=== PATIENT | female | born 1985 | race Caucasian/White ===

== ENCOUNTER 2017-01-03 23:28 | Emergency (ER) | payer SELFPAY ==
[~2017-01-03] VITALS: Ht 162.6 cm; Wt 85.3 kg
[2017-01-03] MEDS ORDERED: LEVOTHYROXINE0.1 MG PO (23:48)
[2017-01-04 00:18] LABS: URINE BILIRUBIN - DIPSTICK NEGATIVE (NEG); URINE BLOOD 2+ (NEG)
--- NOTE | 2017-01-04 00:22 | Emergency Room Report ---
History of Present Illness Time Seen by 232Ameena Presenting Problem in Triage Pt arrived:Walked Presenting Problem:PT STATES SHE STARTED A WEEK AGO HAVING A HARD TO VOIDING, DENIES ANY BURNING WITH URINATION, FEELS PRESSURE. STATES SHE HAS TROUBLE WITH LEFT KIDNEY. 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 N Clinical Suspician of Infection? N Mental Status: 1 - Regular (Normal Baseline) Sepsis Risk:Low Sepsis Risk Have you (or family members/close friends) recently traveled outside the [place]? N If Yes, where/when: Have you had exposure to infectious disease within the past month? N TB? Other? Specify: Source patient, RN notes reviewed, family, old records Exam Limitations no limitations Comment flank pain and pain with urination with no gross hematuria and no vag d/c - no trauma or fever and no rash Cardiac Chest Pain Chest pain indicative of cardiac No Timing/Duration this evening Severity moderate ALLERGIES Coded Allergies: codeine (01/03/17) metoclopramide (From REGLAN) (01/03/17) morphine (01/03/17) Home Medications Reported Medications LEVOTHYROXINE SOD (Synthroid) 0.1 MG PO DAILY History Medical History General CAD? No Angina: No [place]: No Hypertension? No Hyperlipidemia? No CHF? No DVT? No PE? No COPD? No Asthma? No Anemia? Yes GERD? No Gastric ulcers? No GI Bleed? No Hernia? No Thyroid Problems? Yes Hypothyroidism? Yes CVA? No Seizures? Yes Diabetes? No Renal Insuffiency? Yes End Stage Renal Disease? No UTI? No Stones? Yes BPH? No GB Disease: No Nephritic Syndrome? No Asplenia? No Hepatitis? No Sickle Cell Disease? No Arthritis? No Migraines? No Cataracts? No Glaucoma? No MRSA? No HIV? No TB? No Anxiety? Yes Depression? Yes Cancer? 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 Respiratory denies cough, denies shortness of breath, denies wheezing Cardiovascular denies chest pain, denies palpitations, denies syncope Gastrointestinal see HPI, abdominal pain, nausea, denies vomiting Genitourinary see HPI, dysuria. denies: discharge, abnormal vaginal bleeding, frequency, hesitancy, hematuria. Musculoskeletal denies back pain, denies joint pain, denies joint swelling, denies neck pain Skin denies rash Psychiatric/Neurological denies headache, denies seizure Physical Exam Vital Signs Vital Signs Date Time Temp Pulse Resp B/P Pulse O2 O2 Flow FiO2 Ox Delivery Rate 01/04 0102 71 20 115/73 98 01/03 2335 98.1 73 20 112/83 98 - WBC >12,000 or <4,000 or 10% bands? 2 or more SIRS Criteria Met? B/P:115/73 MAP:92 Creatinine >2.0? UA output<0.5ml/kg/hr for 2 hrs? Platelet count >100,000? Lactate >2.0mmol/1? INR >1.2 or PTT > than 60 sec? Evidence of Organ Dysfunction? Provider documented clinical suspician of infection? N Sepsis Criteria Count: 1 Sepsis Risk: Low Sepsis Risk General Appearance no apparent distress Eye Exam - bilateral eye PERRL, bilateral eye EOMI Ear, Nose, Throat normal ENT inspection Neck supple Respiratory Status No: respiratory distress. 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 No Results/Orders Laboratory Tests 01/04/17 0005: Sodium 138, Potassium 3.8, Chloride 104, Carbon Dioxide 28, BUN 11, Creatinine 0.6, Estimated Creat Clear 181, Estimated GFR (MDRD) 116, Glucose 127 H, Calcium 9.7, Total Bilirubin 0.3, AST 55 H, ALT 85 H, Alkaline Phosphatase 104 , Total Protein 7.6, Albumin 3.8, Globulin 3.8 H, Albumin/Globulin Ratio 1.0 L , Lipase 132, WBC 5.2, RBC 4.30, Hgb 12.8, Hct 38.5, MCV 89.6, RDW 12.8, Plt Count 193, MPV 7.1 L, Gran % 49.8, Gran # 2.6, Lymphocytes % 39.8, Monocytes % 5.2, Eosinophils % 4.9, Basophils % 0.3, Lymphocytes # 2.1, Monocytes # 0.3, Eosinophils # 0.3, Basophils # 0.0, PUBS MCHC 33.2, MCH 29.8 01/03/170: Urine Color YELLOW, Urine Appearance CLEAR, Urine pH 6.0, Ur Specific Catarina 1.025, Urine Protein NEGATIVE, Urine Ketones NEGATIVE, Urine Blood 2+ H, Urine Nitrate NEGATIVE, Urine Bilirubin NEGATIVE, Urine Urobilinogen 0.2, Ur Leukocyte Esterase NEGATIVE, Urine RBC 10-20, Urine WBC OCC, Ur Squamous Epith Cells 3-5, Urine Bacteria 1+, Urine Glucose NEGATIVE Current Medication Orders Sig/Alvino Start time Last Medication Dose Route Stop Time Status Admin Ketorolac 30 MG ONCE ONE 01/04 115 DC Tromethamine IV 01/05 116 Levofloxacin 500 MG ONCE ONE 01/04 115 DC PO 01/05 116 Ondansetron HCl 4 MG ONCE ONE 01/04 115 DC IV 01/05 116 Phenazopyridine HCl 200 MG ONCE ONE 01/04 115 DC PO 01/05 116 Sodium Chloride 10 ML PRN PRN 01/03 2345 AC IV 01/04 2345 Orders Procedure Date/time Status DIET-NOTHING BY MOUTH 01/04 B Active CULTURE, URINE 01/[address] ABD & PELVIS W/O CONTRAST 01/[address] SCAN REQ 01/03 2345 Complete IV SALINE LOCK 01/03 2345 Active URINALYSIS/COMPLETE 01/03 2345 Complete URINE 01/03 2345 Complete LIPASE 01/03 2345 Complete COMPLETE METABOLIC PANEL 01/03 2345 Complete CBC WITH AUTO DIFF 01/03 2345 Complete XRAY/CT/US XRAY/CT/US CT abdomen, pelvis CT interpretation by discussed w/radiologist Time results known: 0112 CT Results normal/NAD Departure Departure Time of Disposition 111 Disposition DC Home or Self Care(routine) Clinical Impression Primary Impression: Flank pain, acute Secondary Impressions: Urethritis Condition STABLE Patient Instructions DI for Flank Pain Additional Instructions use meds and see pcp for follow up Discharge Counseling Counseled pt/family regarding diagnosis, test results, medications/RX, follow up needs Prescriptions Current Visit Scripts Ciprofloxacin HCl (Cipro 500MG TAB) 500 MG PO BID #14 TAB Phenazopyridine HCl (Pyridium) 200 MG PO TID #10 TAB ED Critical Care Critical Care No at 0117
[2017-01-04 00:24] LABS: HEMOGLOBIN 12.8 g/dL (12.2-16.2); LYMPH # 2.1 K/mm3 (0.7-4.5); LYMPH % 39.8 % (10-50.0)
[2017-01-04] MEDS ORDERED: PYRIDIUM200 M2 PO (01:17)
[2017-01-04] MEDS ORDERED: CIPRO 500MG TA500 MG PO (01:17)
[2017-01-04 01:37] VITALS: BP 138/72
--- NOTE | 2017-01-04 09:57 | RADIOLOGY REPORT PS360 ---
CT ABD PELVIS W/O CONTRAST CLINICAL INDICATION: Left flank pain FLANK PAIN ORDERING PHYSICIAN: Laurita Arevalo MD PATIENT AGE: 31 years COMPARISON: None TECHNIQUE: Axial images obtained with sagittal and coronal reformats. PROCEDURE: Oral Contrast: None IV Contrast: None . FINDINGS: Lower chest has an unremarkable appearance. There is diffuse hepatic steatosis with some scattered hyperdensities around the gallbladder fossa region and may be related to ovarian of fatty liver. There is mild hepatomegaly. Splenomegaly at 15 cm. No radio opaque gallstones or biliary dilatation. The pancreas and adrenal glands are unremarkable. No renal calculi or hydronephrosis. No intestinal obstruction or free air. No evidence of diverticulitis or appendicitis. No pelvic mass or abnormal fluid collection There are postsurgical changes of the intra-abdominal wall with prior ventral abdominal hernia repair. No acute bony anomalies. IMPRESSION: 1. No acute intra-abdominal or pelvic pathology. 2. Mild hepatosplenomegaly with hepatic steatosis.
--- OUTSIDE RECORDS SUMMARY | 2017-01-08 04:01 | External Medical Summary Rpt | CCD ---
Author Author [employer] Organization [employer] Address Unknown Phone Unavailable Purpose Continuity of Care Document - through 2016
--- OUTSIDE RECORDS SUMMARY | 2017-01-08 04:01 | External Medical Summary Rpt | CCD ---
Demographics Preferred Language Slovenian Marital Status Unknown Quaker Affiliation Unknown Race Unknown Ethnic Group Unknown Author Author , JONATAN CHEUNG Address Unknown Phone Immunization No patient found.
--- OUTSIDE RECORDS SUMMARY | 2017-01-08 04:01 | External Medical Summary Rpt | CCD ---
Author Author JONATAN Address Unknown Phone [email or web address] Purpose Continuity of Care Document - 04-15-2013 through 2016
--- OUTSIDE RECORDS SUMMARY | 2017-01-08 04:01 | External Medical Summary Rpt | CCD ---
Demographics Preferred Language Upper Sorbian Marital Status Unknown Jewish Affiliation Unknown Race Unknown Ethnic Group Unknown Author Author , JONATAN CHEUNG Address Unknown Phone Immunization No patient found.
--- OUTSIDE RECORDS SUMMARY | 2017-01-08 04:01 | External Medical Summary Rpt | CCD ---
Author Author JONATAN Address Unknown Phone Purpose Continuity of Care Document - 04-15-2013 through 2016
--- OUTSIDE RECORDS SUMMARY | 2017-01-08 04:08 | External Medical Summary Rpt ---
Author Author JONATAN Wylie, [employer] Organization [employer] Address Unknown Phone Unavailable Results HGB\T\HCT Observa Value Referen Units Interpr Notes Date tion ce etation Range Hemoglo 9.6 10.0 - gm/dl Low No Jun 7 bin 16.0 informa 2017 [Mass/v tion in 3:45 AM olume] source in data Blood Hematoc 28.3 29.9 - % Low No Jul 02 rit 45.5 informa 2017 [Volume tion in 3:45 AM source Fractio data n] of Blood by Automat ed count GLUCOSE(REAGENT STRIP) Observa Value Referen Units Interpr Notes Date tion ce etation Range Glucose 90 70 - MG/DL No RN Jun 6 110 informa Notifie 2016 [Mass/v tion in d 1:51 AM olume] source in data Blood PH CORD BLOOD Observa Value Referen Units Interpr Notes Date tion ce etation Range pH of 7.247 7.170 - No No No Jul 01 Cord 7.410 informa informa informa 2017 blood tion in tion in tion in 12:56 source source source AM data data data URINALYSIS COMPLETE Observa Value Referen Units Interpr Notes Date tion ce etation Range Color YELLOW No No No No Jun 30 of informa informa informa informa 2017 Urine tion in tion in tion in tion in 7:20 PM source source source source data data data data Clarity CLOUDY No No No No Jun 30 of informa informa informa informa 2017 Urine tion in tion in tion in tion in 7:20 PM source source source source data data data data Glucose NEGATIV NEGATIV MG/DL No No Jun 30 E E informa informa 2017 [Presen tion in tion in 7:20 PM ce] in source source Urine data data by Automat ed test strip Bilirub NEGATIV NEGATIV No No No Jun 5 in E E informa informa informa 2017 [Presen tion in tion in tion in 7:20 PM ce] in source source source Urine data data data by Automat ed test strip Ketones NEGATIV NEGATIV MG/DL No No Apr 5 E E informa informa 2016 [Presen tion in tion in 7:20 PM ce] in source source Urine data data by Automat ed test strip Specifi 1.019 1.006 - No No No Apr 5 c 1.035 informa informa informa 2017 gravity tion in tion in tion in 7:20 PM of source source source Urine data data data by Automat ed test strip Erythro NEGATIV NEGATIV No No No Apr cytes E E informa informa informa 2016 [Presen tion in tion in tion in 7:20 PM ce] in source source source Urine data data data by Automat ed pH of 6.5 5.0 - No No No Apr 5 Urine 9.0 informa informa informa 2017 by tion in tion in tion in 7:20 PM Automat source source source ed test data data data strip Protein NEGATIV NEGATIV MG/DL No No Apr 5 E E informa informa 2016 [Presen tion in tion in 7:20 PM ce] in source source Urine data data by Automat ed test strip UROBILI 1.0 0.2 - E.U./DL No No Apr 5 NOGEN 1.0 informa informa 2016 tion in tion in 7:20 PM source source data data Nitrate NEGATIV NEGATIV No No No Apr 5 E E informa informa informa 2016 [Presen tion in tion in tion in 7:20 PM ce] in source source source Urine data data data Leukocy SMALL NEGATIV No Abnorma No Apr 5 benjamin E informa l informa 2016 [Presen tion in tion in 7:20 PM ce] in source source Urine data data by Automat ed Erythro 2 0 - 4 /HPF No No Apr 5 cytes informa informa 2016 [#/area tion in tion in 7:20 PM ] in source source Urine data data sedimen t by Microsc opy high power field WBC 4 0 - 5 /HPF No No Apr 5 COUNT informa informa 2016 tion in tion in 7:20 PM source source data data Epithel 4 0 - 6 /HPF No No Apr ial informa informa 2017 cells tion in tion in 7:20 PM [Presen source source ce] in data data Urine sedimen t by Light microsc opy Bacteri TRACE NEGATIV /HPF Abnorma BACTERI Jun 30 a E l A 2017 [#/area INTERPR 7:20 PM ] in ETATION Urine :NEGATI sedimen VE t by <=599/u Microsc lTRACE opy high >=600, power <=1199/ field ul1+ >=1200, <=2399/ ul2+ >=2400, <=3599/ ul3+ >=3600, <=4799/ ul4+ >=4800/ ul Hyaline 2 0 - 4 /LPF No No Jun 30 casts informa informa 2017 [#/area tion in tion in 7:20 PM ] in source source Urine data data sedimen t by Microsc opy high power field UR IN HOUSE DRUG SCREEN Observa Value Referen Units Interpr Notes Date tion ce etation Range N/A Ampheta NEG NEGATIV ug/ML No AMPHETA Apr mines E informa MINE 2016 [Presen tion in CUT OFF 7:20 PM ce] in source Urine data CONCENT by RATION Screen - 300 method >1000 ng/mL Barbitu NEG NEGATIV ug/ML No BARBITU Apr 5 rates E informa ATE CUT 2016 [Presen tion in OFF 7:20 PM ce] in source CONCENT Urine data RATION by - 200 Screen method Benzodi NEG NEGATIV ug/ML No BENZODI Apr 5 azepine E informa AZEPINE 2017 s tion in CUT 7:20 PM [Presen source OFF ce] in data CONCENT Urine RATION by - 200 Screen method Cocaine NEG NEGATIV ug/ML No COCAINE Jun 30 E informa CUT 2016 [Presen tion in OFF 7:20 PM ce] in source CONCENT Urine data RATION by - 300 Screen method Opiates NEG NEGATIV ug/ML No OPIATE Apr E informa CUT OFF 2016 [Presen tion in 7:20 PM ce] in source CONCENT Urine data RATION by - 300 Screen method Cannabi NEG NEGATIV NG/ML No THC CUT Apr 5 noids E informa OFF 2016 [Presen tion in CONCENT 7:20 PM ce] in source RATION Urine data - 50 by Screen method Methado NEG NEGATIV ug/ML No METHADO Jun 30 ne E informa NE CUT 2016 [Presen tion in OFF 7:20 PM ce] in source CONCENT Urine data RATION by - Screen 300THES method E RESULTS PROVIDE ONLY A PRELIMI NARY TEST RESULT. THEREIS A POSSIBI LITY THAT OVER THE COUNTER DRUGS MAY INTERFE REWITH THE TEST. CONFORM ITORY TEST CAN BE ORDERED [facility] CONSIDE RATION ANDPROF ESSIONA L JUDGEME NT SHOULD BE APPLIED TO ANY DRUG OF ABUSETE ST RESULT, PARTICU JEFF WHEN PRELIMI NARY POSITIV E RESULTS AREUSED . THESE DRUG SCREEN RESULTS ARE NOT FOR LEGAL APPLICA TIONS. OXYCODONE,UR.(QUAL) Observa Value Referen Units Interpr Notes Date tion ce etation Range N/A VERIFIED RESULTS FOR BUP/OXY REVIEWED BY: TECH = DORA Oxycodo NEGATIV No No No CONCENT Jun 30 ne E informa informa informa RATIONS 2016 [Presen tion in tion in tion in OF 7:20 PM ce] in source source source >625 Urine data data data NG/ML by OF Screen HYDROCO method DONE AND >100 NG/ML OF OXYCODO NECAUSE POSITIV E RESULTS BUPRENORPHINE,QUAL Observa Value Referen Units Interpr Notes Date tion ce etation Range N/A VERIFIED RESULTS FOR BUP/OXY REVIEWED BY: TECH = [facility] Bupreno NEGATIV No No No BUPRENO Jun 30 rphine E informa informa informa RPHRINE 2016 [Presen tion in tion in tion in CUT 7:20 PM ce] in source source source OFF Urine data data data CONCENT RATION - 12.5 NG/ML RPR Observa Value Referen Units Interpr Notes Date tion [place] [address] Reagin NONREAC NONREAC No No No Apr 5 Ab TIVE TIVE informa informa informa 2016 [Presen tion in tion in tion in 6:35 PM ce] in source source source Serum data data data by RPR TYPE AND SCREEN Observa Value Referen Units Interpr Notes Date tion ce etation Range TYPE TEXT~Na No No No No Jun 30 AND me: informa informa informa informa 2017 SCREEN JUAN, tion in tion in tion in tion in 6:35 PM SANA~Ac source source source source ct: data data data data [id number]~ABO O 7 20:16 lmf~RH( D) TYPING POS 7 20:16 lmf~ANT IBODY SCREEN NEG 7 20:11 lmf~AUT OCONTRO L 7 20:22 LMF CBC/NO DIFF+ PLATELET Observa Value Referen Units Interpr Notes Date tion [place] [address] Leukocy 9.3 3.0 - K/UL No No Jun 30 benjamin 11.3 informa informa 2016 [#/volu tion in tion in 6:35 PM me] in source source Blood data data by Automat ed count Erythro 4.130 3.450 - M/ul No No Jun 30 cytes 5.400 informa informa 2016 [#/volu tion in tion in 6:35 PM me] in source source Blood data data by Automat ed count Hemoglo 11.4 10.0 - gm/dl No No Jun 30 bin 16.0 informa informa 2016 [Mass/v tion in tion in 6:35 PM olume] source source in data data Blood Hematoc 34.3 29.9 - % No No Jun 30 rit 45.5 informa informa 2016 [Volume tion in tion in 6:35 PM source source Fractio data data n] of Blood by Automat ed count Erythro 83.3 78.2 - fl No No Jun 30 cyte 101.8 informa informa 2017 mean tion in tion in 6:35 PM corpusc source source ular data data volume [Entiti c volume] by Automat ed count Erythro 27.7 26.4 - pg No No Jun 30 cyte 33.3 informa informa 2017 mean tion in tion in 6:35 PM corpusc source source ular data data hemoglo bin [Entiti c mass] by Automat ed count Erythro 33.2 32.5 - g/dl No No Jun 30 cyte 35.3 informa informa 2017 mean tion in tion in 6:35 PM corpusc source source ular data data hemoglo bin concent ration [Mass/v olume] by Automat ed count Erythro 15.3 10.1 - % No No Jun 30 cyte 16.2 informa informa 2017 distrib tion in tion in 6:35 PM ution source source width data data [Ratio] by Automat ed count Platele 172 122 - K/UL No No Jun 30 ts 454 informa informa 2017 [#/volu tion in tion in 6:35 PM me] in source source Blood data data by Automat ed count Platele 8.6 6.4 - fl No No Jun 30 t mean 10.4 informa informa 2017 volume tion in tion in 6:35 PM [Entiti source source c data data volume] in Blood by Automat ed count UA, MICROSCOPIC REVIEW Observa Value Referen Units Interpr Notes Date tion ce etation Range WBC 0-5 0 - 5 HPF No No Jun 29 informa informa 2017 tion in tion in 1:00 PM source source data data Epithel 1-5 No HPF No No Jun 29 ial informa informa informa 2017 cells tion in tion in tion in 1:00 PM [Presen source source source ce] in data data data Urine sedimen t by Light microsc opy Mucus TRACE No No No No Jun 4 [#/area informa informa informa informa 2016 ] in tion in tion in tion in tion in 1:00 PM Urine source source source source sedimen data data data data t by Microsc opy high power field Bacteri TRACE Absent HPF Abnorma No Jun 4 a l informa 2017 [#/area tion in 1:00 PM ] in source Urine data sedimen t by Microsc opy high power field URINALYSIS COMPLETE Observa Value Referen Units Interpr Notes Date tion ce etation Range Color YELLOW No No No No Jun 4 of informa informa informa informa 2017 Urine tion in tion in tion in tion in 1:00 PM source source source source data data data data Clarity CLEAR No No No No Jun 29 of informa informa informa informa 2017 Urine tion in tion in tion in tion in 1:00 PM source source source source data data data data Glucose NEGATIV NEGATIV MG/DL No No Jun 4 E E informa informa 2017 [Presen tion in tion in 1:00 PM ce] in source source Urine data data by Automat ed test strip Bilirub NEGATIV NEGATIV No No No Jun 29 in E E informa informa informa 2016 [Presen tion in tion in tion in 1:00 PM ce] in source source source Urine data data data by Automat ed test strip Ketones TRACE NEGATIV MG/DL Abnorma No Jun 29 E l informa 2016 [Presen tion in 1:00 PM ce] in source Urine data by Automat ed test strip Specifi 1.020 1.006 - No No No Jun 29 c 1.035 informa informa informa 2017 gravity tion in tion in tion in 1:00 PM of source source source Urine data data data by Automat ed test strip Erythro NEGATIV NEGATIV No No No Jun 29 cytes E E informa informa informa 2016 [Presen tion in tion in tion in 1:00 PM ce] in source source source Urine data data data by Automat ed pH of 6.5 5.0 - No No No Jun 29 Urine 9.0 informa informa informa 2017 by tion in tion in tion in 1:00 PM Automat source source source ed test data data data strip Protein NEGATIV NEGATIV MG/DL No No Jun 29 E E informa informa 2016 [Presen tion in tion in 1:00 PM ce] in source source Urine data data by Automat ed test strip UROBILI 0.2 0.2 - E.U./DL No No Jun 29 NOGEN 1.0 informa informa 2017 tion in tion in 1:00 PM source source data data Nitrate NEGATIV NEGATIV No No No Jun 4 E E informa informa informa 2016 [Presen tion in tion in tion in 1:00 PM ce] in source source source Urine data data data Leukocy SMALL NEGATIV No Abnorma No Jun 4 benjamin E informa l informa 2016 [Presen tion in tion in 1:00 PM ce] in source source Urine data data by Automat ed BUPRENORPHINE,QUAL Observa Value Referen Units Interpr Notes Date tion ce etation Range n/a VERIFIED RESULTS FOR BUP/OXY REVIEWED BY: TECH = DORA Bupreno NEGATIV No No No BUPRENO Apr 4 rphine E informa informa informa RPHRINE 2017 [Presen tion in tion in tion in CUT 1:00 PM ce] in source source source OFF Urine data data data CONCENT RATION - 12.5 NG/ML OXYCODONE,UR.(QUAL) Observa Value Referen Units Interpr Notes Date tion ce etation Range n/a VERIFIED RESULTS FOR BUP/OXY REVIEWED BY: TECH = DORA Oxycodo NEGATIV No No No CONCENT Apr 4 ne E informa informa informa RATIONS 2016 [Presen tion in tion in tion in OF 1:00 PM ce] in source source source >625 Urine data data data NG/ML by OF Screen HYDROCO method DONE AND >100 NG/ML OF OXYCODO NECAUSE POSITIV E RESULTS UR IN HOUSE DRUG SCREEN Observa Value Referen Units Interpr Notes Date tion ce etation Range n/a Ampheta NEG NEGATIV ug/ML No AMPHETA Apr 4 mines E informa MINE 2016 [Presen tion in CUT OFF 1:00 PM ce] in source Urine data CONCENT by RATION Screen - 300 method >1000 ng/mL Barbitu NEG NEGATIV ug/ML No BARBITU Apr 4 rates E informa ATE CUT 2016 [Presen tion in OFF 1:00 PM ce] in source CONCENT Urine data RATION by - 200 Screen method Benzodi NEG NEGATIV ug/ML No BENZODI Apr 4 azepine E informa AZEPINE 2017 s tion in CUT 1:00 PM [Presen source OFF ce] in data CONCENT Urine RATION by - 200 Screen method Cocaine NEG NEGATIV ug/ML No COCAINE Apr 4 E informa CUT 2016 [Presen tion in OFF 1:00 PM ce] in source CONCENT Urine data RATION by - 300 Screen method Opiates NEG NEGATIV ug/ML No OPIATE Apr 4 E informa CUT OFF 2016 [Presen tion in 1:00 PM ce] in source CONCENT Urine data RATION by - 300 Screen method Cannabi NEG NEGATIV NG/ML No THC CUT Apr 4 noids E informa OFF 2016 [Presen tion in CONCENT 1:00 PM ce] in source RATION Urine data - 50 by Screen method Methado NEG NEGATIV ug/ML No METHADO Apr 4 ne E informa NE CUT 2016 [Presen tion in OFF 1:00 PM ce] in source CONCENT Urine data RATION by - Screen 300THES method E RESULTS PROVIDE ONLY A PRELIMI NARY TEST RESULT. THEREIS A POSSIBI LITY THAT OVER THE COUNTER DRUGS MAY INTERFE REWITH THE TEST. CONFORM ITORY TEST CAN BE ORDERED AT [facility] CONSIDE RATION ANDPROF ESSIONA L JUDGEME NT SHOULD BE APPLIED TO ANY DRUG OF ABUSETE ST RESULT, PARTICU JEFF WHEN PRELIMI NARY POSITIV E RESULTS AREUSED . THESE DRUG SCREEN RESULTS ARE NOT FOR LEGAL APPLICA TIONS. GROUP B STREP SCREEN Observa Value Referen Units Interpr Notes Date tion ce etation Range GROUP B NO No No No No Jun 08 STREP GROUP B informa informa informa informa 2016 SCREEN tion in tion in tion in tion in 5:35 PM STREPTO source source source source COCCUS data data data data ISOLATE D USING DIRECT GROUP B INOCULA No No No ORDER#: Jun 08 STREP TION informa informa informa 2017 SCREEN AND tion in tion in tion in [id number] 5:35 PM BROTH source source source 9 ENHANCE data data data MENT PROCEDU RES. ORDERED BY: MANINDER ETIENNE RSOURCE : VAGINAL /RECTAL COLLECT ED: 7 17:35AN TIBDAVI CS AT SINGH.: RECEIVE D : 7 17:56GR OUP B STREP SCREEN FINAL 7 08:1403 NO GROUP B STREPTO COCCUS ISOLATE D USING DIRECTI NOCULAT ION AND BROTH ENHANCE MENT PROCEDU RES. UA, MICROSCOPIC REVIEW Observa Value Referen Units Interpr Notes Date tion ce etation Range WBC 5-10 0 - 5 HPF Abnorma No Jun 06 l informa 2016 tion in 1:40 AM source data Epithel 10-15 No HPF No No Jun 06 ial informa informa informa 2017 cells tion in tion in tion in 1:40 AM [Presen source source source ce] in data data data Urine sedimen t by Light microsc opy CRYSTAL MOD CA No HPF No No Jun 06 S OX informa informa informa 2017 tion in tion in tion in 1:40 AM source source source data data data URINALYSIS COMPLETE Observa Value Referen Units Interpr Notes Date tion ce etation Range Color YELLOW No No No No Jun 06 of informa informa informa informa 2017 Urine tion in tion in tion in tion in 1:40 AM source source source source data data data data Clarity CLOUDY No No No No Jun 06 of informa informa informa informa 2017 Urine tion in tion in tion in tion in 1:40 AM source source source source data data data data Glucose NEGATIV NEGATIV MG/DL No No Jun 06 E E informa informa 2017 [Presen tion in tion in 1:40 AM ce] in source source Urine data data by Automat ed test strip Bilirub NEGATIV NEGATIV No No No Jun 06 in E E informa informa informa 2017 [Presen tion in tion in tion in 1:40 AM ce] in source source source Urine data data data by Automat ed test strip Ketones NEGATIV NEGATIV MG/DL No No Jun 06 E E informa informa 2016 [Presen tion in tion in 1:40 AM ce] in source source Urine data data by Automat ed test strip Specifi 1.023 1.006 - No No No Jun 06 c 1.035 informa informa informa 2017 gravity tion in tion in tion in 1:40 AM of source source source Urine data data data by Automat ed test strip Erythro NEGATIV NEGATIV No No No Jun 06 cytes E E informa informa informa 2017 [Presen tion in tion in tion in 1:40 AM ce] in source source source Urine data data data by Automat ed pH of 6.5 5.0 - No No No Jun 06 Urine 9.0 informa informa informa 2017 by tion in tion in tion in 1:40 AM Automat source source source ed test data data data strip Protein NEGATIV NEGATIV MG/DL No No Jun 06 E E informa informa 2016 [Presen tion in tion in 1:40 AM ce] in source source Urine data data by Automat ed test strip UROBILI 1.0 0.2 - E.U./DL No No Jun 06 NOGEN 1.0 informa informa 2017 tion in tion in 1:40 AM source source data data Nitrate NEGATIV NEGATIV No No No Jun 06 E E informa informa informa 2017 [Presen tion in tion in tion in 1:40 AM ce] in source source source Urine data data data Leukocy SMALL NEGATIV No Abnorma No Jun 06 benjamin E informa l informa 2017 [Presen tion in tion in 1:40 AM ce] in source source Urine data data by Automat ed GLOMELULAR ESTEFANI. RATE,CALC. Observa Value Referen Units Interpr Notes Date tion ce etation Range Glomeru 184.7 60.0 - ml/min No THE Jun 06 lar 200.0 informa eGFR IS 2017 filtrat tion in AN 1:25 AM ion source ESTIMAT rate/1. data ED 73 sq M GLOMELU LAR predict FILTRAT ed ION among RATEBAS non-karina ED ON cks by AN Creatin AVERAGE ine-bas BODY ed SURFACE formula AREA (MDRD) OF 1.73M2. THIS CALCULA TION IS NOT ACCURAT E FOR PEDIATR IC PATIENT S,PATIE NTS >70 YEARS OF AGE,OR PATIENT S WITH EXTREME BODY SIZE.>6 0 ML/MIN/ 1.73M2 = NORMAL< 60 ML/MIN/ 1.73M2 = CHRONIC KIDNEY DISEASE <15 ML/MIN/ 1.73M2 = KIDNEY FAILURE AVERAGE EGFR FOLLOWS :AGE(YE ARS) AVERAGE EGFR20- 39 116 ML/MIN3 0-39 107 ML/MIN4 0-49 99 ML/MIN5 0-59 93 ML/MIN6 0-69 85 ML/MIN COMP. METABOLIC PANEL (CHEM 12) Observa Value Referen Units Interpr Notes Date tion ce etation Range Glucose 91 70 - MG/DL No No Jun 06 110 informa informa 2016 [Mass/v tion in tion in 1:25 AM olume] source source in data data Serum or Plasma Urea 6 7 - 18 MG/DL Low No Jun 06 nitroge informa 2017 n tion in 1:25 AM [Mass/v source olume] data in Serum or Plasma Sodium 136 133 - mmol/L No No Jun 06 [Moles/ 144 informa informa 2017 volume] tion in tion in 1:25 AM in source source Serum data data or Plasma Potassi 4.0 3.6 - mmol/l No No Jun 06 um 5.2 informa informa 2017 [Moles/ tion in tion in 1:25 AM volume] source source in data data Serum or Plasma Chlorid 107 98 - mmol/l No No Jun 06 e 107 informa informa 2016 [Moles/ tion in tion in 1:25 AM volume] source source in data data Blood Carbon 20 21 - 32 mmol/L Low No Jun 06 dioxide informa 2017 , total tion in 1:25 AM source [Moles/ data volume] in Serum or Plasma Creatin 0.40 0.60 - MG/DL Low No Jun 06 ine 1.30 informa 2017 [Mass/v tion in 1:25 AM olume] source in data Serum or Plasma Protein 6.4 6.4 - G/DL No No Jun 06 8.4 informa informa 2017 [Mass/v tion in tion in 1:25 AM olume] source source in data data Serum or Plasma Albumin 2.5 3.4 - G/DL Low No Jun 06 5.0 informa 2016 [Mass/v tion in 1:25 AM olume] source in data Serum or Plasma Globuli 3.9 2.4 - G/DL No No Jun 06 n 4.8 informa informa 2016 [Mass/v tion in tion in 1:25 AM olume] source source in data data Plasma Albumin 0.6 0.6 - No No No Jun 06 /Globul 1.6 informa informa informa 2017 in tion in tion in tion in 1:25 AM [Mass source source source ratio] data data data in Serum or Plasma Calcium 8.6 8.5 - MG/DL No No Jun 06 10.1 informa informa 2017 [Mass/v tion in tion in 1:25 AM olume] source source in data data Serum or Plasma Alkalin 132 45 - U/L High No Jun 06 e 117 informa 2016 phospha tion in 1:25 AM tase source [Enzyma data tic activit y/volum e] in Serum or Plasma Asparta 26 15 - 37 U/L No No Jun 06 te informa informa 2017 aminotr tion in tion in 1:25 AM ansfera source source se data data [Enzyma tic activit y/volum e] in Serum or Plasma Alanine 20 12 - 78 U/L No No Jun 06 informa informa 2017 aminotr tion in tion in 1:25 AM ansfera source source se data data [Enzyma tic activit y/volum e] in Serum or Plasma Bilirub 0.30 0.00 - MG/DL No No Jun 06 in.tota 1.00 informa informa 2016 l tion in tion in 1:25 AM [Mass/v source source olume] data data in Serum or Plasma LIPASE Observa Value Referen Units Interpr Notes Date tion ce etation Range Lipase 113 73 - U/L No No Jun 06 [Enzyma 393 informa informa 2017 tic tion in tion in 1:25 AM activit source source y/volum data data e] in Serum or Plasma CBC\T\AUTO DIFF Observa Value Referen Units Interpr Notes Date tion ce etation Range Leukocy 11.9 3.0 - K/UL High No Jun 06 benjamin 11.3 informa 2016 [#/volu tion in 1:25 AM me] in source Blood data by Automat ed count Erythro 4.060 3.450 - M/ul No No Jun 06 cytes 5.400 informa informa 2016 [#/volu tion in tion in 1:25 AM me] in source source Blood data data by Automat ed count Hemoglo 11.5 10.0 - gm/dl No No Jun 06 bin 16.0 informa informa 2016 [Mass/v tion in tion in 1:25 AM olume] source source in data data Blood Hematoc 34.1 29.9 - % No No Jun 06 rit 45.5 informa informa 2016 [Volume tion in tion in 1:25 AM source source Fractio data data n] of Blood by Automat ed count Erythro 84.0 78.2 - fl No No Jun 06 cyte 101.8 informa informa 2017 mean tion in tion in 1:25 AM corpusc source source ular data data volume [Entiti c volume] by Automat ed count Erythro 28.4 26.4 - pg No No Jun 06 cyte 33.3 informa informa 2016 mean tion in tion in 1:25 AM corpusc source source ular data data hemoglo bin [Entiti c mass] by Automat ed count Erythro 33.8 32.5 - g/dl No No Jun 06 cyte 35.3 informa informa 2017 mean tion in tion in 1:25 AM corpusc source source ular data data hemoglo bin concent ration [Mass/v olume] by Automat ed count Erythro 14.8 10.1 - % No No Jun 06 cyte 16.2 informa informa 2017 distrib tion in tion in 1:25 AM ution source source width data data [Ratio] by Automat ed count Platele 204 122 - K/UL No No Jun 06 ts 454 informa informa 2017 [#/volu tion in tion in 1:25 AM me] in source source Blood data data by Automat ed count Platele 8.2 6.4 - fl No No Jun 06 t mean 10.4 informa informa 2017 volume tion in tion in 1:25 AM [Entiti source source c data data volume] in Blood by Automat ed count Neutrop 74.1 43.0 - % No No Jun 06 hils/10 83.0 informa informa 2017 0 tion in tion in 1:25 AM leukocy source source benjamin in data data Blood by Automat ed count Lymphoc 18.4 10.0 - % No No Jun 06 ytes/10 42.0 informa informa 2017 0 tion in tion in 1:25 AM leukocy source source benjamin in data data Blood by Automat ed count Monocyt 5.2 1.0 - % No No Jun 06 es/100 14.0 informa informa 2017 leukocy tion in tion in 1:25 AM benjamin in source source Blood data data by Automat ed count Eosinop 1.9 0.0 - % No No Jun 06 hils/10 9.0 informa informa 2017 0 tion in tion in 1:25 AM leukocy source source benjamin in data data Blood by Automat ed count Basophi 0.4 0.0 - % No No Jun 06 ls/100 2.0 informa informa 2017 leukocy tion in tion in 1:25 AM benjamin in source source Blood data data by Automat ed count Neutrop 8.8 2.7 - K/ul High No Jun 06 hils 6.9 informa 2017 [#/volu tion in 1:25 AM me] in source Blood data by Automat ed count Lymphoc 2.2 0.4 - K/ul No No Jun 06 ytes 3.9 informa informa 2016 [#/volu tion in tion in 1:25 AM me] in source source Blood data data by Automat ed count Monocyt 0.6 0.2 - K/ul No No Jun 06 es 0.6 informa informa 2016 [#/volu tion in tion in 1:25 AM me] in source source Blood data data by Automat ed count Eosinop 0.2 0.0 - K/ul No No Jun 06 hils 0.9 informa informa 2016 [#/volu tion in tion in 1:25 AM me] in source source Blood data data by Automat ed count Basophi 0.0 0.0 - K/ul No No Jun 06 ls 0.2 informa informa 2016 [#/volu tion in tion in 1:25 AM me] in source source Blood data data by Automat ed count TSH Observa Value Referen Units Interpr Notes Date tion ce etation Range Thyrotr 2.770 0.358 - uIU/ML No No May 24 opin 3.740 informa informa 2016 [Units/ tion in tion in 11:32 volume] source source AM in data data Serum or Plasma by Detecti on limit <= 0.005 mU/L RBC ANTIBODY SCREEN Observa Value Referen Units Interpr Notes Date tion ce etation Range Blood TEXT~Na No No No No Apr 15 group me: informa informa informa informa 2017 antibod SULLIVA tion in tion in tion in tion in 9:19 AM y N, source source source source screen SANA~Ac data data data data [Presen ct: ce] in [id number] Serum 533~ANT or IBODY Plasma SCREEN NEG 7 06:31 sdh TSH Observa Value Referen Units Interpr Notes Date tion ce etation Range Thyrotr 4.100 0.358 - uIU/ML High No Apr 15 opin 3.740 informa 2016 [Units/ tion in 9:19 AM volume] source in data Serum or Plasma by Detecti on limit <= 0.005 mU/L CBC\T\AUTO DIFF Observa Value Referen Units Interpr Notes Date tion ce etation Range Leukocy 8.9 3.0 - K/UL No No Apr 15 benjamin 11.3 informa informa 2016 [#/volu tion in tion in 9:19 AM me] in source source Blood data data by Automat ed count Erythro 4.030 3.450 - M/ul No No Apr 15 cytes 5.400 informa informa 2016 [#/volu tion in tion in 9:19 AM me] in source source Blood data data by Automat ed count Hemoglo 11.8 10.0 - gm/dl No No Apr 15 bin 16.0 informa informa 2016 [Mass/v tion in tion in 9:19 AM olume] source source in data data Blood Hematoc 35.0 29.9 - % No No Apr 15 rit 45.5 informa informa 2017 [Volume tion in tion in 9:19 AM source source Fractio data data n] of Blood by Automat ed count Erythro 86.6 78.2 - fl No No Apr 15 cyte 101.8 informa informa 2017 mean tion in tion in 9:19 AM corpusc source source ular data data volume [Entiti c volume] by Automat ed count Erythro 29.3 26.4 - pg No No Apr 15 cyte 33.3 informa informa 2017 mean tion in tion in 9:19 AM corpusc source source ular data data hemoglo bin [Entiti c mass] by Automat ed count Erythro 33.8 32.5 - g/dl No No Apr 15 cyte 35.3 informa informa 2017 mean tion in tion in 9:19 AM corpusc source source ular data data hemoglo bin concent ration [Mass/v olume] by Automat ed count Erythro 14.3 10.1 - % No No Apr 15 cyte 16.2 informa informa 2017 distrib tion in tion in 9:19 AM ution source source width data data [Ratio] by Automat ed count Platele 166 122 - K/UL No No Apr 15 ts 454 informa informa 2016 [#/volu tion in tion in 9:19 AM me] in source source Blood data data by Automat ed count Platele 8.8 6.4 - fl No No Apr 15 t mean 10.4 informa informa 2017 volume tion in tion in 9:19 AM [Entiti source source c data data volume] in Blood by Automat ed count Neutrop 73.7 43.0 - % No No Apr 15 hils/10 83.0 informa informa 2017 0 tion in tion in 9:19 AM leukocy source source benjamin in data data Blood by Automat ed count Lymphoc 18.6 10.0 - % No No Apr 15 ytes/10 42.0 informa informa 2017 0 tion in tion in 9:19 AM leukocy source source benjamin in data data Blood by Automat ed count Monocyt 4.7 1.0 - % No No Apr 15 es/100 14.0 informa informa 2016 leukocy tion in tion in 9:19 AM bnejamin in source source Blood data data by Automat ed count Eosinop 2.7 0.0 - % No No Apr 15 hils/10 9.0 informa informa 2016 0 tion in tion in 9:19 AM leukocy source source benjamin in data data Blood by Automat ed count Basophi 0.3 0.0 - % No No Apr 15 ls/100 2.0 informa informa 2016 leukocy tion in tion in 9:19 AM benjamin in source source Blood data data by Automat ed count Neutrop 6.6 2.7 - K/ul No No Apr 15 hils 6.9 informa informa 2016 [#/volu tion in tion in 9:19 AM me] in source source Blood data data by Automat ed count Lymphoc 1.7 0.4 - K/ul No No Apr 15 ytes 3.9 informa informa 2016 [#/volu tion in tion in 9:19 AM me] in source source Blood data data by Automat ed count Monocyt 0.4 0.2 - K/ul No No Apr 15 es 0.6 informa informa 2016 [#/volu tion in tion in 9:19 AM me] in source source Blood data data by Automat ed count Eosinop 0.2 0.0 - K/ul No No Apr 15 hils 0.9 informa informa 2016 [#/volu tion in tion in 9:19 AM me] in source source Blood data data by Automat ed count Basophi 0.0 0.0 - K/ul No No Apr 15 ls 0.2 informa informa 2016 [#/volu tion in tion in 9:19 AM me] in source source Blood data data by Automat ed count US Renal Elmer Observa Value Referen Units Interpr Notes Date tion ce etation Range TEXT [place] No No No No Apr 11 DIAGNOS t Order informa informa informa informa 2016 IS tion in tion in tion in tion in 11:28 BATTERY Descrip source source source source PM tion: data data data data US RENAL BILATER AL - ,\.br\\ .br\\.b r\BILAT ERAL RENAL ULTRASO UND\.br \\.br\C OMPARIS ON: 11/13/19 14.\.br \\.br\R ight kidney measure s 12 cm and the left kidney measure s 12.2 cm in pole to pole length. No hydrone phrosis or perinep hric fluid collect ion. Grossly normal renal cortica l thickne ss and echogen icity. The urinary bladder is poorly evaluat ed. Gravid uterus is noted.\ .br\\.b r\ IMPRESS ION: No hydrone phrosis . Otherwi se grossly unremar kable exam.\. br\\.br \ END OF REPORT* *\.br\\ .br\Bra christen Lai M.D.\.b r\\.br\ Dictate d: 04/12/19 17 6:39 AM\.br\ \.br\Tr anscrib ed: 04/12/19 17 6:52 AM\.br\ \.br\ * Final Report \.br \\.br\D ictated : Otto Lai 017 6:39 am\.br\ \.br\Tr anscrib ed by: MH 017 6:53 am\.br\ \.br\Au thentic ated by: Otto Lai 017 7:47 am\.br\ \.br\ URINALYSIS COMPLETE Observa Value Referen Units Interpr Notes Date ti ce etation Range Color YELLOW No No No No Apr 11 of informa informa informa informa 2017 Urine tion in tion in tion in tion in 11:18 source source source source PM data data data data Clarity CLEAR No No No No Apr 11 of informa informa informa informa 2017 Urine tion in tion in tion in tion in 11:18 source source source source PM data data data data Glucose NEGATIV NEGATIV MG/DL No No Apr 11 E E informa informa 2017 [Presen tion in tion in 11:18 ce] in source source PM Urine data data by Automat ed test strip Bilirub NEGATIV NEGATIV No No No Apr 11 in E E informa informa informa 2016 [Presen tion in tion in tion in 11:18 ce] in source source source PM Urine data data data by Automat ed test strip Ketones NEGATIV NEGATIV MG/DL No No Apr 11 E E informa informa 2016 [Presen tion in tion in 11:18 ce] in source source PM Urine data data by Automat ed test strip Specifi 1.017 1.006 - No No No Apr 11 c 1.035 informa informa informa 2017 gravity tion in tion in tion in 11:18 of source source source PM Urine data data data by Automat ed test strip Erythro NEGATIV NEGATIV No No No Apr 11 cytes E E informa informa informa 2016 [Presen tion in tion in tion in 11:18 ce] in source source source PM Urine data data data by Automat ed pH of 7.0 5.0 - No No No Apr 11 Urine 9.0 informa informa informa 2017 by tion in tion in tion in 11:18 Automat source source source PM ed test data data data strip Protein NEGATIV NEGATIV MG/DL No No Apr 11 E E informa informa 2016 [Presen tion in tion in 11:18 ce] in source source PM Urine data data by Automat ed test strip UROBILI 1.0 0.2 - E.U./DL No No Apr 11 NOGEN 1.0 informa informa 2017 tion in tion in 11:18 source source PM data data Nitrate NEGATIV NEGATIV No No No Apr 11 E E informa informa informa 2017 [Presen tion in tion in tion in 11:18 ce] in source source source PM Urine data data data Leukocy NEGATIV NEGATIV No No No Apr 11 benjamin E E informa informa informa 2016 [Presen tion in tion in tion in 11:18 ce] in source source source PM Urine data data data by Automat ed Erythro 0 0 - 4 /HPF No No Apr 11 cytes informa informa 2016 [#/area tion in tion in 11:18 ] in source source PM Urine data data sedimen t by Microsc opy high power field WBC 1 0 - 5 /HPF No No Apr 11 COUNT informa informa 2017 tion in tion in 11:18 source source PM data data Epithel 1 0 - 6 /HPF No No Apr 11 ial informa informa 2017 cells tion in tion in 11:18 [Presen source source PM ce] in data data Urine sedimen t by Light microsc opy Bacteri NEGATIV NEGATIV /HPF No BACTERI Apr 11 a E E informa A 2016 [#/area tion in INTERPR 11:18 ] in source ETATION PM Urine data :NEGATI sedimen VE t by <=599/u Microsc lTRACE opy high >=600, power <=1199/ field ul1+ >=1200, <=2399/ ul2+ >=2400, <=3599/ ul3+ >=3600, <=4799/ ul4+ >=4800/ ul Hyaline 0 0 - 4 /LPF No No Apr 11 casts informa informa 2016 [#/area tion in tion in 11:18 ] in source source PM Urine data data sedimen t by Microsc opy high power field CBC\T\AUTO DIFF Observa Value Referen Units Interpr Notes Date tion ce etation Range Leukocy 9.0 3.0 - K/UL No No Apr 11 benjamin 11.3 informa informa 2016 [#/volu tion in tion in 11:08 me] in source source PM Blood data data by Automat ed count Erythro 3.740 3.450 - M/ul No No Apr 11 cytes 5.400 informa informa 2016 [#/volu tion in tion in 11:08 me] in source source PM Blood data data by Automat ed count Hemoglo 11.0 10.0 - gm/dl No No Apr 11 bin 16.0 informa informa 2016 [Mass/v tion in tion in 11:08 olume] source source PM in data data Blood Hematoc 32.5 29.9 - % No No Apr 11 rit 45.5 informa informa 2016 [Volume tion in tion in 11:08 source source PM Fractio data data n] of Blood by Automat ed count Erythro 87.0 78.2 - fl No No Apr 11 cyte 101.8 informa informa 2017 mean tion in tion in 11:08 corpusc source source PM ular data data volume [Entiti c volume] by Automat ed count Erythro 29.4 26.4 - pg No No Apr 11 cyte 33.3 informa informa 2016 mean tion in tion in 11:08 corpusc source source PM ular data data hemoglo bin [Entiti c mass] by Automat ed count Erythro 33.8 32.5 - g/dl No No Apr 11 cyte 35.3 informa informa 2016 mean tion in tion in 11:08 corpusc source source PM ular data data hemoglo bin concent ration [Mass/v olume] by Automat ed count Erythro 14.3 10.1 - % No No Apr 11 cyte 16.2 informa informa 2016 distrib tion in tion in 11:08 ution source source PM width data data [Ratio] by Automat ed count Platele 182 122 - K/UL No No Apr 11 ts 454 informa informa 2016 [#/volu tion in tion in 11:08 me] in source source PM Blood data data by Automat ed count Platele 7.8 6.4 - fl No No Apr 11 t mean 10.4 informa informa 2017 volume tion in tion in 11:08 [Entiti source source PM c data data volume] in Blood by Automat ed count Neutrop 72.4 43.0 - % No No Apr 11 hils/10 83.0 informa informa 2017 0 tion in tion in 11:08 leukocy source source PM benjamin in data data Blood by Automat ed count Lymphoc 19.4 10.0 - % No No Apr 11 ytes/10 42.0 informa informa 2017 0 tion in tion in 11:08 leukocy source source PM benjamin in data data Blood by Automat ed count Monocyt 4.8 1.0 - % No No Apr 11 es/100 14.0 informa informa 2017 leukocy tion in tion in 11:08 benjamin in source source PM Blood data data by Automat ed count Eosinop 3.0 0.0 - % No No Apr 11 hils/10 9.0 informa informa 2017 0 tion in tion in 11:08 leukocy source source PM benjamin in data data Blood by Automat ed count Basophi 0.4 0.0 - % No No Apr 11 ls/100 2.0 informa informa 2017 leukocy tion in tion in 11:08 benjamin in source source PM Blood data data by Automat ed count Neutrop 6.5 2.7 - K/ul No No Apr 11 hils 6.9 informa informa 2016 [#/volu tion in tion in 11:08 me] in source source PM Blood data data by Automat ed count Lymphoc 1.7 0.4 - K/ul No No Apr 11 ytes 3.9 informa informa 2016 [#/volu tion in tion in 11:08 me] in source source PM Blood data data by Automat ed count Monocyt 0.4 0.2 - K/ul No No Apr 11 es 0.6 informa informa 2016 [#/volu tion in tion in 11:08 me] in source source PM Blood data data by Automat ed count Eosinop 0.3 0.0 - K/ul No No Apr 11 hils 0.9 informa informa 2016 [#/volu tion in tion in 11:08 me] in source source PM Blood data data by Automat ed count Basophi 0.0 0.0 - K/ul No No Apr 11 ls 0.2 informa informa 2016 [#/volu tion in tion in 11:08 me] in source source PM Blood data data by Automat ed count COMP. METABOLIC PANEL (CHEM 12) Observa Value Referen Units Interpr Notes Date tion ce etation Range Glucose 119 70 - MG/DL High No Apr 11 110 informa 2017 [Mass/v tion in 11:08 olume] source PM in data Serum or Plasma Urea 7 7 - 18 MG/DL No No Apr 11 nitroge informa informa 2016 n tion in tion in 11:08 [Mass/v source source PM olume] data data in Serum or Plasma Sodium 138 133 - mmol/L No No Apr 11 [Moles/ 144 informa informa 2017 volume] tion in tion in 11:08 in source source PM Serum data data or Plasma Potassi 3.9 3.6 - mmol/l No No Apr 11 um 5.2 informa informa 2016 [Moles/ tion in tion in 11:08 volume] source source PM in data data Serum or Plasma Chlorid 107 98 - mmol/l No No Apr 11 e 107 informa informa 2016 [Moles/ tion in tion in 11:08 volume] source source PM in data data Blood Carbon 24 21 - 32 mmol/L No No Apr 11 dioxide informa informa 2016 , total tion in tion in 11:08 source source PM [Moles/ data data volume] in Serum or Plasma Creatin 0.60 0.60 - MG/DL No No Apr 11 ine 1.30 informa informa 2016 [Mass/v tion in tion in 11:08 olume] source source PM in data data Serum or Plasma Protein 6.3 6.4 - G/DL Low No Apr 11 8.4 informa 2016 [Mass/v tion in 11:08 olume] source PM in data Serum or Plasma Albumin 2.4 3.4 - G/DL Low No Apr 11 5.0 informa 2016 [Mass/v tion in 11:08 olume] source PM in data Serum or Plasma Globuli 3.9 2.4 - G/DL No No Apr 11 n 4.8 informa informa 2016 [Mass/v tion in tion in 11:08 olume] source source PM in data data Plasma Albumin 0.6 0.6 - No No Apr 11 /Globul 1.6 informa informa informa 2016 in tion in tion in tion in 11:08 [Mass source source source PM ratio] data data data in Serum or Plasma Calcium 8.4 8.5 - MG/DL Low No Apr 11 10.1 informa 2016 [Mass/v tion in 11:08 olume] source PM in data Serum or Plasma Alkalin 82 45 - U/L No No Apr 11 e 117 informa informa 2017 phospha tion in tion in 11:08 tase source source PM [Enzyma data data tic activit y/volum e] in Serum or Plasma Asparta 19 15 - 37 U/L No No Apr 11 te informa informa 2017 aminotr tion in tion in 11:08 ansfera source source PM se data data [Enzyma tic activit y/volum e] in Serum or Plasma Alanine 20 12 - 78 U/L No No Apr 11 informa informa 2017 aminotr tion in tion in 11:08 ansfera source source PM se data data [Enzyma tic activit y/volum e] in Serum or Plasma Bilirub 0.20 0.00 - MG/DL No No Apr 11 in.tota 1.00 informa informa 2017 l tion in tion in 11:08 [Mass/v source source PM olume] data data in Serum or Plasma GLOMELULAR ESTEFANI. RATE,CALC. Observa Value Referen Units Interpr Notes Date tion ce etation Range Glomeru 115.8 60.0 - ml/min No THE Apr 11 lar 200.0 informa eGFR IS 2017 filtrat tion in AN 11:08 ion source ESTIMAT PM rate/1. data ED 73 sq M GLOMELU LAR predict FILTRAT ed ION among RATEBAS non-karina ED ON cks by AN Creatin AVERAGE ine-bas BODY ed SURFACE formula AREA (MDRD) OF 1.73M2. THIS CALCULA TION IS NOT ACCURAT E FOR PEDIATR IC PATIENT S,PATIE NTS >70 YEARS OF AGE,OR PATIENT S WITH EXTREME BODY SIZE.>6 0 ML/MIN/ 1.73M2 = NORMAL< 60 ML/MIN/ 1.73M2 = CHRONIC KIDNEY DISEASE <15 ML/MIN/ 1.73M2 = KIDNEY FAILURE AVERAGE EGFR FOLLOWS :AGE(YE ARS) AVERAGE EGFR20- 39 116 ML/MIN3 0-39 107 ML/MIN4 0-49 99 ML/MIN5 0-59 93 ML/MIN6 0-69 85 ML/MIN LIPASE Observa Value Referen Units Interpr Notes Date tion ce etation Range Lipase 106 73 - U/L No No Apr 11 [Enzyma 393 informa informa 2017 tic tion in tion in 11:08 activit source source PM y/volum data data e] in Serum or Plasma AMYLASE Observa Value Referen Units Interpr Notes Date tion ce etation Range Amylase 36 25 - U/L No No Apr 11 115 informa informa 2016 [Enzyma tion in tion in 11:08 tic source source PM activit data data y/volum e] in Serum or Plasma URINE CULTURE Observa Value Referen Units Interpr Notes Date tion ce etation Range Bacteri >100,00 No No No ORDER#: Mar 15 a 0 informa informa informa 2016 identif ORGS/ML tion in tion in tion in [id number] 9:49 AM ied in OF source source source 0 Urine MIXED data data data by SKIN Culture ERIS. ORDERED BY: ROWAN ALEXANDRA: CLEAN CATCH URINE COLLECT ED: 6 09:49AN DENZEL CS AT SINGH.: RECEIVE D : 6 11:55UR INE CULTURE FINAL 08:2612 >100,00 0 ORGS/ML OF MIXED SKIN ERIS. URINALYSIS COMPLETE Observa Value Referen Units Interpr Notes Date ti ce etation Range Color YELLOW No No No No Mar 15 of informa informa informa informa 2016 Urine tion in tion in tion in tion in 9:49 AM source source source source data data data data Clarity CLOUDY No No No No Mar 15 of informa informa informa informa 2016 Urine tion in tion in tion in tion in 9:49 AM source source source source data data data data Glucose NEGATIV NEGATIV MG/DL No No Mar 15 E E informa informa 2016 [Presen tion in tion in 9:49 AM ce] in source source Urine data data by Automat ed test strip Bilirub NEGATIV NEGATIV No No No Mar 15 in E E informa informa informa 2016 [Presen tion in tion in tion in 9:49 AM ce] in source source source Urine data data data by Automat ed test strip Ketones NEGATIV NEGATIV MG/DL No No Mar 15 E E informa informa 2016 [Presen tion in tion in 9:49 AM ce] in source source Urine data data by Automat ed test strip Specifi 1.022 1.006 - No No No Mar 15 c 1.035 informa informa informa 2016 gravity tion in tion in tion in 9:49 AM of source source source Urine data data data by Automat ed test strip Erythro NEGATIV NEGATIV No No No Mar 15 cytes E E informa informa informa 2015 [Presen tion in tion in tion in 9:49 AM ce] in source source source Urine data data data by Automat ed pH of 6.5 5.0 - No No No Mar 15 Urine 9.0 informa informa informa 2016 by tion in tion in tion in 9:49 AM Automat source source source ed test data data data strip Protein NEGATIV NEGATIV MG/DL No No Mar 15 E E informa informa 2015 [Presen tion in tion in 9:49 AM ce] in source source Urine data data by Automat ed test strip UROBILI 1.0 0.2 - E.U./DL No No Mar 15 NOGEN 1.0 informa informa 2016 tion in tion in 9:49 AM source source data data Nitrate NEGATIV NEGATIV No No No Mar 15 E E informa informa informa 2015 [Presen tion in tion in tion in 9:49 AM ce] in source source source Urine data data data Leukocy SMALL NEGATIV No Abnorma No Mar 15 benjamin E informa l informa 2015 [Presen tion in tion in 9:49 AM ce] in source source Urine data data by Automat ed Erythro 2 0 - 4 /HPF No No Mar 15 cytes informa informa 2016 [#/area tion in tion in 9:49 AM ] in source source Urine data data sedimen t by Microsc opy high power field WBC 20 0 - 5 /HPF High No Mar 15 COUNT informa 2016 tion in 9:49 AM source data Epithel TNTC 0 - 6 /HPF Abnorma No Mar 15 ial l informa 2016 cells tion in 9:49 AM [Presen source ce] in data Urine sedimen t by Light microsc opy Bacteri 2+ NEGATIV /HPF Abnorma BACTERI Mar 15 a E l A 2015 [#/area INTERPR 9:49 AM ] in ETATION Urine :NEGATI sedimen VE t by <=599/u Microsc lTRACE opy high >=600, power <=1199/ field ul1+ >=1200, <=2399/ ul2+ >=2400, <=3599/ ul3+ >=3600, <=4799/ ul4+ >=4800/ ul Hyaline 4 0 - 4 /LPF No No Mar 15 casts informa informa 2016 [#/area tion in tion in 9:49 AM ] in source source Urine data data sedimen t by Microsc opy high power field TSH Observa Value Referen Units Interpr Notes Date tion ce etation Range Thyrotr 6.620 0.358 - uIU/ML High No Mar 15 opin 3.740 informa 2015 [Units/ tion in 9:35 AM volume] source in data Serum or Plasma by Detecti on limit <= 0.005 mU/L GLOMELULAR ESTEFANI. RATE,CALC. Observa Value Referen Units Interpr Notes Date tion ce etation Range Glomeru 184.9 60.0 - ml/min No THE Mar 15 lar 200.0 informa eGFR IS 2016 filtrat tion in AN 9:35 AM ion source ESTIMAT rate/1. data ED 73 sq M GLOMELU LAR predict FILTRAT ed ION among RATEBAS non-karina ED ON cks by AN Creatin AVERAGE ine-bas BODY ed SURFACE formula AREA (MDRD) OF 1.73M2. THIS CALCULA TION IS NOT ACCURAT E FOR PEDIATR IC PATIENT S,PATIE NTS >70 YEARS OF AGE,OR PATIENT S WITH EXTREME BODY SIZE.>6 0 ML/MIN/ 1.73M2 = NORMAL< 60 ML/MIN/ 1.73M2 = CHRONIC KIDNEY DISEASE <15 ML/MIN/ 1.73M2 = KIDNEY FAILURE AVERAGE EGFR FOLLOWS :AGE(YE ARS) AVERAGE EGFR20- 39 116 ML/MIN3 0-39 107 ML/MIN4 0-49 99 ML/MIN5 0-59 93 ML/MIN6 0-69 85 ML/MIN COMP. METABOLIC PANEL (CHEM 12) Observa Value Referen Units Interpr Notes Date tion ce etation Range Glucose 102 70 - MG/DL No No Mar 15 110 informa informa 2016 [Mass/v tion in tion in 9:35 AM olume] source source in data data Serum or Plasma Urea 5 7 - 18 MG/DL Low No Mar 15 nitroge informa 2016 n tion in 9:35 AM [Mass/v source olume] data in Serum or Plasma Sodium 137 133 - mmol/L No Mar 15 [Moles/ 144 informa informa 2016 volume] tion in tion in 9:35 AM in source source Serum data data or Plasma Potassi 3.8 3.6 - mmol/l No Mar 15 um 5.2 informa informa 2015 [Moles/ tion in tion in 9:35 AM volume] source source in data data Serum or Plasma Chlorid 107 98 - mmol/l No Mar 15 e 107 informa informa 2015 [Moles/ tion in tion in 9:35 AM volume] source source in data data Blood Carbon 20 21 - 32 mmol/L Low Mar 15 dioxide informa 2016 , total tion in 9:35 AM source [Moles/ data volume] in Serum or Plasma Creatin 0.40 0.60 - MG/DL Low Mar 15 ine 1.30 informa 2015 [Mass/v tion in 9:35 AM olume] source in data Serum or Plasma Protein 6.2 6.4 - G/DL Low Mar 15 8.4 informa 2015 [Mass/v tion in 9:35 AM olume] source in data Serum or Plasma Albumin 2.5 3.4 - G/DL Low Mar 15 5.0 informa 2015 [Mass/v tion in 9:35 AM olume] source in data Serum or Plasma Globuli 3.7 2.4 - G/DL No Mar 15 n 4.8 informa informa 2015 [Mass/v tion in tion in 9:35 AM olume] source source in data data Plasma Albumin 0.7 0.6 - No No Mar 15 /Globul 1.6 informa informa informa 2016 in tion in tion in tion in 9:35 AM [Mass source source source ratio] data data data in Serum or Plasma Calcium 8.1 8.5 - MG/DL Low Mar 15 10.1 informa 2015 [Mass/v tion in 9:35 AM olume] source in data Serum or Plasma Alkalin 71 45 - U/L No Mar 15 e 117 informa informa 2016 phospha tion in tion in 9:35 AM tase source source [Enzyma data data tic activit y/volum e] in Serum or Plasma Asparta 19 15 - 37 U/L No Mar 15 te informa informa 2016 aminotr tion in tion in 9:35 AM ansfera source source se data data [Enzyma tic activit y/volum e] in Serum or Plasma Alanine 16 12 - 78 U/L No Mar 15 informa informa 2016 aminotr tion in tion in 9:35 AM ansfera source source se data data [Enzyma tic activit y/volum e] in Serum or Plasma Bilirub 0.20 0.00 - MG/DL No Mar 15 in.tota 1.00 informa informa 2016 l tion in tion in 9:35 AM [Mass/v source source olume] data data in Serum or Plasma CBC\T\AUTO DIFF Observa Value Referen Units Interpr Notes Date tion ce etation Range Leukocy 8.3 3.0 - K/UL No Mar 15 benjamin 11.3 informa informa 2015 [#/volu tion in tion in 9:35 AM me] in source source Blood data data by Automat ed count Erythro 3.760 3.450 - M/ul No Mar 15 cytes 5.400 informa informa 2015 [#/volu tion in tion in 9:35 AM me] in source source Blood data data by Automat ed count Hemoglo 11.2 10.0 - gm/dl No Mar 15 bin 16.0 informa informa 2016 [Mass/v tion in tion in 9:35 AM olume] source source in data data Blood Hematoc 32.9 29.9 - % No Mar 15 rit 45.5 informa informa 2016 [Volume tion in tion in 9:35 AM source source Fractio data data n] of Blood by Automat ed count Erythro 87.5 78.2 - fl No Mar 15 cyte 101.8 informa informa 2016 mean tion in tion in 9:35 AM corpusc source source ular data data volume [Entiti c volume] by Automat ed count Erythro 29.7 26.4 - pg No Mar 15 cyte 33.3 informa informa 2016 mean tion in tion in 9:35 AM corpusc source source ular data data hemoglo bin [Entiti c mass] by Automat ed count Erythro 33.9 32.5 - g/dl No Mar 15 cyte 35.3 informa informa 2016 mean tion in tion in 9:35 AM corpusc source source ular data data hemoglo bin concent ration [Mass/v olume] by Automat ed count Erythro 13.8 10.1 - % No Mar 15 cyte 16.2 informa informa 2016 distrib tion in tion in 9:35 AM ution source source width data data [Ratio] by Automat ed count Platele 163 122 - K/UL No Mar 15 ts 454 informa informa 2016 [#/volu tion in tion in 9:35 AM me] in source source Blood data data by Automat ed count Platele 7.8 6.4 - fl No Mar 15 t mean 10.4 informa informa 2016 volume tion in tion in 9:35 AM [Entiti source source c data data volume] in Blood by Automat ed count Neutrop 75.2 43.0 - % No No Mar 15 hils/10 83.0 informa informa 2016 0 tion in tion in 9:35 AM leukocy source source benjamin in data data Blood by Automat ed count Lymphoc 17.1 10.0 - % No Mar 15 ytes/10 42.0 informa informa 2016 0 tion in tion in 9:35 AM leukocy source source benjamin in data data Blood by Automat ed count Monocyt 4.9 1.0 - % No Mar 15 es/100 14.0 informa informa 2016 leukocy tion in tion in 9:35 AM benjamin in source source Blood data data by Automat ed count Eosinop 2.3 0.0 - % No Mar 15 hils/10 9.0 informa informa 2016 0 tion in tion in 9:35 AM leukocy source source benjamin in data data Blood by Automat ed count Basophi 0.5 0.0 - % No Mar 15 ls/100 2.0 informa informa 2016 leukocy tion in tion in 9:35 AM benjamin in source source Blood data data by Automat ed count Neutrop 6.2 2.7 - K/ul No Mar 15 hils 6.9 informa informa 2015 [#/volu tion in tion in 9:35 AM me] in source source Blood data data by Automat ed count Lymphoc 1.4 0.4 - K/ul No Mar 15 ytes 3.9 informa informa 2015 [#/volu tion in tion in 9:35 AM me] in source source Blood data data by Automat ed count Monocyt 0.4 0.2 - K/ul No Mar 15 es 0.6 informa informa 2015 [#/volu tion in tion in 9:35 AM me] in source source Blood data data by Automat ed count Eosinop 0.2 0.0 - K/ul No Mar 15 hils 0.9 informa informa 2015 [#/volu tion in tion in 9:35 AM me] in source source Blood data data by Automat ed count Basophi 0.0 0.0 - K/ul No Mar 15 ls 0.2 informa informa 2015 [#/volu tion in tion in 9:35 AM me] in source source Blood data data by Automat ed count TSH Observa Value Referen Units Interpr Notes Date tion ce etation Range do in 6 weeks\.br\do in 6 weeks Thyrotr 3.840 0.358 - uIU/ML High No Mar 02 opin 3.740 informa 2015 [Units/ tion in 1:00 PM volume] source in data Serum or Plasma by Detecti on limit <= 0.005 mU/L THYROXINE Observa Value Referen Units Interpr Notes Date tion ce etation Range do in 6 weeks\.br\do in 6 weeks Thyroxi 9.5 4.5 - uG/DL No No Mar 02 ne (T4) 12.1 informa informa 2015 tion in tion in 1:00 PM [Mass/v source source olume] data data in Serum or Plasma TSH Observa Value Referen Units Interpr Notes Date tion ce etation Range Thyrotr 6.640 0.358 - uIU/ML High No Mar 01 opin 3.740 informa 2015 [Units/ tion in 9:09 AM volume] source in data Serum or Plasma by Detecti on limit <= 0.005 mU/L XR Foot Complete Right Observa Value Referen Units Interpr Notes Date tion ce etation Range TEXT Wellsof No No No No Feb 15 DIAGNOS t Order informa informa informa informa 2015 IS tion in tion in tion in tion in 7:35 PM BATTERY Descrip source source source source tion: data data data data FOOT COMP MIN 3 VIEWS RT - ,\.br\\ .br\\.b r\RIGHT FOOT\.b r\\.br\ Examina tion of the foot shows no evidenc e of fractur es, disloca tions or other patholo gical bone or joint changes .\.br\\ .br\ IMPRESS ION: Negativ e foot.\. br\\.br \ END OF REPORT* *\.br\\ .br\Jordon valencia Nino M.D.\.b r\\.br\ Dictate d: 7:49 PM\.br\ \.br\Tr anscrib ed: 8:01 PM\.br\ \.br\ * Final Report \.br \\.br\D ictated : ISSAC NINO M.D. 7:49 pm\.br\ \.br\Tr anscrib ed by: KERON 8:01 pm\.br\ \.br\Au thentic ated by: ISSAC NINO M.D. 8:39 pm\.br\ \.br\ XR Ankle Complete Right Observa Value Referen Units Interpr Notes Date tion ce etation Range TEXT Wellsof No No No No Feb 15 DIAGNOS t Order informa informa informa informa 2016 IS tion in tion in tion in tion in 7:35 PM BATTERY Descrip source source source source tion: data data data data ANKLE COMPLET E 3 VIEWS RIGHT - ,\.br\\ .br\\.b r\RIGHT ANKLE\. br\\.br \Examin ation of the ankle shows no evidenc e of fractur es, disloca tions or other patholo gical bone or joint changes .\.br\\ .br\ IMPRESS ION: Negativ e ankle.\ .br\\.b r\ END OF REPORT* *\.br\\ .br\Jordon valencia Nino M.D.\.b r\\.br\ Dictate d: 7:48 PM\.br\ \.br\Tr anscrib ed: 8:00 PM\.br\ \.br\ * Final Report \.br \\.br\D ictated : ISSAC NINO M.D. 7:48 pm\.br\ \.br\Tr anscrib ed by: CS 8:01 pm\.br\ \.br\Au thentic ated by: ISSAC NINO M.D. 8:39 pm\.br\ \.br\ GLOMELULAR ESTEFANI. RATE,CALC. Observa Value Referen Units Interpr Notes Date tion ce etation Range Glomeru 185.0 60.0 - ml/min No THE Feb 05 lar 200.0 informa eGFR IS 2016 filtrat tion in AN 11:15 ion source ESTIMAT AM rate/1. data ED 73 sq M GLOMELU LAR predict FILTRAT ed ION among RATEBAS non-karina ED ON cks by AN Creatin AVERAGE ine-bas BODY ed SURFACE formula AREA (MDRD) OF 1.73M2. THIS CALCULA TION IS NOT ACCURAT E FOR PEDIATR IC PATIENT S,PATIE NTS >70 YEARS OF AGE,OR PATIENT S WITH EXTREME BODY SIZE.>6 0 ML/MIN/ 1.73M2 = NORMAL< 60 ML/MIN/ 1.73M2 = CHRONIC KIDNEY DISEASE <15 ML/MIN/ 1.73M2 = KIDNEY FAILURE AVERAGE EGFR FOLLOWS :AGE(YE ARS) AVERAGE EGFR20- 39 116 ML/MIN3 0-39 107 ML/MIN4 0-49 99 ML/MIN5 0-59 93 ML/MIN6 0-69 85 ML/MIN COMP. METABOLIC PANEL (CHEM 12) Observa Value Referen Units Interpr Notes Date tion ce etation Range Glucose 137 70 - MG/DL High No Feb 05 110 informa 2016 [Mass/v tion in 11:15 olume] source AM in data Serum or Plasma Urea 4 7 - 18 MG/DL Low No Feb 05 nitroge informa 2016 n tion in 11:15 [Mass/v source AM olume] data in Serum or Plasma Sodium 140 133 - mmol/L No Feb 05 [Moles/ 144 informa informa 2016 volume] tion in tion in 11:15 in source source AM Serum data data or Plasma Potassi 3.6 3.6 - mmol/l No Feb 05 um 5.2 informa informa 2016 [Moles/ tion in tion in 11:15 volume] source source AM in data data Serum or Plasma Chlorid 109 98 - mmol/l High No Feb 05 e 107 informa 2016 [Moles/ tion in 11:15 volume] source AM in data Blood Carbon 19 21 - 32 mmol/L Low Feb 05 dioxide informa 2016 , total tion in 11:15 source AM [Moles/ data volume] in Serum or Plasma Creatin 0.40 0.60 - MG/DL Low Feb 05 ine 1.30 informa 2015 [Mass/v tion in 11:15 olume] source AM in data Serum or Plasma Protein 6.1 6.4 - G/DL Low Feb 05 8.4 informa 2016 [Mass/v tion in 11:15 olume] source AM in data Serum or Plasma Albumin 2.5 3.4 - G/DL Low Feb 05 5.0 informa 2015 [Mass/v tion in 11:15 olume] source AM in data Serum or Plasma Globuli 3.6 2.4 - G/DL No Feb 05 n 4.8 informa informa 2016 [Mass/v tion in tion in 11:15 olume] source source AM in data data Plasma Albumin 0.7 0.6 - No No Feb 05 /Globul 1.6 informa informa informa 2016 in tion in tion in tion in 11:15 [Mass source source source AM ratio] data data data in Serum or Plasma Calcium 8.0 8.5 - MG/DL Low Feb 05 10.1 informa 2016 [Mass/v tion in 11:15 olume] source AM in data Serum or Plasma Alkalin 60 45 - U/L No Feb 05 e 117 informa informa 2016 phospha tion in tion in 11:15 tase source source AM [Enzyma data data tic activit y/volum e] in Serum or Plasma Asparta 16 15 - 37 U/L No No Feb 05 te informa informa 2015 aminotr tion in tion in 11:15 ansfera source source AM se data data [Enzyma tic activit y/volum e] in Serum or Plasma Alanine 20 12 - 78 U/L No No Feb 05 informa informa 2016 aminotr tion in tion in 11:15 ansfera source source AM se data data [Enzyma tic activit y/volum e] in Serum or Plasma Bilirub 0.30 0.00 - MG/DL No No Feb 05 in.tota 1.00 informa informa 2015 l tion in tion in 11:15 [Mass/v source source AM olume] data data in Serum or Plasma TROPONIN I, ULTRA Observa Value Referen Units Interpr Notes Date tion ce etation Range Troponi <0.015 0.000 - ng/mL No * Feb 05 n 0.045 informa Elevati 2015 I.cardi tion in on of :15 ac source Troponi AM [Mass/v data n I can olume] be in caused Serum by a or multitu Plasma de by ofserio Detecti us on illness limit = es. 0.01 Myocard ng/mL ial Infarct ion is a diagnos is that require s meeting two out of three criteri a as defined by the World HealthO rganiza tion. XR Chest 1 View Observa Value Referen Units Interpr Notes Date tion ce etation Range TEXT Wellsof No No No No Feb 05 DIAGNOS t Order informa informa informa inform2015 IS tion in tion in tion in tion in 11:15 BATTERY Descrip source source source source AM tion: data data data data CHEST SINGLE VIEW (USUALL Y PORTAB -\.br\\ .br\\.b r\CHEST AP UPRIGHT PORTABL E FILM, 016, 11:21 A.M.\.b r\\.br\ The lung volumes are adequat e. There is no evidenc e of pleural effusio n, pneumot horax or consoli dative air space disease . The cardiom ediasti nal silhoue tte is unremar kable.\ .br\\.b r\The bony thorax is intact. Soft tissues are unremar kable.\ .br\\.b r\ IMPRESS ION: No acute cardiop ulmonar y process .\.br\\ .br\ END OF REPORT* *\.br\\ .br\Den laura Hayes M.D.\.b r\\.br\ Dictate d: 11:25 AM\.br\ \.br\Tr anscrib ed: 11:26 AM\.br\ \.br\ * Final Report \.br \\.br\D ictated : JACQUELYN HAYES M.D. 11:25 am\.br\ \.br\Tr anscrib ed by: AH 11:26 am\.br\ \.br\Au thentic ated by: JACQUELYN HAYES M.D. 12:02 pm\.br\ \.br\ CBC\T\AUTO DIFF Observa Value Referen Units Interpr Notes Date tion ce etation Range Leukocy 8.6 3.0 - K/UL No Feb 05 benjamin 11.3 informa informa 2015 [#/volu tion in tion in 11:15 me] in source source AM Blood data data by Automat ed count Erythro 3.720 3.450 - M/ul No Feb 05 cytes 5.400 informa informa 2016 [#/volu tion in tion in 11:15 me] in source source AM Blood data data by Automat ed count Hemoglo 11.2 10.0 - gm/dl No Feb 05 bin 16.0 informa informa 2016 [Mass/v tion in tion in 11:15 olume] source source AM in data data Blood Hematoc 33.9 29.9 - % No Feb 05 rit 45.5 informa informa 2016 [Volume tion in tion in 11:15 source source AM Fractio data data n] of Blood by Automat ed count Erythro 91.1 78.2 - fl No Feb 05 cyte 101.8 informa informa 2016 mean tion in tion in :15 corpusc source source AM ular data data volume [Entiti c volume] by Automat ed count Erythro 30.2 26.4 - pg No Feb 05 cyte 33.3 informa informa 2016 mean tion in tion in 11:15 corpusc source source AM ular data data hemoglo bin [Entiti c mass] by Automat ed count Erythro 33.1 32.5 - g/dl No Feb 05 cyte 35.3 informa informa 2016 mean tion in tion in 11:15 corpusc source source AM ular data data hemoglo bin concent ration [Mass/v olume] by Automat ed count Erythro 13.5 10.1 - % No Feb 05 cyte 16.2 informa informa 2016 distrib tion in tion in 11:15 ution source source AM width data data [Ratio] by Automat ed count Platele 149 122 - K/UL No Feb 05 ts 454 informa informa 2016 [#/volu tion in tion in 11:15 me] in source source AM Blood data data by Automat ed count Platele 7.9 6.4 - fl No Feb 05 t mean 10.4 informa informa 2016 volume tion in tion in 11:15 [Entiti source source AM c data data volume] in Blood by Automat ed count Neutrop 75.8 43.0 - % No Feb 05 hils/10 83.0 informa informa 2016 0 tion in tion in 11:15 leukocy source source AM benjamin in data data Blood by Automat ed count Lymphoc 16.7 10.0 - % No Feb 05 ytes/10 42.0 informa informa 2016 0 tion in tion in 11:15 leukocy source source AM benjamin in data data Blood by Automat ed count Monocyt 3.9 1.0 - % No Feb 05 es/100 14.0 informa informa 2016 leukocy tion in tion in 11:15 benjamin in source source AM Blood data data by Automat ed count Eosinop 3.2 0.0 - % No Feb 05 hils/10 9.0 informa informa 2016 0 tion in tion in 11:15 leukocy source source AM benjamin in data data Blood by Automat ed count Basophi 0.4 0.0 - % No Feb 05 ls/100 2.0 informa informa 2016 leukocy tion in tion in 11:15 benjamin in source source AM Blood data data by Automat ed count Neutrop 6.5 2.7 - K/ul No No Feb 05 hils 6.9 informa informa 2016 [#/volu tion in tion in 11:15 me] in source source AM Blood data data by Automat ed count Lymphoc 1.4 0.4 - K/ul No No Feb 05 ytes 3.9 informa informa 2016 [#/volu tion in tion in 11:15 me] in source source AM Blood data data by Automat ed count Monocyt 0.3 0.2 - K/ul No No Feb 05 es 0.6 informa informa 2016 [#/volu tion in tion in 11:15 me] in source source AM Blood data data by Automat ed count Eosinop 0.3 0.0 - K/ul No No Feb 05 hils 0.9 informa informa 2016 [#/volu tion in tion in 11:15 me] in source source AM Blood data data by Automat ed count Basophi 0.0 0.0 - K/ul No No Feb 05 ls 0.2 informa informa 2016 [#/volu tion in tion in 11:15 me] in source source AM Blood data data by Automat ed count ALPHA FETO PROTEIN TETRA Observa Value Referen Units Interpr Notes Date tion ce etation Range Alpha-1 REFEREN No No No No Jan 25 -Fetopr CE LAB informa informa informa informa 2016 otein tion in tion in tion in tion in 4:38 PM [Mass/v source source source source olume] data data data data in Serum or Plasma URINALYSIS COMPLETE Observa Value Referen Units Interpr Notes Date tion ce etation Range Color YELLOW No No No No Jan 14 of informa informa informa informa 2016 Urine tion in tion in tion in tion in 3:11 PM source source source source data data data data Clarity CLEAR No No No No Jan 14 of informa informa informa informa 2016 Urine tion in tion in tion in tion in 3:11 PM source source source source data data data data Glucose NEGATIV NEGATIV MG/DL No No Jan 14 E E informa informa 2016 [Presen tion in tion in 3:11 PM ce] in source source Urine data data by Automat ed test strip Bilirub NEGATIV NEGATIV No No No Jan 14 in E E informa informa informa 2016 [Presen tion in tion in tion in 3:11 PM ce] in source source source Urine data data data by Automat ed test strip Ketones 15 NEGATIV MG/DL No No Jan 14 E informa informa 2015 [Presen tion in tion in 3:11 PM ce] in source source Urine data data by Automat ed test strip Specifi 1.005 1.006 - No Low No Jan 14 c 1.035 informa informa 2016 gravity tion in tion in 3:11 PM of source source Urine data data by Automat ed test strip Erythro NEGATIV NEGATIV No No No Jan 14 cytes E E informa informa informa 2015 [Presen tion in tion in tion in 3:11 PM ce] in source source source Urine data data data by Automat ed pH of 6.0 5.0 - No No No Jan 14 Urine 9.0 informa informa informa 2016 by tion in tion in tion in 3:11 PM Automat source source source ed test data data data strip Protein NEGATIV NEGATIV MG/DL No No Jan 14 E E informa informa 2015 [Presen tion in tion in 3:11 PM ce] in source source Urine data data by Automat ed test strip UROBILI 0.2 0.2 - E.U./DL No No Jan 14 NOGEN 1.0 informa informa 2016 tion in tion in 3:11 PM source source data data Nitrate NEGATIV NEGATIV No No No Jan 14 E E informa informa informa 2015 [Presen tion in tion in tion in 3:11 PM ce] in source source source Urine data data data Leukocy NEGATIV NEGATIV No No No Jan 14 benjamin E E informa informa informa 2016 [Presen tion in tion in tion in 3:11 PM ce] in source source source Urine data data data by Automat ed Erythro 0 0 - 4 /HPF No No Jan 14 cytes informa informa 2016 [#/area tion in tion in 3:11 PM ] in source source Urine data data sedimen t by Microsc opy high power field WBC 0 0 - 5 /HPF No No Jan 14 COUNT informa informa 2016 tion in tion in 3:11 PM source source data data Epithel 0 0 - 6 /HPF No No Jan 14 ial informa informa 2016 cells tion in tion in 3:11 PM [Presen source source ce] in data data Urine sedimen t by Light microsc opy Bacteri NEGATIV NEGATIV /HPF No BACTERI Jan 14 a E E informa A 2016 [#/area tion in INTERPR 3:11 PM ] in source ETATION Urine data :NEGATI sedimen VE t by <=599/u Microsc lTRACE opy high >=600, power <=1199/ field ul1+ >=1200, <=2399/ ul2+ >=2400, <=3599/ ul3+ >=3600, <=4799/ ul4+ >=4800/ ul Hyaline 0 0 - 4 /LPF No No Jan 14 casts informa informa 2016 [#/area tion in tion in 3:11 PM ] in source source Urine data data sedimen t by Microsc opy high power field ISOLATION WARNING Observa Value Referen Units Interpr Notes Date tion ce etation Range ISOLATI SEE No No No DUE Jan 14 ON BELOW informa informa informa TO 2016 WARNING tion in tion in tion in SPECIFI 1:37 PM source source source C data data data POSITIV E RESULTS OBTAINE D FROM THEUPPE R RESPIRA TORY PANEL PLACE THIS PATIENT IN ISOLATI ONFOR DROPLET PRECAUT IONS UPPER RESPIRATORY PROFILE (PCR) Observa Value Referen Units Interpr Notes Date tion ce etation Range Adenovi NEGATIV NEGATIV No No No Jan 14 lorelei E E informa informa informa 2016 3+4+7+2 tion in tion in tion in 1:37 PM 1 DNA source source source [Presen data data data ce] in Unspeci fied specime n by Probe & target amplifi cation method CORONAV NEGATIV NEGATIV No No No Jan 14 IRUS E E informa informa informa 2016 HKU1 tion in tion in tion in 1:37 PM source source source data data data Human NEGATIV NEGATIV No No No Jan 14 coronav E E informa informa informa 2016 irus tion in tion in tion in 1:37 PM NL63 source source source RNA data data data [Presen ce] in Unspeci fied specime n by Probe & target amplifi cation method Human NEGATIV NEGATIV No No No Jan 14 coronav E E informa informa informa 2016 irus tion in tion in tion in 1:37 PM 229E source source source RNA data data data [Presen ce] in Unspeci fied specime n by Probe & target amplifi cation method Human NEGATIV NEGATIV No No No Jan 14 coronav E E informa informa informa 2016 irus tion in tion in tion in 1:37 PM OC43 source source source RNA data data data [Presen ce] in Unspeci fied specime n by Probe & target amplifi cation method METAPNE NEGATIV NEGATIV No No No Jan 14 UMOVIRU E E informa informa informa 2016 S tion in tion in tion in 1:37 PM source source source data data data Rhinovi POSITIV NEGATIV No Abnorma No Jan 14 lorelei+Ent E E informa l informa 2016 eroviru tion in tion in 1:37 PM s RNA source source [Presen data data ce] in Unspeci fied specime n by Probe & target amplifi cation method INFLUEN NEGATIV NEGATIV No No No Jan 14 ZA A/H1 E E informa informa informa 2016 tion in tion in tion in 1:37 PM source source source data data data Influen NEGATIV NEGATIV No No No Jan 14 za E E informa informa informa 2016 virus B tion in tion in tion in 1:37 PM RNA source source source [Presen data data data ce] in Isolate by Probe & target amplifi cation method Influen NEGATIV NEGATIV No No No Jan 14 za E E informa informa informa 2016 virus A tion in tion in tion in 1:37 PM H2 RNA source source source data data data [Presen ce] in Unspeci fied specime n by Probe & target amplifi cation method Influen NEGATIV NEGATIV No No No Jan 14 za E E informa informa informa 2016 virus A tion in tion in tion in 1:37 PM H1 source source source 2009 data data data pandemi c & Influen za virus A swine origin RNA [interp retatio n] in Unspeci fied specime n Qualita tive by Probe & target amplifi cation method Parainf NEGATIV NEGATIV No No No Jan 14 luenza E E informa informa informa 2016 virus 1 tion in tion in tion in 1:37 PM RNA source source source [Presen data data data ce] in Unspeci fied specime n by Probe & target amplifi cation method Parainf NEGATIV NEGATIV No No No Jan 14 luenza E E informa informa informa 2016 virus 2 tion in tion in tion in 1:37 PM RNA source source source [Presen data data data ce] in Unspeci fied specime n by Probe & target amplifi cation method Parainf NEGATIV NEGATIV No No No Jan 14 luenza E E informa informa informa 2016 virus 3 tion in tion in tion in 1:37 PM RNA source source source [Presen data data data ce] in Unspeci fied specime n by Probe & target amplifi cation method Parainf NEGATIV NEGATIV No No No Jan 14 luenza E E informa informa informa 2016 virus 4 tion in tion in tion in 1:37 PM RNA source source source [Presen data data data ce] in Unspeci fied specime n by Probe & target amplifi cation method Respira NEGATIV NEGATIV No No No Jan 14 tory E E informa informa informa 2016 syncyti tion in tion in tion in 1:37 PM al source source source virus A data data data RNA [Presen ce] in Unspeci fied specime n by Probe & target amplifi cation method BORDETE NEGATIV NEGATIV No No No Jan 14 LLA E E informa informa informa 2016 PERTUSS tion in tion in tion in 1:37 PM IS source source source data data data Chlamyd NEGATIV NEGATIV No No No Oct 20 ophila E E informa informa informa 2016 pneumon tion in tion in tion in 1:37 PM iae DNA source source source data data data [Presen ce] in Unspeci fied specime n by Probe & target amplifi cation method Mycopla NEGATIV NEGATIV No No No Jan 14 sma E E informa informa informa 2016 pneumon tion in tion in tion in 1:37 PM iae DNA source source source data data data [Presen ce] in Unspeci fied specime n by Probe & target amplifi cation method GLOMELULAR ESTEFANI. RATE,CALC. Observa Value Referen Units Interpr Notes Date tion ce etation Range Glomeru 258.0 60.0 - ml/min High THE Jan 14 lar 200.0 eGFR IS 2016 filtrat AN 1:37 PM ion ESTIMAT rate/1. ED 73 sq M GLOMELU LAR predict FILTRAT ed ION among RATEBAS non-karina ED ON cks by AN Creatin AVERAGE ine-bas BODY ed SURFACE formula AREA (MDRD) OF 1.73M2. THIS CALCULA TION IS NOT ACCURAT E FOR PEDIATR IC PATIENT S,PATIE NTS >70 YEARS OF AGE,OR PATIENT S WITH EXTREME BODY SIZE.>6 0 ML/MIN/ 1.73M2 = NORMAL< 60 ML/MIN/ 1.73M2 = CHRONIC KIDNEY DISEASE <15 ML/MIN/ 1.73M2 = KIDNEY FAILURE AVERAGE EGFR FOLLOWS :AGE(YE ARS) AVERAGE EGFR20- 39 116 ML/MIN3 0-39 107 ML/MIN4 0-49 99 ML/MIN5 0-59 93 ML/MIN6 0-69 85 ML/MIN COMP. METABOLIC PANEL (CHEM 12) Observa Value Referen Units Interpr Notes Date tion ce etation Range Glucose 74 70 - MG/DL No No Jan 14 110 informa informa 2016 [Mass/v tion in tion in 1:37 PM olume] source source in data data Serum or Plasma Urea 4 7 - 18 MG/DL Low No Dec 20 nitroge informa 2016 n tion in 1:37 PM [Mass/v source olume] data in Serum or Plasma Sodium 137 133 - mmol/L No No Dec 20 [Moles/ 144 informa informa 2016 volume] tion in tion in 1:37 PM in source source Serum data data or Plasma Potassi 3.7 3.6 - mmol/l No No Jan 14 um 5.2 informa informa 2015 [Moles/ tion in tion in 1:37 PM volume] source source in data data Serum or Plasma Chlorid 105 98 - mmol/l No No Jan 14 e 107 informa informa 2016 [Moles/ tion in tion in 1:37 PM volume] source source in data data Blood Carbon 23 21 - 32 mmol/L No No Jan 14 dioxide informa informa 2016 , total tion in tion in 1:37 PM source source [Moles/ data data volume] in Serum or Plasma Creatin 0.30 0.60 - MG/DL Low No Jan 14 ine 1.30 informa 2015 [Mass/v tion in 1:37 PM olume] source in data Serum or Plasma Protein 6.8 6.4 - G/DL No No Jan 14 8.4 informa informa 2016 [Mass/v tion in tion in 1:37 PM olume] source source in data data Serum or Plasma Albumin 2.9 3.4 - G/DL Low No Jan 14 5.0 informa 2015 [Mass/v tion in 1:37 PM olume] source in data Serum or Plasma Globuli 3.9 2.4 - G/DL No No Jan 14 n 4.8 informa informa 2015 [Mass/v tion in tion in 1:37 PM olume] source source in data data Plasma Albumin 0.7 0.6 - No No No Jan 14 /Globul 1.6 informa informa informa 2016 in tion in tion in tion in 1:37 PM [Mass source source source ratio] data data data in Serum or Plasma Calcium 8.5 8.5 - MG/DL No No Jan 14 10.1 informa informa 2016 [Mass/v tion in tion in 1:37 PM olume] source source in data data Serum or Plasma Alkalin 55 45 - U/L No No Jan 14 e 117 informa informa 2016 phospha tion in tion in 1:37 PM tase source source [Enzyma data data tic activit y/volum e] in Serum or Plasma Asparta 24 15 - 37 U/L No No Jan 14 te informa informa 2016 aminotr tion in tion in 1:37 PM ansfera source source se data data [Enzyma tic activit y/volum e] in Serum or Plasma Alanine 25 12 - 78 U/L No No Jan 14 informa informa 2016 aminotr tion in tion in 1:37 PM ansfera source source se data data [Enzyma tic activit y/volum e] in Serum or Plasma Bilirub 0.30 0.00 - MG/DL No No Jan 14 in.tota 1.00 informa informa 2016 l tion in tion in 1:37 PM [Mass/v source source olume] data data in Serum or Plasma RAPID GP A STREP BY EIA Observa Value Referen Units Interpr Notes Date tion ce etation Range Strepto NEGATIV No No No ORDER#: Jan 14 coccus E informa informa informa 2016 pyogene tion in tion in tion in [id number] 1:37 PM s Ag REFEREN source source source 4 [Presen CE data data data ce] in RANGE = Throat by NEGATIV ORDERED Immunoa E BY: ANUJA Brown URCE: THROAT COLLECT ED: 6 13:37AN TIBIOTI CS AT SINGH.: RECEIVE D : 6 13:55RA PID GP A STREP BY EIA FINAL 6 14:1310 NEGATIV E REFEREN CE RANGE = NEGATIV E MONO-TEST Observa Value Referen Units Interpr Notes Date tion ce etation Range Heterop NEGATIV NEGATIV No No No Jan 14 hile Ab E E informa informa informa 2015 tion in tion in tion in 1:37 PM [Presen source source source ce] in data data data Serum by Latex aggluti nation CBC\T\AUTO DIFF Observa Value Referen Units Interpr Notes Date tion ce etation Range Leukocy 8.9 3.0 - K/UL No No Jan 14 benjamin 11.3 informa informa 2015 [#/volu tion in tion in 1:37 PM me] in source source Blood data data by Automat ed count Erythro 3.910 3.450 - M/ul No No Jan 14 cytes 5.400 informa informa 2015 [#/volu tion in tion in 1:37 PM me] in source source Blood data data by Automat ed count Hemoglo 11.8 10.0 - gm/dl No No Jan 14 bin 16.0 informa informa 2016 [Mass/v tion in tion in 1:37 PM olume] source source in data data Blood Hematoc 35.4 29.9 - % No No Jan 14 rit 45.5 informa informa 2016 [Volume tion in tion in 1:37 PM source source Fractio data data n] of Blood by Automat ed count Erythro 90.5 78.2 - fl No No Jan 14 cyte 101.8 informa informa 2016 mean tion in tion in 1:37 PM corpusc source source ular data data volume [Entiti c volume] by Automat ed count Erythro 30.2 26.4 - pg No No Jan 14 cyte 33.3 informa informa 2016 mean tion in tion in 1:37 PM corpusc source source ular data data hemoglo bin [Entiti c mass] by Automat ed count Erythro 33.4 32.5 - g/dl No No Jan 14 cyte 35.3 informa informa 2016 mean tion in tion in 1:37 PM corpusc source source ular data data hemoglo bin concent ration [Mass/v olume] by Automat ed count Erythro 13.1 10.1 - % No No Jan 14 cyte 16.2 informa informa 2016 distrib tion in tion in 1:37 PM ution source source width data data [Ratio] by Automat ed count Platele 163 122 - K/UL No No Jan 14 ts 454 informa informa 2016 [#/volu tion in tion in 1:37 PM me] in source source Blood data data by Automat ed count Platele 7.8 6.4 - fl No No Jan 14 t mean 10.4 informa informa 2016 volume tion in tion in 1:37 PM [Entiti source source c data data volume] in Blood by Automat ed count Neutrop 75.8 43.0 - % No No Jan 14 hils/10 83.0 informa informa 2016 0 tion in tion in 1:37 PM leukocy source source benjamin in data data Blood by Automat ed count Lymphoc 17.8 10.0 - % No No Jan 14 ytes/10 42.0 informa informa 2016 0 tion in tion in 1:37 PM leukocy source source benjamin in data data Blood by Automat ed count Monocyt 4.7 1.0 - % No No Dec 20 es/100 14.0 informa informa 2016 leukocy tion in tion in 1:37 PM benjamin in source source Blood data data by Automat ed count Eosinop 1.5 0.0 - % No No Dec 20 hils/10 9.0 informa informa 2016 0 tion in tion in 1:37 PM leukocy source source benjamin in data data Blood by Automat ed count Basophi 0.2 0.0 - % No No Dec 20 ls/100 2.0 informa informa 2016 leukocy tion in tion in 1:37 PM benjamin in source source Blood data data by Automat ed count Neutrop 6.7 2.7 - K/ul No No Jan 14 hils 6.9 informa informa 2015 [#/volu tion in tion in 1:37 PM me] in source source Blood data data by Automat ed count Lymphoc 1.6 0.4 - K/ul No No Dec 20 ytes 3.9 informa informa 2016 [#/volu tion in tion in 1:37 PM me] in source source Blood data data by Automat ed count Monocyt 0.4 0.2 - K/ul No No Jan 14 es 0.6 informa informa 2016 [#/volu tion in tion in 1:37 PM me] in source source Blood data data by Automat ed count Eosinop 0.1 0.0 - K/ul No No Dec 20 hils 0.9 informa informa 2016 [#/volu tion in tion in 1:37 PM me] in source source Blood data data by Automat ed count Basophi 0.0 0.0 - K/ul No No Dec 20 ls 0.2 informa informa 2015 [#/volu tion in tion in 1:37 PM me] in source source Blood data data by Automat ed count XR Chest 1 View Observa Value Referen Units Interpr Notes Date tion ce etation Range TEXT [employer] No No No No Jan 14 DIAGNOS t Order informa informa informa informa 2016 IS tion in tion in tion in tion in 1:10 PM BATTERY Descrip source source source source tion: data data data data CHEST SINGLE VIEW (USUALL Y PORTAB -\.br\\ .br\\.b r\AP PORTABL E CHEST\. br\\.br \COMPAR OLGA: 015 and 008.\.b r\\.br\ No pneumot horax or pleural effusio n. No air space consoli dation. Minimal scatter ed areas of atelect asis noted. No acute bone abnorma lity. Cardiom ediasti nal contour s are normal. \.br\\. br\ IMPRESS ION: Low lung volumes and atelect asis. No air space consoli dation. \.br\\. br\ END OF REPORT* *\.br\\ .br\Bra christen Lai M.D.\.b r\\.br\ Dictate d: 1:18 PM\.br\ \.br\Tr anscrib ed: 1:20 PM\.br\ \.br\ * Final Report \.br \\.br\D ictated : Otto Lai 1:18 pm\.br\ \.br\Tr anscrib ed by: AH 1:22 pm\.br\ \.br\Au thentic ated by: Otto Lai 2:39 pm\.br\ \.br\ INFLUENZA A/B, AMPLIFIED PROBE Observa Value Referen Units Interpr Notes Date tion ce etation Range FLU A, NEGATIV NEGATIV No No No Jan 14 AMP. E E informa informa informa 2016 PROBE tion in tion in tion in 1:02 PM source source source data data data FLU B, NEGATIV NEGATIV No No No Jan 14 AMP. E E informa informa informa 2016 PROBE tion in tion in tion in 1:02 PM source source source data data data NOTE: Observa Value Referen Units Interpr Notes Date tion ce etation Range NOTE: SEE No No No NEGATIV Jan 14 BELOW informa informa informa E 2016 tion in tion in tion in RESULTS 1:02 PM source source source DO NOT data data data PRECLUD E INFECTI ON WITH INFLUEN ZAVIRUS AND SHOULD NOT BE THE SOLE BASIS OF A PATIENT TREATME NT DECISIO N. URINALYSIS COMPLETE Observa Value Referen Units Interpr Notes Date tion ce etation Range Color YELLOW No No No No Jan 04 of informa informa informa informa 2016 Urine tion in tion in tion in tion in 6:50 PM source source source source data data data data Clarity CLEAR No No No No Jan 04 of informa informa informa informa 2016 Urine tion in tion in tion in tion in 6:50 PM source source source source data data data data Glucose NEGATIV NEGATIV MG/DL No No Jan 04 E E informa informa 2015 [Presen tion in tion in 6:50 PM ce] in source source Urine data data by Automat ed test strip Bilirub NEGATIV NEGATIV No No No Jan 04 in E E informa informa informa 2015 [Presen tion in tion in tion in 6:50 PM ce] in source source source Urine data data data by Automat ed test strip Ketones NEGATIV NEGATIV MG/DL No No Jan 04 E E informa informa 2015 [Presen tion in tion in 6:50 PM ce] in source source Urine data data by Automat ed test strip Specifi 1.016 1.006 - No No No Jan 04 c 1.035 informa informa informa 2016 gravity tion in tion in tion in 6:50 PM of source source source Urine data data data by Automat ed test strip Erythro NEGATIV NEGATIV No No No Jan 04 cytes E E informa informa informa 2015 [Presen tion in tion in tion in 6:50 PM ce] in source source source Urine data data data by Automat ed pH of 5.0 5.0 - No No No Jan 04 Urine 9.0 informa informa informa 2016 by tion in tion in tion in 6:50 PM Automat source source source ed test data data data strip Protein NEGATIV NEGATIV MG/DL No No Jan 04 E E informa informa 2015 [Presen tion in tion in 6:50 PM ce] in source source Urine data data by Automat ed test strip UROBILI 0.2 0.2 - E.U./DL No No Jan 04 NOGEN 1.0 informa informa 2016 tion in tion in 6:50 PM source source data data Nitrate NEGATIV NEGATIV No No No Jan 04 E E informa informa informa 2016 [Presen tion in tion in tion in 6:50 PM ce] in source source source Urine data data data Leukocy SMALL NEGATIV No Abnorma No Jan 04 benjamin E informa l informa 2016 [Presen tion in tion in 6:50 PM ce] in source source Urine data data by Automat ed Erythro 1 0 - 4 /HPF No No Jan 04 cytes informa informa 2016 [#/area tion in tion in 6:50 PM ] in source source Urine data data sedimen t by Microsc opy high power field WBC 4 0 - 5 /HPF No No Jan 04 COUNT informa informa 2016 tion in tion in 6:50 PM source source data data Epithel 2 0 - 6 /HPF No No Jan 04 ial informa informa 2016 cells tion in tion in 6:50 PM [Presen source source ce] in data data Urine sedimen t by Light microsc opy Bacteri NEGATIV NEGATIV /HPF No BACTERI Jan 04 a E E informa A 2015 [#/area tion in INTERPR 6:50 PM ] in source ETATION Urine data :NEGATI sedimen VE t by <=599/u Microsc lTRACE opy high >=600, power <=1199/ field ul1+ >=1200, <=2399/ ul2+ >=2400, <=3599/ ul3+ >=3600, <=4799/ ul4+ >=4800/ ul Hyaline 0 0 - 4 /LPF No No Jan 04 casts informa informa 2016 [#/area tion in tion in 6:50 PM ] in source source Urine data data sedimen t by Microsc opy high power field GLOMELULAR ESTEFANI. RATE,CALC. Observa Value Referen Units Interpr Notes Date tion ce etation Range Glomeru 143.1 60.0 - ml/min No THE Jan 04 lar 200.0 informa eGFR IS 2016 filtrat tion in AN 6:44 PM ion source ESTIMAT rate/1. data ED 73 sq M GLOMELU LAR predict FILTRAT ed ION among RATEBAS non-karina ED ON cks by AN Creatin AVERAGE ine-bas BODY ed SURFACE formula AREA (MDRD) OF 1.73M2. THIS CALCULA TION IS NOT ACCURAT E FOR PEDIATR IC PATIENT S,PATIE NTS >70 YEARS OF AGE,OR PATIENT S WITH EXTREME BODY SIZE.>6 0 ML/MIN/ 1.73M2 = NORMAL< 60 ML/MIN/ 1.73M2 = CHRONIC KIDNEY DISEASE <15 ML/MIN/ 1.73M2 = KIDNEY FAILURE AVERAGE EGFR FOLLOWS :AGE(YE ARS) AVERAGE EGFR20- 39 116 ML/MIN3 0-39 107 ML/MIN4 0-49 99 ML/MIN5 0-59 93 ML/MIN6 0-69 85 ML/MIN TSH Observa Value Referen Units Interpr Notes Date tion ce etation Range Thyrotr 6.870 0.358 - uIU/ML High No Dec 10 opin 3.740 informa 2015 [Units/ tion in 6:44 PM volume] source in data Serum or Plasma by Detecti on limit <= 0.005 mU/L COMP. METABOLIC PANEL (CHEM 12) Observa Value Referen Units Interpr Notes Date tion ce etation Range Glucose 100 70 - MG/DL No No Jan 04 110 informa informa 2016 [Mass/v tion in tion in 6:44 PM olume] source source in data data Serum or Plasma Urea 6 7 - 18 MG/DL Low No Dec 10 nitroge informa 2016 n tion in 6:44 PM [Mass/v source olume] data in Serum or Plasma Sodium 136 133 - mmol/L No No Dec 10 [Moles/ 144 informa informa 2016 volume] tion in tion in 6:44 PM in source source Serum data data or Plasma Potassi 3.6 3.6 - mmol/l No No Dec 10 um 5.2 informa informa 2015 [Moles/ tion in tion in 6:44 PM volume] source source in data data Serum or Plasma Chlorid 106 98 - mmol/l No No Dec 10 e 107 informa informa 2016 [Moles/ tion in tion in 6:44 PM volume] source source in data data Blood Carbon 20 21 - 32 mmol/L Low No Jan 04 dioxide informa 2016 , total tion in 6:44 PM source [Moles/ data volume] in Serum or Plasma Creatin 0.50 0.60 - MG/DL Low No Jan 04 ine 1.30 informa 2015 [Mass/v tion in 6:44 PM olume] source in data Serum or Plasma Protein 6.5 6.4 - G/DL No No Jan 04 8.4 informa informa 2015 [Mass/v tion in tion in 6:44 PM olume] source source in data data Serum or Plasma Albumin 3.0 3.4 - G/DL Low No Jan 04 5.0 informa 2015 [Mass/v tion in 6:44 PM olume] source in data Serum or Plasma Globuli 3.5 2.4 - G/DL No No Jan 04 n 4.8 informa informa 2015 [Mass/v tion in tion in 6:44 PM olume] source source in data data Plasma Albumin 0.9 0.6 - No No No Jan 04 /Globul 1.6 informa informa informa 2016 in tion in tion in tion in 6:44 PM [Mass source source source ratio] data data data in Serum or Plasma Calcium 8.5 8.5 - MG/DL No No Jan 04 10.1 informa informa 2015 [Mass/v tion in tion in 6:44 PM olume] source source in data data Serum or Plasma Alkalin 58 45 - U/L No No Jan 04 e 117 informa informa 2016 phospha tion in tion in 6:44 PM tase source source [Enzyma data data tic activit y/volum e] in Serum or Plasma Asparta 19 15 - 37 U/L No No Jan 04 te informa informa 2016 aminotr tion in tion in 6:44 PM ansfera source source se data data [Enzyma tic activit y/volum e] in Serum or Plasma Alanine 32 12 - 78 U/L No No Jan 04 informa informa 2016 aminotr tion in tion in 6:44 PM ansfera source source se data data [Enzyma tic activit y/volum e] in Serum or Plasma Bilirub 0.30 0.00 - MG/DL No No Jan 04 in.tota 1.00 informa informa 2016 l tion in tion in 6:44 PM [Mass/v source source olume] data data in Serum or Plasma CBC\T\AUTO DIFF Observa Value Referen Units Interpr Notes Date tion ce etation Range Leukocy 10.3 3.0 - K/UL No No Jan 04 benjamin 11.3 informa informa 2016 [#/volu tion in tion in 6:44 PM me] in source source Blood data data by Automat ed count Erythro 3.870 3.450 - M/ul No No Jan 04 cytes 5.400 informa informa 2016 [#/volu tion in tion in 6:44 PM me] in source source Blood data data by Automat ed count Hemoglo 11.8 10.0 - gm/dl No No Jan 04 bin 16.0 informa informa 2016 [Mass/v tion in tion in 6:44 PM olume] source source in data data Blood Hematoc 34.9 29.9 - % No No Jan 04 rit 45.5 informa informa 2016 [Volume tion in tion in 6:44 PM source source Fractio data data n] of Blood by Automat ed count Erythro 90.1 78.2 - fl No No Jan 04 cyte 101.8 informa informa 2016 mean tion in tion in 6:44 PM corpusc source source ular data data volume [Entiti c volume] by Automat ed count Erythro 30.4 26.4 - pg No No Jan 04 cyte 33.3 informa informa 2016 mean tion in tion in 6:44 PM corpusc source source ular data data hemoglo bin [Entiti c mass] by Automat ed count Erythro 33.8 32.5 - g/dl No No Jan 04 cyte 35.3 informa informa 2016 mean tion in tion in 6:44 PM corpusc source source ular data data hemoglo bin concent ration [Mass/v olume] by Automat ed count Erythro 13.1 10.1 - % No No Jan 04 cyte 16.2 informa informa 2016 distrib tion in tion in 6:44 PM ution source source width data data [Ratio] by Automat ed count Platele 176 122 - K/UL No No Jan 04 ts 454 informa informa 2016 [#/volu tion in tion in 6:44 PM me] in source source Blood data data by Automat ed count Platele 7.5 6.4 - fl No No Dec 10 t mean 10.4 informa informa 2016 volume tion in tion in 6:44 PM [Entiti source source c data data volume] in Blood by Automat ed count Neutrop 75.3 43.0 - % No No Dec 10 hils/10 83.0 informa informa 2016 0 tion in tion in 6:44 PM leukocy source source benjamin in data data Blood by Automat ed count Lymphoc 17.8 10.0 - % No No Dec 10 ytes/10 42.0 informa informa 2016 0 tion in tion in 6:44 PM leukocy source source benjamin in data data Blood by Automat ed count Monocyt 4.2 1.0 - % No No Dec 10 es/100 14.0 informa informa 2016 leukocy tion in tion in 6:44 PM benjamin in source source Blood data data by Automat ed count Eosinop 2.5 0.0 - % No No Dec 10 hils/10 9.0 informa informa 2016 0 tion in tion in 6:44 PM leukocy source source benjamin in data data Blood by Automat ed count Basophi 0.2 0.0 - % No No Dec 10 ls/100 2.0 informa informa 2016 leukocy tion in tion in 6:44 PM benjamin in source source Blood data data by Automat ed count Neutrop 7.8 2.7 - K/ul High No Dec 10 hils 6.9 informa 2016 [#/volu tion in 6:44 PM me] in source Blood data by Automat ed count Lymphoc 1.8 0.4 - K/ul No No Dec 10 ytes 3.9 informa informa 2016 [#/volu tion in tion in 6:44 PM me] in source source Blood data data by Automat ed count Monocyt 0.4 0.2 - K/ul No No Dec 10 es 0.6 informa informa 2016 [#/volu tion in tion in 6:44 PM me] in source source Blood data data by Automat ed count Eosinop 0.3 0.0 - K/ul No No Oct 10 hils 0.9 informa informa 2015 [#/volu tion in tion in 6:44 PM me] in source source Blood data data by Automat ed count Basophi 0.0 0.0 - K/ul No No Jan 04 ls 0.2 informa informa 2015 [#/volu tion in tion in 6:44 PM me] in source source Blood data data by Automat ed count US Head-Neck Soft Tissue Observa Value Referen Units Interpr Notes Date ti ce etation Range \.br\UL No No No No Dec 23 TRASOUN informa informa informa informa 2015 D OF tion in tion in tion in tion in 2:30 PM THE source source source source THYROID data data data data \.br\\. br\COMP ARISON: None.\. br\\.br \Right lobe measure s 5.1 x 1.4 cm. Left lobe measure s 4.7 x 1.6 cm. No nodular ity. There is some heterog eneous thyroid parench yma with increas ed vascula rity.\. 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 Correla te clinica lly.\.b r\\.br\ END OF REPORT* *\.br\\ .br\Marleny l Eric nichole M.D.\.b r\\.br\ Dictate d: 12/24/19 16 3:30 PM\.br\ \.br\Tr anscrib ed: 12/24/19 16 4:06 PM\.br\ \.br\ * Final Report \.br \\.br\D ictated : BENJIE VASQUEZ M.D. 016 3:03 pm\.br\ \.br\Tr anscrib ed by: MH 016 4:07 pm\.br\ \.br\Au thentic ated by: BENJIE VASQUEZ M.D. 016 1:17 pm\.br\ \.br\ THYROGLOBULIN Observa Value Referen Units Interpr Notes Date tion ce etation Range Thyrogl SEE No No No Thyrogl Dec 21 obulin BELOW informa informa informa obulin 2016 Ab tion in tion in tion in Antibod 2:37 PM [Units/ source source source y volume] data data data in 4.3 H Serum or 0.0-0.9 Plasma IU/mL CBThyro globuli n Antibod y measure d by Johanna Sola Methodo logy THYROGLOBULIN, KAVYA Observa Value Referen Units Interpr Notes Date tion ce etation Range THYROGL 31 No ng/mL No Referen Dec 21 OBULIN, informa informa ce 2015 KAVYA tion in tion in Range:P 2:37 PM source source ubertal data data Childre nand Adults: <40Acco rding to the [facility] [employer] l Biochem istry,t he referen ce interva l for Thyrogl obulin (TG) should berelat ed to euthyro id patient s and not for patient s whounde rwent thyroid ectomy. TG referen ce interva ls for thesepa tients depend on the residua l mass of the thyroid tissuel eft after surgery . Establi shing a post-op erative baselin eis recomme nded. The assay quantit ation limit is 2.0 ng/mL.P erformamilcar d at: CB, [facility] [place] [address] [address] [facility], [place], [place], [id number] [facility] kenny teresa, PhD, Phone: [phone] ormed at: ES, [facility] n[facility] [place] [address], [id number] 58Samue l Daniel jones MD, Phone: [phone] ANTIMICROSOMAL AB Observa Value Referen Units Interpr Notes Date tion ce etation Range Rheumat 5395.50 0.00 - No High No Dec 21 oid 34.00 informa informa 2016 factor tion in tion in 2:37 PM [Units/ source source volume] data data in Serum TSH Observa Value Referen Units Interpr Notes Date tion ce etation Range Thyrotr 5.720 0.358 - uIU/ML High No Dec 21 opin 3.740 informa 2015 [Units/ tion in 2:37 PM volume] source in data Serum or Plasma by Detecti on limit <= 0.005 mU/L URINE CULTURE Observa Value Referen Units Interpr Notes Date tion ce etation Range Bacteri >100,00 No No No ORDER#: Nov 24 a 0 informa informa informa 2016 identif ORGS/ML tion in tion in tion in [id number] 4:57 PM ied in OF source source source 2 Urine MIXED data data data by SKIN Culture ERIS ORDERED BY: MANINDER ETIENNE RSOURCE : URINE COLLECT ED: 6 16:57AN DENZEL CS AT SINGH.: RECEIVE D : 6 17:36UR INE CULTURE FINAL 6 07:580 >100,00 0 ORGS/ML OF MIXED SKIN ERIS RUBELLA Observa Value Referen Units Interpr Notes Date tion ce etation Range Rubella POSITIV No No No No Nov 24 virus E informa informa informa informa 2016 Ab tion in tion in tion in tion in 1:15 PM [Presen source source source source ce] in data data data data Serum RPR Observa Value Referen Units Interpr Notes Date tion ce etation Range Reagin NONREAC NONREAC No No No Nov 24 Ab TIVE TIVE informa informa informa 2016 [Presen tion in tion in tion in 1:15 PM ce] in source source source Serum data data data by RPR RBC ANTIBODY SCREEN Observa Value Referen Units Interpr Notes Date tion ce etation Range Blood TEXT~Na No No No No Nov 24 group me: informa informa informa informa 2016 antibod FERNANDEZ tion in tion in tion in tion in 1:15 PM y , source source source source screen Jose A data data data data [Presen ct: ce] in [id number] Serum 277~ANT or IBODY Plasma SCREEN NEG 6 07:19 mct ABO GROUP AND RH Observa Value Referen Units Interpr Notes Date tion ce etation Range ABO & TEXT~Na No No No No Nov 24 Rh me: informa informa informa informa 2016 group FERNANDEZ tion in tion in tion in tion in 1:15 PM panel , source source source source in Jose A data data data data Blood ct: [id number] 277~ABO O 6 07:20 mct~RH( D) TYPING POS 6 07:20 mct HEPATITIS PANEL-ACUTE Observa Value Referen Units Interpr Notes Date tion ce etation Range Hepatit NONREAC NONREAC No No No Nov 24 is A TIVE TIVE informa informa informa 2016 virus tion in tion in tion in 1:15 PM IgM Ab source source source [Presen data data data ce] in Serum by Immunoa ssay HCG QUANTITATIVE Observa Value Referen Units Interpr Notes Date tion ce etation Range Choriog 52658 No mIU/ML No FEMALE Nov 24 onadotr informa informa (NON 2016 opin tion in tion in PREGNAN 1:15 PM [Moles/ source source T) volume] data data in <31 Urine DAY - 1 WEEK 5 - 501 - 2 WEEK 50 - 5002 - 3 WEEK 100 - 84607 - 4 WEEK 500 - 155006 - 5 WEEK 1000 - 116266 - 6 WEEK 27641 - 4765928 - 8 WEEK 48097 - 1516479 - 3 MTHS 98494 - 833679 TSH Observa Value Referen Units Interpr Notes Date tion ce etation Range Thyrotr 30.400 0.358 - uIU/ML High No Nov 24 opin 3.740 informa 2016 [Units/ tion in 1:15 PM volume] source in data Serum or Plasma by Detecti on limit <= 0.005 mU/L PROGESTERONE Observa Value Referen Units Interpr Notes Date tion ce etation Range PROGEST 22.8 No ng/ml No MALE: Nov 24 ERONE informa informa 2016 tion in tion in 1:15 PM source source 0.2-1.4 data data FEMALE: FOLLICU LAR PHASE 0.2-1.5 LUTEAL PHASE 1.7-27. 0OVULAT ION PHASE 0.8-3.0 PREGNAN TFIRST TRIMEST ER: 8.8-48. 6SECOND TRIMEST ER: 12.4-75 .8THIRD TRIMEST ER: 58.5-22 2.3POST [place] JOSE: 0.1-0.8 CBC\T\AUTO DIFF Observa Value Referen Units Interpr Notes Date tion ce etation Range Leukocy 8.0 3.0 - K/UL No No Nov 24 benjamin 11.3 informa informa 2016 [#/volu tion in tion in 1:15 PM me] in source source Blood data data by Automat ed count Erythro 4.340 3.450 - M/ul No No Nov 24 cytes 5.400 informa informa 2016 [#/volu tion in tion in 1:15 PM me] in source source Blood data data by Automat ed count Hemoglo 13.1 10.0 - gm/dl No Nov 24 bin 16.0 informa informa 2016 [Mass/v tion in tion in 1:15 PM olume] source source in data data Blood Hematoc 39.2 29.9 - % No No Nov 24 rit 45.5 informa informa 2016 [Volume tion in tion in 1:15 PM source source Fractio data data n] of Blood by Automat ed count Erythro 90.2 78.2 - fl No No Nov 24 cyte 101.8 informa informa 2016 mean tion in tion in 1:15 PM corpusc source source ular data data volume [Entiti c volume] by Automat ed count Erythro 30.2 26.4 - pg No No Nov 24 cyte 33.3 informa informa 2016 mean tion in tion in 1:15 PM corpusc source source ular data data hemoglo bin [Entiti c mass] by Automat ed count Erythro 33.5 32.5 - g/dl No No Nov 24 cyte 35.3 informa informa 2016 mean tion in tion in 1:15 PM corpusc source source ular data data hemoglo bin concent ration [Mass/v olume] by Automat ed count Erythro 13.6 10.1 - % No No Nov 24 cyte 16.2 informa informa 2016 distrib tion in tion in 1:15 PM ution source source width data data [Ratio] by Automat ed count Platele 220 122 - K/UL No No Nov 24 ts 454 informa informa 2016 [#/volu tion in tion in 1:15 PM me] in source source Blood data data by Automat ed count Platele 8.3 6.4 - fl No No Nov 24 t mean 10.4 informa informa 2016 volume tion in tion in 1:15 PM [Entiti source source c data data volume] in Blood by Automat ed count Neutrop 67.8 43.0 - % No No Nov 24 hils/10 83.0 informa informa 2016 0 tion in tion in 1:15 PM leukocy source source benjamin in data data Blood by Automat ed count Lymphoc 24.0 10.0 - % No No Nov 24 ytes/10 42.0 informa informa 2016 0 tion in tion in 1:15 PM leukocy source source benjamin in data data Blood by Automat ed count Monocyt 5.0 1.0 - % No No Nov 24 es/100 14.0 informa informa 2016 leukocy tion in tion in 1:15 PM benjamin in source source Blood data data by Automat ed count Eosinop 2.8 0.0 - % No No Nov 24 hils/10 9.0 informa informa 2016 0 tion in tion in 1:15 PM leukocy source source benjamin in data data Blood by Automat ed count Basophi 0.4 0.0 - % No No Nov 24 ls/100 2.0 informa informa 2016 leukocy tion in tion in 1:15 PM benjamin in source source Blood data data by Automat ed count Neutrop 5.4 2.7 - K/ul No No Nov 24 hils 6.9 informa informa 2016 [#/volu tion in tion in 1:15 PM me] in source source Blood data data by Automat ed count Lymphoc 1.9 0.4 - K/ul No No Nov 24 ytes 3.9 informa informa 2016 [#/volu tion in tion in 1:15 PM me] in source source Blood data data by Automat ed count Monocyt 0.4 0.2 - K/ul No No Nov 24 es 0.6 informa informa 2016 [#/volu tion in tion in 1:15 PM me] in source source Blood data data by Automat ed count Eosinop 0.2 0.0 - K/ul No No Nov 24 hils 0.9 informa informa 2016 [#/volu tion in tion in 1:15 PM me] in source source Blood data data by Automat ed count Basophi 0.0 0.0 - K/ul No No Nov 24 ls 0.2 informa informa 2016 [#/volu tion in tion in 1:15 PM me] in source source Blood data data by Automat ed count URINALYSIS COMPLETE Observa Value Referen Units Interpr Notes Date tion ce etation Range Color YELLOW No No No No Nov 09 of informa informa informa informa 2016 Urine tion in tion in tion in tion in 7:50 PM source source source source data data data data Clarity CLEAR No No No No Nov 09 of informa informa informa informa 2016 Urine tion in tion in tion in tion in 7:50 PM source source source source data data data data Glucose NEGATIV NEGATIV MG/DL No No Nov 09 E E informa informa 2016 [Presen tion in tion in 7:50 PM ce] in source source Urine data data by Automat ed test strip Bilirub NEGATIV NEGATIV No No No Nov 09 in E E informa informa informa 2016 [Presen tion in tion in tion in 7:50 PM ce] in source source source Urine data data data by Automat ed test strip Ketones 15 NEGATIV MG/DL No No Nov 09 E informa informa 2016 [Presen tion in tion in 7:50 PM ce] in source source Urine data data by Automat ed test strip Specifi 1.015 1.006 - No No No Nov 09 c 1.035 informa informa informa 2016 gravity tion in tion in tion in 7:50 PM of source source source Urine data data data by Automat ed test strip Erythro NEGATIV NEGATIV No No No Nov 09 cytes E E informa informa informa 2016 [Presen tion in tion in tion in 7:50 PM ce] in source source source Urine data data data by Automat ed pH of 5.5 5.0 - No No No Nov 09 Urine 9.0 informa informa informa 2016 by tion in tion in tion in 7:50 PM Automat source source source ed test data data data strip Protein NEGATIV NEGATIV MG/DL No No Nov 09 E E informa informa 2016 [Presen tion in tion in 7:50 PM ce] in source source Urine data data by Automat ed test strip UROBILI 0.2 0.2 - E.U./DL No No Nov 09 NOGEN 1.0 informa informa 2016 tion in tion in 7:50 PM source source data data Nitrate NEGATIV NEGATIV No No No Nov 09 E E informa informa informa 2016 [Presen tion in tion in tion in 7:50 PM ce] in source source source Urine data data data Leukocy NEGATIV NEGATIV No No No Oct 15 benjamin E E informa informa informa 2016 [Presen tion in tion in tion in 7:50 PM ce] in source source source Urine data data data by Automat ed Erythro 1 0 - 4 /HPF No No Nov 09 cytes informa informa 2016 [#/area tion in tion in 7:50 PM ] in source source Urine data data sedimen t by Microsc opy high power field WBC 1 0 - 5 /HPF No No Nov 09 COUNT informa informa 2016 tion in tion in 7:50 PM source source data data Epithel 1 0 - 6 /HPF No No Nov 09 ial informa informa 2016 cells tion in tion in 7:50 PM [Presen source source ce] in data data Urine sedimen t by Light microsc opy Bacteri NEGATIV NEGATIV /HPF No BACTERI Oct 15 a E E informa A 2016 [#/area tion in INTERPR 7:50 PM ] in source ETATION Urine data :NEGATI sedimen VE t by <=599/u Microsc lTRACE opy high >=600, power <=1199/ field ul1+ >=1200, <=2399/ ul2+ >=2400, <=3599/ ul3+ >=3600, <=4799/ ul4+ >=4800/ ul Hyaline 0 0 - 4 /LPF No No Nov 09 casts informa informa 2016 [#/area tion in tion in 7:50 PM ] in source source Urine data data sedimen t by Microsc opy high power field GLOMELULAR ESTEFANI. RATE,CALC. Observa Value Referen Units Interpr Notes Date tion ce etation Range Glomeru 116.0 60.0 - ml/min No Previou Oct 15 lar 200.0 informa s value 2016 filtrat tion in was 7:37 PM ion source 116.1, rate/1. data verifie 73 sq M d by AUTO at predict 20:26 ed on among non-karina 6.THE cks by eGFR IS Creatin AN ine-bas ESTIMAT ed ED formula GLOMELU (MDRD) LAR FILTRAT ION RATEBAS ED ON AN AVERAGE BODY SURFACE AREA OF 1.73M2. THIS CALCULA TION IS NOT ACCURAT E FOR PEDIATR IC PATIENT S,PATIE NTS >70 YEARS OF AGE,OR PATIENT S WITH EXTREME BODY SIZE.>6 0 ML/MIN/ 1.73M2 = NORMAL< 60 ML/MIN/ 1.73M2 = CHRONIC KIDNEY DISEASE <15 ML/MIN/ 1.73M2 = KIDNEY FAILURE AVERAGE EGFR FOLLOWS :AGE(YE ARS) AVERAGE EGFR20- 39 116 ML/MIN3 0-39 107 ML/MIN4 0-49 99 ML/MIN5 0-59 93 ML/MIN6 0-69 85 ML/MIN COMP. METABOLIC PANEL (CHEM 12) Observa Value Referen Units Interpr Notes Date tion ce etation Range Glucose 79 70 - MG/DL No No Nov 09 110 informa informa 2015 [Mass/v tion in tion in 7:37 PM olume] source source in data data Serum or Plasma Urea 5 7 - 18 MG/DL Low No Nov 09 nitroge informa 2015 n tion in 7:37 PM [Mass/v source olume] data in Serum or Plasma Sodium 138 133 - mmol/L No No Nov 09 [Moles/ 144 informa informa 2016 volume] tion in tion in 7:37 PM in source source Serum data data or Plasma Potassi 3.8 3.6 - mmol/l No Nov 09 um 5.2 informa informa 2015 [Moles/ tion in tion in 7:37 PM volume] source source in data data Serum or Plasma Chlorid 108 98 - mmol/l High No Nov 09 e 107 informa 2015 [Moles/ tion in 7:37 PM volume] source in data Blood Carbon 23 21 - 32 mmol/L No Nov 09 dioxide informa informa 2016 , total tion in tion in 7:37 PM source source [Moles/ data data volume] in Serum or Plasma Creatin 0.60 0.60 - MG/DL No Nov 09 ine 1.30 informa informa 2016 [Mass/v tion in tion in 7:37 PM olume] source source in data data Serum or Plasma Protein 7.7 6.4 - G/DL No No Nov 09 8.4 informa informa 2015 [Mass/v tion in tion in 7:37 PM olume] source source in data data Serum or Plasma Albumin 4.0 3.4 - G/DL No No Nov 09 5.0 informa informa 2015 [Mass/v tion in tion in 7:37 PM olume] source source in data data Serum or Plasma Globuli 3.7 2.4 - G/DL No No Nov 09 n 4.8 informa informa 2016 [Mass/v tion in tion in 7:37 PM olume] source source in data data Plasma Albumin 1.1 0.6 - No No Nov 09 /Globul 1.6 informa informa informa 2016 in tion in tion in tion in 7:37 PM [Mass source source source ratio] data data data in Serum or Plasma Calcium 8.3 8.5 - MG/DL Low No Nov 09 10.1 informa 2015 [Mass/v tion in 7:37 PM olume] source in data Serum or Plasma Alkalin 64 45 - U/L No No Nov 09 e 117 informa informa 2016 phospha tion in tion in 7:37 PM tase source source [Enzyma data data tic activit y/volum e] in Serum or Plasma Asparta 44 15 - 37 U/L High No Nov 09 te informa 2016 aminotr tion in 7:37 PM ansfera source se data [Enzyma tic activit y/volum e] in Serum or Plasma Alanine 66 12 - 78 U/L No No Nov 09 informa informa 2016 aminotr tion in tion in 7:37 PM ansfera source source se data data [Enzyma tic activit y/volum e] in Serum or Plasma Bilirub 0.50 0.00 - MG/DL No No Nov 09 in.tota 1.00 informa informa 2016 l tion in tion in 7:37 PM [Mass/v source source olume] data data in Serum or Plasma HCG QUANTITATIVE Observa Value Referen Units Interpr Notes Date tion ce etation Range Choriog 4798 No mIU/ML No FEMALE Nov 09 onadotr informa informa (NON 2016 opin tion in tion in PREGNAN 7:37 PM [Moles/ source source T) volume] data data in <31 Urine DAY - 1 WEEK 5 - 501 - 2 WEEK 50 - 5002 - 3 WEEK 100 - 73768 - 4 WEEK 500 - 619511 - 5 WEEK 1000 - 955140 - 6 WEEK 30849 - 7912765 - 8 WEEK 92441 - 6133169 - 3 MTHS 16294 - 290763 CBC\T\AUTO DIFF Observa Value Referen Units Interpr Notes Date tion ce etation Range Leukocy 8.6 3.0 - K/UL No No Nov 09 benjamin 11.3 informa informa 2016 [#/volu tion in tion in 7:37 PM me] in source source Blood data data by Automat ed count Erythro 4.530 3.450 - M/ul No No Nov 09 cytes 5.400 informa informa 2016 [#/volu tion in tion in 7:37 PM me] in source source Blood data data by Automat ed count Hemoglo 13.6 10.0 - gm/dl No No Nov 09 bin 16.0 informa informa 2016 [Mass/v tion in tion in 7:37 PM olume] source source in data data Blood Hematoc 41.0 29.9 - % No No Nov 09 rit 45.5 informa informa 2016 [Volume tion in tion in 7:37 PM source source Fractio data data n] of Blood by Automat ed count Erythro 90.5 78.2 - fl No No Nov 09 cyte 101.8 informa informa 2016 mean tion in tion in 7:37 PM corpusc source source ular data data volume [Entiti c volume] by Automat ed count Erythro 30.0 26.4 - pg No No Nov 09 cyte 33.3 informa informa 2016 mean tion in tion in 7:37 PM corpusc source source ular data data hemoglo bin [Entiti c mass] by Automat ed count Erythro 33.2 32.5 - g/dl No No Nov 09 cyte 35.3 informa informa 2016 mean tion in tion in 7:37 PM corpusc source source ular data data hemoglo bin concent ration [Mass/v olume] by Automat ed count Erythro 13.9 10.1 - % No No Nov 09 cyte 16.2 informa informa 2016 distrib tion in tion in 7:37 PM ution source source width data data [Ratio] by Automat ed count Platele 224 122 - K/UL No No Nov 09 ts 454 informa informa 2016 [#/volu tion in tion in 7:37 PM me] in source source Blood data data by Automat ed count Platele 7.2 6.4 - fl No No Nov 09 t mean 10.4 informa informa 2016 volume tion in tion in 7:37 PM [Entiti source source c data data volume] in Blood by Automat ed count Neutrop 69.6 43.0 - % No No Nov 09 hils/10 83.0 informa informa 2016 0 tion in tion in 7:37 PM leukocy source source benjamin in data data Blood by Automat ed count Lymphoc 22.7 10.0 - % No No Nov 09 ytes/10 42.0 informa informa 2016 0 tion in tion in 7:37 PM leukocy source source benjamin in data data Blood by Automat ed count Monocyt 5.4 1.0 - % No No Nov 09 es/100 14.0 informa informa 2016 leukocy tion in tion in 7:37 PM benjamin in source source Blood data data by Automat ed count Eosinop 1.8 0.0 - % No No Nov 09 hils/10 9.0 informa informa 2016 0 tion in tion in 7:37 PM leukocy source source benjamin in data data Blood by Automat ed count Basophi 0.5 0.0 - % No No Nov 09 ls/100 2.0 informa informa 2016 leukocy tion in tion in 7:37 PM benjamin in source source Blood data data by Automat ed count Neutrop 6.0 2.7 - K/ul No No Nov 09 hils 6.9 informa informa 2016 [#/volu tion in tion in 7:37 PM me] in source source Blood data data by Automat ed count Lymphoc 2.0 0.4 - K/ul No No Nov 09 ytes 3.9 informa informa 2016 [#/volu tion in tion in 7:37 PM me] in source source Blood data data by Automat ed count Monocyt 0.5 0.2 - K/ul No No Nov 09 es 0.6 informa informa 2016 [#/volu tion in tion in 7:37 PM me] in source source Blood data data by Automat ed count Eosinop 0.2 0.0 - K/ul No No Nov 09 hils 0.9 informa informa 2016 [#/volu tion in tion in 7:37 PM me] in source source Blood data data by Automat ed count Basophi 0.0 0.0 - K/ul No No Nov 09 ls 0.2 informa informa 2015 [#/volu tion in tion in 7:37 PM me] in source source Blood data data by Automat ed count ABO GROUP AND RH Observa Value Referen Units Interpr Notes Date tion ce etation Range ABO & TEXT~Na No No No No Nov 09 Rh me: informa informa informa informa 2016 group REBECCA tion in tion in tion in tion in 7:02 PM panel , source source source source in SANA~Ac data data data data Blood ct: [id number] 627~ABO O 6 20:03 JPB~RH( D) TYPING POS 6 20:04 JPB URINALYSIS COMPLETE Observa Value Referen Units Interpr Notes Date ti ce etation Range Color YELLOW No No No No Nov 05 of informa informa informa informa 2016 Urine tion in tion in tion in tion in 2:40 PM source source source source data data data data Clarity CLOUDY No No No No Nov 05 of informa informa informa informa 2016 Urine tion in tion in tion in tion in 2:40 PM source source source source data data data data Glucose NEGATIV NEGATIV MG/DL No No Nov 05 E E informa informa 2016 [Presen tion in tion in 2:40 PM ce] in source source Urine data data by Automat ed test strip Bilirub NEGATIV NEGATIV No No No Nov 05 in E E informa informa informa 2016 [Presen tion in tion in tion in 2:40 PM ce] in source source source Urine data data data by Automat ed test strip Ketones 40 NEGATIV MG/DL No No Nov 05 E informa informa 2016 [Presen tion in tion in 2:40 PM ce] in source source Urine data data by Automat ed test strip Specifi 1.020 1.006 - No No No Nov 05 c 1.035 informa informa informa 2016 gravity tion in tion in tion in 2:40 PM of source source source Urine data data data by Automat ed test strip Erythro NEGATIV NEGATIV No No No Nov 05 cytes E E informa informa informa 2016 [Presen tion in tion in tion in 2:40 PM ce] in source source source Urine data data data by Automat ed pH of 5.5 5.0 - No No No Nov 05 Urine 9.0 informa informa informa 2016 by tion in tion in tion in 2:40 PM Automat source source source ed test data data data strip Protein NEGATIV NEGATIV MG/DL No No Nov 05 E E informa informa 2016 [Presen tion in tion in 2:40 PM ce] in source source Urine data data by Automat ed test strip UROBILI 1.0 0.2 - E.U./DL No No Nov 05 NOGEN 1.0 informa informa 2016 tion in tion in 2:40 PM source source data data Nitrate NEGATIV NEGATIV No No No Nov 05 E E informa informa informa 2015 [Presen tion in tion in tion in 2:40 PM ce] in source source source Urine data data data Leukocy MODERAT NEGATIV No Abnorma No Nov 05 benjamin E E informa l informa 2015 [Presen tion in tion in 2:40 PM ce] in source source Urine data data by Automat ed Erythro 3 0 - 4 /HPF No No Nov 05 cytes informa informa 2016 [#/area tion in tion in 2:40 PM ] in source source Urine data data sedimen t by Microsc opy high power field WBC 6 0 - 5 /HPF High No Nov 05 COUNT informa 2016 tion in 2:40 PM source data Epithel 13 0 - 6 /HPF High No Oct 11 ial informa 2016 cells tion in 2:40 PM [Presen source ce] in data Urine sedimen t by Light microsc opy Bacteri 1+ NEGATIV /HPF Abnorma BACTERI Nov 05 a E l A 2015 [#/area INTERPR 2:40 PM ] in ETATION Urine :NEGATI sedimen VE t by <=599/u Microsc lTRACE opy high >=600, power <=1199/ field ul1+ >=1200, <=2399/ ul2+ >=2400, <=3599/ ul3+ >=3600, <=4799/ ul4+ >=4800/ ul Hyaline 3 0 - 4 /LPF No No Nov 05 casts informa informa 2016 [#/area tion in tion in 2:40 PM ] in source source Urine data data sedimen t by Microsc opy high power field UR IN HOUSE DRUG SCREEN Observa Value Referen Units Interpr Notes Date tion ce etation Range Ampheta NEG NEGATIV ug/ML No AMPHETA Nov 05 mines E informa MINE 2015 [Presen tion in CUT OFF 2:40 PM ce] in source Urine data CONCENT by RATION Screen - 300 method >1000 ng/mL Barbitu NEG NEGATIV ug/ML No BARBITU Nov 05 rates E informa ATE CUT 2015 [Presen tion in OFF 2:40 PM ce] in source CONCENT Urine data RATION by - 200 Screen method Benzodi NEG NEGATIV ug/ML No BENZODI Nov 05 azepine E informa AZEPINE 2016 s tion in CUT 2:40 PM [Presen source OFF ce] in data CONCENT Urine RATION by - 200 Screen method Cocaine NEG NEGATIV ug/ML No COCAINE Nov 05 E informa CUT 2015 [Presen tion in OFF 2:40 PM ce] in source CONCENT Urine data RATION by - 300 Screen method Opiates NEG NEGATIV ug/ML No OPIATE Nov 05 E informa CUT OFF 2015 [Presen tion in 2:40 PM ce] in source CONCENT Urine data RATION by - 300 Screen method Cannabi NEG NEGATIV NG/ML No THC CUT Nov 05 noids E informa OFF 2015 [Presen tion in CONCENT 2:40 PM ce] in source RATION Urine data - 50 by Screen method Methado NEG NEGATIV ug/ML No METHADO Nov 05 ne E informa NE CUT 2015 [Presen tion in OFF 2:40 PM ce] in source CONCENT Urine data RATION by - Screen 300THES method E RESULTS PROVIDE ONLY A PRELIMI NARY TEST RESULT. THEREIS A POSSIBI LITY THAT OVER THE COUNTER DRUGS MAY INTERFE REWITH THE TEST. CONFORM ITORY TEST CAN BE ORDERED AT [facility] RET[facility] OF THE [facility] CONSIDE RATION ANDPROF ESSIONA L JUDGEME NT SHOULD BE APPLIED TO ANY DRUG OF ABUSETE ST RESULT, PARTICU JEFF WHEN PRELIMI NARY POSITIV E RESULTS AREUSED . THESE DRUG SCREEN RESULTS ARE NOT FOR LEGAL APPLICA TIONS. BUPRENORPHINE,QUAL Observa Value Referen Units Interpr Notes Date tion ce etation Range Bupreno NEGATIV No No No BUPRENO Nov 05 rphine E informa informa informa RPHRINE 2015 [Presen tion in tion in tion in CUT 2:40 PM ce] in source source source OFF Urine data data data CONCENT RATION - 12.5 NG/ML GLOMELULAR ESTEFANI. RATE,CALC. Observa Value Referen Units Interpr Notes Date tion ce etation Range Glomeru 97.1 60.0 - ml/min No Previou Nov 05 lar 200.0 informa s value 2015 filtrat tion in was 2:15 PM ion source 97.2, rate/1. data verifie 73 sq M d by AUTO at predict 15:08 ed on among non-karina 6.THE cks by eGFR IS Creatin AN ine-bas ESTIMAT ed ED formula GLOMELU (MDRD) LAR FILTRAT ION RATEBAS ED ON AN AVERAGE BODY SURFACE AREA OF 1.73M2. THIS CALCULA TION IS NOT ACCURAT E FOR PEDIATR IC PATIENT S,PATIE NTS >70 YEARS OF AGE,OR PATIENT S WITH EXTREME BODY SIZE.>6 0 ML/MIN/ 1.73M2 = NORMAL< 60 ML/MIN/ 1.73M2 = CHRONIC KIDNEY DISEASE <15 ML/MIN/ 1.73M2 = KIDNEY FAILURE AVERAGE EGFR FOLLOWS :AGE(YE ARS) AVERAGE EGFR20- 39 116 ML/MIN3 0-39 107 ML/MIN4 0-49 99 ML/MIN5 0-59 93 ML/MIN6 0-69 85 ML/MIN HCG QUANTITATIVE Observa Value Referen Units Interpr Notes Date tion ce etation Range Choriog 1393 No mIU/ML No FEMALE Nov 05 onadotr informa informa (NON 2016 opin tion in tion in PREGNAN 2:15 PM [Moles/ source source T) volume] data data in <31 Urine DAY - 1 WEEK 5 - 501 - 2 WEEK 50 - 5002 - 3 WEEK 100 - 13527 - 4 WEEK 500 - 509072 - 5 WEEK 1000 - 475969 - 6 WEEK 55045 - 2564347 - 8 WEEK 71858 - 3429917 - 3 MTHS 97616 - 556269 COMP. METABOLIC PANEL (CHEM 12) Observa Value Referen Units Interpr Notes Date tion ce etation Range Glucose 91 70 - MG/DL No No Nov 05 110 informa informa 2016 [Mass/v tion in tion in 2:15 PM olume] source source in data data Serum or Plasma Urea 4 7 - 18 MG/DL Low No Nov 05 nitroge informa 2016 n tion in 2:15 PM [Mass/v source olume] data in Serum or Plasma Sodium 141 133 - mmol/L No No Nov 05 [Moles/ 144 informa informa 2016 volume] tion in tion in 2:15 PM in source source Serum data data or Plasma Potassi 3.6 3.6 - mmol/l No No Nov 05 um 5.2 informa informa 2016 [Moles/ tion in tion in 2:15 PM volume] source source in data data Serum or Plasma Chlorid 109 98 - mmol/l High No Nov 05 e 107 informa 2015 [Moles/ tion in 2:15 PM volume] source in data Blood Carbon 22 21 - 32 mmol/L No No Nov 05 dioxide informa informa 2016 , total tion in tion in 2:15 PM source source [Moles/ data data volume] in Serum or Plasma Creatin 0.70 0.60 - MG/DL No No Nov 05 ine 1.30 informa informa 2016 [Mass/v tion in tion in 2:15 PM olume] source source in data data Serum or Plasma Protein 7.2 6.4 - G/DL No No Nov 05 8.4 informa informa 2016 [Mass/v tion in tion in 2:15 PM olume] source source in data data Serum or Plasma Albumin 3.6 3.4 - G/DL No No Nov 05 5.0 informa informa 2016 [Mass/v tion in tion in 2:15 PM olume] source source in data data Serum or Plasma Globuli 3.6 2.4 - G/DL No No Nov 05 n 4.8 informa informa 2015 [Mass/v tion in tion in 2:15 PM olume] source source in data data Plasma Albumin 1.0 0.6 - No No Nov 05 /Globul 1.6 informa informa informa 2016 in tion in tion in tion in 2:15 PM [Mass source source source ratio] data data data in Serum or Plasma Calcium 8.6 8.5 - MG/DL No No Nov 05 10.1 informa informa 2016 [Mass/v tion in tion in 2:15 PM olume] source source in data data Serum or Plasma Alkalin 61 45 - U/L No No Nov 05 e 117 informa informa 2016 phospha tion in tion in 2:15 PM tase source source [Enzyma data data tic activit y/volum e] in Serum or Plasma Asparta 42 15 - 37 U/L High No Nov 05 te informa 2016 aminotr tion in 2:15 PM ansfera source se data [Enzyma tic activit y/volum e] in Serum or Plasma Alanine 50 12 - 78 U/L No No Nov 05 informa informa 2016 aminotr tion in tion in 2:15 PM ansfera source source se data data [Enzyma tic activit y/volum e] in Serum or Plasma Bilirub 0.50 0.00 - MG/DL No No Nov 05 in.tota 1.00 informa informa 2016 l tion in tion in 2:15 PM [Mass/v source source olume] data data in Serum or Plasma CBC\T\AUTO DIFF Observa Value Referen Units Interpr Notes Date tion ce etation Range Leukocy 7.4 3.0 - K/UL No No Nov 05 benjamin 11.3 informa informa 2015 [#/volu tion in tion in 2:15 PM me] in source source Blood data data by Automat ed count Erythro 4.190 3.450 - M/ul No No Nov 05 cytes 5.400 informa informa 2015 [#/volu tion in tion in 2:15 PM me] in source source Blood data data by Automat ed count Hemoglo 12.5 10.0 - gm/dl No Nov 05 bin 16.0 informa informa 2016 [Mass/v tion in tion in 2:15 PM olume] source source in data data Blood Hematoc 37.6 29.9 - % No Nov 05 rit 45.5 informa informa 2016 [Volume tion in tion in 2:15 PM source source Fractio data data n] of Blood by Automat ed count Erythro 89.8 78.2 - fl No Nov 05 cyte 101.8 informa informa 2016 mean tion in tion in 2:15 PM corpusc source source ular data data volume [Entiti c volume] by Automat ed count Erythro 29.9 26.4 - pg No Nov 05 cyte 33.3 informa informa 2016 mean tion in tion in 2:15 PM corpusc source source ular data data hemoglo bin [Entiti c mass] by Automat ed count Erythro 33.3 32.5 - g/dl No Nov 05 cyte 35.3 informa informa 2016 mean tion in tion in 2:15 PM corpusc source source ular data data hemoglo bin concent ration [Mass/v olume] by Automat ed count Erythro 13.5 10.1 - % No Nov 05 cyte 16.2 informa informa 2016 distrib tion in tion in 2:15 PM ution source source width data data [Ratio] by Automat ed count Platele 239 122 - K/UL No Nov 05 ts 454 informa informa 2016 [#/volu tion in tion in 2:15 PM me] in source source Blood data data by Automat ed count Platele 7.4 6.4 - fl No Nov 05 t mean 10.4 informa informa 2016 volume tion in tion in 2:15 PM [Entiti source source c data data volume] in Blood by Automat ed count Neutrop 70.0 43.0 - % No Nov 05 hils/10 83.0 informa informa 2016 0 tion in tion in 2:15 PM leukocy source source benjamin in data data Blood by Automat ed count Lymphoc 22.4 10.0 - % No Nov 05 ytes/10 42.0 informa informa 2016 0 tion in tion in 2:15 PM leukocy source source benjamin in data data Blood by Automat ed count Monocyt 4.9 1.0 - % No No Nov 05 es/100 14.0 informa informa 2016 leukocy tion in tion in 2:15 PM benjamin in source source Blood data data by Automat ed count Eosinop 2.3 0.0 - % No Nov 05 hils/10 9.0 informa informa 2016 0 tion in tion in 2:15 PM leukocy source source benjamin in data data Blood by Automat ed count Basophi 0.4 0.0 - % No No Nov 05 ls/100 2.0 informa informa 2016 leukocy tion in tion in 2:15 PM benjamin in source source Blood data data by Automat ed count Neutrop 5.2 2.7 - K/ul No No Nov 05 hils 6.9 informa informa 2016 [#/volu tion in tion in 2:15 PM me] in source source Blood data data by Automat ed count Lymphoc 1.7 0.4 - K/ul No Nov 05 ytes 3.9 informa informa 2016 [#/volu tion in tion in 2:15 PM me] in source source Blood data data by Automat ed count Monocyt 0.4 0.2 - K/ul No Nov 05 es 0.6 informa informa 2016 [#/volu tion in tion in 2:15 PM me] in source source Blood data data by Automat ed count Eosinop 0.2 0.0 - K/ul No Nov 05 hils 0.9 informa informa 2016 [#/volu tion in tion in 2:15 PM me] in source source Blood data data by Automat ed count Basophi 0.0 0.0 - K/ul No Nov 05 ls 0.2 informa informa 2016 [#/volu tion in tion in 2:15 PM me] in source source Blood data data by Automat ed count XR Abdomen Series w/ Chest 1 View Observa Value Referen Units Interpr Notes Date tion ce etation Range TEXT [employer] No No No No Sep 14 DIAGNOS t Order informa informa informa informa 2016 IS tion in tion in tion in tion in 9:26 PM BATTERY Descrip source source source source tion: data data data data ACUTE ABDOMIN AL SERIES - ,\.br\\ .br\\.b r\ACUTE ABDOMIN AL SERIES\ .br\\.b r\The heart and great vessels appear within normal limits. The lung sigala are clear. Bony thorax and diaphra gm shadows appear within normal limits. \.br\\. br\ IMPRESS ION: Normal chest.\ .br\\.b r\The exam reveals a nonspec ific bowel gas pattern without evidenc e of an ileus. There are no signs of organom egaly or masses. No abnorma l intra-a bdomina l or pelvic calcifi cations are identif ied.\.b r\\.br\ IMPRESS ION: Nonspec ific abdomen .\.br\\ .br\ END OF REPORT* *\.br\\ .br\Jordon valencia Nino M.D.\.b r\\.br\ Dictate d: 09/15/19 16 9:40 PM\.br\ \.br\Tr anscrib ed: 09/15/19 16 9:47 PM\.br\ \.br\ * Final Report \.br \\.br\D ictated : ISSAC NINO M.D. 016 9:40 pm\.br\ \.br\Tr anscrib ed by: CS 016 9:47 pm\.br\ \.br\Au thentic ated by: ISSAC NINO M.D. 016 3:57 pm\.br\ \.br\ URINE HCG Observa Value Referen Units Interpr Notes Date tion ce etation Range Choriog NEGATIV No No No No Sep 14 onadotr E informa informa informa informa 2016 opin tion in tion in tion in tion in 8:48 PM (pregna source source source source ncy data data data data test) [Presen ce] in Urine URINALYSIS COMPLETE Observa Value Referen Units Interpr Notes Date tion ce etation Range Color YELLOW No No No No Sep 14 of informa informa informa informa 2016 Urine tion in tion in tion in tion in 8:14 PM source source source source data data data data Clarity CLEAR No No No No Sep 14 of informa informa informa informa 2016 Urine tion in tion in tion in tion in 8:14 PM source source source source data data data data Glucose NEGATIV NEGATIV MG/DL No No Sep 14 E E informa informa 2016 [Presen tion in tion in 8:14 PM ce] in source source Urine data data by Automat ed test strip Bilirub NEGATIV NEGATIV No No No Sep 14 in E E informa informa informa 2016 [Presen tion in tion in tion in 8:14 PM ce] in source source source Urine data data data by Automat ed test strip Ketones NEGATIV NEGATIV MG/DL No No Sep 14 E E informa informa 2016 [Presen tion in tion in 8:14 PM ce] in source source Urine data data by Automat ed test strip Specifi 1.024 1.006 - No No No Sep 14 c 1.035 informa informa informa 2016 gravity tion in tion in tion in 8:14 PM of source source source Urine data data data by Automat ed test strip Erythro NEGATIV NEGATIV No No No Sep 14 cytes E E informa informa informa 2016 [Presen tion in tion in tion in 8:14 PM ce] in source source source Urine data data data by Automat ed pH of 5.5 5.0 - No No No Sep 14 Urine 9.0 informa informa informa 2016 by tion in tion in tion in 8:14 PM Automat source source source ed test data data data strip Protein NEGATIV NEGATIV MG/DL No No Sep 14 E E informa informa 2016 [Presen tion in tion in 8:14 PM ce] in source source Urine data data by Automat ed test strip UROBILI 0.2 0.2 - E.U./DL No No Sep 14 NOGEN 1.0 informa informa 2016 tion in tion in 8:14 PM source source data data Nitrate NEGATIV NEGATIV No No No Sep 14 E E informa informa informa 2016 [Presen tion in tion in tion in 8:14 PM ce] in source source source Urine data data data Leukocy NEGATIV NEGATIV No No No Sep 14 benjamin E E informa informa informa 2016 [Presen tion in tion in tion in 8:14 PM ce] in source source source Urine data data data by Automat ed Erythro 1 0 - 4 /HPF No No Sep 14 cytes informa informa 2016 [#/area tion in tion in 8:14 PM ] in source source Urine data data sedimen t by Microsc opy high power field WBC 0 0 - 5 /HPF No No Sep 14 COUNT informa informa 2016 tion in tion in 8:14 PM source source data data Epithel 1 0 - 6 /HPF No No Sep 14 ial informa informa 2016 cells tion in tion in 8:14 PM [Presen source source ce] in data data Urine sedimen t by Light microsc opy Bacteri NEGATIV NEGATIV /HPF No BACTERI Sep 14 a E E informa A 2016 [#/area tion in INTERPR 8:14 PM ] in source ETATION Urine data :NEGATI sedimen VE t by <=599/u Microsc lTRACE opy high >=600, power <=1199/ field ul1+ >=1200, <=2399/ ul2+ >=2400, <=3599/ ul3+ >=3600, <=4799/ ul4+ >=4800/ ul Hyaline 1 0 - 4 /LPF No No Sep 14 casts informa informa 2016 [#/area tion in tion in 8:14 PM ] in source source Urine data data sedimen t by Microsc opy high power field GLOMELULAR ESTEFANI. RATE,CALC. Observa Value Referen Units Interpr Notes Date tion ce etation Range Glomeru 83.4 60.0 - ml/min No THE Sep 14 lar 200.0 informa eGFR IS 2016 filtrat tion in AN 6:48 PM ion source ESTIMAT rate/1. data ED 73 sq M GLOMELU LAR predict FILTRAT ed ION among RATEBAS non-karina ED ON cks by AN Creatin AVERAGE ine-bas BODY ed SURFACE formula AREA (MDRD) OF 1.73M2. THIS CALCULA TION IS NOT ACCURAT E FOR PEDIATR IC PATIENT S,PATIE NTS >70 YEARS OF AGE,OR PATIENT S WITH EXTREME BODY SIZE.>6 0 ML/MIN/ 1.73M2 = NORMAL< 60 ML/MIN/ 1.73M2 = CHRONIC KIDNEY DISEASE <15 ML/MIN/ 1.73M2 = KIDNEY FAILURE AVERAGE EGFR FOLLOWS :AGE(YE ARS) AVERAGE EGFR20- 39 116 ML/MIN3 0-39 107 ML/MIN4 0-49 99 ML/MIN5 0-59 93 ML/MIN6 0-69 85 ML/MIN LIPASE Observa Value Referen Units Interpr Notes Date tion ce etation Range Lipase 119 73 - U/L No No Sep 14 [Enzyma 393 informa informa 2016 tic tion in tion in 6:48 PM activit source source y/volum data data e] in Serum or Plasma COMP. METABOLIC PANEL (CHEM 12) Observa Value Referen Units Interpr Notes Date tion ce etation Range Glucose 93 70 - MG/DL No No Sep 14 110 informa informa 2015 [Mass/v tion in tion in 6:48 PM olume] source source in data data Serum or Plasma Urea 14 7 - 18 MG/DL No No Sep 14 nitroge informa informa 2016 n tion in tion in 6:48 PM [Mass/v source source olume] data data in Serum or Plasma Sodium 139 133 - mmol/L No No Sep 14 [Moles/ 144 informa informa 2016 volume] tion in tion in 6:48 PM in source source Serum data data or Plasma Potassi 4.0 3.6 - mmol/l No No Sep 14 um 5.2 informa informa 2015 [Moles/ tion in tion in 6:48 PM volume] source source in data data Serum or Plasma Chlorid 108 98 - mmol/l High No Sep 14 e 107 informa 2015 [Moles/ tion in 6:48 PM volume] source in data Blood Carbon 23 21 - 32 mmol/L No No Sep 14 dioxide informa informa 2016 , total tion in tion in 6:48 PM source source [Moles/ data data volume] in Serum or Plasma Creatin 0.80 0.60 - MG/DL No No Sep 14 ine 1.30 informa informa 2016 [Mass/v tion in tion in 6:48 PM olume] source source in data data Serum or Plasma Protein 7.8 6.4 - G/DL No No Sep 14 8.4 informa informa 2016 [Mass/v tion in tion in 6:48 PM olume] source source in data data Serum or Plasma Albumin 3.9 3.4 - G/DL No No Sep 14 5.0 informa informa 2016 [Mass/v tion in tion in 6:48 PM olume] source source in data data Serum or Plasma Globuli 3.9 2.4 - G/DL No No Sep 14 n 4.8 informa informa 2016 [Mass/v tion in tion in 6:48 PM olume] source source in data data Plasma Albumin 1.0 0.6 - No No No Sep 14 /Globul 1.6 informa informa informa 2016 in tion in tion in tion in 6:48 PM [Mass source source source ratio] data data data in Serum or Plasma Calcium 8.7 8.5 - MG/DL No No Sep 14 10.1 informa informa 2016 [Mass/v tion in tion in 6:48 PM olume] source source in data data Serum or Plasma Alkalin 95 45 - U/L No No Sep 14 e 117 informa informa 2016 phospha tion in tion in 6:48 PM tase source source [Enzyma data data tic activit y/volum e] in Serum or Plasma Asparta 33 15 - 37 U/L No No Sep 14 te informa informa 2016 aminotr tion in tion in 6:48 PM ansfera source source se data data [Enzyma tic activit y/volum e] in Serum or Plasma Alanine 55 12 - 78 U/L No No Sep 14 informa informa 2016 aminotr tion in tion in 6:48 PM ansfera source source se data data [Enzyma tic activit y/volum e] in Serum or Plasma Bilirub 0.30 0.00 - MG/DL No No Sep 14 in.tota 1.00 informa informa 2016 l tion in tion in 6:48 PM [Mass/v source source olume] data data in Serum or Plasma AMYLASE Observa Value Referen Units Interpr Notes Date tion ce etation Range Amylase 42 25 - U/L No No Sep 14 115 informa informa 2016 [Enzyma tion in tion in 6:48 PM tic source source activit data data y/volum e] in Serum or Plasma CBC\T\AUTO DIFF Observa Value Referen Units Interpr Notes Date tion ce etation Range Leukocy 7.9 3.0 - K/UL No No Sep 14 benjamin 11.3 informa informa 2016 [#/volu tion in tion in 6:48 PM me] in source source Blood data data by Automat ed count Erythro 4.590 3.450 - M/ul No No Sep 14 cytes 5.400 informa informa 2016 [#/volu tion in tion in 6:48 PM me] in source source Blood data data by Automat ed count Hemoglo 13.3 10.0 - gm/dl No No Sep 14 bin 16.0 informa informa 2016 [Mass/v tion in tion in 6:48 PM olume] source source in data data Blood Hematoc 40.6 29.9 - % No No Sep 14 rit 45.5 informa informa 2016 [Volume tion in tion in 6:48 PM source source Fractio data data n] of Blood by Automat ed count Erythro 88.5 78.2 - fl No No Sep 14 cyte 101.8 informa informa 2016 mean tion in tion in 6:48 PM corpusc source source ular data data volume [Entiti c volume] by Automat ed count Erythro 28.9 26.4 - pg No No Sep 14 cyte 33.3 informa informa 2016 mean tion in tion in 6:48 PM corpusc source source ular data data hemoglo bin [Entiti c mass] by Automat ed count Erythro 32.6 32.5 - g/dl No No Sep 14 cyte 35.3 informa informa 2016 mean tion in tion in 6:48 PM corpusc source source ular data data hemoglo bin concent ration [Mass/v olume] by Automat ed count Erythro 15.0 10.1 - % No No Sep 14 cyte 16.2 informa informa 2016 distrib tion in tion in 6:48 PM ution source source width data data [Ratio] by Automat ed count Platele 239 122 - K/UL No No Sep 14 ts 454 informa informa 2016 [#/volu tion in tion in 6:48 PM me] in source source Blood data data by Automat ed count Platele 7.5 6.4 - fl No No Aug 20 t mean 10.4 informa informa 2016 volume tion in tion in 6:48 PM [Entiti source source c data data volume] in Blood by Automat ed count Neutrop 62.5 43.0 - % No No Sep 14 hils/10 83.0 informa informa 2016 0 tion in tion in 6:48 PM leukocy source source benjamin in data data Blood by Automat ed count Lymphoc 29.6 10.0 - % No No Sep 14 ytes/10 42.0 informa informa 2016 0 tion in tion in 6:48 PM leukocy source source benjamin in data data Blood by Automat ed count Monocyt 5.5 1.0 - % No No Sep 14 es/100 14.0 informa informa 2016 leukocy tion in tion in 6:48 PM benjamin in source source Blood data data by Automat ed count Eosinop 2.0 0.0 - % No No Sep 14 hils/10 9.0 informa informa 2016 0 tion in tion in 6:48 PM leukocy source source benjamin in data data Blood by Automat ed count Basophi 0.4 0.0 - % No No Sep 14 ls/100 2.0 informa informa 2016 leukocy tion in tion in 6:48 PM benjamin in source source Blood data data by Automat ed count Neutrop 4.9 2.7 - K/ul No No Sep 14 hils 6.9 informa informa 2016 [#/volu tion in tion in 6:48 PM me] in source source Blood data data by Automat ed count Lymphoc 2.3 0.4 - K/ul No No Sep 14 ytes 3.9 informa informa 2016 [#/volu tion in tion in 6:48 PM me] in source source Blood data data by Automat ed count Monocyt 0.4 0.2 - K/ul No No Sep 14 es 0.6 informa informa 2016 [#/volu tion in tion in 6:48 PM me] in source source Blood data data by Automat ed count Eosinop 0.2 0.0 - K/ul No No Sep 14 hils 0.9 informa informa 2016 [#/volu tion in tion in 6:48 PM me] in source source Blood data data by Automat ed count Basophi 0.0 0.0 - K/ul No No Sep 14 ls 0.2 informa informa 2015 [#/volu tion in tion in 6:48 PM me] in source source Blood data data by Automat ed count CT Abd\T\Pelvis w/o Contrast Observa Value Referen Units Interpr Notes Date tion ce etation Range TEXT [employer] No No No No Sep 01 DIAGNOS t Order informa informa informa informa 2016 IS tion in tion in tion in tion in 3:10 AM BATTERY Descrip source source source source tion: data data data data CT ABDOMEN & PELVIS WITHOUT CONTRAS T (NO ORAL OR IV)\.br \\.br\\ .br\CT SCAN ABDOMEN AND PELVIS WITHOUT IV CONTRAS T - 6\.br\\ .br\COM PARISON : 3.\.br\ \.br\Th e lower lung zones are clear.\ .br\\.b r\There is mild diffuse fatty infiltr ation of the liver.\ .br\\.b r\The spleen, gallbla dder, pancrea s, adrenal glands, abdomin al aorta and kidneys are stable and unremar kable. There are no renal calculi or hydrone phrosis of either renal collect ing system. \.br\\. br\A supraum bilical midline ventral hernia is again noted contain ing mesente johnnie fat with a maximum diamete r of 7.5 cm.\.br \\.br\T he bowel pattern is nonspec ific. No obstruc tive or inflamm atory bowel feature s are noted.\ .br\\.b r\The urinary bladder appeare d to be normal. \.br\\. br\Ther e is a 3 cm left adnexal cyst. Uterus and right adnexa are unremar kable.\ .br\\.b r\There is no evidenc e of ascites or free air.\.b r\\.br\ IMPRESS ION:\.b r\\.br\ 1. There is mild fatty infiltr ation of the liver.\ .br\\.b r\2. Supraum bilical ventral hernia is again noted contain ing mesente johnnie fat and has a maximum diamete r of 7.5 cm.\.br \\.br\3 . There is a 3 cm left adnexal cyst.\. br\\.br \ END OF REPORT* *\.br\\ .br\Susie dm Gallegos M.D.\.b r\\.br\ Dictate d: 6 5:08 AM\.br\ \.br\Tr anscrib ed: 6 5:14 AM\.br\ \.br\ * Final Report \.br \\.br\D ictated : AKI GALLEGOS M.D. 5:08 am\.br\ \.br\Tr anscrib ed by: 5:17 am\.br\ \.br\Au thentic ated by: AKI GALLEGOS M.D. 7:14 am\.br\ \.br\ URINE HCG Observa Value Referen Units Interpr Notes Date tion ce etation Range Choriog NEGATIV No No No No Sep 01 onadotr E informa informa informa informa 2016 opin tion in tion in tion in tion in 2:52 AM (pregna source source source source ncy data data data data test) [Presen ce] in Urine GLOMELULAR ESTEFANI. RATE,CALC. Observa Value Referen Units Interpr Notes Date tion ce etation Range Glomeru 116.2 60.0 - ml/min No THE Sep 01 lar 200.0 informa eGFR IS 2016 filtrat tion in AN 2:45 AM ion source ESTIMAT rate/1. data ED 73 sq M GLOMELU LAR predict FILTRAT ed ION among RATEBAS non-karina ED ON cks by AN Creatin AVERAGE ine-bas BODY ed SURFACE formula AREA (MDRD) OF 1.73M2. THIS CALCULA TION IS NOT ACCURAT E FOR PEDIATR IC PATIENT S,PATIE NTS >70 YEARS OF AGE,OR PATIENT S WITH EXTREME BODY SIZE.>6 0 ML/MIN/ 1.73M2 = NORMAL< 60 ML/MIN/ 1.73M2 = CHRONIC KIDNEY DISEASE <15 ML/MIN/ 1.73M2 = KIDNEY FAILURE AVERAGE EGFR FOLLOWS :AGE(YE ARS) AVERAGE EGFR20- 39 116 ML/MIN3 0-39 107 ML/MIN4 0-49 99 ML/MIN5 0-59 93 ML/MIN6 0-69 85 ML/MIN COMP. METABOLIC PANEL (CHEM 12) Observa Value Referen Units Interpr Notes Date tion ce etation Range Glucose 96 70 - MG/DL No No Sep 01 110 informa informa 2015 [Mass/v tion in tion in 2:45 AM olume] source source in data data Serum or Plasma Urea 14 7 - 18 MG/DL No No Sep 01 nitroge informa informa 2016 n tion in tion in 2:45 AM [Mass/v source source olume] data data in Serum or Plasma Sodium 137 133 - mmol/L No No Sep 01 [Moles/ 144 informa informa 2016 volume] tion in tion in 2:45 AM in source source Serum data data or Plasma Potassi 3.7 3.6 - mmol/l No No Sep 01 um 5.2 informa informa 2015 [Moles/ tion in tion in 2:45 AM volume] source source in data data Serum or Plasma Chlorid 103 98 - mmol/l No No Sep 01 e 107 informa informa 2015 [Moles/ tion in tion in 2:45 AM volume] source source in data data Blood Carbon 24 21 - 32 mmol/L No No Sep 01 dioxide informa informa 2016 , total tion in tion in 2:45 AM source source [Moles/ data data volume] in Serum or Plasma Creatin 0.60 0.60 - MG/DL No No Sep 01 ine 1.30 informa informa 2015 [Mass/v tion in tion in 2:45 AM olume] source source in data data Serum or Plasma Protein 7.4 6.4 - G/DL No No Sep 01 8.4 informa informa 2015 [Mass/v tion in tion in 2:45 AM olume] source source in data data Serum or Plasma Albumin 3.6 3.4 - G/DL No No Sep 01 5.0 informa informa 2016 [Mass/v tion in tion in 2:45 AM olume] source source in data data Serum or Plasma Globuli 3.8 2.4 - G/DL No No Sep 01 n 4.8 informa informa 2016 [Mass/v tion in tion in 2:45 AM olume] source source in data data Plasma Albumin 0.9 0.6 - No No Sep 01 /Globul 1.6 informa informa informa 2016 in tion in tion in tion in 2:45 AM [Mass source source source ratio] data data data in Serum or Plasma Calcium 8.6 8.5 - MG/DL No No Sep 01 10.1 informa informa 2016 [Mass/v tion in tion in 2:45 AM olume] source source in data data Serum or Plasma Alkalin 84 45 - U/L No No Sep 01 e 117 informa informa 2016 phospha tion in tion in 2:45 AM tase source source [Enzyma data data tic activit y/volum e] in Serum or Plasma Asparta 31 15 - 37 U/L No No Sep 01 te informa informa 2016 aminotr tion in tion in 2:45 AM ansfera source source se data data [Enzyma tic activit y/volum e] in Serum or Plasma Alanine 45 12 - 78 U/L No No Sep 01 informa informa 2016 aminotr tion in tion in 2:45 AM ansfera source source se data data [Enzyma tic activit y/volum e] in Serum or Plasma Bilirub 0.50 0.00 - MG/DL No No Sep 01 in.tota 1.00 informa informa 2016 l tion in tion in 2:45 AM [Mass/v source source olume] data data in Serum or Plasma LIPASE Observa Value Referen Units Interpr Notes Date tion ce etation Range Lipase 114 73 - U/L No No Sep 01 [Enzyma 393 informa informa 2016 tic tion in tion in 2:45 AM activit source source y/volum data data e] in Serum or Plasma AMYLASE Observa Value Referen Units Interpr Notes Date tion ce etation Range Amylase 35 25 - U/L No No Sep 01 115 informa informa 2016 [Enzyma tion in tion in 2:45 AM tic source source activit data data y/volum e] in Serum or Plasma CBC\T\AUTO DIFF Observa Value Referen Units Interpr Notes Date tion ce etation Range Leukocy 7.8 3.0 - K/UL No No Sep 01 benjamin 11.3 informa informa 2016 [#/volu tion in tion in 2:45 AM me] in source source Blood data data by Automat ed count Erythro 4.500 3.450 - M/ul No No Sep 01 cytes 5.400 informa informa 2016 [#/volu tion in tion in 2:45 AM me] in source source Blood data data by Automat ed count Hemoglo 13.1 10.0 - gm/dl No No Sep 01 bin 16.0 informa informa 2016 [Mass/v tion in tion in 2:45 AM olume] source source in data data Blood Hematoc 39.8 29.9 - % No No Sep 01 rit 45.5 informa informa 2016 [Volume tion in tion in 2:45 AM source source Fractio data data n] of Blood by Automat ed count Erythro 88.3 78.2 - fl No No Sep 01 cyte 101.8 informa informa 2016 mean tion in tion in 2:45 AM corpusc source source ular data data volume [Entiti c volume] by Automat ed count Erythro 29.0 26.4 - pg No No Sep 01 cyte 33.3 informa informa 2016 mean tion in tion in 2:45 AM corpusc source source ular data data hemoglo bin [Entiti c mass] by Automat ed count Erythro 32.9 32.5 - g/dl No No Sep 01 cyte 35.3 informa informa 2016 mean tion in tion in 2:45 AM corpusc source source ular data data hemoglo bin concent ration [Mass/v olume] by Automat ed count Erythro 15.3 10.1 - % No No Sep 01 cyte 16.2 informa informa 2016 distrib tion in tion in 2:45 AM ution source source width data data [Ratio] by Automat ed count Platele 231 122 - K/UL No No Sep 01 ts 454 informa informa 2016 [#/volu tion in tion in 2:45 AM me] in source source Blood data data by Automat ed count Platele 7.6 6.4 - fl No No Sep 01 t mean 10.4 informa informa 2016 volume tion in tion in 2:45 AM [Entiti source source c data data volume] in Blood by Automat ed count Neutrop 49.0 43.0 - % No No Sep 01 hils/10 83.0 informa informa 2016 0 tion in tion in 2:45 AM leukocy source source benjamin in data data Blood by Automat ed count Lymphoc 39.3 10.0 - % No No Sep 01 ytes/10 42.0 informa informa 2016 0 tion in tion in 2:45 AM leukocy source source benjamin in data data Blood by Automat ed count Monocyt 6.6 1.0 - % No No Sep 01 es/100 14.0 informa informa 2016 leukocy tion in tion in 2:45 AM benjamin in source source Blood data data by Automat ed count Eosinop 4.8 0.0 - % No No Sep 01 hils/10 9.0 informa informa 2016 0 tion in tion in 2:45 AM leukocy source source benjamin in data data Blood by Automat ed count Basophi 0.3 0.0 - % No No Sep 01 ls/100 2.0 informa informa 2016 leukocy tion in tion in 2:45 AM benjamin in source source Blood data data by Automat ed count Neutrop 3.8 2.7 - K/ul No No Sep 01 hils 6.9 informa informa 2016 [#/volu tion in tion in 2:45 AM me] in source source Blood data data by Automat ed count Lymphoc 3.1 0.4 - K/ul No Sep 01 ytes 3.9 informa informa 2016 [#/volu tion in tion in 2:45 AM me] in source source Blood data data by Automat ed count Monocyt 0.5 0.2 - K/ul No No Sep 01 es 0.6 informa informa 2016 [#/volu tion in tion in 2:45 AM me] in source source Blood data data by Automat ed count Eosinop 0.4 0.0 - K/ul No No Sep 01 hils 0.9 informa informa 2016 [#/volu tion in tion in 2:45 AM me] in source source Blood data data by Automat ed count Basophi 0.0 0.0 - K/ul No No Sep 01 ls 0.2 informa informa 2016 [#/volu tion in tion in 2:45 AM me] in source source Blood data data by Automat ed count UA, MICROSCOPIC REVIEW Observa Value Referen Units Interpr Notes Date tion ce etation Range Erythro 10-20 0 - 5 HPF Abnorma No Sep 01 cytes l informa 2015 [#/area tion in 1:18 AM ] in source Urine data sedimen t by Microsc opy high power field WBC 10-20 0 - 5 HPF Abnorma No Aug 7 l informa 2016 tion in 1:18 AM source data Epithel 5-10 No HPF No No Sep 01 ial informa informa informa 2016 cells tion in tion in tion in 1:18 AM [Presen source source source ce] in data data data Urine sedimen t by Light microsc opy Bacteri 3+ Absent HPF Abnorma No Sep 01 a l informa 2016 [#/area tion in 1:18 AM ] in source Urine data sedimen t by Microsc opy high power field URINALYSIS COMPLETE Observa Value Referen Units Interpr Notes Date tion ce etation Range Color DK No No No No Sep 01 of YELLOW informa informa informa informa 2016 Urine tion in tion in tion in tion in 1:18 AM source source source source data data data data Clarity TURBID No No No No Sep 01 of informa informa informa informa 2016 Urine tion in tion in tion in tion in 1:18 AM source source source source data data data data Glucose NEGATIV NEGATIV MG/DL No No Sep 01 E E informa informa 2016 [Presen tion in tion in 1:18 AM ce] in source source Urine data data by Automat ed test strip Bilirub NEGATIV NEGATIV No No No Sep 01 in E E informa informa informa 2016 [Presen tion in tion in tion in 1:18 AM ce] in source source source Urine data data data by Automat ed test strip Ketones NEGATIV NEGATIV MG/DL No No Sep 01 E E informa informa 2016 [Presen tion in tion in 1:18 AM ce] in source source Urine data data by Automat ed test strip Specifi 1.027 1.006 - No No No Sep 01 c 1.035 informa informa informa 2016 gravity tion in tion in tion in 1:18 AM of source source source Urine data data data by Automat ed test strip Erythro LARGE NEGATIV No Abnorma No Sep 01 cytes E informa l informa 2015 [Presen tion in tion in 1:18 AM ce] in source source Urine data data by Automat ed pH of 5.5 5.0 - No No No Sep 01 Urine 9.0 informa informa informa 2016 by tion in tion in tion in 1:18 AM Automat source source source ed test data data data strip Protein 30 NEGATIV MG/DL No No Sep 01 E informa informa 2015 [Presen tion in tion in 1:18 AM ce] in source source Urine data data by Automat ed test strip UROBILI 1.0 0.2 - E.U./DL No No Sep 01 NOGEN 1.0 informa informa 2016 tion in tion in 1:18 AM source source data data Nitrate POSITIV NEGATIV No Abnorma No Sep 01 E E informa l informa 2015 [Presen tion in tion in 1:18 AM ce] in source source Urine data data Leukocy MODERAT NEGATIV No Abnorma No Sep 01 benjamin E E informa l informa 2015 [Presen tion in tion in 1:18 AM ce] in source source Urine data data by Automat ed HGB\T\HCT Observa Value Referen Units Interpr Notes Date tion ce etation Range Hemoglo 10.8 10.0 - gm/dl No No Jul 16 bin 16.0 informa informa 2016 [Mass/v tion in tion in 6:22 AM olume] source source in data data Blood Hematoc 32.9 29.9 - % No No Jul 16 rit 45.5 informa informa 2016 [Volume tion in tion in 6:22 AM source source Fractio data data n] of Blood by Automat ed count PH CORD BLOOD Observa Value Referen Units Interpr Notes Date tion ce etation Range pH of 7.293 N/A No No No Jul 15 Cord informa informa informa 2016 blood tion in tion in tion in 3:27 PM source source source data data data RUBELLA Observa Value Referen Units Interpr Notes Date tion ce etation Range na Rubella POSITIV No No No No Jul 15 virus E informa informa informa informa 2016 Ab tion in tion in tion in tion in 7:05 AM [Presen source source source source ce] in data data data data Serum RPR Observa Value Referen Units Interpr Notes Date tion ce etation Range na Reagin NONREAC NONREAC No No No Jul 15 Ab TIVE TIVE informa informa informa 2016 [Presen tion in tion in tion in 7:05 AM ce] in source source source Serum data data data by RPR HEPATITIS PANEL-ACUTE Observa Value Referen Units Interpr Notes Date tion ce etation Range na Hepatit NONREAC NONREAC No No No Jul 15 is A TIVE TIVE informa informa informa 2016 virus tion in tion in tion in 7:05 AM IgM Ab source source source [Presen data data data ce] in Serum by Immunoa ssay TYPE AND SCREEN Observa Value Referen Units Interpr Notes Date tion ce etation Range TYPE TEXT~Na No No No No Jul 15 AND me: informa informa informa informa 2016 SCREEN FERNANDEZ tion in tion in tion in tion in 7:05 AM , source source source source Jose A data data data data ct: [id number]~ABO O 6 08:35 sdh~RH( D) TYPING POS 6 08:35 sdh~ANT IBODY SCREEN NEG 6 08:29 sdh~AUT OCONTRO L 6 08:13 SDH~. CBC/NO DIFF+ PLATELET Observa Value Referen Units Interpr Notes Date tion ce etation Range na Leukocy 8.7 3.0 - K/UL No No Jul 15 benjamin 11.3 informa informa 2016 [#/volu tion in tion in 7:05 AM me] in source source Blood data data by Automat ed count Erythro 3.830 3.450 - M/ul No No Jul 15 cytes 5.400 informa informa 2016 [#/volu tion in tion in 7:05 AM me] in source source Blood data data by Automat ed count Hemoglo 11.0 10.0 - gm/dl No No Jul 15 bin 16.0 informa informa 2016 [Mass/v tion in tion in 7:05 AM olume] source source in data data Blood Hematoc 33.0 29.9 - % No No Jul 15 rit 45.5 informa informa 2016 [Volume tion in tion in 7:05 AM source source Fractio data data n] of Blood by Automat ed count Erythro 86.2 78.2 - fl No No Jul 15 cyte 101.8 informa informa 2016 mean tion in tion in 7:05 AM corpusc source source ular data data volume [Entiti c volume] by Automat ed count Erythro 28.8 26.4 - pg No No Jul 15 cyte 33.3 informa informa 2016 mean tion in tion in 7:05 AM corpusc source source ular data data hemoglo bin [Entiti c mass] by Automat ed count Erythro 33.4 32.5 - g/dl No No Jul 15 cyte 35.3 informa informa 2016 mean tion in tion in 7:05 AM corpusc source source ular data data hemoglo bin concent ration [Mass/v olume] by Automat ed count Erythro 15.4 10.1 - % No No Jul 15 cyte 16.2 informa informa 2016 distrib tion in tion in 7:05 AM ution source source width data data [Ratio] by Automat ed count Platele 143 122 - K/UL No No Jul 15 ts 454 informa informa 2016 [#/volu tion in tion in 7:05 AM me] in source source Blood data data by Automat ed count Platele 9.1 6.4 - fl No No Jul 15 t mean 10.4 informa informa 2016 volume tion in tion in 7:05 AM [Entiti source source c data data volume] in Blood by Automat ed count BUPRENORPHINE,QUAL Observa Value Referen Units Interpr Notes Date tion ce etation Range na Bupreno NEGATIV No No No BUPRENO Jul 15 rphine E informa informa informa RPHRINE 2016 [Presen tion in tion in tion in CUT 7:00 AM ce] in source source source OFF Urine data data data CONCENT RATION - 12.5 NG/ML OXYCODONE,UR.(QUAL) Observa Value Referen Units Interpr Notes Date tion ce etation Range na Oxycodo NEGATIV No No No CONCENT Jul 15 ne E informa informa informa RATIONS 2015 [Presen tion in tion in tion in OF 7:00 AM ce] in source source source >625 Urine data data data NG/ML by OF Screen HYDROCO method DONE AND >100 NG/ML OF OXYCODO NECAUSE POSITIV E RESULTS URINALYSIS COMPLETE Observa Value Referen Units Interpr Notes Date tion ce etation Range Color DK No No No No Jul 15 of YELLOW informa informa informa informa 2016 Urine tion in tion in tion in tion in 7:00 AM source source source source data data data data Clarity TURBID No No No No Jul 15 of informa informa informa informa 2016 Urine tion in tion in tion in tion in 7:00 AM source source source source data data data data Glucose NEGATIV NEGATIV MG/DL No No Jul 15 E E informa informa 2016 [Presen tion in tion in 7:00 AM ce] in source source Urine data data by Automat ed test strip Bilirub NEGATIV NEGATIV No No No Jul 15 in E E informa informa informa 2016 [Presen tion in tion in tion in 7:00 AM ce] in source source source Urine data data data by Automat ed test strip Ketones NEGATIV NEGATIV MG/DL No No Jul 15 E E informa informa 2016 [Presen tion in tion in 7:00 AM ce] in source source Urine data data by Automat ed test strip Specifi 1.018 1.006 - No No No Jul 15 c 1.035 informa informa informa 2016 gravity tion in tion in tion in 7:00 AM of source source source Urine data data data by Automat ed test strip Erythro NEGATIV NEGATIV No No No Jul 15 cytes E E informa informa informa 2016 [Presen tion in tion in tion in 7:00 AM ce] in source source source Urine data data data by Automat ed pH of 6.0 5.0 - No No No Jul 15 Urine 9.0 informa informa informa 2016 by tion in tion in tion in 7:00 AM Automat source source source ed test data data data strip Protein NEGATIV NEGATIV MG/DL No No Jul 15 E E informa informa 2015 [Presen tion in tion in 7:00 AM ce] in source source Urine data data by Automat ed test strip UROBILI 1.0 0.2 - E.U./DL No No Jun 20 NOGEN 1.0 informa informa 2016 tion in tion in 7:00 AM source source data data Nitrate NEGATIV NEGATIV No No No Jul 15 E E informa informa informa 2015 [Presen tion in tion in tion in 7:00 AM ce] in source source source Urine data data data Leukocy LARGE NEGATIV No Abnorma No Jun 20 benjamin E informa l informa 2015 [Presen tion in tion in 7:00 AM ce] in source source Urine data data by Automat ed UA, MICROSCOPIC REVIEW Observa Value Referen Units Interpr Notes Date tion ce etation Range WBC 10-20 0 - 5 HPF Abnorma No Apr 20 l informa 2016 tion in 7:00 AM source data Epithel TNTC No HPF No No Jun 20 ial informa informa informa 2016 cells tion in tion in tion in 7:00 AM [Presen source source source ce] in data data data Urine sedimen t by Light microsc opy Mucus 1+ No No No No Jun 20 [#/area informa informa informa informa 2015 ] in tion in tion in tion in tion in 7:00 AM Urine source source source source sedimen data data data data t by Microsc opy high power field CRYSTAL MANY CA No HPF No No Jun 20 S OX informa informa informa 2016 tion in tion in tion in 7:00 AM source source source data data data Bacteri 1+ Absent HPF Abnorma No Jun 20 a l informa 2015 [#/area tion in 7:00 AM ] in source Urine data sedimen t by Microsc opy high power field UR IN HOUSE DRUG SCREEN Observa Value Referen Units Interpr Notes Date tion ce etation Range na Ampheta NEG NEGATIV ug/ML No AMPHETA Apr 20 mines E informa MINE 2016 [Presen tion in CUT OFF 7:00 AM ce] in source Urine data CONCENT by RATION Screen - 300 method >1000 ng/mL Barbitu NEG NEGATIV ug/ML No BARBITU Apr 20 rates E informa ATE CUT 2015 [Presen tion in OFF 7:00 AM ce] in source CONCENT Urine data RATION by - 200 Screen method Benzodi NEG NEGATIV ug/ML No BENZODI Jun 20 azepine E informa AZEPINE 2016 s tion in CUT 7:00 AM [Presen source OFF ce] in data CONCENT Urine RATION by - 200 Screen method Cocaine NEG NEGATIV ug/ML No COCAINE Jul 15 E informa CUT 2015 [Presen tion in OFF 7:00 AM ce] in source CONCENT Urine data RATION by - 300 Screen method Opiates NEG NEGATIV ug/ML No OPIATE Jul 15 E informa CUT OFF 2015 [Presen tion in 7:00 AM ce] in source CONCENT Urine data RATION by - 300 Screen method Cannabi NEG NEGATIV NG/ML No THC CUT Jul 15 noids E informa OFF 2015 [Presen tion in CONCENT 7:00 AM ce] in source RATION Urine data - 50 by Screen method Methado NEG NEGATIV ug/ML No METHADO Jul 15 ne E informa NE CUT 2015 [Presen tion in OFF 7:00 AM ce] in source CONCENT Urine data RATION by - Screen 300THES method E RESULTS PROVIDE ONLY A PRELIMI NARY TEST RESULT. THEREIS A POSSIBI LITY THAT OVER THE COUNTER DRUGS MAY INTERFE REWITH THE TEST. CONFORM ITORY TEST CAN BE ORDERED AT [facility] CONSIDE RATION ANDPROF ESSIONA L JUDGEME NT SHOULD BE APPLIED TO ANY DRUG OF ABUSETE ST RESULT, PARTICU JEFF WHEN PRELIMI NARY POSITIV E RESULTS AREUSED . THESE DRUG SCREEN RESULTS ARE NOT FOR LEGAL APPLICA TIONS. UA, MICROSCOPIC REVIEW Observa Value Referen Units Interpr Notes Date tion ce etation Range Erythro OCC 0 - 5 HPF No No Apr 4 cytes informa informa 2015 [#/area tion in tion in 5:50 PM ] in source source Urine data data sedimen t by Microsc opy high power field WBC OCC 0 - 5 HPF No No Apr 4 informa informa 2016 tion in tion in 5:50 PM source source data data Epithel 1-5 No HPF No No Apr 4 ial informa informa informa 2016 cells tion in tion in tion in 5:50 PM [Presen source source source ce] in data data data Urine sedimen t by Light microsc opy Mucus 3+ No No No No Apr 4 [#/area informa informa informa informa 2016 ] in tion in tion in tion in tion in 5:50 PM Urine source source source source sedimen data data data data t by Microsc opy high power field CRYSTAL MANY [place] No HPF No No Apr 4 S OX informa informa informa 2016 tion in tion in tion in 5:50 PM source source source data data data Bacteri 1+ Absent HPF Abnorma No Apr 4 a l informa 2016 [#/area tion in 5:50 PM ] in source Urine data sedimen t by Microsc opy high power field URINALYSIS COMPLETE Observa Value Referen Units Interpr Notes Date tion ce etation Range Color DK No No No No Apr 4 of YELLOW informa informa informa informa 2016 Urine tion in tion in tion in tion in 5:50 PM source source source source data data data data Clarity CLOUDY No No No No Apr 4 of informa informa informa informa 2016 Urine tion in tion in tion in tion in 5:50 PM source source source source data data data data Glucose NEGATIV NEGATIV MG/DL No No Apr 4 E E informa informa 2016 [Presen tion in tion in 5:50 PM ce] in source source Urine data data by Automat ed test strip Bilirub NEGATIV NEGATIV No No No Apr 4 in E E informa informa informa 2016 [Presen tion in tion in tion in 5:50 PM ce] in source source source Urine data data data by Automat ed test strip Ketones NEGATIV NEGATIV MG/DL No No Apr 4 E E informa informa 2016 [Presen tion in tion in 5:50 PM ce] in source source Urine data data by Automat ed test strip Specifi 1.030 1.006 - No No No Apr 4 c 1.035 informa informa informa 2016 gravity tion in tion in tion in 5:50 PM of source source source Urine data data data by Automat ed test strip Erythro NEGATIV NEGATIV No No No Jun 4 cytes E E informa informa informa 2016 [Presen tion in tion in tion in 5:50 PM ce] in source source source Urine data data data by Automat ed pH of 5.5 5.0 - No No No Jun 29 Urine 9.0 informa informa informa 2016 by tion in tion in tion in 5:50 PM Automat source source source ed test data data data strip Protein NEGATIV NEGATIV MG/DL No No Jun 4 E E informa informa 2015 [Presen tion in tion in 5:50 PM ce] in source source Urine data data by Automat ed test strip UROBILI 1.0 0.2 - E.U./DL No No Jun 4 NOGEN 1.0 informa informa 2016 tion in tion in 5:50 PM source source data data Nitrate NEGATIV NEGATIV No No No Jun 4 E E informa informa informa 2015 [Presen tion in tion in tion in 5:50 PM ce] in source source source Urine data data data Leukocy NEGATIV NEGATIV No No No Jun 4 benjamin E E informa informa informa 2015 [Presen tion in tion in tion in 5:50 PM ce] in source source source Urine data data data by Automat ed UR IN HOUSE DRUG SCREEN Observa Value Referen Units Interpr Notes Date tion ce etation Range na Ampheta NEG NEGATIV ug/ML No AMPHETA Apr 4 mines E informa MINE 2015 [Presen tion in CUT OFF 5:50 PM ce] in source Urine data CONCENT by RATION Screen - 300 method >1000 ng/mL Barbitu NEG NEGATIV ug/ML No BARBITU Apr 4 rates E informa ATE CUT 2015 [Presen tion in OFF 5:50 PM ce] in source CONCENT Urine data RATION by - 200 Screen method Benzodi NEG NEGATIV ug/ML No BENZODI Apr 4 azepine E informa AZEPINE 2015 s tion in CUT 5:50 PM [Presen source OFF ce] in data CONCENT Urine RATION by - 200 Screen method Cocaine NEG NEGATIV ug/ML No COCAINE Apr 4 E informa CUT 2015 [Presen tion in OFF 5:50 PM ce] in source CONCENT Urine data RATION by - 300 Screen method Opiates NEG NEGATIV ug/ML No OPIATE Jun 29 E informa CUT OFF 2015 [Presen tion in 5:50 PM ce] in source CONCENT Urine data RATION by - 300 Screen method Cannabi NEG NEGATIV NG/ML No THC CUT Jun 29 noids E informa OFF 2015 [Presen tion in CONCENT 5:50 PM ce] in source RATION Urine data - 50 by Screen method Methado NEG NEGATIV ug/ML No METHADO Jun 29 ne E informa NE CUT 2015 [Presen tion in OFF 5:50 PM ce] in source CONCENT Urine data RATION by - Screen 300THES method E RESULTS PROVIDE ONLY A PRELIMI NARY TEST RESULT. THEREIS A POSSIBI LITY THAT OVER THE COUNTER DRUGS MAY INTERFE REWITH THE TEST. CONFORM ITORY TEST CAN BE ORDERED AT [facility] CONSIDE RATION ANDPROF ESSIONA L JUDGEME NT SHOULD BE APPLIED TO ANY DRUG OF ABUSETE ST RESULT, PARTICU JEFF WHEN PRELIMI NARY POSITIV E RESULTS AREUSED . THESE DRUG SCREEN RESULTS ARE NOT FOR LEGAL APPLICA TIONS. BUPRENORPHINE,QUAL Observa Value Referen Units Interpr Notes Date tion ce etation Range na Bupreno NEGATIV No No No BUPRENO Jun 29 rphine E informa informa informa RPHRINE 2015 [Presen tion in tion in tion in CUT 5:50 PM ce] in source source source OFF Urine data data data CONCENT RATION - 12.5 NG/ML OXYCODONE,UR.(QUAL) Observa Value Referen Units Interpr Notes Date tion ce etation Range na Oxycodo NEGATIV No No No CONCENT Jun 29 ne E informa informa informa RATIONS 2015 [Presen tion in tion in tion in OF 5:50 PM ce] in source source source >625 Urine data data data NG/ML by OF Screen HYDROCO method DONE AND >100 NG/ML OF OXYCODO NECAUSE POSITIV E RESULTS FIBRONECTIN Observa Value Referen Units Interpr Notes Date tion ce etation Range NA Fibrone NEGATIV No ML No The May 29 ctin.fe E informa informa rapid 2016 isaac tion in tion in fFN 3:49 PM [Presen source source result ce] in data data should Vaginal not be fluid interpr eted as absolut eeviden ce for the presenc e or absence of a process that willres ult in deliver y in less than or equal to 7 to 14 daysfro m specime n collect ion in symptom atic women or deliver yin less than or equal to 34 weeks, 6 days in asympto maticwo men evaluat ed between 22 weeks, 0 days and 30 weeks,6 days of gestati on. A positiv e fFN result may be observe dfor patient s who have experie nced cervica l disrupt ion causedb y, but not limited to, events such as sexual interco urse,di gital cervica L examina tion, or vaginal probe ultraso und.The rapid fFN result should always be used in conjunc tionwit h informa tion availab le from the clinica l evaluat ion ofthe patient and other diagnos tic procedu res. BUPRENORPHINE,QUAL Observa Value Referen Units Interpr Notes Date tion ce etation Range NA Bupreno NEGATIV No No No BUPRENO May 29 rphine E informa informa informa RPHRINE 2015 [Presen tion in tion in tion in CUT 3:30 PM ce] in source source source OFF Urine data data data CONCENT RATION - 12.5 NG/ML OXYCODONE,UR.(QUAL) Observa Value Referen Units Interpr Notes Date tion ce etation Range NA Oxycodo NEGATIV No No No CONCENT May 29 ne E informa informa informa RATIONS 2015 [Presen tion in tion in tion in OF 3:30 PM ce] in source source source >625 Urine data data data NG/ML by OF Screen HYDROCO method DONE AND >100 NG/ML OF OXYCODO NECAUSE POSITIV E RESULTS UR IN HOUSE DRUG SCREEN Observa Value Referen Units Interpr Notes Date tion ce etation Range NA Ampheta NEG NEGATIV ug/ML No AMPHETA May 29 mines E informa MINE 2015 [Presen tion in CUT OFF 3:30 PM ce] in source Urine data CONCENT by RATION Screen - 300 method >1000 ng/mL Barbitu NEG NEGATIV ug/ML No BARBITU May 29 rates E informa ATE CUT 2015 [Presen tion in OFF 3:30 PM ce] in source CONCENT Urine data RATION by - 200 Screen method Benzodi NEG NEGATIV ug/ML No BENZODI May 29 azepine E informa AZEPINE 2015 s tion in CUT 3:30 PM [Presen source OFF ce] in data CONCENT Urine RATION by - 200 Screen method Cocaine NEG NEGATIV ug/ML No COCAINE May 29 E informa CUT 2015 [Presen tion in OFF 3:30 PM ce] in source CONCENT Urine data RATION by - 300 Screen method Opiates NEG NEGATIV ug/ML No OPIATE May 29 E informa CUT OFF 2015 [Presen tion in 3:30 PM ce] in source CONCENT Urine data RATION by - 300 Screen method Cannabi NEG NEGATIV NG/ML No THC CUT May 29 noids E informa OFF 2015 [Presen tion in CONCENT 3:30 PM ce] in source RATION Urine data - 50 by Screen method Methado NEG NEGATIV ug/ML No METHADO May 29 ne E informa NE CUT 2015 [Presen tion in OFF 3:30 PM ce] in source CONCENT Urine data RATION by - Screen 300THES method E RESULTS PROVIDE ONLY A PRELIMI NARY TEST RESULT. THEREIS A POSSIBI LITY THAT OVER THE COUNTER DRUGS MAY INTERFE REWITH THE TEST. CONFORM ITORY TEST CAN BE ORDERED AT [facility] CONSIDE RATION ANDPROF ESSIONA L JUDGEME NT SHOULD BE APPLIED TO ANY DRUG OF ABUSETE ST RESULT, PARTICU JEFF WHEN PRELIMI NARY POSITIV E RESULTS AREUSED . THESE DRUG SCREEN RESULTS ARE NOT FOR LEGAL APPLICA TIONS. 3 HR GLU TOLERANCE Observa Value Referen Units Interpr Notes Date tion ce etation Range Physician is not a Physician's Portal User Fasting NEGATIV No No No No May 21 E informa informa informa informa 2015 glucose tion in tion in tion in tion in 8:30 AM source source source source [Presen data data data data ce] in Urine by Test strip Ketones NEGATIV No No No No May 21 E informa informa informa informa 2015 [Mass/v tion in tion in tion in tion in 8:30 AM olume] source source source source in data data data data Urine by Test strip --fasti ng GLUCOSE,1HR. PP Observa Value Referen Units Interpr Notes Date ti ce etation Range Physician is not a Physician's Portal User Glucose 192 No MG/DL No NORMAL May 17 informa informa RANGES 2015 [Mass/v tion in tion in HAVE 5:16 PM olume] source source NOT in data data BEEN Serum ESTABLI or SHED Plasma FOR --1 GLUCOSE hour ONE post 50 HOUR g AFTERIN glucose GESTION PO OF 50 GRAMS OF GLUCOLA . HGB Observa Value Referen Units Interpr Notes Date ti ce etation Range Physician is not a Physician's Portal User Hemoglo 11.7 10.0 - gm/dl No No May 17 bin 16.0 informa informa 2015 [Mass/v tion in tion in 5:16 PM olume] source source in data data Blood UA, MICROSCOPIC REVIEW Observa Value Referen Units Interpr Notes Date ce etation Range Physician is not a Physician's Portal User WBC 0-5 0 - 5 HPF No No b 3 informa informa 2016 tion in tion in 8:27 PM source source data data Epithel 1-5 No HPF No No Apr 3 ial informa informa informa 2016 cells tion in tion in tion in 8:27 PM [Presen source source source ce] in data data data Urine sedimen t by Light microsc opy Mucus 1+ No No No No Apr 3 [#/area informa informa informa informa 2015 ] in tion in tion in tion in tion in 8:27 PM Urine source source source source sedimen data data data data t by Microsc opy high power field CRYSTAL FEW No HPF No No b 3 S URIC informa informa informa 2016 ACID tion in tion in tion in 8:27 PM source source source data data data Casts OCC NONE LPF No No b 3 [Presen HYALINE informa informa 2016 ce] in tion in tion in 8:27 PM Urine source source sedimen data data t by Light microsc opy Bacteri 3+ Absent HPF Abnorma No b 3 a l informa 2016 [#/area tion in 8:27 PM ] in source Urine data alysha villareal by Microsc opy high power field URINALYSIS COMPLETE Observa Value Referen Units Interpr Notes Date tion ce etation Range Physician is not a Physician's Portal User Color YELLOW No No No No Apr 30 of informa informa informa informa 2016 Urine tion in tion in tion in tion in 8:27 PM source source source source data data data data Clarity CLEAR No No No No Apr 30 of informa informa informa informa 2016 Urine tion in tion in tion in tion in 8:27 PM source source source source data data data data Glucose NEGATIV NEGATIV MG/DL No No Apr 30 E E informa informa 2015 [Presen tion in tion in 8:27 PM ce] in source source Urine data data by Automat ed test strip Bilirub NEGATIV NEGATIV No No No Apr 30 in E E informa informa informa 2016 [Presen tion in tion in ti in 8:27 PM ce] in source source source Urine data data data by Automat ed test strip Ketones TRACE NEGATIV MG/DL Abnorma No Apr 30 E l informa 2015 [Presen tion in 8:27 PM ce] in source Urine data by Automat ed test strip Specifi >=1.030 1.006 - No No No Apr 30 c 1.035 informa informa informa 2016 gravity tion in tion in tion in 8:27 PM of source source source Urine data data data by Automat ed test strip Erythro NEGATIV NEGATIV No No No Apr 30 cytes E E informa informa informa 2015 [Presen tion in tion in tion in 8:27 PM ce] in source source source Urine data data data by Automat ed pH of 6.0 5.0 - No No No Apr 30 Urine 9.0 informa informa informa 2016 by tion in tion in tion in 8:27 PM Automat source source source ed test data data data strip Protein TRACE NEGATIV MG/DL Abnorma No Apr 30 E l informa 2015 [Presen tion in 8:27 PM ce] in source Urine data by Automat ed test strip UROBILI 0.2 0.2 - E.U./DL No No Apr 3 NOGEN 1.0 informa informa 2016 tion in tion in 8:27 PM source source data data Nitrate NEGATIV NEGATIV No No No Apr 3 E E informa informa informa 2015 [Presen tion in tion in tion in 8:27 PM ce] in source source source Urine data data data Leukocy NEGATIV NEGATIV No No No Apr 3 benjamin E E informa informa informa 2015 [Presen tion in tion in tion in 8:27 PM ce] in source source source Urine data data data by Automat ed UR IN HOUSE DRUG SCREEN Observa Value Referen Units Interpr Notes Date tion ce etation Range none; Physician is not a Physician's Portal User Ampheta NEG NEGATIV ug/ML No AMPHETA Apr 3 mines E informa MINE 2015 [Presen tion in CUT OFF 8:27 PM ce] in source Urine data CONCENT by RATION Screen - 300 method >1000 ng/mL Barbitu NEG NEGATIV ug/ML No BARBITU Apr 3 rates E informa ATE CUT 2015 [Presen tion in OFF 8:27 PM ce] in source CONCENT Urine data RATION by - 200 Screen method Benzodi NEG NEGATIV ug/ML No BENZODI Apr 30 azepine E informa AZEPINE 2016 s tion in CUT 8:27 PM [Presen source OFF ce] in data CONCENT Urine RATION by - 200 Screen method Cocaine NEG NEGATIV ug/ML No COCAINE Apr 30 E informa CUT 2015 [Presen tion in OFF 8:27 PM ce] in source CONCENT Urine data RATION by - 300 Screen method Opiates NEG NEGATIV ug/ML No OPIATE Apr 30 E informa CUT OFF 2015 [Presen tion in 8:27 PM ce] in source CONCENT Urine data RATION by - 300 Screen method Cannabi NEG NEGATIV NG/ML No THC CUT Apr 3 noids E informa OFF 2015 [Presen tion in CONCENT 8:27 PM ce] in source RATION Urine data - 50 by Screen method Methado NEG NEGATIV ug/ML No METHADO b ne E informa NE CUT 2015 [Presen tion in OFF 8:27 PM ce] in source CONCENT Urine data RATION by - Screen 300THES method E RESULTS PROVIDE ONLY A PRELIMI NARY TEST RESULT. THEREIS A POSSIBI LITY THAT OVER THE COUNTER DRUGS MAY INTERFE REWITH THE TEST. CONFORM ITORY TEST CAN BE ORDERED AT [facility] CONSIDE RATION ANDPROF ESSIONA L JUDGEME NT SHOULD BE APPLIED TO ANY DRUG OF ABUSETE ST RESULT, PARTICU JEFF WHEN PRELIMI NARY POSITIV E RESULTS AREUSED . THESE DRUG SCREEN RESULTS ARE NOT FOR LEGAL APPLICA TIONS. BUPRENORPHINE,QUAL Observa Value Referen Units Interpr Notes Date tion ce etation Range none; Physician is not a Physician's Portal User Bupreno NEGATIV No No No BUPRENO Apr 30 rphine E informa informa informa RPHRINE 2015 [Presen tion in tion in tion in CUT 8:27 PM ce] in source source source OFF Urine data data data CONCENT RATION - 12.5 NG/ML OXYCODONE,UR.(QUAL) Observa Value Referen Units Interpr Notes Date tion ce etation Range none; Physician is not a Physician's Portal User Oxycodo NEGATIV No No No CONCENT Apr 30 ne E informa informa informa RATIONS 2015 [Presen tion in tion in tion in OF 8:27 PM ce] in source source source >625 Urine data data data NG/ML by OF Screen HYDROCO method DONE AND >100 NG/ML OF OXYCODO NECAUSE POSITIV E RESULTS AMYLASE Observa Value Referen Units Interpr Notes Date tion ce etation Range Amylase 35 25 - U/L No No Apr 30 115 informa informa 2016 [Enzyma tion in tion in 6:20 PM tic source source activit data data y/volum e] in Serum or Plasma GLOMELULAR ESTEFANI. RATE,CALC. Observa Value Referen Units Interpr Notes Date tion ce etation Range Glomeru 186.0 60.0 - ml/min No THE Apr 30 lar 200.0 informa eGFR IS 2016 filtrat tion in AN 6:20 PM ion source ESTIMAT rate/1. data ED 73 sq M GLOMELU LAR predict FILTRAT ed ION among RATEBAS non-karina ED ON cks by AN Creatin AVERAGE ine-bas BODY ed SURFACE formula AREA (MDRD) OF 1.73M2. THIS CALCULA TION IS NOT ACCURAT E FOR PEDIATR IC PATIENT S,PATIE NTS >70 YEARS OF AGE,OR PATIENT S WITH EXTREME BODY SIZE.>6 0 ML/MIN/ 1.73M2 = NORMAL< 60 ML/MIN/ 1.73M2 = CHRONIC KIDNEY DISEASE <15 ML/MIN/ 1.73M2 = KIDNEY FAILURE AVERAGE EGFR FOLLOWS :AGE(YE ARS) AVERAGE EGFR20- 39 116 ML/MIN3 0-39 107 ML/MIN4 0-49 99 ML/MIN5 0-59 93 ML/MIN6 0-69 85 ML/MIN LIPASE Observa Value Referen Units Interpr Notes Date tion ce etation Range Lipase 75 73 - U/L No No Feb 3 [Enzyma 393 informa informa 2016 tic tion in tion in 6:20 PM activit source source y/volum data data e] in Serum or Plasma COMP. METABOLIC PANEL (CHEM 12) Observa Value Referen Units Interpr Notes Date tion ce etation Range Glucose 81 70 - MG/DL No No Feb 3 110 informa informa 2016 [Mass/v tion in tion in 6:20 PM olume] source source in data data Serum or Plasma Urea 4 7 - 18 MG/DL Low No Feb 3 nitroge informa 2016 n tion in 6:20 PM [Mass/v source olume] data in Serum or Plasma Sodium 138 133 - mmol/L No No Feb 3 [Moles/ 144 informa informa 2016 volume] tion in tion in 6:20 PM in source source Serum data data or Plasma Potassi 3.8 3.6 - mmol/l No No Feb 3 um 5.2 informa informa 2016 [Moles/ tion in tion in 6:20 PM volume] source source in data data Serum or Plasma Chlorid 107 98 - mmol/l No No Feb 3 e 107 informa informa 2016 [Moles/ tion in tion in 6:20 PM volume] source source in data data Blood Carbon 23 21 - 32 mmol/L No No Feb 3 dioxide informa informa 2016 , total tion in tion in 6:20 PM source source [Moles/ data data volume] in Serum or Plasma Creatin 0.40 0.60 - MG/DL Low No Feb 3 ine 1.30 informa 2016 [Mass/v tion in 6:20 PM olume] source in data Serum or Plasma Protein 6.7 6.4 - G/DL No No Feb 3 8.4 informa informa 2015 [Mass/v tion in tion in 6:20 PM olume] source source in data data Serum or Plasma Albumin 2.7 3.4 - G/DL Low No Feb 3 5.0 informa 2015 [Mass/v tion in 6:20 PM olume] source in data Serum or Plasma Globuli 4.0 2.4 - G/DL No No b 3 n 4.8 informa informa 2015 [Mass/v tion in tion in 6:20 PM olume] source source in data data Plasma Albumin 0.7 0.6 - No No No Apr 3 /Globul 1.6 informa informa informa 2016 in tion in tion in tion in 6:20 PM [Mass source source source ratio] data data data in Serum or Plasma Calcium 8.5 8.5 - MG/DL No No b 3 10.1 informa informa 2015 [Mass/v tion in tion in 6:20 PM olume] source source in data data Serum or Plasma Alkalin 85 45 - U/L No No Feb 3 e 117 informa informa 2016 phospha tion in tion in 6:20 PM tase source source [Enzyma data data tic activit y/volum e] in Serum or Plasma Asparta 17 15 - 37 U/L No No Feb 3 te informa informa 2016 aminotr tion in tion in 6:20 PM ansfera source source se data data [Enzyma tic activit y/volum e] in Serum or Plasma Alanine 20 12 - 78 U/L No No Feb 3 informa informa 2016 aminotr tion in tion in 6:20 PM ansfera source source se data data [Enzyma tic activit y/volum e] in Serum or Plasma Bilirub 0.40 0.00 - MG/DL No No Feb 3 in.tota 1.00 informa informa 2016 l tion in tion in 6:20 PM [Mass/v source source olume] data data in Serum or Plasma CBC/NO DIFF+ PLATELET Observa Value Referen Units Interpr Notes Date tion ce etation Range Leukocy 13.4 3.0 - K/UL High No Feb 3 benjamin 11.3 informa 2016 [#/volu tion in 6:20 PM me] in source Blood data by Automat ed count Erythro 4.040 3.450 - M/ul No No Apr 3 cytes 5.400 informa informa 2016 [#/volu tion in tion in 6:20 PM me] in source source Blood data data by Automat ed count Hemoglo 12.0 10.0 - gm/dl No No Apr 3 bin 16.0 informa informa 2016 [Mass/v tion in tion in 6:20 PM olume] source source in data data Blood Hematoc 36.1 29.9 - % No No Apr 30 rit 45.5 informa informa 2016 [Volume tion in tion in 6:20 PM source source Fractio data data n] of Blood by Automat ed count Erythro 89.3 78.2 - fl No No Apr 30 cyte 101.8 informa informa 2016 mean tion in tion in 6:20 PM corpusc source source ular data data volume [Entiti c volume] by Automat ed count Erythro 29.6 26.4 - pg No No Apr 30 cyte 33.3 informa informa 2016 mean tion in tion in 6:20 PM corpusc source source ular data data hemoglo bin [Entiti c mass] by Automat ed count Erythro 33.2 32.5 - g/dl No No Apr 30 cyte 35.3 informa informa 2016 mean tion in tion in 6:20 PM corpusc source source ular data data hemoglo bin concent ration [Mass/v olume] by Automat ed count Erythro 13.6 10.1 - % No No b 3 cyte 16.2 informa informa 2016 distrib tion in tion in 6:20 PM ution source source width data data [Ratio] by Automat ed count Platele 179 122 - K/UL No No b 3 ts 454 informa informa 2016 [#/volu tion in tion in 6:20 PM me] in source source Blood data data by Automat ed count Platele 8.1 6.4 - fl No No Feb 3 t mean 10.4 informa informa 2016 volume tion in tion in 6:20 PM [Entiti source source c data data volume] in Blood by Automat ed count URINALYSIS COMPLETE Observa Value Referen Units Interpr Notes Date tion ce etation Range Color YELLOW No No No No Feb 20 of informa informa informa informa 2014 Urine tion in tion in tion in tion in 10:00 source source source source PM data data data data Clarity CLOUDY No No No No Feb 20 of informa informa informa informa 2015 Urine tion in tion in tion in tion in 10:00 source source source source PM data data data data Glucose NEGATIV NEGATIV MG/DL No No Feb 20 E E informa informa 2014 [Presen tion in tion in 10:00 ce] in source source PM Urine data data by Automat ed test strip Bilirub NEGATIV NEGATIV No No No Feb 20 in E E informa informa informa 2014 [Presen tion in tion in tion in 10:00 ce] in source source source PM Urine data data data by Automat ed test strip Ketones NEGATIV NEGATIV MG/DL No No Feb 20 E E informa informa 2014 [Presen tion in tion in 10:00 ce] in source source PM Urine data data by Automat ed test strip Specifi 1.020 1.006 - No No No Feb 20 c 1.035 informa informa informa 2014 gravity tion in tion in tion in 10:00 of source source source PM Urine data data data by Automat ed test strip Erythro NEGATIV NEGATIV No No No Feb 20 cytes E E informa informa informa 2014 [Presen tion in tion in tion in 10:00 ce] in source source source PM Urine data data data by Automat ed pH of 7.0 5.0 - No No No Feb 20 Urine 9.0 informa informa informa 2014 by tion in tion in tion in 10:00 Automat source source source PM ed test data data data strip Protein NEGATIV NEGATIV MG/DL No No Feb 20 E E informa informa 2014 [Presen tion in tion in 10:00 ce] in source source PM Urine data data by Automat ed test strip UROBILI 1.0 0.2 - E.U./DL No No Feb 20 NOGEN 1.0 informa informa 2014 tion in tion in 10:00 source source PM data data Nitrate NEGATIV NEGATIV No No Feb 20 E E informa informa informa 2014 [Presen tion in tion in tion in 10:00 ce] in source source source PM Urine data data data Leukocy TRACE NEGATIV No Abnorma No Feb 20 benjamin E informa l informa 2014 [Presen tion in tion in 10:00 ce] in source source PM Urine data data by Automat ed Erythro 1 0 - 4 /HPF No Feb 20 cytes informa informa 2014 [#/area tion in tion in 10:00 ] in source source PM Urine data data sedimen t by Microsc opy high power field WBC 1 0 - 5 /HPF No Feb 20 COUNT informa informa 2014 tion in tion in 10:00 source source PM data data Epithel 2 0 - 6 /HPF No Feb 20 ial informa informa 2014 cells tion in tion in 10:00 [Presen source source PM ce] in data data Urine sedimen t by Light microsc opy Bacteri NEGATIV NEGATIV /HPF No BACTERI Feb 20 a E E informa A 2014 [#/area tion in INTERPR 10:00 ] in source ETATION PM Urine data :NEGATI sedimen VE t by <=599/u Microsc lTRACE opy high >=600, power <=1199/ field ul1+ >=1200, <=2399/ ul2+ >=2400, <=3599/ ul3+ >=3600, <=4799/ ul4+ >=4800/ ul Hyaline 0 0 - 4 /LPF No No Feb 20 casts informa informa 2014 [#/area tion in tion in 10:00 ] in source source PM Urine data data sedimen t by Microsc opy high power field US Abdomen Complete Observa Value Referen Units Interpr Notes Date tion ce etation Range TEXT [employer] No No No Feb 20 DIAGNOS t Order informa informa informa informa 2014 IS tion in tion in tion in tion in 9:57 PM BATTERY Descrip source source source source tion: data data data data US ABDOMEN COMPLET E - ,\.br\\ .br\\.b r\ULTRA SOUND ABDOMEN COMPLET E\.br\\ .br\Son ographi c evaluat ion of the abdomen reveals no patholo gy of the biliary tree, gallbla dder, spleen, kidneys , or those portion s of the pancrea s and abdomin al aorta visible through overlyi ng bowel gas. There is diffuse fatty infiltr ation of the liver.\ .br\\.b r\ IMPRESS ION: Diffuse fatty infiltr ation of the liver. No patholo gic finding s.\.br\ \.br\ END OF REPORT* *\.br\\ .br\Jordon valencia Nino M.D.\.b r\\.br\ Dictate d: 6:58 AM\.br\ \.br\Tr anscrib ed: 6:59 AM\.br\ \.br\ * Final Report \.br \\.br\D ictated : ISSAC NINO M.D. 6:58 am\.br\ \.br\Tr anscrib ed by: YASSINE 6:59 am\.br\ \.br\Au thentic ated by: ISSAC NINO M.D. 8:34 am\.br\ \.br\ GLOMELULAR ESTEFANI. RATE,CALC. Observa Value Referen Units Interpr Notes Date tion ce etation Range Glomeru 143.9 60.0 - ml/min No THE Feb 20 lar 200.0 informa eGFR IS 2015 filtrat tion in AN 9:25 PM ion source ESTIMAT rate/1. data ED 73 sq M GLOMELU LAR predict FILTRAT ed ION among RATEBAS non-karina ED ON cks by AN Creatin AVERAGE ine-bas BODY ed SURFACE formula AREA (MDRD) OF 1.73M2. THIS CALCULA TION IS NOT ACCURAT E FOR PEDIATR IC PATIENT S,PATIE NTS >70 YEARS OF AGE,OR PATIENT S WITH EXTREME BODY SIZE.>6 0 ML/MIN/ 1.73M2 = NORMAL< 60 ML/MIN/ 1.73M2 = CHRONIC KIDNEY DISEASE <15 ML/MIN/ 1.73M2 = KIDNEY FAILURE AVERAGE EGFR FOLLOWS :AGE(YE ARS) AVERAGE EGFR20- 39 116 ML/MIN3 0-39 107 ML/MIN4 0-49 99 ML/MIN5 0-59 93 ML/MIN6 0-69 85 ML/MIN COMP. METABOLIC PANEL (CHEM 12) Observa Value Referen Units Interpr Notes Date tion ce etation Range Glucose 113 70 - MG/DL High Feb 20 110 informa 2014 [Mass/v tion in 9:25 PM olume] source in data Serum or Plasma Urea 6 7 - 18 MG/DL Low Feb 20 nitroge a 2014 n tion in 9:25 PM [Mass/v source olume] data in Serum or Plasma Sodium 138 133 - mmol/L No Feb 20 [Moles/ 144 informa informa 2014 volume] tion in tion in 9:25 PM in source source Serum data data or Plasma Potassi 3.8 3.6 - mmol/l No Feb 20 um 5.2 informa informa 2014 [Moles/ tion in tion in 9:25 PM volume] source source in data data Serum or Plasma Chlorid 110 98 - mmol/l High Feb 20 e 107 inform2014 [Moles/ tion in 9:25 PM volume] source in data Blood Carbon 24 21 - 32 mmol/L No Feb 20 dioxide informa informa 2014 , total tion in tion in 9:25 PM source source [Moles/ data data volume] in Serum or Plasma Creatin 0.50 0.60 - MG/DL Low Feb 20 ine 1.30 informa 2014 [Mass/v tion in 9:25 PM olume] source in data Serum or Plasma Protein 6.2 6.4 - G/DL Low Feb 20 8.4 informa 2014 [Mass/v tion in 9:25 PM olume] source in data Serum or Plasma Albumin 2.5 3.4 - G/DL Low Feb 20 5.0 informa 2014 [Mass/v tion in 9:25 PM olume] source in data Serum or Plasma Globuli 3.7 2.4 - G/DL No Feb 20 n 4.8 informa informa 2014 [Mass/v tion in tion in 9:25 PM olume] source source in data data Plasma Albumin 0.7 0.6 - No No Feb 20 /Globul 1.6 informa informa informa 2014 in tion in tion in tion in 9:25 PM [Mass source source source ratio] data data data in Serum or Plasma Calcium 8.3 8.5 - MG/DL Low No Feb 20 10.1 informa 2014 [Mass/v tion in 9:25 PM olume] source in data Serum or Plasma Alkalin 72 45 - U/L No No Feb 20 e 117 informa informa 2014 phospha tion in tion in 9:25 PM tase source source [Enzyma data data tic activit y/volum e] in Serum or Plasma Asparta 23 15 - 37 U/L No No Feb 20 te informa informa 2014 aminotr tion in tion in 9:25 PM ansfera source source se data data [Enzyma tic activit y/volum e] in Serum or Plasma Alanine 25 12 - 78 U/L No No Feb 20 informa informa 2014 aminotr tion in tion in 9:25 PM ansfera source source se data data [Enzyma tic activit y/volum e] in Serum or Plasma Bilirub 0.20 0.00 - MG/DL No No Feb 20 in.tota 1.00 informa informa 2014 l tion in tion in 9:25 PM [Mass/v source source olume] data data in Serum or Plasma CBC\T\AUTO DIFF Observa Value Referen Units Interpr Notes Date tion ce etation Range Leukocy 8.1 3.0 - K/UL No No Feb 20 benjamin 11.3 informa informa 2014 [#/volu tion in tion in 9:25 PM me] in source source Blood data data by Automat ed count Erythro 3.570 3.450 - M/ul No No Feb 20 cytes 5.400 informa informa 2014 [#/volu tion in tion in 9:25 PM me] in source source Blood data data by Automat ed count Hemoglo 10.8 10.0 - gm/dl No Feb 20 bin 16.0 informa informa 2014 [Mass/v tion in tion in 9:25 PM olume] source source in data data Blood Hematoc 32.6 29.9 - % No Feb 20 rit 45.5 informa informa 2014 [Volume tion in tion in 9:25 PM source source Fractio data data n] of Blood by Automat ed count Erythro 91.4 78.2 - fl No Feb 20 cyte 101.8 informa informa 2014 mean tion in tion in 9:25 PM corpusc source source ular data data volume [Entiti c volume] by Automat ed count Erythro 30.1 26.4 - pg No Feb 20 cyte 33.3 informa informa 2014 mean tion in tion in 9:25 PM corpusc source source ular data data hemoglo bin [Entiti c mass] by Automat ed count Erythro 32.9 32.5 - g/dl No Feb 20 cyte 35.3 informa informa 2014 mean tion in tion in 9:25 PM corpusc source source ular data data hemoglo bin concent ration [Mass/v olume] by Automat ed count Erythro 13.8 10.1 - % No Feb 20 cyte 16.2 informa informa 2014 distrib tion in tion in 9:25 PM ution source source width data data [Ratio] by Automat ed count Platele 175 122 - K/UL No Feb 20 ts 454 informa informa 2014 [#/volu tion in tion in 9:25 PM me] in source source Blood data data by Automat ed count Platele 7.7 6.4 - fl No Feb 20 t mean 10.4 informa informa 2014 volume tion in tion in 9:25 PM [Entiti source source c data data volume] in Blood by Automat ed count Neutrop 66.3 43.0 - % No Feb 20 hils/10 83.0 informa informa 2015 0 tion in tion in 9:25 PM leukocy source source benjamin in data data Blood by Automat ed count Lymphoc 23.7 10.0 - % No Feb 20 ytes/10 42.0 informa informa 2015 0 tion in tion in 9:25 PM leukocy source source benjamin in data data Blood by Automat ed count Monocyt 6.1 1.0 - % No Feb 20 es/100 14.0 informa informa 2015 leukocy tion in tion in 9:25 PM benjamin in source source Blood data data by Automat ed count Eosinop 3.5 0.0 - % No Feb 20 hils/10 11.0 informa informa 2014 0 tion in tion in 9:25 PM leukocy source source benjamin in data data Blood by Automat ed count Basophi 0.4 0.0 - % No Feb 20 ls/100 2.0 informa informa 2014 leukocy tion in tion in 9:25 PM benjamin in source source Blood data data by Automat ed count Neutrop 5.4 2.7 - K/ul No Feb 20 hils 6.9 informa informa 2014 [#/volu tion in tion in 9:25 PM me] in source source Blood data data by Automat ed count Lymphoc 1.9 0.4 - K/ul No Feb 20 ytes 3.9 informa informa 2014 [#/volu tion in tion in 9:25 PM me] in source source Blood data data by Automat ed count Monocyt 0.5 0.2 - K/ul No Feb 20 es 0.6 informa informa 2014 [#/volu tion in tion in 9:25 PM me] in source source Blood data data by Automat ed count Eosinop 0.3 0.0 - K/ul No Feb 20 hils 0.9 informa informa 2014 [#/volu tion in tion in 9:25 PM me] in source source Blood data data by Automat ed count Basophi 0.0 0.0 - K/ul No Feb 20 ls 0.2 informa informa 2014 [#/volu tion in tion in 9:25 PM me] in source source Blood data data by Automat ed count CHLAMYDIA/GONOCOCCUS, AMP Observa Value Referen Units Interpr Notes Date tion ce etation Range NOT No No No No Jan 23 DETECTE informa informa informa informa 2014 D tion in tion in tion in tion in 3:53 PM source source source source REFEREN data data data data CE RANGE = NOT DETECTE D NOT No No No No Jan 23 DETECTE informa informa informa informa 2014 D tion in tion in tion in tion in 3:53 PM source source source source REFEREN data data data data CE RANGE = NOT DETECTE D No No No No Jan 23 informa informa informa informa 2014 tion in tion in tion in tion in 3:53 PM source source source source data data data data A No No No No Jan 23 negativ informa informa informa informa 2014 e test tion in tion in tion in tion in 3:53 PM result source source source source does data data data data not exclude the possibi lity of No No No No Jan 23 infecti informa informa informa informa 2014 on tion in tion in tion in tion in 3:53 PM because source source source source test data data data data results may be affecte d by imprope No No No No Jan 23 r informa informa informa informa 2015 specime tion in tion in tion in tion in 3:53 PM n source source source source collect data data data data ion, technic al error, specime n mixup, No No No No Jan 23 concurr informa informa informa informa 2014 ent tion in tion in tion in tion in 3:53 PM antibio source source source source tic data data data data therapy , or number of organis No No No No Jan 23 ms in informa informa informa informa 2015 the tion in tion in tion in tion in 3:53 PM specime source source source source n which data data data data may be below the sensiti No No No No Jan 23 vity of informa informa informa informa 2015 the tion in tion in tion in tion in 3:53 PM test. source source source source data data data data The No No No No Jan 23 Xpert informa informa informa informa 2015 CT/NG tion in tion in tion in tion in 3:53 PM Assay source source source source should data data data data not be used for the evaluat No No No No Jan 23 ion of informa informa informa informa 2015 suspect tion in tion in tion in tion in 3:53 PM ed source source source source sexual data data data data abuse or for other medico- No No No No Jan 23 legal informa informa informa informa 2014 indicat tion in tion in tion in tion in 3:53 PM ions. source source source source Additio data data data data nal testing is recomme No No No No Jan 23 nded in informa informa informa informa 2014 any tion in tion in tion in tion in 3:53 PM circums source source source source tance data data data data when false positiv e or false No No No No Jan 23 negativ informa informa informa informa 2015 e tion in tion in tion in tion in 3:53 PM results source source source source could data data data data entry assistant to adverse medical , social, No No No No Jan 23 or informa informa informa informa 2014 psychol tion in tion in tion in tion in 3:53 PM ogical source source source source consequ data data data data ences. Xpert No No No No Jan 23 CT/NG informa informa informa informa 2015 Assay tion in tion in tion in tion in 3:53 PM perform source source source source ance data data data data has not been evaluat ed in patient No No No ORDER#: Jan 23 s less informa informa informa 2015 than 14 tion in tion in tion in [id number] 3:53 PM years source source source 4 of age. data data data ORDERED BY: YOVANNY WOLFE URCE: VAGINAL /ENDOCE RVICAL COLLECT ED: 15:53AN DENZEL CS AT [facility].: RECEIVE D : 17:35CH LAMYDIA , AMP. PROBE FINAL 21:1109 NOT DETECTE D REFEREN CE RANGE = NOT DETECTE DGONOCO CCUS, AMP. PROBE FINAL 21:1109 NOT DETECTE D REFEREN CE RANGE = NOT DETECTE D *A negativ e test result does not exclude the possibi lityof infecti on because test results may be affecte d byimpro per specime n collect ion, technic al error, specime nmixup, concurr ent antibio tic therapy , or number oforgan isms in the specime n which may be below thesens itivity of the test.Th e Xpert CT/NG Assay should not be used for theeval uation of suspect ed sexual abuse or for otherme dico-le gal indicat ions. Additio nal testing isrecom mended in any circums tance when false positiv e orfalse negativ e results could lead to adverse medical ,social , or psychol ogical consequ ences.X pert CT/NG Assay perform ance has not been evaluat ed inpatie nts less than 14 years of age. URINE CULTURE Observa Value Referen Units Interpr Notes Date tion ce etation Range Bacteri >100,00 No No No ORDER#: Jan 23 a 0 informa informa informa 2014 identif ORGS/ML tion in tion in tion in [id number] 11:00 ied in OF source source source 2 AM Urine MIXED data data data by SKIN Culture ERIS. ORDERED BY: TAMARA GOLDBERG CE: URINE COLLECT ED: 5 11:00AN DENZEL CS AT [facility].: RECEIVE D : 5 11:42UR INE CULTURE FINAL 5 07:191 >100,00 0 ORGS/ML OF MIXED SKIN ERIS. PANEL Observa Value Referen Units Interpr Notes Date tion ce etation Range Reagin NONREAC NONREAC No No No Jan 23 Ab TIVE TIVE informa informa informa 2014 [Presen tion in tion in tion in 11:00 ce] in source source source AM Serum data data data by RPR RBC ANTIBODY SCREEN Observa Value Referen Units Interpr Notes Date tion ce etation Range Blood TEXT~Na No No No No Jan 23 group me: informa informa informa informa 2015 antibod FERNANDEZ tion in tion in tion in tion in 10:50 y , source source source source AM screen SANA~Ac data data data data [Presen ct: ce] in [id number] Serum 588~ANT or IBODY Plasma SCREEN NEG 5 06:50 mct ABO GROUP AND RH Observa Value Referen Units Interpr Notes Date tion ce etation Range ABO & TEXT~Na No No No No Jan 23 Rh me: informa informa informa informa 2015 group REBECCA tion in tion in tion in tion in 10:50 panel , source source source source AM in SANA~Ac data data data data Blood ct: [id number] 588~ABO O 5 06:46 mct~RH( D) TYPING POS 5 06:46 mct UR IN HOUSE DRUG SCREEN Observa Value Referen Units Interpr Notes Date tion ce etation Range Ampheta NEG NEGATIV ug/ML No AMPHETA Jan 23 mines E informa MINE 2014 [Presen tion in CUT OFF ce] in source Urine data CONCENT by RATION Screen - 300 method >1000 ng/mL Barbitu NEG NEGATIV ug/ML No BARBITU Jan 23 rates E informa ATE CUT 2014 [Presen tion in OFF ce] in source CONCENT Urine data RATION by - 200 Screen method Benzodi NEG NEGATIV ug/ML No BENZODI Jan 23 azepine E informa AZEPINE 2014 s tion in CUT [Presen source OFF ce] in data CONCENT Urine RATION by - 200 Screen method Cocaine NEG NEGATIV ug/ML No COCAINE Jan 23 E informa CUT 2014 [Presen tion in OFF ce] in source CONCENT Urine data RATION by - 300 Screen method Opiates NEG NEGATIV ug/ML No OPIATE Jan 23 E informa CUT OFF 2014 [Presen tion in ce] in source CONCENT Urine data RATION by - 300 Screen method Cannabi NEG NEGATIV NG/ML No THC CUT Jan 23 noids E informa OFF 2014 [Presen tion in CONCENT ce] in source RATION Urine data - 50 by Screen method Methado NEG NEGATIV ug/ML No METHADO Jan 23 ne E informa NE CUT 2014 [Presen tion in OFF ce] in source CONCENT Urine data RATION by - Screen 300THES method E RESULTS PROVIDE ONLY A PRELIMI NARY TEST RESULT. THEREIS A POSSIBI LITY THAT OVER THE COUNTER DRUGS MAY INTERFE REWITH THE TEST. CONFORM ITORY TEST CAN BE ORDERED AT [facility] CONSIDE RATION ANDPROF ESSIONA L JUDGEME NT SHOULD BE APPLIED TO ANY DRUG OF ABUSETE ST RESULT, PARTICU JEFF WHEN PRELIMI NARY POSITIV E RESULTS AREUSED . THESE DRUG SCREEN RESULTS ARE NOT FOR LEGAL APPLICA TIONS. URINALYSIS COMPLETE Observa Value Referen Units Interpr Notes Date tion ce etation Range Color YELLOW No No No No Jan 23 of informa informa informa informa 2014 Urine tion in tion in tion in tion in source source source source data data data data Clarity CLEAR No No No No Jan 23 of informa informa informa informa 2014 Urine tion in tion in tion in tion in source source source source data data data data Glucose NEGATIV NEGATIV MG/DL No No Jan 23 E E informa informa 2014 [Presen tion in tion in ce] in source source Urine data data by Automat ed test strip Bilirub NEGATIV NEGATIV No No No Jan 23 in E E informa informa informa 2014 [Presen tion in tion in tion in ce] in source source source Urine data data data by Automat ed test strip Ketones NEGATIV NEGATIV MG/DL No No Jan 23 E E informa informa 2014 [Presen tion in tion in ce] in source source Urine data data by Automat ed test strip Specifi 1.015 1.006 - No No No Jan 23 c 1.035 informa informa informa 2014 gravity tion in tion in ti in of source source source Urine data data data by Automat ed test strip Erythro TRACE NEGATIV No Abnorma No Jan 23 cytes E informa l informa 2014 [Presen tion in tion in ce] in source source Urine data data by Automat ed pH of 7.5 5.0 - No No No Jan 23 Urine 9.0 informa informa informa 2014 by tion in tion in tion in Automat source source source ed test data data data strip Protein NEGATIV NEGATIV MG/DL No No Jan 23 E E informa informa 2014 [Presen tion in tion in ce] in source source Urine data data by Automat ed test strip UROBILI 1.0 0.2 - E.U./DL No No Jan 23 NOGEN 1.0 informa informa 2015 tion in tion in source source data data Nitrate NEGATIV NEGATIV No No No Jan 23 E E informa informa informa 2014 [Presen tion in tion in tion in ce] in source source source Urine data data data Leukocy MODERAT NEGATIV No Abnorma No Jan 23 benjamin E E informa l informa 2014 [Presen tion in tion in ce] in source source Urine data data by Automat ed UA, MICROSCOPIC REVIEW Observa Value Referen Units Interpr Notes Date tion ce etation Range WBC 5-10 0 - 5 HPF Abnorma No Jan 23 l informa 2014 tion in source data Epithel 1-5 No HPF No No Jan 23 ial informa informa informa 2015 cells tion in tion in tion in [Presen source source source ce] in data data data Urine sedimen t by Light microsc opy Bacteri 1+ Absent HPF Abnorma No Jan 23 a l informa 2014 [#/area tion in ] in source Urine data sedimen t by Microsc opy high power field URINALYSIS COMPLETE Observa Value Referen Units Interpr Notes Date tion ce etation Range Color YELLOW No No No No Jan 08 of informa informa informa informa 2015 Urine tion in tion in tion in tion in 6:58 PM source source source source data data data data Clarity CLEAR No No No No Jan 08 of informa informa informa informa 2015 Urine tion in tion in tion in tion in 6:58 PM source source source source data data data data Glucose NEGATIV NEGATIV MG/DL No No Jan 08 E E informa informa 2014 [Presen tion in tion in 6:58 PM ce] in source source Urine data data by Automat ed test strip Bilirub NEGATIV NEGATIV No No No Jan 08 in E E informa informa informa 2014 [Presen tion in tion in tion in 6:58 PM ce] in source source source Urine data data data by Automat ed test strip Ketones NEGATIV NEGATIV MG/DL No No Jan 08 E E informa informa 2014 [Presen tion in tion in 6:58 PM ce] in source source Urine data data by Automat ed test strip Specifi 1.009 1.006 - No No No Jan 08 c 1.035 informa informa informa 2014 gravity tion in tion in tion in 6:58 PM of source source source Urine data data data by Automat ed test strip Erythro NEGATIV NEGATIV No No No Jan 08 cytes E E informa informa informa 2014 [Presen tion in tion in tion in 6:58 PM ce] in source source source Urine data data data by Automat ed pH of 6.0 5.0 - No No No Jan 08 Urine 9.0 informa informa informa 2015 by tion in tion in tion in 6:58 PM Automat source source source ed test data data data strip Protein NEGATIV NEGATIV MG/DL No No Jan 08 E E informa informa 2014 [Presen tion in tion in 6:58 PM ce] in source source Urine data data by Automat ed test strip UROBILI 1.0 0.2 - E.U./DL No No Jan 08 NOGEN 1.0 informa informa 2014 tion in tion in 6:58 PM source source data data Nitrate NEGATIV NEGATIV No No No Jan 08 E E informa informa informa 2014 [Presen tion in tion in tion in 6:58 PM ce] in source source source Urine data data data Leukocy NEGATIV NEGATIV No No No Jan 08 benjamin E E informa informa informa 2014 [Presen tion in tion in tion in 6:58 PM ce] in source source source Urine data data data by Automat ed Erythro 0 0 - 4 /HPF No No Jan 08 cytes informa informa 2014 [#/area tion in tion in 6:58 PM ] in source source Urine data data sedimen t by Microsc opy high power field WBC 0 0 - 5 /HPF No No Jan 08 COUNT informa informa 2014 tion in tion in 6:58 PM source source data data Epithel 2 0 - 6 /HPF No No Jan 08 ial informa informa 2015 cells tion in tion in 6:58 PM [Presen source source ce] in data data Urine sedimen t by Light microsc opy Bacteri NEGATIV NEGATIV /HPF No BACTERI Jan 08 a E E informa A 2014 [#/area tion in INTERPR 6:58 PM ] in source ETATION Urine data :NEGATI sedimen VE t by <=599/u Microsc lTRACE opy high >=600, power <=1199/ field ul1+ >=1200, <=2399/ ul2+ >=2400, <=3599/ ul3+ >=3600, <=4799/ ul4+ >=4800/ ul Hyaline 2 0 - 4 /LPF No No Jan 08 casts informa informa 2014 [#/area tion in tion in 6:58 PM ] in source source Urine data data sedimen t by Microsc opy high power field ABO GROUP AND RH Observa Value Referen Units Interpr Notes Date tion ce etation Range ABO & TEXT~Na No No No No Jan 08 Rh me: informa informa informa informa 2014 group REBECCA tion in tion in tion in tion in 6:48 PM panel , source source source source in SANA~Ac data data data data Blood ct: [id number] 143~ABO O 5 19:10 MJR~RH( D) TYPING POS 5 19:10 MJR CBC\T\AUTO DIFF Observa Value Referen Units Interpr Notes Date tion ce etation Range Leukocy 8.7 3.0 - K/UL No No Jan 08 benjamin 11.3 informa informa 2014 [#/volu tion in tion in 6:48 PM me] in source source Blood data data by Automat ed count Erythro 4.010 3.450 - M/ul No No Jan 08 cytes 5.400 informa informa 2014 [#/volu tion in tion in 6:48 PM me] in source source Blood data data by Automat ed count Hemoglo 12.1 10.0 - gm/dl No No Jan 08 bin 16.0 informa informa 2014 [Mass/v tion in tion in 6:48 PM olume] source source in data data Blood Hematoc 37.0 29.9 - % No No Jan 08 rit 45.5 informa informa 2014 [Volume tion in tion in 6:48 PM source source Fractio data data n] of Blood by Automat ed count Erythro 92.4 78.2 - fl No No Jan 08 cyte 101.8 informa informa 2015 mean tion in tion in 6:48 PM corpusc source source ular data data volume [Entiti c volume] by Automat ed count Erythro 30.0 26.4 - pg No No Jan 08 cyte 33.3 informa informa 2015 mean tion in tion in 6:48 PM corpusc source source ular data data hemoglo bin [Entiti c mass] by Automat ed count Erythro 32.5 32.5 - g/dl No No Jan 08 cyte 35.3 informa informa 2015 mean tion in tion in 6:48 PM corpusc source source ular data data hemoglo bin concent ration [Mass/v olume] by Automat ed count Erythro 13.2 10.1 - % No No Jan 08 cyte 16.2 informa informa 2015 distrib tion in tion in 6:48 PM ution source source width data data [Ratio] by Automat ed count Platele 190 122 - K/UL No No Jan 08 ts 454 informa informa 2015 [#/volu tion in tion in 6:48 PM me] in source source Blood data data by Automat ed count Platele 7.4 6.4 - fl No No Jan 08 t mean 10.4 informa informa 2015 volume tion in tion in 6:48 PM [Entiti source source c data data volume] in Blood by Automat ed count Neutrop 67.8 43.0 - % No No Jan 08 hils/10 83.0 informa informa 2015 0 tion in tion in 6:48 PM leukocy source source benjamin in data data Blood by Automat ed count Lymphoc 24.8 10.0 - % No No Jan 08 ytes/10 42.0 informa informa 2015 0 tion in tion in 6:48 PM leukocy source source benjamin in data data Blood by Automat ed count Monocyt 5.5 1.0 - % No No Jan 08 es/100 14.0 informa informa 2015 leukocy tion in tion in 6:48 PM benjamin in source source Blood data data by Automat ed count Eosinop 1.6 0.0 - % No No Jan 08 hils/10 11.0 informa informa 2015 0 tion in tion in 6:48 PM leukocy source source benjamin in data data Blood by Automat ed count Basophi 0.3 0.0 - % No No Jan 08 ls/100 2.0 informa informa 2014 leukocy tion in tion in 6:48 PM benjamin in source source Blood data data by Automat ed count Neutrop 5.9 2.7 - K/ul No No Jan 08 hils 6.9 informa informa 2014 [#/volu tion in tion in 6:48 PM me] in source source Blood data data by Automat ed count Lymphoc 2.2 0.4 - K/ul No No Jan 08 ytes 3.9 informa informa 2014 [#/volu tion in tion in 6:48 PM me] in source source Blood data data by Automat ed count Monocyt 0.5 0.2 - K/ul No No Jan 08 es 0.6 informa informa 2014 [#/volu tion in tion in 6:48 PM me] in source source Blood data data by Automat ed count Eosinop 0.1 0.0 - K/ul No No Jan 08 hils 0.9 informa informa 2014 [#/volu tion in tion in 6:48 PM me] in source source Blood data data by Automat ed count Basophi 0.0 0.0 - K/ul No No Jan 08 ls 0.2 informa informa 2014 [#/volu tion in tion in 6:48 PM me] in source source Blood data data by Automat ed count CHLAMYDIA/GONOCOCCUS, AMP Observa Value Referen Units Interpr Notes Date tion ce etation Range NOT No No No No Jan 08 DETECTE informa informa informa informa 2014 D tion in tion in tion in tion in 6:33 PM source source source source REFEREN data data data data CE RANGE = NOT DETECTE D NOT No No No No Jan 08 DETECTE informa informa informa informa 2014 D tion in tion in tion in tion in 6:33 PM source source source source REFEREN data data data data CE RANGE = NOT DETECTE D No No No No Jan 08 informa informa informa informa 2014 tion in tion in tion in tion in 6:33 PM source source source source data data data data A No No No No Jan 08 negativ informa informa informa informa 2014 e test tion in tion in tion in tion in 6:33 PM result source source source source does data data data data not exclude the possibi lity of No No No No Jan 08 infecti informa informa informa informa 2015 on tion in tion in tion in tion in 6:33 PM because source source source source test data data data data results may be affecte d by imprope No No No No Jan 08 r informa informa informa informa 2015 specime tion in tion in tion in tion in 6:33 PM n source source source source collect data data data data ion, technic al error, specime n mixup, No No No No Jan 08 concurr informa informa informa informa 2015 ent tion in tion in tion in tion in 6:33 PM antibio source source source source tic data data data data therapy , or number of organis No No No No Jan 08 ms in informa informa informa informa 2015 the tion in tion in tion in tion in 6:33 PM specime source source source source n which data data data data may be below the sensiti No No No No Jan 08 vity of informa informa informa informa 2015 the tion in tion in tion in tion in 6:33 PM test. source source source source data data data data The No No No No Jan 08 Xpert informa informa informa informa 2015 CT/NG tion in tion in tion in tion in 6:33 PM Assay source source source source should data data data data not be used for the evaluat No No No No Jan 08 ion of informa informa informa informa 2015 suspect tion in tion in tion in tion in 6:33 PM ed source source source source sexual data data data data abuse or for other medico- No No No No Jan 08 legal informa informa informa informa 2015 indicat tion in tion in tion in tion in 6:33 PM ions. source source source source Additio data data data data nal testing is recomme No No No No Jan 08 nded in informa informa informa informa 2015 any tion in tion in tion in tion in 6:33 PM circums source source source source tance data data data data when false positiv e or false No No No No Jan 08 negativ informa informa informa informa 2015 e tion in tion in tion in tion in 6:33 PM results source source source source could data data data data entry assistant to adverse medical , social, No No No No Jan 08 or informa informa informa informa 2015 psychol tion in tion in tion in tion in 6:33 PM ogical source source source source consequ data data data data ences. Xpert No No No No Jan 08 CT/NG informa informa informa informa 2015 Assay tion in tion in tion in tion in 6:33 PM perform source source source source ance data data data data has not been evaluat ed in patient No No No ORDER#: Jan 08 s less informa informa informa 2015 than 14 tion in tion in tion in [id number] 6:33 PM years source source source 1 of age. data data data ORDERED BY: ANUJA MCMANUS URCE: VAGINAL COLLECT ED: 5 18:33AN [facility] CS AT [facility] RECEIVE D : 5 19:01CH LAMYDIA , AMP. PROBE FINAL 5 20:4109 NOT DETECTE D REFEREN CE RANGE = NOT DETECTE DGONOCO CCUS, AMP. PROBE FINAL 5 20:4109 NOT DETECTE D REFEREN CE RANGE = NOT DETECTE D *A negativ e test result does not exclude the possibi lityof infecti on because test results may be affecte d byimpro per specime n collect ion, technic al error, specime nmixup, concurr ent antibio tic therapy , or number oforgan isms in the specime n which may be below thesens itivity of the test.Th e Xpert CT/NG Assay should not be used for theeval uation of suspect ed sexual abuse or for otherme dico-le gal indicat ions. Additio nal testing isrecom mended in any circums tance when false positiv e orfalse negativ e results could lead to adverse medical ,social , or psychol ogical consequ ences.X pert CT/NG Assay perform ance has not been evaluat ed inpatie nts less than 14 years of age. WET PREP (MICRO) Observa Value Referen Units Interpr Notes Date tion ce etation Range Microsc FEW No No No No Jan 08 opic CLUE informa informa informa informa 2014 observa CELLS, tion in tion in tion in tion in 6:33 PM tion MANY source source source source [Identi WBC'S, data data data data fier] NO in MOTILE Unspeci TRICH fied OR specime SPERM n by NOTED Wet ON prepara tion Microsc WET No No No ORDER#: Jan 08 opic PREP. informa informa informa 2014 observa tion in tion in tion in [id number] 6:33 PM tion source source source 9 [Identi data data data fier] in Unspeci ORDERED fied BY: raisa carpenter by OlindaSO prepara URCE: tion VAGINAL COLLECT ED: 5 18:33AN [facility] CS AT [facility] RECEIVE D : 5 19:01WE T PREP (MICRO) FINAL 5 19:2410 / FEW CLUE CELLS, MANY WBC'S, NO MOTILE TRICH OR SPERM NOTED ONWET PREP. JOHN PREP Observa Value Referen Units Interpr Notes Date tion ce etation Range Microsc NO No No No ORDER#: Jan 08 opic YEAST informa informa informa 2014 observa NOTED. tion in tion in tion in [id number] 6:33 PM tion source source source 9 [Identi data data data fier] in Unspeci ORDERED fied BY: raisa carpenter by JOHN prepara URCE: tion VAGINAL COLLECT ED: 5 18:33AN [facility] CS AT [facility] RECEIVE D : 5 19:01KO H PREP FINAL 5 19:241 NO YEAST NOTED. URINE CULTURE Observa Value Referen Units Interpr Notes Date tion ce etation Range Bacteri >100,00 No No No ORDER#: Sep 4 a 0 informa informa informa 2015 identif ORGS/ML tion in tion in tion in [id number] 4:08 PM ied in OF source source source 7 Urine MIXED data data data by SKIN Culture ERIS ORDERED BY: LIDIA NUNEZ OURCE: CLEAN CATCH URINE COLLECT ED: 5 16:08AN [facility] CS AT [facility] RECEIVE D : 5 01:32UR INE CULTURE FINAL 5 07:560 >100,00 0 ORGS/ML OF MIXED SKIN ERIS URINALYSIS COMPLETE Observa Value Referen Units Interpr Notes Date tion ce etation Range Color DK No No No No Sep 4 of YELLOW informa informa informa informa 2015 Urine tion in tion in tion in tion in 3:47 PM source source source source data data data data Clarity CLOUDY No No No No Sep 4 of informa informa informa informa 2015 Urine tion in tion in tion in tion in 3:47 PM source source source source data data data data Glucose NEGATIV NEGATIV MG/DL No No Sep 4 E E informa informa 2014 [Presen tion in tion in 3:47 PM ce] in source source Urine data data by Automat ed test strip Bilirub NEGATIV NEGATIV No No No Sep 4 in E E informa informa informa 2014 [Presen tion in tion in tion in 3:47 PM ce] in source source source Urine data data data by Automat ed test strip Ketones NEGATIV NEGATIV MG/DL No No Sep 4 E E informa informa 2014 [Presen tion in tion in 3:47 PM ce] in source source Urine data data by Automat ed test strip Specifi 1.028 1.006 - No No No Sep 4 c 1.035 informa informa informa 2015 gravity tion in tion in tion in 3:47 PM of source source source Urine data data data by Automat ed test strip Erythro NEGATIV NEGATIV No No No Sep 4 cytes E E informa informa informa 2014 [Presen tion in tion in tion in 3:47 PM ce] in source source source Urine data data data by Automat ed pH of 5.0 5.0 - No No No Sep 4 Urine 9.0 informa informa informa 2015 by tion in tion in tion in 3:47 PM Automat source source source ed test data data data strip Protein NEGATIV NEGATIV MG/DL No No Sep 4 E E informa informa 2014 [Presen tion in tion in 3:47 PM ce] in source source Urine data data by Automat ed test strip UROBILI 1.0 0.2 - E.U./DL No No Sep 4 NOGEN 1.0 informa informa 2014 tion in tion in 3:47 PM source source data data Nitrate NEGATIV NEGATIV No No No Sep 4 E E informa informa informa 2014 [Presen tion in tion in tion in 3:47 PM ce] in source source source Urine data data data Leukocy MODERAT NEGATIV No Abnorma No Sep 4 benjamin E E informa l informa 2014 [Presen tion in tion in 3:47 PM ce] in source source Urine data data by Automat ed Erythro 2 0 - 4 /HPF No No Sep 4 cytes informa informa 2014 [#/area tion in tion in 3:47 PM ] in source source Urine data data sedimen t by Microsc opy high power field WBC 11 0 - 5 /HPF High No Sep 4 COUNT informa 2015 tion in 3:47 PM source data Epithel 10 0 - 6 /HPF High No Sep 4 ial informa 2015 cells tion in 3:47 PM [Presen source ce] in data Urine sedimen t by Light microsc opy Bacteri 1+ NEGATIV /HPF Abnorma BACTERI Sep 4 a E l A 2014 [#/area INTERPR 3:47 PM ] in ETATION Urine :NEGATI sedimen VE t by <=599/u Microsc lTRACE opy high >=600, power <=1199/ field ul1+ >=1200, <=2399/ ul2+ >=2400, <=3599/ ul3+ >=3600, <=4799/ ul4+ >=4800/ ul Hyaline 2 0 - 4 /LPF No No Sep 4 casts informa informa 2015 [#/area tion in tion in 3:47 PM ] in source source Urine data data sedimen t by Microsc opy high power field GLOMELULAR ESETFANI. RATE,CALC. Observa Value Referen Units Interpr Notes Date tion ce etation Range Glomeru 83.8 60.0 - ml/min No THE Sep 4 lar 200.0 informa eGFR IS 2014 filtrat tion in AN 3:30 PM ion source ESTIMAT rate/1. data ED 73 sq M GLOMELU LAR predict FILTRAT ed ION among RATEBAS non-karina ED ON cks by AN Creatin AVERAGE ine-bas BODY ed SURFACE formula AREA (MDRD) OF 1.73M2. THIS CALCULA TION IS NOT ACCURAT E FOR PEDIATR IC PATIENT S,PATIE NTS >70 YEARS OF AGE,OR PATIENT S WITH EXTREME BODY SIZE.>6 0 ML/MIN/ 1.73M2 = NORMAL< 60 ML/MIN/ 1.73M2 = CHRONIC KIDNEY DISEASE <15 ML/MIN/ 1.73M2 = KIDNEY FAILURE AVERAGE EGFR FOLLOWS :AGE(YE ARS) AVERAGE EGFR20- 39 116 ML/MIN3 0-39 107 ML/MIN4 0-49 99 ML/MIN5 0-59 93 ML/MIN6 0-69 85 ML/MIN HCG QUANTITATIVE Observa Value Referen Units Interpr Notes Date tion ce etation Range Choriog 6258 No mIU/ML No FEMALE Sep 4 onadotr informa informa (NON 2015 opin tion in tion in PREGNAN 3:30 PM [Moles/ source source T) volume] data data in <31 Urine DAY - 1 WEEK 5 - 501 - 2 WEEK 50 - 5002 - 3 WEEK 100 - 52282 - 4 WEEK 500 - 903391 - 5 WEEK 1000 - 660459 - 6 WEEK 64482 - 7424615 - 8 WEEK 95040 - 3010253 - 3 MTHS 61595 - 079942 BASIC METABOLIC PANEL (CHEM 7) Observa Value Referen Units Interpr Notes Date tion ce etation Range Glucose 94 70 - MG/DL No No Sep 4 110 informa informa 2014 [Mass/v tion in tion in 3:30 PM olume] source source in data data Serum or Plasma Urea 8 7 - 18 MG/DL No No Sep 4 nitroge informa informa 2014 n tion in tion in 3:30 PM [Mass/v source source olume] data data in Serum or Plasma Sodium 138 133 - mmol/L No No Sep 4 [Moles/ 144 informa informa 2014 volume] tion in tion in 3:30 PM in source source Serum data data or Plasma Potassi 3.6 3.6 - mmol/l No No Sep 4 um 5.2 informa informa 2014 [Moles/ tion in tion in 3:30 PM volume] source source in data data Serum or Plasma Chlorid 108 98 - mmol/l High No Sep 4 e 107 informa 2014 [Moles/ tion in 3:30 PM volume] source in data Blood Carbon 24 21 - 32 mmol/L No No Sep 4 dioxide informa informa 2014 , total tion in tion in 3:30 PM source source [Moles/ data data volume] in Serum or Plasma Creatin 0.8 0.6 - MG/DL No No Sep 4 ine 1.3 informa informa 2014 [Mass/v tion in tion in 3:30 PM olume] source source in data data Serum or Plasma Calcium 8.5 8.5 - MG/DL No No Sep 4 10.1 informa informa 2014 [Mass/v tion in tion in 3:30 PM olume] source source in data data Serum or Plasma ABO GROUP AND RH Observa Value Referen Units Interpr Notes Date tion ce etation Range ABO & TEXT~Na No No No No Sep 4 Rh me: informa informa informa informa 2015 group REBECCA tion in tion in tion in tion in 3:30 PM panel , source source source source in SANA~Ac data data data data Blood ct: [id number] 546~ABO O 5 16:06 SAH~RH( D) TYPING POS 5 16:06 SAH CBC\T\AUTO DIFF Observa Value Referen Units Interpr Notes Date tion ce etation Range Leukocy 8.9 3.0 - K/UL No No Sep 4 benjamin 11.3 informa informa 2015 [#/volu tion in tion in 3:30 PM me] in source source Blood data data by Automat ed count Erythro 4.350 3.450 - M/ul No No Sep 4 cytes 5.400 informa informa 2015 [#/volu tion in tion in 3:30 PM me] in source source Blood data data by Automat ed count Hemoglo 13.1 10.0 - gm/dl No No Sep 4 bin 16.0 informa informa 2015 [Mass/v tion in tion in 3:30 PM olume] source source in data data Blood Hematoc 40.0 29.9 - % No No Sep 4 rit 45.5 informa informa 2015 [Volume tion in tion in 3:30 PM source source Fractio data data n] of Blood by Automat ed count Erythro 91.9 78.2 - fl No No Sep 4 cyte 101.8 informa informa 2015 mean tion in tion in 3:30 PM corpusc source source ular data data volume [Entiti c volume] by Automat ed count Erythro 30.1 26.4 - pg No No Sep 4 cyte 33.3 informa informa 2015 mean tion in tion in 3:30 PM corpusc source source ular data data hemoglo bin [Entiti c mass] by Automat ed count Erythro 32.8 32.5 - g/dl No No Sep 4 cyte 35.3 informa informa 2015 mean tion in tion in 3:30 PM corpusc source source ular data data hemoglo bin concent ration [Mass/v olume] by Automat ed count Erythro 13.3 10.1 - % No No Sep 4 cyte 16.2 informa informa 2015 distrib tion in tion in 3:30 PM ution source source width data data [Ratio] by Automat ed count Platele 219 122 - K/UL No No Sep 4 ts 454 informa informa 2015 [#/volu tion in tion in 3:30 PM me] in source source Blood data data by Automat ed count Platele 7.8 6.4 - fl No No Sep 4 t mean 10.4 informa informa 2015 volume tion in tion in 3:30 PM [Entiti source source c data data volume] in Blood by Automat ed count Neutrop 67.1 43.0 - % No No Sep 4 hils/10 83.0 informa informa 2015 0 tion in tion in 3:30 PM leukocy source source benjamin in data data Blood by Automat ed count Lymphoc 25.0 10.0 - % No No Sep 4 ytes/10 42.0 informa informa 2015 0 tion in tion in 3:30 PM leukocy source source benjamin in data data Blood by Automat ed count Monocyt 5.7 1.0 - % No No Sep 4 es/100 14.0 informa informa 2015 leukocy tion in tion in 3:30 PM benjamin in source source Blood data data by Automat ed count Eosinop 1.9 0.0 - % No No Sep 4 hils/10 11.0 informa informa 2015 0 tion in tion in 3:30 PM leukocy source source benjamin in data data Blood by Automat ed count Basophi 0.3 0.0 - % No No Sep 4 ls/100 2.0 informa informa 2015 leukocy tion in tion in 3:30 PM benjamin in source source Blood data data by Automat ed count Neutrop 6.0 2.7 - K/ul No No Sep 4 hils 6.9 informa informa 2015 [#/volu tion in tion in 3:30 PM me] in source source Blood data data by Automat ed count Lymphoc 2.2 0.4 - K/ul No No Sep 4 ytes 3.9 informa informa 2015 [#/volu tion in tion in 3:30 PM me] in source source Blood data data by Automat ed count Monocyt 0.5 0.2 - K/ul No No Sep 4 es 0.6 informa informa 2015 [#/volu tion in tion in 3:30 PM me] in source source Blood data data by Automat ed count Eosinop 0.2 0.0 - K/ul No No Sep 4 hils 0.9 informa informa 2015 [#/volu tion in tion in 3:30 PM me] in source source Blood data data by Automat ed count Basophi 0.0 0.0 - K/ul No No Sep 4 ls 0.2 informa informa 2015 [#/volu tion in tion in 3:30 PM me] in source source Blood data data by Automat ed count URINE HCG Observa Value Referen Units Interpr Notes Date tion ce etation Range CRITICAL VALUE RESULT CALLED TO AND READBACK BY : TEST CALLED:[facility] 11/16/2014 14:18 MFM Choriog POSITIV No No Abnorma No Nov 16 onadotr E informa informa l alert informa 2014 opin tion in tion in tion in 2:03 PM (pregna source source source ncy data data data test) [Presen ce] in Urine XR Hip Complete Left Observa Value Referen Units Interpr Notes Date tion ce etation Range TEXT [employer]f No No No No Oct 07 DIAGNOS t Order informa informa informa informa 2014 IS tion in tion in tion in tion in 10:22 BATTERY Descrip source source source source PM tion: data data data data HIP MIN 2/VIEWS LEFT - ,\.br\\ .br\\.b r\TWO VIEWS OF THE LEFT HIP, 10-08-19\.br\ \.br\Mi neraliz ation and alignme nt are anatomi c. There is no displac ed fractur e or disloca tion.\. br\\.br \ IMPRESS ION: Negativ e.\.br\ \.br\ END OF REPORT* *\.br\\ .br\Ant jacques Mcclain M.D.\.b r\\.br\ Dictate d: 10/09/19 15 12:24 AM\.br\ \.br\Tr anscrib ed: 10/09/19 15 6:00 AM\.br\ \.br\ * Final Report \.br \\.br\D ictated : Adolfo Mcclain M.D. 015 0:24 am\.br\ \.br\Tr anscrib ed by: RN 015 6:01 am\.br\ \.br\Au thentic ated by: Adolfo Mcclain M.D. 015 1:17 pm\.br\ \.br\ XR Chest 2 Views Observa Value Referen Units Interpr Notes Date tion ce etation Range TEXT Wellsof No No No No Oct 07 DIAGNOS t Order informa informa informa informa 2014 IS tion in tion in tion in tion in 10:22 BATTERY Descrip source source source source PM tion: data data data data CHEST 2 VIEWS\. br\\.br \hcg pending @ 9:28pm. .....AM \.br\\. br\stil l waiting on HCG results @ 9:55pm CPB\.br \\.br\\ .br\TWO VIEWS CHEST, 10-08-19 15\.br\ \.br\CO MPARISO N: AP chest, 04-11-19 08.\.br \\.br\L antwan volumes are low. The lungs are clear. There is no pleural effusio n or pneumot horax. The cardiac silhoue tte is exagger ated by the degree of hypoven tilator y change noted. There is no specifi c cardiom ediasti nal silhoue tte abnorma lity. The mediast inum is normal in width. The descend ing thoraci c aorta is well defined . There is no apical cap trachea l deviati on or depress ion of the left main stem bronchu s. The regiona l osseous structu res appear intact. \.br\\. br\ IMPRESS ION: No acute cardiop ulmonar y process .\.br\\ .br\ END OF REPORT* *\.br\\ .br\Ant jacques Mcclain M.D.\.b r\\.br\ Dictate d: 10/09/19 15 12:23 AM\.br\ \.br\Tr anscrib ed: 10/09/19 15 5:58 AM\.br\ \.br\ * Final Report \.br \\.br\D ictated : Adolfo Mcclain M.D. 015 0:23 am\.br\ \.br\Tr anscrib ed by: RN 015 6:00 am\.br\ \.br\Au thentic ated by: Adolfo Mcclain M.D. 015 1:17 pm\.br\ \.br\ XR Humerus Left Observa Value Referen Units Interpr Notes Date ti ce etation Range TEXT [employer]f No No No No Oct 07 DIAGNOS t Order informa informa informa informa 2014 IS tion in tion in tion in tion in 10:22 BATTERY Descrip source source source source PM tion: data data data data HUMEROU S 2 VIEWS LEFT - ,\.br\\ .br\\.b r\FRONT AL AND LATERAL LEFT HUMERUS , 10-08-19 15\.br\ \.br\No fractur e or disloca tion. No specifi c soft tissue abnorma lity.\. br\\.br \ END OF REPORT* *\.br\\ .br\Ant jacques Mcclain M.D.\.b r\\.br\ Dictate d: 10/09/19 15 12:21 AM\.br\ \.br\Tr anscrib ed: 10/09/19 5:57 AM\.br\ \.br\ * Final Report \.br \\.br\D ictated : Adolfo Mcclain M.D. 015 0:21 am\.br\ \.br\Tr anscrib ed by: RN 015 5:58 am\.br\ \.br\Au thentic ated by: Adolfo Mcclain M.D. 015 1:17 pm\.br\ \.br\ XR Spine Cervical Comp w/ Obliques Observa Value Referen Units Interpr Notes Date ti ce etation Range TEXT Wellsof No No No No Oct 07 DIAGNOS t Order informa informa informa informa 2014 IS tion in tion in tion in tion in 10:22 BATTERY Descrip source source source source PM tion: data data data data C-SPINE - ,\.br\\ .br\\.b r\CERVI ERWIN SPINE, SIX VIEWS, 10-08-19 15\.br\ \.br\Ce rvical spine vertebr al body heights and alignme nt are anatomi c. Disk spaces are preserv ed. No periver tebral soft tissue abnorma lity.\. br\\.br \ IMPRESS ION: No fractur e or listhes is.\.br \\.br\ END OF REPORT* *\.br\\ .br\Ant jacques Mcclain M.D.\.b r\\.br\ Dictate d: 10/09/19 15 12:20 AM\.br\ \.br\Tr anscrib ed: 10/09/19 15 5:56 AM\.br\ \.br\ * Final Report \.br \\.br\D ictated : Adolfo Mcclain M.D. 0:20 am\.br\ \.br\Tr anscrib ed by: RN 5:56 am\.br\ \.br\Au thentic ated by: Adolfo Mcclain M.D. 1:17 pm\.br\ \.br\ XR Shoulder Complete Left Observa Value Referen Units Interpr Notes Date tion ce etation Range TEXT Wellsof No No No No Oct 07 DIAGNOS t Order informa informa informa informa 2014 IS tion in tion in tion in tion in 10:22 BATTERY Descrip source source source source PM tion: data data data data SHOULDE R COMPLET E LT - ,\.br\\ .br\\.b r\LEFT SHOULDE R, FOUR VIEWS, 10-08-19\.br\ \.br\Mi neraliz ation and alignme nt are anatomi c. There is no fractur e or disloca tion. The acromio clavicu lar and coracoc lavicul ar distanc es are preserv ed. The visuali zed left lung is clear.\ .br\\.b r\ IMPRESS ION: No fractur e or disloca tion.\. br\\.br \ END OF REPORT* *\.br\\ .br\Ant jacques Mcclain M.D.\.b r\\.br\ Dictate d: 10/09/19 15 12:21 AM\.br\ \.br\Tr anscrib ed: 10/09/19 5:56 AM\.br\ \.br\ * Final Report \.br \\.br\D ictated : Adolfo Mcclain M.D. 07/14/2 015 0:21 am\.br\ \.br\Tr anscrib ed by: YASSINE 015 5:57 am\.br\ \.br\Au thentic ated by: Adolfo Mcclain M.D. 015 1:17 pm\.br\ \.br\ URINE HCG Observa Value Referen Units Interpr Notes Date tion ce etation Range Choriog NEGATIV No No No No Oct 07 onadotr E informa informa informa informa 2014 opin tion in tion in tion in tion in 9:30 PM (pregna source source source source ncy data data data data test) [Presen ce] in Urine HGB\T\HCT Observa Value Referen Units Interpr Notes Date tion ce etation Range Hemoglo 10.0 10.0 - gm/dl No No Sep 30 bin 16.0 informa informa 2014 [Mass/v tion in tion in 5:48 AM olume] source source in data data Blood Hematoc 29.9 29.9 - % No No Nov 30 rit 45.5 informa informa 2013 [Volume tion in tion in 5:48 AM source source Fractio data data n] of Blood by Automat ed count PH CORD BLOOD Observa Value Referen Units Interpr Notes Date tion ce etation Range pH of 7.383 N/A No No No Sep 29 Cord informa informa informa 2013 blood tion in tion in tion in 11:20 source source source AM data data data RPR Observa Value Referen Units Interpr Notes Date tion ce etation Range n/a Reagin NONREAC NONREAC No No No Sep 29 Ab TIVE TIVE informa informa informa 2013 [Presen tion in tion in tion in 6:15 AM ce] in source source source Serum data data data by RPR TYPE AND SCREEN Observa Value Referen Units Interpr Notes Date tion ce etation Range TYPE TEXT~Na No No No No Sep 29 AND me: informa informa informa informa 2013 SCREEN FERNANDEZ tion in tion in tion in tion in 6:15 AM , source source source source SANA~Ac data data data data ct: [id number]~ABO O 4 07:06 sdh~RH( D) TYPING POS 4 07:06 sdh~ANT IBODY SCREEN NEG 4 07:11 sdh~AUT OCONTRO L 4 06:34 CMC~.y CBC/NO DIFF+ PLATELET Observa Value Referen Units Interpr Notes Date tion ce etation Range n/a Leukocy 10.7 3.0 - K/UL No Dec 24 benjamin 11.3 informa informa 2013 [#/volu tion in tion in 6:15 AM me] in source source Blood data data by Automat ed count Erythro 3.770 3.450 - M/ul No No Dec 24 cytes 5.400 informa informa 2013 [#/volu tion in tion in 6:15 AM me] in source source Blood data data by Automat ed count Hemoglo 10.9 10.0 - gm/dl No Dec 24 bin 16.0 informa informa 2014 [Mass/v tion in tion in 6:15 AM olume] source source in data data Blood Hematoc 32.3 29.9 - % No Dec 24 rit 45.5 informa informa 2014 [Volume tion in tion in 6:15 AM source source Fractio data data n] of Blood by Automat ed count Erythro 85.7 78.2 - fl No No Dec 24 cyte 101.8 informa informa 2014 mean tion in tion in 6:15 AM corpusc source source ular data data volume [Entiti c volume] by Automat ed count Erythro 28.8 26.4 - pg No No Dec 24 cyte 33.3 informa informa 2014 mean tion in tion in 6:15 AM corpusc source source ular data data hemoglo bin [Entiti c mass] by Automat ed count Erythro 33.6 32.5 - g/dl No No Dec 24 cyte 35.3 informa informa 2014 mean tion in tion in 6:15 AM corpusc source source ular data data hemoglo bin concent ration [Mass/v olume] by Automat ed count Erythro 15.2 10.1 - % No No Dec 24 cyte 16.2 informa informa 2014 distrib tion in tion in 6:15 AM ution source source width data data [Ratio] by Automat ed count Platele 150 122 - K/UL No No Sep ts 454 informa informa 2013 [#/volu tion in tion in 6:15 AM me] in source source Blood data data by Automat ed count Platele 8.3 6.4 - fl No No Sep 29 t mean 10.4 informa informa 2014 volume tion in tion in 6:15 AM [Entiti source source c data data volume] in Blood by Automat ed count OXYCODONE,UR.(QUAL) Observa Value Referen Units Interpr Notes Date tion ce etation Range n/a Oxycodo NEGATIV No No No CONCENT Sep ne E informa informa informa RATIONS 2013 [Presen tion in tion in tion in OF 5:55 AM ce] in source source source >625 Urine data data data NG/ML by OF Screen HYDROCO method DONE AND >100 NG/ML OF OXYCODO NECAUSE POSITIV E RESULTS UR IN HOUSE DRUG SCREEN Observa Value Referen Units Interpr Notes Date tion ce etation Range n/a Ampheta NEG NEGATIV ug/ML No AMPHETA Sep mines E informa MINE 2013 [Presen tion in CUT OFF 5:55 AM ce] in source Urine data CONCENT by RATION Screen - 300 method >1000 ng/mL Barbitu NEG NEGATIV ug/ML No BARBITU Sep 29 rates E informa ATE CUT 2013 [Presen tion in OFF 5:55 AM ce] in source CONCENT Urine data RATION by - 200 Screen method Benzodi NEG NEGATIV ug/ML No BENZODI Sep azepine E informa AZEPINE 2013 s tion in CUT 5:55 AM [Presen source OFF ce] in data CONCENT Urine RATION by - 200 Screen method Cocaine NEG NEGATIV ug/ML No COCAINE Sep E informa CUT 2013 [Presen tion in OFF 5:55 AM ce] in source CONCENT Urine data RATION by - 300 Screen method Opiates NEG NEGATIV ug/ML No OPIATE Sep E informa CUT OFF 2013 [Presen tion in 5:55 AM ce] in source CONCENT Urine data RATION by - 300 Screen method Cannabi NEG NEGATIV NG/ML No THC CUT Sep 29 noids E informa OFF 2013 [Presen tion in CONCENT 5:55 AM ce] in source RATION Urine data - 50 by Screen method Methado NEG NEGATIV ug/ML No METHADO Dec 24 ne E informa NE CUT 2013 [Presen tion in OFF 5:55 AM ce] in source CONCENT Urine data RATION by - Screen 300THES method E RESULTS PROVIDE ONLY A PRELIMI NARY TEST RESULT. THEREIS A POSSIBI LITY THAT OVER THE COUNTER DRUGS MAY INTERFE REWITH THE TEST. CONFORM ITORY TEST CAN BE ORDERED AT [facility] CONSIDE RATION ANDPROF ESSIONA L JUDGEME NT SHOULD BE APPLIED TO ANY DRUG OF ABUSETE ST RESULT, PARTICU JEFF WHEN PRELIMI NARY POSITIV E RESULTS AREUSED . THESE DRUG SCREEN RESULTS ARE NOT FOR LEGAL APPLICA TIONS. BUPRENORPHINE,QUAL Observa Value Referen Units Interpr Notes Date tion ce etation Range n/a Bupreno NEGATIV No No No BUPRENO Dec 24 rphine E informa informa informa RPHRINE 2013 [Presen tion in tion in tion in CUT 5:55 AM ce] in source source source OFF Urine data data data CONCENT RATION - 12.5 NG/ML UA, MICROSCOPIC REVIEW Observa Value Referen Units Interpr Notes Date tion ce etation Range n/a Erythro OCC 0 - 5 HPF No No Dec 24 cytes informa informa 2013 [#/area tion in tion in 5:55 AM ] in source source Urine data data sedimen t by Microsc opy high power field WBC 5-10 0 - 5 HPF Abnorma No Dec 24 l informa 2013 tion in 5:55 AM source data Epithel 5-10 No HPF No No Dec 24 ial informa informa informa 2014 cells tion in tion in tion in 5:55 AM [Presen source source source ce] in data data data Urine sedimen t by Light microsc opy Mucus TRACE No No No No Dec 24 [#/area informa informa informa informa 2013 ] in tion in tion in tion in tion in 5:55 AM Urine source source source source sedimen data data data data t by Microsc opy high power field CRYSTAL FEW CA No HPF No No Dec 24 S OX informa informa informa 2013 tion in tion in tion in 5:55 AM source source source data data data Bacteri TRACE Absent HPF Abnorma No Dec 24 a l informa 2013 [#/area tion in 5:55 AM ] in source Urine data sedimen t by Microsc opy high power field Amorpho TRACE No No No No Dec 24 us informa informa informa informa 2014 sedimen tion in tion in tion in tion in 5:55 AM t source source source source [Presen data data data data ce] in Urine sedimen t by Light microsc opy OTHER * No No No MICROSC Sep informa informa informa OPIC 2014 tion in tion in tion in PERFORM 5:55 AM source source source ED ON data data data UNSPUN URINE SPECIME N; LESS THAN 1mLOF SPECIME N SENT TO LAB FOR TESTING . URINALYSIS COMPLETE Observa Value Referen Units Interpr Notes Date tion ce etation Range n/a Color YELLOW No No No No Dec 24 of informa informa informa informa 2014 Urine tion in tion in tion in tion in 5:55 AM source source source source data data data data Clarity SL No No No No Dec 24 of CLOUDY informa informa informa informa 2014 Urine tion in tion in tion in tion in 5:55 AM source source source source data data data data Glucose NEGATIV NEGATIV MG/DL No No Dec 24 E E informa informa 2013 [Presen tion in tion in 5:55 AM ce] in source source Urine data data by Automat ed test strip Bilirub NEGATIV NEGATIV No No No Dec 24 in E E informa informa informa 2013 [Presen tion in tion in tion in 5:55 AM ce] in source source source Urine data data data by Automat ed test strip Ketones >=80 NEGATIV MG/DL No No Dec 24 E informa informa 2013 [Presen tion in tion in 5:55 AM ce] in source source Urine data data by Automat ed test strip Specifi >=1.030 1.006 - No No No Dec 24 c 1.035 informa informa informa 2014 gravity tion in tion in tion in 5:55 AM of source source source Urine data data data by Automat ed test strip Erythro NEGATIV NEGATIV No No No Dec 24 cytes E E informa informa informa 2013 [Presen tion in tion in tion in 5:55 AM ce] in source source source Urine data data data by Automat ed pH of 6.0 5.0 - No No No Dec 24 Urine 9.0 informa informa informa 2014 by tion in tion in tion in 5:55 AM Automat source source source ed test data data data strip Protein 30 NEGATIV MG/DL No No Dec 24 E informa informa 2013 [Presen tion in tion in 5:55 AM ce] in source source Urine data data by Automat ed test strip UROBILI 2.0 0.2 - E.U./DL No No Dec 24 NOGEN 1.0 informa informa 2013 tion in tion in 5:55 AM source source data data Nitrate NEGATIV NEGATIV No No No Dec 24 E E informa informa informa 2013 [Presen tion in tion in tion in 5:55 AM ce] in source source source Urine data data data Leukocy TRACE NEGATIV No Abnorma No Dec 24 benjamin E informa l informa 2013 [Presen tion in tion in 5:55 AM ce] in source source Urine data data by Automat ed UR IN HOUSE DRUG SCREEN Observa Value Referen Units Interpr Notes Date tion ce etation Range denies Ampheta NEG NEGATIV ug/ML No AMPHETA Sep mines E informa MINE 2013 [Presen tion in CUT OFF 2:12 PM ce] in source Urine data CONCENT by RATION Screen - 300 method >1000 ng/mL Barbitu NEG NEGATIV ug/ML No BARBITU Sep 26 rates E informa ATE CUT 2013 [Presen tion in OFF 2:12 PM ce] in source CONCENT Urine data RATION by - 200 Screen method Benzodi NEG NEGATIV ug/ML No BENZODI Sep azepine E informa AZEPINE 2013 s tion in CUT 2:12 PM [Presen source OFF ce] in data CONCENT Urine RATION by - 200 Screen method Cocaine NEG NEGATIV ug/ML No COCAINE Sep E informa CUT 2013 [Presen tion in OFF 2:12 PM ce] in source CONCENT Urine data RATION by - 300 Screen method Opiates NEG NEGATIV ug/ML No OPIATE Dec 21 E informa CUT OFF 2013 [Presen tion in 2:12 PM ce] in source CONCENT Urine data RATION by - 300 Screen method Cannabi NEG NEGATIV NG/ML No THC CUT Sep noids E informa OFF 2013 [Presen tion in CONCENT 2:12 PM ce] in source RATION Urine data - 50 by Screen method Methado NEG NEGATIV ug/ML No METHADO Dec 21 ne E informa NE CUT 2013 [Presen tion in OFF 2:12 PM ce] in source CONCENT Urine data RATION by - Screen 300THES method E RESULTS PROVIDE ONLY A PRELIMI NARY TEST RESULT. THEREIS A POSSIBI LITY THAT OVER THE COUNTER DRUGS MAY INTERFE REWITH THE TEST. CONFORM ITORY TEST CAN BE ORDERED AT [facility] CONSIDE RATION ANDPROF ESSIONA L JUDGEME NT SHOULD BE APPLIED TO ANY DRUG OF ABUSETE ST RESULT, PARTICU JEFF WHEN PRELIMI NARY POSITIV E RESULTS AREUSED . THESE DRUG SCREEN RESULTS ARE NOT FOR LEGAL APPLICA TIONS. BUPRENORPHINE,QUAL Observa Value Referen Units Interpr Notes Date tion ce etation Range denies Bupreno NEGATIV No No No BUPRENO Dec 21 rphine E informa informa informa RPHRINE 2013 [Presen tion in tion in tion in CUT 2:12 PM ce] in source source source OFF Urine data data data CONCENT RATION - 12.5 NG/ML OXYCODONE,UR.(QUAL) Observa Value Referen Units Interpr Notes Date tion ce etation Range denies Oxycodo NEGATIV No No No CONCENT Dec 21 ne E informa informa informa RATIONS 2013 [Presen tion in tion in tion in OF 2:12 PM ce] in source source source >625 Urine data data data NG/ML by OF Screen HYDROCO method DONE AND >100 NG/ML OF OXYCODO NECAUSE POSITIV E RESULTS UR IN HOUSE DRUG SCREEN Observa Value Referen Units Interpr Notes Date tion ce etation Range na Ampheta NEG NEGATIV ug/ML No AMPHETA Sep 13 mines E informa MINE 2013 [Presen tion in CUT OFF 11:00 ce] in source PM Urine data CONCENT by RATION Screen - 300 method >1000 ng/mL Barbitu NEG NEGATIV ug/ML No BARBITU Sep 13 rates E informa ATE CUT 2013 [Presen tion in OFF 11:00 ce] in source CONCENT PM Urine data RATION by - 200 Screen method Benzodi NEG NEGATIV ug/ML No BENZODI Sep 13 azepine E informa AZEPINE 2013 s tion in CUT 11:00 [Presen source OFF PM ce] in data CONCENT Urine RATION by - 200 Screen method Cocaine NEG NEGATIV ug/ML No COCAINE Sep E informa CUT 2013 [Presen tion in OFF 11:00 ce] in source CONCENT PM Urine data RATION by - 300 Screen method Opiates NEG NEGATIV ug/ML No OPIATE Sep E informa CUT OFF 2013 [Presen tion in 11:00 ce] in source CONCENT PM Urine data RATION by - 300 Screen method Cannabi NEG NEGATIV NG/ML No THC CUT Sep noids E informa OFF 2013 [Presen tion in CONCENT 11:00 ce] in source RATION PM Urine data - 50 by Screen method Methado NEG NEGATIV ug/ML No METHADO Sep ne E informa NE CUT 2013 [Presen tion in OFF 11:00 ce] in source CONCENT PM Urine data RATION by - Screen 300THES method E RESULTS PROVIDE ONLY A PRELIMI NARY TEST RESULT. THEREIS A POSSIBI LITY THAT OVER THE COUNTER DRUGS MAY INTERFE REWITH THE TEST. CONFORM ITORY TEST CAN BE ORDERED AT [facility]I [facility] CONSIDE RATION ANDPROF ESSIONA L JUDGEME NT SHOULD BE APPLIED TO ANY DRUG OF ABUSETE ST RESULT, PARTICU JEFF WHEN PRELIMI NARY POSITIV E RESULTS AREUSED . THESE DRUG SCREEN RESULTS ARE NOT FOR LEGAL APPLICA TIONS. OXYCODONE,UR.(QUAL) Observa Value Referen Units Interpr Notes Date tion ce etation Range na Oxycodo NEGATIV No No No CONCENT Sep 13 ne E informa informa informa RATIONS 2013 [Presen tion in tion in tion in OF 10:00 ce] in source source source >625 PM Urine data data data NG/ML by OF Screen HYDROCO method DONE AND >100 NG/ML OF OXYCODO NECAUSE POSITIV E RESULTS BUPRENORPHINE,QUAL Observa Value Referen Units Interpr Notes Date tion ce etation Range na Bupreno NEGATIV No No No BUPRENO Sep 13 rphine E informa informa informa RPHRINE 2013 [Presen tion in tion in tion in CUT 10:00 ce] in source source source OFF PM Urine data data data CONCENT RATION - 12.5 NG/ML UR IN HOUSE DRUG SCREEN Observa Value Referen Units Interpr Notes Date tion ce etation Range none Ampheta NEG NEGATIV ug/ML No AMPHETA Sep 1 mines E informa MINE 2013 [Presen tion in CUT OFF 9:56 PM ce] in source Urine data CONCENT by RATION Screen - 300 method >1000 ng/mL Barbitu NEG NEGATIV ug/ML No BARBITU Sep 1 rates E informa ATE CUT 2013 [Presen tion in OFF 9:56 PM ce] in source CONCENT Urine data RATION by - 200 Screen method Benzodi NEG NEGATIV ug/ML No BENZODI Sep 1 azepine E informa AZEPINE 2013 s tion in CUT 9:56 PM [Presen source OFF ce] in data CONCENT Urine RATION by - 200 Screen method Cocaine NEG NEGATIV ug/ML No COCAINE Sep 1 E informa CUT 2013 [Presen tion in OFF 9:56 PM ce] in source CONCENT Urine data RATION by - 300 Screen method Opiates NEG NEGATIV ug/ML No OPIATE Sep 1 E informa CUT OFF 2013 [Presen tion in 9:56 PM ce] in source CONCENT Urine data RATION by - 300 Screen method Cannabi NEG NEGATIV NG/ML No THC CUT Sep 1 noids E informa OFF 2013 [Presen tion in CONCENT 9:56 PM ce] in source RATION Urine data - 50 by Screen method Methado NEG NEGATIV ug/ML No METHADO Sep 1 ne E informa NE CUT 2013 [Presen tion in OFF 9:56 PM ce] in source CONCENT Urine data RATION by - Screen 300THES method E RESULTS PROVIDE ONLY A PRELIMI NARY TEST RESULT. THEREIS A POSSIBI LITY THAT OVER THE COUNTER DRUGS MAY INTERFE REWITH THE TEST. CONFORM ITORY TEST CAN BE ORDERED AT [facility] CONSIDE RATION ANDPROF ESSIONA L JUDGEME NT SHOULD BE APPLIED TO ANY DRUG OF ABUSETE ST RESULT, PARTICU JEFF WHEN PRELIMI NARY POSITIV E RESULTS AREUSED . THESE DRUG SCREEN RESULTS ARE NOT FOR LEGAL APPLICA TIONS. BUPRENORPHINE,QUAL Observa Value Referen Units Interpr Notes Date tion ce etation Range none Bupreno NEGATIV No No No BUPRENO Sep 1 rphine E informa informa informa RPHRINE 2013 [Presen tion in tion in tion in CUT 9:56 PM ce] in source source source OFF Urine data data data CONCENT RATION - 12.5 NG/ML OXYCODONE,UR.(QUAL) Observa Value Referen Units Interpr Notes Date tion ce etation Range none Oxycodo NEGATIV No No No CONCENT Sep 1 ne E informa informa informa RATIONS 2013 [Presen tion in tion in tion in OF 9:56 PM ce] in source source source >625 Urine data data data NG/ML by OF Screen HYDROCO method DONE AND >100 NG/ML OF OXYCODO NECAUSE POSITIV E RESULTS UA, MICROSCOPIC REVIEW Observa Value Referen Units Interpr Notes Date tion ce etation Range NA Erythro OCC 0 - 5 HPF No No Nov 21 cytes informa informa 2013 [#/area tion in tion in 12:06 ] in source source AM Urine data data sedimen t by Microsc opy high power field WBC 0-5 0 - 5 HPF No No Nov 21 informa informa 2013 tion in tion in 12:06 source source AM data data Epithel 1-5 No HPF No No Nov 21 ial informa informa informa 2013 cells tion in tion in tion in 12:06 [Presen source source source AM ce] in data data data Urine sedimen t by Light microsc opy CRYSTAL MOD CA No HPF No No Nov 21 S OX informa informa informa 2013 tion in tion in tion in 12:06 source source source AM data data data Bacteri 1+ Absent HPF Abnorma No Nov 21 a l informa 2013 [#/area tion in 12:06 ] in source AM Urine data sedimen t by Microsc opy high power field URINALYSIS COMPLETE Observa Value Referen Units Interpr Notes Date tion ce etation Range NA Color YELLOW No No No No Nov 21 of informa informa informa informa 2014 Urine tion in tion in tion in tion in 12:06 source source source source AM data data data data Clarity CLEAR No No No No Nov 21 of informa informa informa informa 2014 Urine tion in tion in tion in tion in 12:06 source source source source AM data data data data Glucose NEGATIV NEGATIV MG/DL No No Nov 21 E E informa informa 2013 [Presen tion in tion in 12:06 ce] in source source AM Urine data data by Automat ed test strip Bilirub NEGATIV NEGATIV No No No Nov 21 in E E informa informa informa 2013 [Presen tion in tion in tion in 12:06 ce] in source source source AM Urine data data data by Automat ed test strip Ketones TRACE NEGATIV MG/DL Abnorma No Nov 21 E l informa 2013 [Presen tion in 12:06 ce] in source AM Urine data by Automat ed test strip Specifi 1.025 1.006 - No No No Nov 21 c 1.035 informa informa informa 2013 gravity tion in tion in tion in 12:06 of source source source AM Urine data data data by Automat ed test strip Erythro NEGATIV NEGATIV No No No Nov 21 cytes E E informa informa informa 2013 [Presen tion in tion in tion in 12:06 ce] in source source source AM Urine data data data by Automat ed pH of 6.0 5.0 - No No No Nov 21 Urine 9.0 informa informa informa 2013 by tion in tion in tion in 12:06 Automat source source source AM ed test data data data strip Protein NEGATIV NEGATIV MG/DL No No Nov 21 E E informa informa 2013 [Presen tion in tion in 12:06 ce] in source source AM Urine data data by Automat ed test strip UROBILI 2.0 0.2 - E.U./DL No No Nov 21 NOGEN 1.0 informa informa 2014 tion in tion in 12:06 source source AM data data Nitrate NEGATIV NEGATIV No No No Nov 21 E E informa informa informa 2013 [Presen tion in tion in tion in 12:06 ce] in source source source AM Urine data data data Leukocy NEGATIV NEGATIV No No No Nov 21 benjamin E E informa informa informa 2013 [Presen tion in tion in tion in 12:06 ce] in source source source AM Urine data data data by Automat ed OXYCODONE,UR.(QUAL) Observa Value Referen Units Interpr Notes Date tion ce etation Range NA Oxycodo NEGATIV No No No CONCENT Nov 21 ne E informa informa informa RATIONS 2013 [Presen tion in tion in tion in OF 12:06 ce] in source source source >625 AM Urine data data data NG/ML by OF Screen HYDROCO method DONE AND >100 NG/ML OF OXYCODO NECAUSE POSITIV E RESULTS BUPRENORPHINE,QUAL Observa Value Referen Units Interpr Notes Date tion ce etation Range NA Bupreno NEGATIV No No No BUPRENO Nov 21 rphine E informa informa informa RPHRINE 2013 [Presen tion in tion in tion in CUT 12:06 ce] in source source source OFF AM Urine data data data CONCENT RATION - 12.5 NG/ML UR IN HOUSE DRUG SCREEN Observa Value Referen Units Interpr Notes Date tion ce etation Range NA Ampheta NEG NEGATIV ug/ML No AMPHETA Nov 21 mines E informa MINE 2013 [Presen tion in CUT OFF 12:05 ce] in source AM Urine data CONCENT by RATION Screen - 300 method >1000 ng/mL Barbitu NEG NEGATIV ug/ML No BARBITU Nov 21 rates E informa ATE CUT 2013 [Presen tion in OFF 12:05 ce] in source CONCENT AM Urine data RATION by - 200 Screen method Benzodi NEG NEGATIV ug/ML No BENZODI Nov 21 azepine E informa AZEPINE 2013 s tion in CUT 12:05 [Presen source OFF AM ce] in data CONCENT Urine RATION by - 200 Screen method Cocaine NEG NEGATIV ug/ML No COCAINE Nov 21 E informa CUT 2013 [Presen tion in OFF 12:05 ce] in source CONCENT AM Urine data RATION by - 300 Screen method Opiates NEG NEGATIV ug/ML No OPIATE Nov 21 E informa CUT OFF 2013 [Presen tion in 12:05 ce] in source CONCENT AM Urine data RATION by - 300 Screen method Cannabi NEG NEGATIV NG/ML No THC CUT Nov 21 noids E informa OFF 2013 [Presen tion in CONCENT 12:05 ce] in source RATION AM Urine data - 50 by Screen method Methado NEG NEGATIV ug/ML No METHADO Nov 21 ne E informa NE CUT 2013 [Presen tion in OFF 12:05 ce] in source CONCENT AM Urine data RATION by - Screen 300THES method E RESULTS PROVIDE ONLY A PRELIMI NARY TEST RESULT. THEREIS A POSSIBI LITY THAT OVER THE COUNTER DRUGS MAY INTERFE REWITH THE TEST. CONFORM ITORY TEST CAN BE ORDERED AT [facility]I [facility] CONSIDE RATION ANDPROF ESSIONA L JUDGEME NT SHOULD BE APPLIED TO ANY DRUG OF ABUSETE ST RESULT, PARTICU JEFF WHEN PRELIMI NARY POSITIV E RESULTS AREUSED . THESE DRUG SCREEN RESULTS ARE NOT FOR LEGAL APPLICA TIONS. US Renal Elmer Observa Value Referen Units Interpr Notes Date tion ce etation Range \.br\BI No No No No Nov 12 LATERAL informa informa informa informa 2013 RENAL tion in tion in tion in tion in 2:50 PM ULTRASO source source source source UND - data data data data 11/13/19 14\.br\ \.br\CO MPARISO N: 4.\.br\ \.br\Th e renal echogen icity is within normal limits. The right kidney measure s 13.8 cm in length. The left kidney measure s 12.0 cm in length. There is moderat e right-s ided hydrone phrosis . There is no evidenc e of solid renal mass or shadowi ng stones. \.br\\. br\ IMPRESS ION: Moderat e right hydrone phrosis .\.br\\ .br\ END OF REPORT* *\.br\\ .br\Schuyler Barrios M.D.\.b r\\.br\ Dictate d: 11/13/19 14 4:15 PM\.br\ \.br\Tr anscrib ed: 11/13/19 14 4:17 PM\.br\ \.br\ * Final Report \.br \\.br\D ictated : Brice Barrios M.D. 4:15 pm\.br\ \.br\Tr anscrib ed by: 4:18 pm\.br\ \.br\Au thentic ated by: Brice Barrios M.D. 4:27 pm\.br\ \.br\ MAGNESIUM Observa Value Referen Units Interpr Notes Date tion ce etation Range Magnesi 3.4 1.7 - MG/DL High No Oct 18 um 2.4 informa 2013 [Mass/v tion in 11:50 olume] source AM in data Serum or Plasma MAGNESIUM Observa Value Referen Units Interpr Notes Date tion ce etation Range Magnesi 4.1 1.7 - MG/DL High No Nov 12 um 2.4 informa 2013 [Mass/v tion in 5:25 AM olume] source in data Serum or Plasma MAGNESIUM Observa Value Referen Units Interpr Notes Date tion ce etation Range Magnesi 4.4 1.7 - MG/DL High No Nov 11 um 2.4 informa 2013 [Mass/v tion in 11:07 olume] source PM in data Serum or Plasma MAGNESIUM Observa Value Referen Units Interpr Notes Date tion ce etation Range Magnesi 4.3 1.7 - MG/DL High No Nov 11 um 2.4 informa 2013 [Mass/v tion in 5:50 PM olume] source in data Serum or Plasma MAGNESIUM Observa Value Referen Units Interpr Notes Date tion ce etation Range Magnesi 4.0 1.7 - MG/DL High No Nov 11 um 2.4 informa 2013 [Mass/v tion in 12:00 olume] source PM in data Serum or Plasma MAGNESIUM Observa Value Referen Units Interpr Notes Date tion ce etation Range Magnesi 3.4 1.7 - MG/DL High No Oct 17 um 2.4 informa 2013 [Mass/v tion in 6:48 AM olume] source in data Serum or Plasma GROUP B STREP SCREEN Observa Value Referen Units Interpr Notes Date tion ce etation Range GROUP B NO No No No No Nov 11 STREP GROUP B informa informa informa informa 2014 SCREEN tion in tion in tion in tion in 3:30 AM STREPTO source source source source COCCUS data data data data ISOLATE D USING DIRECT GROUP B INOCULA No No No ORDER#: Nov 11 STREP TION informa informa informa 2014 SCREEN AND tion in tion in tion in [id number] 3:30 AM BROTH source source source 8 ENHANCE data data data MENT PROCEDU RES. ORDERED BY: TAMARA GOLDBERG CE: CERVICA L COLLECT ED: 4 03:30AN DENZEL CS AT SINGH.: RECEIVE D : 4 06:23GR OUP B STREP SCREEN FINAL 4 07:280 NO GROUP B STREPTO COCCUS ISOLATE D USING DIRECTI NOCULAT ION AND BROTH ENHANCE MENT PROCEDU RES. UA, MICROSCOPIC REVIEW Observa Value Referen Units Interpr Notes Date tion ce etation Range NA Erythro 0-5 0 - 5 HPF No No Nov 11 cytes informa informa 2013 [#/area tion in tion in 12:47 ] in source source AM Urine data data sedimen t by Microsc opy high power field WBC 0-5 0 - 5 HPF No No Nov 11 informa informa 2013 tion in tion in 12:47 source source AM data data Epithel 1-5 No HPF No No Nov 11 ial informa informa informa 2013 cells tion in tion in tion in 12:47 [Presen source source source AM ce] in data data data Urine sedimen t by Light microsc opy Mucus TRACE No No No No Nov 11 [#/area informa informa informa informa 2013 ] in tion in tion in tion in tion in 12:47 Urine source source source source AM sedimen data data data data t by Microsc opy high power field CRYSTAL OCC CA No HPF No No Nov 11 S OX informa informa informa 2013 tion in tion in tion in 12:47 source source source AM data data data URINALYSIS COMPLETE Observa Value Referen Units Interpr Notes Date tion ce etation Range NA Color YELLOW No No No No Nov 11 of informa informa informa informa 2014 Urine tion in tion in tion in tion in 12:47 source source source source AM data data data data Clarity CLEAR No No No No Nov 11 of informa informa informa informa 2014 Urine tion in tion in tion in tion in 12:47 source source source source AM data data data data Glucose NEGATIV NEGATIV MG/DL No No Nov 11 E E informa informa 2013 [Presen tion in tion in 12:47 ce] in source source AM Urine data data by Automat ed test strip Bilirub NEGATIV NEGATIV No No No Nov 11 in E E informa informa informa 2013 [Presen tion in tion in tion in 12:47 ce] in source source source AM Urine data data data by Automat ed test strip Ketones TRACE NEGATIV MG/DL Abnorma No Nov 11 E l informa 2013 [Presen tion in 12:47 ce] in source AM Urine data by Automat ed test strip Specifi >=1.030 1.006 - No No No Nov 11 c 1.035 informa informa informa 2014 gravity tion in tion in ti in 12:47 of source source source AM Urine data data data by Automat ed test strip Erythro SMALL NEGATIV No Abnorma No Nov 11 cytes E informa l informa 2013 [Presen tion in tion in 12:47 ce] in source source AM Urine data data by Automat ed pH of 6.0 5.0 - No No No Nov 11 Urine 9.0 informa informa informa 2013 by tion in tion in tion in 12:47 Automat source source source AM ed test data data data strip Protein 30 NEGATIV MG/DL No No Nov 11 E informa informa 2013 [Presen tion in tion in 12:47 ce] in source source AM Urine data data by Automat ed test strip UROBILI >=8.0 0.2 - E.U./DL No No Nov 11 NOGEN 1.0 informa informa 2014 tion in tion in 12:47 source source AM data data Nitrate NEGATIV NEGATIV No No No Nov 11 E E informa informa informa 2013 [Presen tion in tion in tion in 12:47 ce] in source source source AM Urine data data data Leukocy NEGATIV NEGATIV No No No Nov 11 benjamin E E informa informa informa 2013 [Presen tion in tion in tion in 12:47 ce] in source source source AM Urine data data data by Automat ed UR IN HOUSE DRUG SCREEN Observa Value Referen Units Interpr Notes Date tion ce etation Range NA Ampheta NEG NEGATIV ug/ML No AMPHETA Nov 11 mines E informa MINE 2013 [Presen tion in CUT OFF 12:47 ce] in source AM Urine data CONCENT by RATION Screen - 300 method >1000 ng/mL Barbitu NEG NEGATIV ug/ML No BARBITU Nov 11 rates E informa ATE CUT 2013 [Presen tion in OFF 12:47 ce] in source CONCENT AM Urine data RATION by - 200 Screen method Benzodi NEG NEGATIV ug/ML No BENZODI Nov 11 azepine E informa AZEPINE 2013 s tion in CUT 12:47 [Presen source OFF AM ce] in data CONCENT Urine RATION by - 200 Screen method Cocaine NEG NEGATIV ug/ML No COCAINE Nov 11 E informa CUT 2013 [Presen tion in OFF 12:47 ce] in source CONCENT AM Urine data RATION by - 300 Screen method Opiates NEG NEGATIV ug/ML No OPIATE Nov 11 E informa CUT OFF 2013 [Presen tion in 12:47 ce] in source CONCENT AM Urine data RATION by - 300 Screen method Cannabi NEG NEGATIV NG/ML No THC CUT Nov 11 noids E informa OFF 2013 [Presen tion in CONCENT 12:47 ce] in source RATION AM Urine data - 50 by Screen method Methado NEG NEGATIV ug/ML No METHADO Nov 11 ne E informa NE CUT 2013 [Presen tion in OFF 12:47 ce] in source CONCENT AM Urine data RATION by - Screen 300THES method E RESULTS PROVIDE ONLY A PRELIMI NARY TEST RESULT. THEREIS A POSSIBI LITY THAT OVER THE COUNTER DRUGS MAY INTERFE REWITH THE TEST. CONFORM ITORY TEST CAN BE ORDERED [facility] CONSIDE RATION ANDPROF ESSIONA L JUDGEME NT SHOULD BE APPLIED TO ANY DRUG OF ABUSETE ST RESULT, PARTICU JEFF WHEN PRELIMI NARY POSITIV E RESULTS AREUSED . THESE DRUG SCREEN RESULTS ARE NOT FOR LEGAL APPLICA TIONS. OXYCODONE,UR.(QUAL) Observa Value Referen Units Interpr Notes Date tion ce etation Range NA Oxycodo NEGATIV No No No CONCENT Nov 11 ne E informa informa informa RATIONS 2013 [Presen tion in tion in tion in OF 12:47 ce] in source source source >625 AM Urine data data data NG/ML by OF Screen HYDROCO method DONE AND >100 NG/ML OF OXYCODO NECAUSE POSITIV E RESULTS BUPRENORPHINE,QUAL Observa Value Referen Units Interpr Notes Date ti ce etation Range NA Bupreno NEGATIV No No No BUPRENO Nov 11 rphine E informa informa informa RPHRINE 2013 [Presen tion in tion in tion in CUT 12:47 ce] in source source source OFF AM Urine data data data CONCENT RATION - 12.5 NG/ML US Renal Elmer Observa Value Referen Units Interpr Notes Date ti ce etation Range \.br\RE No No No No Nov 01 NAL informa informa informa informa 2014 ULTRASO tion in tion in tion in tion in 3:11 PM UND\.br source source source source \\.br\T data data data data he right kidney measure s 13.2 cm and the left kidney measure s 12.9 cm in pole-to -pole length. There is mild to moderat e dilatat ion of the right renal collect ing system and mild dilatat ion of the left renal collect ing system. The kidneys otherwi se appear normal in size, shape and echogen icity.\ .br\\.b r\ IMPRESS ION: Dilatat ion of the renal collect ing systems bilater ally, right greater than left.\. br\\.br \ END OF REPORT* *\.br\\ .br\Jordon Nino M.D.\.b r\\.br\ Dictate d: 4 3:27 PM\.br\ \.br\Tr anscrib ed: 4 3:29 PM\.br\ \.br\ * Final Report \.br \\.br\D ictated : ISSAC NINO M.D. 014 3:27 pm\.br\ \.br\Tr anscrib ed by: KERON 3:30 pm\.br\ \.br\Au thentic ated by: ISSAC NINO M.D. 3:52 pm\.br\ \.br\ GLOMELULAR ESTEFANI. RATE,CALC. Observa Value Referen Units Interpr Notes Date tion ce etation Range Glomeru 269.0 60.0 - ml/min High THE Nov 01 lar 130.0 eGFR IS 2013 filtrat AN 12:50 ion ESTIMAT PM rate/1. ED 73 sq M GLOMELU LAR predict FILTRAT ed ION among RATEBAS non-karina ED ON cks by AN Creatin AVERAGE ine-bas BODY ed SURFACE formula AREA (MDRD) OF 1.73M2. THIS CALCULA TION IS NOT ACCURAT E FOR PEDIATR IC PATIENT S,PATIE NTS >70 YEARS OF AGE,OR PATIENT S WITH EXTREME BODY SIZE.>6 0 ML/MIN/ 1.73M2 = NORMAL< 60 ML/MIN/ 1.73M2 = CHRONIC KIDNEY DISEASE <15 ML/MIN/ 1.73M2 = KIDNEY FAILURE AVERAGE EGFR FOLLOWS :AGE(YE ARS) AVERAGE EGFR20- 39 116 ML/MIN3 0-39 107 ML/MIN4 0-49 99 ML/MIN5 0-59 93 ML/MIN6 0-69 85 ML/MIN COMP. METABOLIC PANEL (CHEM 12) Observa Value Referen Units Interpr Notes Date ti ce etation Range Glucose 92 70 - MG/DL No No Nov 01 110 informa informa 2013 [Mass/v tion in tion in 12:50 olume] source source PM in data data Serum or Plasma Urea 4 7 - 18 MG/DL Low No Nov 01 nitroge informa 2013 n tion in 12:50 [Mass/v source PM olume] data in Serum or Plasma Sodium 140 133 - mmol/L No No Nov 01 [Moles/ 144 informa informa 2013 volume] tion in tion in 12:50 in source source PM Serum data data or Plasma Potassi 3.7 3.6 - mmol/l No No Nov 01 um 5.2 informa informa 2013 [Moles/ tion in tion in 12:50 volume] source source PM in data data Serum or Plasma Chlorid 109 98 - mmol/l High No Nov 01 e 107 inform2013 [Moles/ tion in 12:50 volume] source PM in data Blood Carbon 22 21 - 32 mmol/L No Nov 01 dioxide informa informa 2013 , total tion in tion in 12:50 source source PM [Moles/ data data volume] in Serum or Plasma Creatin 0.4 0.6 - MG/DL Low Nov 01 ine 1.3 inform2013 [Mass/v tion in 12:50 olume] source PM in data Serum or Plasma Protein 5.3 6.4 - G/DL Low No Nov 01 8.4 inform2013 [Mass/v tion in 12:50 olume] source PM in data Serum or Plasma Albumin 2.3 3.4 - G/DL Low Nov 01 5.0 inform2013 [Mass/v tion in 12:50 olume] source PM in data Serum or Plasma Globuli 3.0 2.4 - G/DL No Nov 01 n 4.8 informa informa 2013 [Mass/v tion in tion in 12:50 olume] source source PM in data data Plasma Albumin 0.8 0.6 - No No Nov 01 /Globul 1.6 informa informa informa 2013 in tion in tion in tion in 12:50 [Mass source source source PM ratio] data data data in Serum or Plasma Calcium 8.1 8.5 - MG/DL Low Nov 01 10.1 inform2013 [Mass/v tion in 12:50 olume] source PM in data Serum or Plasma Alkalin 91 45 - U/L No Nov 01 e 117 informa informa 2013 phospha tion in tion in 12:50 tase source source PM [Enzyma data data tic activit y/volum e] in Serum or Plasma Asparta 11 15 - 37 U/L Low No Nov 01 te informa 2014 aminotr tion in 12:50 ansfera source PM se data [Enzyma tic activit y/volum e] in Serum or Plasma Alanine <14 12 - 78 U/L No Nov 01 informa informa 2014 aminotr tion in tion in 12:50 ansfera source source PM se data data [Enzyma tic activit y/volum e] in Serum or Plasma Bilirub 0.40 0.00 - MG/DL No No Oct 7 in.tota 1.00 informa informa 2013 l tion in tion in 12:50 [Mass/v source source PM olume] data data in Serum or Plasma CBC/NO DIFF+ PLATELET Observa Value Referen Units Interpr Notes Date tion ce etation Range Leukocy 8.3 3.0 - K/UL No No Oct 7 benjamin 11.3 informa informa 2013 [#/volu tion in tion in 12:50 me] in source source PM Blood data data by Automat ed count Erythro 3.180 3.450 - M/ul Low No Nov 01 cytes 5.400 informa 2013 [#/volu tion in 12:50 me] in source PM Blood data by Automat ed count Hemoglo 9.8 10.0 - gm/dl Low No Nov 01 bin 16.0 informa 2013 [Mass/v tion in 12:50 olume] source PM in data Blood Hematoc 28.0 29.9 - % Low No Nov 01 rit 45.5 informa 2013 [Volume tion in 12:50 source PM Fractio data n] of Blood by Automat ed count Erythro 88.2 78.2 - fl No No Nov 01 cyte 101.8 informa informa 2014 mean tion in tion in 12:50 corpusc source source PM ular data data volume [Entiti c volume] by Automat ed count Erythro 30.8 26.4 - pg No No Nov 01 cyte 33.3 informa informa 2014 mean tion in tion in 12:50 corpusc source source PM ular data data hemoglo bin [Entiti c mass] by Automat ed count Erythro 34.9 32.5 - g/dl No No Oct 7 cyte 35.3 informa informa 2014 mean tion in tion in 12:50 corpusc source source PM ular data data hemoglo bin concent ration [Mass/v olume] by Automat ed count Erythro 13.4 10.1 - % No No Oct 7 cyte 16.2 informa informa 2014 distrib tion in tion in 12:50 ution source source PM width data data [Ratio] by Automat ed count Platele 121 122 - K/UL Low No Oct 7 ts 454 informa 2013 [#/volu tion in 12:50 me] in source PM Blood data by Automat ed count Platele 7.3 6.4 - fl No No Nov 01 t mean 10.4 informa informa 2014 volume tion in tion in 12:50 [Entiti source source PM c data data volume] in Blood by Automat ed count URINALYSIS COMPLETE Observa Value Referen Units Interpr Notes Date tion ce etation Range denies Color YELLOW No No No No Nov 01 of informa informa informa informa 2014 Urine tion in tion in tion in tion in 10:00 source source source source AM data data data data Clarity CLEAR No No No No Nov 01 of informa informa informa informa 2013 Urine tion in tion in tion in tion in 10:00 source source source source AM data data data data Glucose NEGATIV NEGATIV MG/DL No No Nov 01 E E informa informa 2013 [Presen tion in tion in 10:00 ce] in source source AM Urine data data by Automat ed test strip Bilirub NEGATIV NEGATIV No No No Nov 01 in E E informa informa informa 2013 [Presen tion in tion in tion in 10:00 ce] in source source source AM Urine data data data by Automat ed test strip Ketones NEGATIV NEGATIV MG/DL No No Nov 01 E E informa informa 2013 [Presen tion in tion in 10:00 ce] in source source AM Urine data data by Automat ed test strip Specifi 1.018 1.006 - No No No Nov 01 c 1.035 informa informa informa 2013 gravity tion in tion in tion in 10:00 of source source source AM Urine data data data by Automat ed test strip Erythro LARGE NEGATIV No Abnorma No Nov 01 cytes E informa l informa 2013 [Presen tion in tion in 10:00 ce] in source source AM Urine data data by Automat ed pH of 6.5 5.0 - No No No Nov 01 Urine 9.0 informa informa informa 2014 by tion in tion in tion in 10:00 Automat source source source AM ed test data data data strip Protein TRACE NEGATIV MG/DL Abnorma No Nov 01 E l informa 2013 [Presen tion in 10:00 ce] in source AM Urine data by Automat ed test strip UROBILI 1.0 0.2 - E.U./DL No No Nov 01 NOGEN 1.0 informa informa 2013 tion in tion in 10:00 source source AM data data Nitrate NEGATIV NEGATIV No No No Nov 01 E E informa informa informa 2013 [Presen tion in tion in tion in 10:00 ce] in source source source AM Urine data data data Leukocy TRACE NEGATIV No Abnorma No Nov 01 benjamin E informa l informa 2013 [Presen tion in tion in 10:00 ce] in source source AM Urine data data by Automat ed Erythro 63 0 - 4 /HPF High No Nov 01 cytes informa 2013 [#/area tion in 10:00 ] in source AM Urine data sedimen t by Microsc opy high power field WBC 4 0 - 5 /HPF No No Nov 01 COUNT informa informa 2014 tion in tion in 10:00 source source AM data data Epithel 6 0 - 6 /HPF No No Nov 01 ial informa informa 2014 cells tion in tion in 10:00 [Presen source source AM ce] in data data Urine sedimen t by Light microsc opy Bacteri TRACE NEGATIV /HPF Abnorma BACTERI Nov 01 a E l A 2013 [#/area INTERPR 10:00 ] in ETATION AM Urine :NEGATI sedimen VE t by <=599/u Microsc lTRACE opy high >=600, power <=1199/ field ul1+ >=1200, <=2399/ ul2+ >=2400, <=3599/ ul3+ >=3600, <=4799/ ul4+ >=4800/ ul Hyaline 3 0 - 4 /LPF No No Nov 01 casts informa informa 2013 [#/area tion in tion in 10:00 ] in source source AM Urine data data sedimen t by Microsc opy high power field UR IN HOUSE DRUG SCREEN Observa Value Referen Units Interpr Notes Date tion ce etation Range denies Ampheta NEG NEGATIV ug/ML No AMPHETA Nov 01 mines E informa MINE 2013 [Presen tion in CUT OFF 10:00 ce] in source AM Urine data CONCENT by RATION Screen - 300 method >1000 ng/mL Barbitu NEG NEGATIV ug/ML No BARBITU Nov 01 rates E informa ATE CUT 2013 [Presen tion in OFF 10:00 ce] in source CONCENT AM Urine data RATION by - 200 Screen method Benzodi NEG NEGATIV ug/ML No BENZODI Nov 01 azepine E informa AZEPINE 2013 s tion in CUT 10:00 [Presen source OFF AM ce] in data CONCENT Urine RATION by - 200 Screen method Cocaine NEG NEGATIV ug/ML No COCAINE Nov 01 E informa CUT 2013 [Presen tion in OFF 10:00 ce] in source CONCENT AM Urine data RATION by - 300 Screen method Opiates NEG NEGATIV ug/ML No OPIATE Nov 01 E informa CUT OFF 2013 [Presen tion in 10:00 ce] in source CONCENT AM Urine data RATION by - 300 Screen method Cannabi NEG NEGATIV NG/ML No THC CUT Nov 01 noids E informa OFF 2013 [Presen tion in CONCENT 10:00 ce] in source RATION AM Urine data - 50 by Screen method Methado NEG NEGATIV ug/ML No METHADO Nov 01 ne E informa NE CUT 2013 [Presen tion in OFF 10:00 ce] in source CONCENT AM Urine data RATION by - Screen 300THES method E RESULTS PROVIDE ONLY A PRELIMI NARY TEST RESULT. THEREIS A POSSIBI LITY THAT OVER THE COUNTER DRUGS MAY INTERFE REWITH THE TEST. CONFORM ITORY TEST CAN BE ORDERED AT [facility]. [facility] CONSIDE RATION ANDPROF ESSIONA L JUDGEME NT SHOULD BE APPLIED TO ANY DRUG OF ABUSETE ST RESULT, PARTICU JEFF WHEN PRELIMI NARY POSITIV E RESULTS AREUSED . THESE DRUG SCREEN RESULTS ARE NOT FOR LEGAL APPLICA TIONS. BUPRENORPHINE,QUAL Observa Value Referen Units Interpr Notes Date tion ce etation Range denies Bupreno NEGATIV No No No BUPRENO Nov 01 rphine E informa informa informa RPHRINE 2013 [Presen tion in tion in tion in CUT 10:00 ce] in source source source OFF AM Urine data data data CONCENT RATION - 12.5 NG/ML OXYCODONE,UR.(QUAL) Observa Value Referen Units Interpr Notes Date tion ce etation Range denies Oxycodo NEGATIV No No No CONCENT Nov 01 ne E informa informa informa RATIONS 2013 [Presen tion in tion in tion in OF 10:00 ce] in source source source >625 AM Urine data data data NG/ML by OF Screen HYDROCO method DONE AND >100 NG/ML OF OXYCODO NECAUSE POSITIV E RESULTS FIBRONECTIN Observa Value Referen Units Interpr Notes Date tion ce etation Range denies Fibrone NEGATIV No ML No The Nov 01 ctin.fe E informa informa rapid 2013 isaac tion in tion in fFN 9:39 AM [Presen source source result ce] in data data should Vaginal not be fluid interpr eted as absolut eeviden ce for the presenc e or absence of a process that willres ult in deliver y in less than or equal to 7 to 14 daysfro m specime n collect ion in symptom atic women or deliver yin less than or equal to 34 weeks, 6 days in asympto maticwo men evaluat ed between 22 weeks, 0 days and 30 weeks,6 days of gestati on. A positiv e fFN result may be observe dfor patient s who have experie nced cervica l disrupt ion causedb y, but not limited to, events such as sexual interco urse,di gital cervica L examina tion, or vaginal probe ultraso und.The rapid fFN result should always be used in conjunc tionwit h informa tion availab le from the clinica l evaluat ion ofthe patient and other diagnos tic procedu res. CHLAMYDIA/GONOCOCCUS,AMP Observa Value Referen Units Interpr Notes Date tion ce etation Range CHLAMYD SEE No No No Chlamyd July 31 IA/GONO BELOW informa informa informa ia 2013 COCCUS, tion in tion in tion in trachom 8:20 PM AMP source source source atis, data data data TJ Negativ e Negativ e CBNeiss eria gonorrh oeae, TJ Negativ e Negativ e CBPleas e note: CBAccep table specime ns for this test are male urethra l swab,en docervi erwin swab and liquid based pap specime ns, vaginal swabs inAPTIM A transpo rts and first void urine. See online Directo ry of[employer]i david for test number for rectal and pharyng eal specime ns.Perf ormed at: , [facility] [address], [place], [place], [address] [facility] Gil MD, Phone: [phone] JOHN PREP Observa Value Referen Units Interpr Notes Date tion ce etation Range TEST GONORRHEA CULTURE WAS CANCELLED, 07/31/13 20:26 TEST ORDERED INCORRECTLY.. Microsc NO No No No TEST July 31 opic BUDDING informa informa informa GONORRH 2014 observa YEAST tion in tion in tion in EA 8:20 PM tion NOTED source source source CULTURE [Identi data data data WAS fier] CANCELL in ED, Unspeci fied 4 20:26 specime TEST n by ORDERED JOHN INCORRE prepara CTLY..O tion RDER#: [id number] ORDERED BY: HEATH JASMINE [facility] E: VAGINAL COLLECT ED: 4 20:20AN TIBIOTI CS AT SINGH.: RECEIVE D : 4 20:25KO H PREP FINAL 4 20:510 NO BUDDING YEAST NOTED GONORRHEA CULTURE Observa Value Referen Units Interpr Notes Date tion ce etation Range TEST GONORRHEA CULTURE WAS CANCELLED, 07/31/13 20:26 TEST ORDERED INCORRECTLY.. TEST GONORRHEA CULTURE WAS CANCELLED, 07/31/13 20:26 TEST ORDERED INCORRECTLY.. ORDER#: [id number] ORDERED BY: BLADIMIR KIM SOURCE: VAGINAL COLLECTED: 07/31/13 20:20 ANTIBIOTICS AT SINGH.: RECEIVED : 07/31/13 20:25 WET PREP (MICRO) Observa Value Referen Units Interpr Notes Date tion ce etation Range TEST GONORRHEA CULTURE WAS CANCELLED, 07/31/13 20:26 TEST ORDERED INCORRECTLY.. Microsc NO No No No No July 31 opic MOTILE informa informa informa informa 2014 observa TRICHOM tion in tion in tion in tion in 8:20 PM tion ONADS source source source source [Identi NOTED, data data data data fier] NO in BUDDING Unspeci YEAST fied NOTED, specime NO CLUE n by Wet prepara tion Microsc CELLS No No No TEST July 31 opic informa informa informa GONORRH 2014 observa tion in tion in tion in EA 8:20 PM tion source source source CULTURE [Identi data data data WAS fier] CANCELL in ED, Unspeci fied 4 20:26 specime TEST n by ORDERED Wet INCORRE prepara CTLY..O tion RDER#: [id number] ORDERED BY: HEATH JASMINE E: VAGINAL COLLECT ED: 4 20:20AN TIBIOTI CS AT SINGH.: RECEIVE D : 4 20:25WE T PREP (MICRO) FINAL 4 20:500 NO MOTILE TRICHOM ONADS NOTED, NO BUDDING YEAST NOTED, NO CLUECEL LS UA, MICROSCOPIC REVIEW Observa Value Referen Units Interpr Notes Date tion ce etation Range Erythro RARE 0 - 5 HPF No No July 31 cytes informa informa 2013 [#/area tion in tion in 7:31 PM ] in source source Urine data data sedimen t by Microsc opy high power field WBC RARE 0 - 5 HPF No No July 31 informa informa 2013 tion in ti in 7:31 PM source source data data Epithel 1-5 No HPF No No July 31 ial informa informa informa 2014 cells tion in tion in tion in 7:31 PM [Presen source source source ce] in data data data Urine sedimen t by Light microsc opy CRYSTAL FEW CA No HPF No No July 31 S OX informa informa informa 2013 tion in tion in tion in 7:31 PM source source source data data data URINALYSIS COMPLETE Observa Value Referen Units Interpr Notes Date tion ce etation Range Color YELLOW No No No No July 31 of informa informa informa informa 2013 Urine tion in tion in tion in tion in 7:31 PM source source source source data data data data Clarity CLOUDY No No No No July 31 of informa informa informa informa 2013 Urine tion in tion in tion in tion in 7:31 PM source source source source data data data data Glucose NEGATIV NEGATIV MG/DL No No July 31 E E informa informa 2013 [Presen tion in tion in 7:31 PM ce] in source source Urine data data by Automat ed test strip Bilirub NEGATIV NEGATIV No No No July 31 in E E informa informa informa 2013 [Presen tion in tion in tion in 7:31 PM ce] in source source source Urine data data data by Automat ed test strip Ketones NEGATIV NEGATIV MG/DL No No July 31 E E informa informa 2013 [Presen tion in tion in 7:31 PM ce] in source source Urine data data by Automat ed test strip Specifi 1.027 1.006 - No No No July 31 c 1.035 informa informa informa 2013 gravity tion in tion in tion in 7:31 PM of source source source Urine data data data by Automat ed test strip Erythro NEGATIV NEGATIV No No No July 31 cytes E E informa informa informa 2013 [Presen tion in tion in tion in 7:31 PM ce] in source source source Urine data data data by Automat ed pH of 5.5 5.0 - No No No July 31 Urine 9.0 informa informa informa 2013 by tion in tion in tion in 7:31 PM Automat source source source ed test data data data strip Protein NEGATIV NEGATIV MG/DL No No July 31 E E informa informa 2013 [Presen tion in tion in 7:31 PM ce] in source source Urine data data by Automat ed test strip UROBILI 1.0 0.2 - E.U./DL No No July 31 NOGEN 1.0 informa informa 2013 tion in tion in 7:31 PM source source data data Nitrate NEGATIV NEGATIV No No No July 31 E E informa informa informa 2013 [Presen tion in tion in tion in 7:31 PM ce] in source source source Urine data data data Leukocy TRACE NEGATIV No Abnorma No July 31 benjamin E informa l informa 2013 [Presen tion in tion in 7:31 PM ce] in source source Urine data data by Automat ed GLOMELULAR ESTEFANI. RATE,CALC. Observa Value Referen Units Interpr Notes Date tion ce etation Range Glomeru 208.3 60.0 - ml/min High THE July 31 lar 130.0 eGFR IS 2013 filtrat AN 7:00 PM ion ESTIMAT rate/1. ED 73 sq M GLOMELU LAR predict FILTRAT ed ION among RATEBAS non-karina ED ON cks by AN Creatin AVERAGE ine-bas BODY ed SURFACE formula AREA (MDRD) OF 1.73M2. THIS CALCULA TION IS NOT ACCURAT E FOR PEDIATR IC PATIENT S,PATIE NTS >70 YEARS OF AGE,OR PATIENT S WITH EXTREME BODY SIZE.>6 0 ML/MIN/ 1.73M2 = NORMAL< 60 ML/MIN/ 1.73M2 = CHRONIC KIDNEY DISEASE <15 ML/MIN/ 1.73M2 = KIDNEY FAILURE AVERAGE EGFR FOLLOWS :AGE(YE ARS) AVERAGE EGFR20- 39 116 ML/MIN3 0-39 107 ML/MIN4 0-49 99 ML/MIN5 0-59 93 ML/MIN6 0-69 85 ML/MIN COMP. METABOLIC PANEL (CHEM 12) Observa Value Referen Units Interpr Notes Date tion ce etation Range Glucose 98 70 - MG/DL No No July 31 110 informa informa 2013 [Mass/v tion in tion in 7:00 PM olume] source source in data data Serum or Plasma Urea 8 7 - 18 MG/DL No No July 31 nitroge informa informa 2013 n tion in tion in 7:00 PM [Mass/v source source olume] data data in Serum or Plasma Sodium 138 133 - mmol/L No No July 31 [Moles/ 144 informa informa 2014 volume] tion in tion in 7:00 PM in source source Serum data data or Plasma Potassi 3.4 3.6 - mmol/l Low No July 31 um 5.2 informa 2013 [Moles/ tion in 7:00 PM volume] source in data Serum or Plasma Chlorid 109 98 - mmol/l High No July 31 e 107 informa 2013 [Moles/ tion in 7:00 PM volume] source in data Blood Carbon 21 21 - 32 mmol/L No No July 31 dioxide informa informa 2013 , total tion in tion in 7:00 PM source source [Moles/ data data volume] in Serum or Plasma Creatin 0.5 0.6 - MG/DL Low No July 31 ine 1.3 informa 2013 [Mass/v tion in 7:00 PM olume] source in data Serum or Plasma Protein 6.0 6.4 - G/DL Low No July 31 8.4 informa 2013 [Mass/v tion in 7:00 PM olume] source in data Serum or Plasma Albumin 2.7 3.4 - G/DL Low No July 31 5.0 informa 2013 [Mass/v tion in 7:00 PM olume] source in data Serum or Plasma Globuli 3.3 2.4 - G/DL No No July 31 n 4.8 informa informa 2013 [Mass/v tion in tion in 7:00 PM olume] source source in data data Plasma Albumin 0.8 0.6 - No No July 31 /Globul 1.6 informa informa informa 2013 in tion in tion in tion in 7:00 PM [Mass source source source ratio] data data data in Serum or Plasma Calcium 8.5 8.5 - MG/DL No July 31 10.1 informa informa 2013 [Mass/v tion in tion in 7:00 PM olume] source source in data data Serum or Plasma Alkalin 70 45 - U/L No No July 31 e 117 informa informa 2013 phospha tion in tion in 7:00 PM tase source source [Enzyma data data tic activit y/volum e] in Serum or Plasma Asparta 13 15 - 37 U/L Low No July 31 te informa 2013 aminotr tion in 7:00 PM ansfera source se data [Enzyma tic activit y/volum e] in Serum or Plasma Alanine 21 12 - 78 U/L No No July 31 informa informa 2014 aminotr tion in tion in 7:00 PM ansfera source source se data data [Enzyma tic activit y/volum e] in Serum or Plasma Bilirub 0.20 0.00 - MG/DL No No July 31 in.tota 1.00 informa informa 2014 l tion in tion in 7:00 PM [Mass/v source source olume] data data in Serum or Plasma CBC\T\AUTO DIFF Observa Value Referen Units Interpr Notes Date tion ce etation Range Leukocy 9.6 3.0 - K/UL No July 31 benjamin 11.3 informa informa 2013 [#/volu tion in tion in 7:00 PM me] in source source Blood data data by Automat ed count Erythro 3.560 3.450 - M/ul No July 31 cytes 5.400 informa informa 2013 [#/volu tion in tion in 7:00 PM me] in source source Blood data data by Automat ed count Hemoglo 11.0 10.0 - gm/dl No July 31 bin 16.0 informa informa 2013 [Mass/v tion in tion in 7:00 PM olume] source source in data data Blood Hematoc 32.5 29.9 - % No July 31 rit 45.5 informa informa 2013 [Volume tion in tion in 7:00 PM source source Fractio data data n] of Blood by Automat ed count Erythro 91.4 78.2 - fl No July 31 cyte 101.8 informa informa 2013 mean tion in tion in 7:00 PM corpusc source source ular data data volume [Entiti c volume] by Automat ed count Erythro 31.0 26.4 - pg No July 31 cyte 33.3 informa informa 2013 mean tion in tion in 7:00 PM corpusc source source ular data data hemoglo bin [Entiti c mass] by Automat ed count Erythro 34.0 32.5 - g/dl No July 31 cyte 35.3 informa informa 2014 mean tion in tion in 7:00 PM corpusc source source ular data data hemoglo bin concent ration [Mass/v olume] by Automat ed count Erythro 13.1 10.1 - % No July 31 cyte 16.2 informa informa 2013 distrib tion in tion in 7:00 PM ution source source width data data [Ratio] by Automat ed count Platele 171 122 - K/UL No July 31 ts 454 informa informa 2013 [#/volu tion in tion in 7:00 PM me] in source source Blood data data by Automat ed count Platele 7.4 6.4 - fl No July 31 t mean 10.4 informa informa 2014 volume tion in tion in 7:00 PM [Entiti source source c data data volume] in Blood by Automat ed count Neutrop 73.8 43.0 - % No No July 31 hils/10 83.0 informa informa 2014 0 tion in tion in 7:00 PM leukocy source source benjamin in data data Blood by Automat ed count Lymphoc 18.1 10.0 - % No July 31 ytes/10 42.0 informa informa 2014 0 tion in tion in 7:00 PM leukocy source source benjamin in data data Blood by Automat ed count Monocyt 5.4 1.0 - % No July 31 es/100 14.0 informa informa 2014 leukocy tion in tion in 7:00 PM benjamin in source source Blood data data by Automat ed count Eosinop 2.2 0.0 - % No July 31 hils/10 11.0 informa informa 2014 0 tion in tion in 7:00 PM leukocy source source benjamin in data data Blood by Automat ed count Basophi 0.5 0.0 - % No July 31 ls/100 2.0 informa informa 2013 leukocy tion in tion in 7:00 PM benjamin in source source Blood data data by Automat ed count Neutrop 7.1 2.7 - K/ul High No July 31 hils 6.9 informa 2013 [#/volu tion in 7:00 PM me] in source Blood data by Automat ed count Lymphoc 1.7 0.4 - K/ul No July 31 ytes 3.9 informa informa 2013 [#/volu tion in tion in 7:00 PM me] in source source Blood data data by Automat ed count Monocyt 0.5 0.2 - K/ul No No July 31 es 0.6 informa informa 2013 [#/volu tion in tion in 7:00 PM me] in source source Blood data data by Automat ed count Eosinop 0.2 0.0 - K/ul No No July 31 hils 0.9 informa informa 2013 [#/volu tion in tion in 7:00 PM me] in source source Blood data data by Automat ed count Basophi 0.0 0.0 - K/ul No No July 31 ls 0.2 informa informa 2013 [#/volu tion in tion in 7:00 PM me] in source source Blood data data by Automat ed count ABO GROUP AND RH Observa Value Referen Units Interpr Notes Date tion ce etation Range ABO & TEXT~Na No No No No Jun 1 Rh me: informa informa informa informa 2014 group REBECCA tion in tion in tion in tion in 12:06 panel , source source source source AM in SANA~Ac data data data data Blood ct: [id number]~ABO O 4 00:08 LMF~RH( D) TYPING POS 4 00:08 LMF GLOMELULAR ESTEFANI. RATE,CALC. Observa Value Referen Units Interpr Notes Date tion ce etation Range Glomeru 269.7 60.0 - ml/min High THE Jun 25 lar 130.0 eGFR IS 2013 filtrat AN 11:43 ion ESTIMAT PM rate/1. ED 73 sq M GLOMELU LAR predict FILTRAT ed ION among RATEBAS non-karina ED ON cks by AN Creatin AVERAGE ine-bas BODY ed SURFACE formula AREA (MDRD) OF 1.73M2. THIS CALCULA TION IS NOT ACCURAT E FOR PEDIATR IC PATIENT S,PATIE NTS >70 YEARS OF AGE,OR PATIENT S WITH EXTREME BODY SIZE.>6 0 ML/MIN/ 1.73M2 = NORMAL< 60 ML/MIN/ 1.73M2 = CHRONIC KIDNEY DISEASE <15 ML/MIN/ 1.73M2 = KIDNEY FAILURE AVERAGE EGFR FOLLOWS :AGE(YE ARS) AVERAGE EGFR20- 39 116 ML/MIN3 0-39 107 ML/MIN4 0-49 99 ML/MIN5 0-59 93 ML/MIN6 0-69 85 ML/MIN HCG QUANTITATIVE Observa Value Referen Units Interpr Notes Date tion ce etation Range Choriog 91806 No mIU/ML No FEMALE Jun 25 onadotr informa informa (NON 2013 opin tion in tion in PREGNAN 11:43 [Moles/ source source T) PM volume] data data in <31 Urine DAY - 1 WEEK 5 - 501 - 2 WEEK 50 - 5002 - 3 WEEK 100 - 28044 - 4 WEEK 500 - 578352 - 5 WEEK 1000 - 562374 - 6 WEEK 93755 - 4209876 - 8 WEEK 73671 - - 3 MTHS 09022 - 054455 COMP. METABOLIC PANEL (CHEM 12) Observa Value Referen Units Interpr Notes Date tion ce etation Range Glucose 87 70 - MG/DL No No Jun 25 110 informa informa 2013 [Mass/v tion in tion in 11:43 olume] source source PM in data data Serum or Plasma Urea 8 7 - 18 MG/DL No Jun 25 nitroge informa informa 2013 n tion in tion in 11:43 [Mass/v source source PM olume] data data in Serum or Plasma Sodium 140 133 - mmol/L No Jun 25 [Moles/ 144 informa informa 2014 volume] tion in tion in 11:43 in source source PM Serum data data or Plasma Potassi 3.9 3.6 - mmol/l No Jun 25 um 5.2 informa informa 2013 [Moles/ tion in tion in 11:43 volume] source source PM in data data Serum or Plasma Chlorid 109 98 - mmol/l High No Jun 25 e 107 informa 2013 [Moles/ tion in 11:43 volume] source PM in data Blood Carbon 23 21 - 32 mmol/L No Jun 25 dioxide informa informa 2013 , total tion in tion in 11:43 source source PM [Moles/ data data volume] in Serum or Plasma Creatin 0.4 0.6 - MG/DL Low No Jun 25 ine 1.3 informa 2013 [Mass/v tion in 11:43 olume] source PM in data Serum or Plasma Protein 6.7 6.4 - G/DL No Jun 25 8.4 informa informa 2013 [Mass/v tion in tion in 11:43 olume] source source PM in data data Serum or Plasma Albumin 3.0 3.4 - G/DL Low No Jun 25 5.0 informa 2013 [Mass/v tion in 11:43 olume] source PM in data Serum or Plasma Globuli 3.7 2.4 - G/DL No Jun 25 n 4.8 informa informa 2013 [Mass/v tion in tion in 11:43 olume] source source PM in data data Plasma Albumin 0.8 0.6 - No No Jun 25 /Globul 1.6 informa informa informa 2014 in tion in tion in tion in 11:43 [Mass source source source PM ratio] data data data in Serum or Plasma Calcium 8.6 8.5 - MG/DL No No Jun 25 10.1 informa informa 2014 [Mass/v tion in tion in 11:43 olume] source source PM in data data Serum or Plasma Alkalin 67 45 - U/L No No Jun 25 e 117 informa informa 2014 phospha tion in tion in 11:43 tase source source PM [Enzyma data data tic activit y/volum e] in Serum or Plasma Asparta 20 15 - 37 U/L No No Jun 25 te informa informa 2014 aminotr tion in tion in 11:43 ansfera source source PM se data data [Enzyma tic activit y/volum e] in Serum or Plasma Alanine 28 12 - 78 U/L No No Jun 25 informa informa 2014 aminotr tion in tion in 11:43 ansfera source source PM se data data [Enzyma tic activit y/volum e] in Serum or Plasma Bilirub 0.10 0.00 - MG/DL No No Jun 25 in.tota 1.00 informa informa 2014 l tion in tion in 11:43 [Mass/v source source PM olume] data data in Serum or Plasma URINALYSIS COMPLETE Observa Value Referen Units Interpr Notes Date tion ce etation Range Color YELLOW No No No No Jun 25 of informa informa informa informa 2014 Urine tion in tion in tion in tion in 11:43 source source source source PM data data data data Clarity CLEAR No No No No Jun 25 of informa informa informa informa 2014 Urine tion in tion in tion in tion in 11:43 source source source source PM data data data data Glucose NEGATIV NEGATIV MG/DL No No Jun 25 E E informa informa 2013 [Presen tion in tion in 11:43 ce] in source source PM Urine data data by Automat ed test strip Bilirub NEGATIV NEGATIV No No No Jun 25 in E E informa informa informa 2013 [Presen tion in tion in tion in 11:43 ce] in source source source PM Urine data data data by Automat ed test strip Ketones NEGATIV NEGATIV MG/DL No No Jun 25 E E informa informa 2013 [Presen tion in tion in 11:43 ce] in source source PM Urine data data by Automat ed test strip Specifi 1.026 1.006 - No No No Jun 25 c 1.035 informa informa informa 2014 gravity tion in tion in tion in 11:43 of source source source PM Urine data data data by Automat ed test strip Erythro NEGATIV NEGATIV No No No Jun 25 cytes E E informa informa informa 2013 [Presen tion in tion in tion in 11:43 ce] in source source source PM Urine data data data by Automat ed pH of 6.0 5.0 - No No No Jun 25 Urine 9.0 informa informa informa 2013 by tion in tion in tion in 11:43 Automat source source source PM ed test data data data strip Protein NEGATIV NEGATIV MG/DL No No Jun 25 E E informa informa 2013 [Presen tion in tion in 11:43 ce] in source source PM Urine data data by Automat ed test strip UROBILI 1.0 0.2 - E.U./DL No No Jun 25 NOGEN 1.0 informa informa 2013 tion in tion in :43 source source PM data data Nitrate NEGATIV NEGATIV No No No Jun 25 E E informa informa informa 2013 [Presen tion in tion in tion in 11:43 ce] in source source source PM Urine data data data Leukocy NEGATIV NEGATIV No No No Jun 25 benjamin E E informa informa informa 2013 [Presen tion in tion in tion in 11:43 ce] in source source source PM Urine data data data by Automat ed Erythro 2 0 - 4 /HPF No No Jun 25 cytes informa informa 2013 [#/area tion in tion in :43 ] in source source PM Urine data data sedimen t by Microsc opy high power field WBC 1 0 - 5 /HPF No No Jun 25 COUNT informa informa 2014 tion in tion in 11:43 source source PM data data Epithel 1 0 - 6 /HPF No No Jun 25 ial informa informa 2014 cells tion in tion in 11:43 [Presen source source PM ce] in data data Urine sedimen t by Light microsc opy Bacteri NEGATIV NEGATIV /HPF No BACTERI Jun 25 a E E informa A 2013 [#/area tion in INTERPR 11:43 ] in source ETATION PM Urine data :NEGATI sedimen VE t by <=599/u Microsc lTRACE opy high >=600, power <=1199/ field ul1+ >=1200, <=2399/ ul2+ >=2400, <=3599/ ul3+ >=3600, <=4799/ ul4+ >=4800/ ul Hyaline 3 0 - 4 /LPF No No Jun 25 casts informa informa 2013 [#/area tion in tion in 11:43 ] in source source PM Urine data data sedimen t by Microsc opy high power field CBC\T\AUTO DIFF Observa Value Referen Units Interpr Notes Date tion ce etation Range Leukocy 10.9 3.0 - K/UL No No Jun 25 benjamin 11.3 informa informa 2013 [#/volu tion in tion in 11:43 me] in source source PM Blood data data by Automat ed count Erythro 3.870 3.450 - M/ul No Jun 25 cytes 5.400 informa informa 2013 [#/volu tion in tion in 11:43 me] in source source PM Blood data data by Automat ed count Hemoglo 12.1 10.0 - gm/dl No Jun 25 bin 16.0 informa informa 2013 [Mass/v tion in tion in 11:43 olume] source source PM in data data Blood Hematoc 35.3 29.9 - % No No Jun 25 rit 45.5 informa informa 2013 [Volume tion in tion in 11:43 source source PM Fractio data data n] of Blood by Automat ed count Erythro 91.2 78.2 - fl No Jun 25 cyte 101.8 informa informa 2014 mean tion in tion in 11:43 corpusc source source PM ular data data volume [Entiti c volume] by Automat ed count Erythro 31.3 26.4 - pg No No Mar 31 cyte 33.3 informa informa 2014 mean tion in tion in 11:43 corpusc source source PM ular data data hemoglo bin [Entiti c mass] by Automat ed count Erythro 34.4 32.5 - g/dl No No May 31 cyte 35.3 informa informa 2014 mean tion in tion in 11:43 corpusc source source PM ular data data hemoglo bin concent ration [Mass/v olume] by Automat ed count Erythro 13.4 10.1 - % No No May 31 cyte 16.2 informa informa 2014 distrib tion in tion in 11:43 ution source source PM width data data [Ratio] by Automat ed count Platele 186 122 - K/UL No No Jun 25 ts 454 informa informa 2014 [#/volu tion in tion in 11:43 me] in source source PM Blood data data by Automat ed count Platele 7.5 6.4 - fl No No Jun 25 t mean 10.4 informa informa 2014 volume tion in tion in 11:43 [Entiti source source PM c data data volume] in Blood by Automat ed count Neutrop 68.8 43.0 - % No No May 31 hils/10 83.0 informa informa 2014 0 tion in tion in 11:43 leukocy source source PM benjamin in data data Blood by Automat ed count Lymphoc 21.8 10.0 - % No No May 31 ytes/10 42.0 informa informa 2014 0 tion in tion in 11:43 leukocy source source PM benjamin in data data Blood by Automat ed count Monocyt 6.1 1.0 - % No No Jun 25 es/100 14.0 informa informa 2014 leukocy tion in tion in 11:43 benjamin in source source PM Blood data data by Automat ed count Eosinop 3.0 0.0 - % No No May 31 hils/10 11.0 informa informa 2014 0 tion in tion in 11:43 leukocy source source PM benjamin in data data Blood by Automat ed count Basophi 0.3 0.0 - % No No May 31 ls/100 2.0 informa informa 2014 leukocy tion in tion in 11:43 benjamin in source source PM Blood data data by Automat ed count Neutrop 7.5 2.7 - K/ul High No Jun 25 hils 6.9 informa 2013 [#/volu tion in 11:43 me] in source PM Blood data by Automat ed count Lymphoc 2.4 0.4 - K/ul No No Jun 25 ytes 3.9 informa informa 2013 [#/volu tion in tion in 11:43 me] in source source PM Blood data data by Automat ed count Monocyt 0.7 0.2 - K/ul High No Jun 25 es 0.6 informa 2013 [#/volu tion in 11:43 me] in source PM Blood data by Automat ed count Eosinop 0.3 0.0 - K/ul No No Jun 25 hils 0.9 informa informa 2013 [#/volu tion in tion in 11:43 me] in source source PM Blood data data by Automat ed count Basophi 0.0 0.0 - K/ul No No Jun 25 ls 0.2 informa informa 2013 [#/volu tion in tion in 11:43 me] in source source PM Blood data data by Automat ed count URINALYSIS COMPLETE Observa Value Referen Units Interpr Notes Date tion ce etation Range Color YELLOW No No No No Apr 15 of informa informa informa informa 2013 Urine tion in tion in tion in tion in 9:13 PM source source source source data data data data Clarity CLEAR No No No No Apr 15 of informa informa informa informa 2014 Urine tion in tion in tion in tion in 9:13 PM source source source source data data data data Glucose NEGATIV NEGATIV MG/DL No No Apr 15 E E informa informa 2013 [Presen tion in tion in 9:13 PM ce] in source source Urine data data by Automat ed test strip Bilirub NEGATIV NEGATIV No No No Apr 15 in E E informa informa informa 2013 [Presen tion in tion in tion in 9:13 PM ce] in source source source Urine data data data by Automat ed test strip Ketones NEGATIV NEGATIV MG/DL No No Apr 15 E E informa informa 2013 [Presen tion in tion in 9:13 PM ce] in source source Urine data data by Automat ed test strip Specifi 1.025 1.006 - No No No Apr 15 c 1.035 informa informa informa 2013 gravity tion in tion in tion in 9:13 PM of source source source Urine data data data by Automat ed test strip Erythro NEGATIV NEGATIV No No No Apr 15 cytes E E informa informa informa 2013 [Presen tion in tion in tion in 9:13 PM ce] in source source source Urine data data data by Automat ed pH of 7.0 5.0 - No No No Apr 15 Urine 9.0 informa informa informa 2013 by tion in tion in tion in 9:13 PM Automat source source source ed test data data data strip Protein TRACE NEGATIV MG/DL Abnorma No Apr 15 E l informa 2013 [Presen tion in 9:13 PM ce] in source Urine data by Automat ed test strip UROBILI 1.0 0.2 - E.U./DL No No Apr 15 NOGEN 1.0 informa informa 2013 tion in tion in 9:13 PM source source data data Nitrate NEGATIV NEGATIV No No No Apr 15 E E informa informa informa 2013 [Presen tion in tion in tion in 9:13 PM ce] in source source source Urine data data data Leukocy NEGATIV NEGATIV No No No Apr 15 benjamin E E informa informa informa 2013 [Presen tion in tion in tion in 9:13 PM ce] in source source source Urine data data data by Automat ed Erythro 1 0 - 4 /HPF No No Apr 15 cytes informa informa 2013 [#/area tion in tion in 9:13 PM ] in source source Urine data data sedimen t by Microsc opy high power field WBC 2 0 - 5 /HPF No No Apr 15 COUNT informa informa 2013 tion in tion in 9:13 PM source source data data Epithel 2 0 - 6 /HPF No No Apr 15 ial informa informa 2013 cells tion in tion in 9:13 PM [Presen source source ce] in data data Urine sedimen t by Light microsc opy Bacteri NEGATIV NEGATIV /HPF No BACTERI Apr 15 a E E informa A 2013 [#/area tion in INTERPR 9:13 PM ] in source ETATION Urine data :NEGATI sedimen VE t by <=599/u Micros lTRACE opy high >=600, power <=1199/ field ul1+ >=1200, <=2399/ ul2+ >=2400, <=3599/ ul3+ >=3600, <=4799/ ul4+ >=4800/ ul Hyaline 1 0 - 4 /LPF No No Apr 15 casts informa informa 2013 [#/area tion in tion in 9:13 PM ] in source source Urine data data sedimen t by Microsc opy high power field CK Observa Value Referen Units Interpr Notes Date tion ce etation Range Creatin 74 21 - U/L No No Apr 15 e 232 informa informa 2013 kinase tion in tion in 9:13 PM [Enzyma source source tic data data activit y/volum e] in Serum or Plasma ESR Observa Value Referen Units Interpr Notes Date tion ce etation Range Erythro 11 0 - 20 MM/HR No No Apr 15 cyte informa informa 2013 sedimen tion in tion in 9:13 PM tation source source rate by data data [place] mio method CRP QUANTITATIVE Observa Value Referen Units Interpr Notes Date tion ce etation Range C 0.3 0.0 - MG/DL No No Apr 15 reactiv 0.3 informa informa 2013 e tion in tion in 9:13 PM protein source source data data [Mass/v olume] in Serum or Plasma GLOMELULAR ESTEFANI. RATE,CALC. Observa Value Referen Units Interpr Notes Date tion ce etation Range Glomeru 208.8 60.0 - ml/min High THE Apr 15 lar 130.0 eGFR IS 2013 filtrat AN 9:13 PM ion ESTIMAT rate/1. ED 73 sq M GLOMELU LAR predict FILTRAT ed ION among RATEBAS non-karina ED ON cks by AN Creatin AVERAGE ine-bas BODY ed SURFACE formula AREA (MDRD) OF 1.73M2. THIS CALCULA TION IS NOT ACCURAT E FOR PEDIATR IC PATIENT S,PATIE NTS >70 YEARS OF AGE,OR PATIENT S WITH EXTREME BODY SIZE.>6 0 ML/MIN/ 1.73M2 = NORMAL< 60 ML/MIN/ 1.73M2 = CHRONIC KIDNEY DISEASE <15 ML/MIN/ 1.73M2 = KIDNEY FAILURE AVERAGE EGFR FOLLOWS :AGE(YE ARS) AVERAGE EGFR20- 39 116 ML/MIN3 0-39 107 ML/MIN4 0-49 99 ML/MIN5 0-59 93 ML/MIN6 0-69 85 ML/MIN BASIC METABOLIC PANEL (CHEM 7) Observa Value Referen Units Interpr Notes Date tion ce etation Range Glucose 92 70 - MG/DL No No Apr 15 110 informa informa 2013 [Mass/v tion in tion in 9:13 PM olume] source source in data data Serum or Plasma Urea 6 7 - 18 MG/DL Low No Apr 15 nitroge informa 2013 n tion in 9:13 PM [Mass/v source olume] data in Serum or Plasma Sodium 136 133 - mmol/L No No Apr 15 [Moles/ 144 informa informa 2013 volume] tion in tion in 9:13 PM in source source Serum data data or Plasma Potassi 4.0 3.6 - mmol/l No No Apr 15 um 5.2 informa informa 2013 [Moles/ tion in tion in 9:13 PM volume] source source in data data Serum or Plasma Chlorid 107 98 - mmol/l No No Apr 15 e 107 informa informa 2013 [Moles/ tion in tion in 9:13 PM volume] source source in data data Blood Carbon 25 21 - 32 mmol/L No No Apr 15 dioxide informa informa 2013 , total tion in tion in 9:13 PM source source [Moles/ data data volume] in Serum or Plasma Creatin 0.5 0.6 - MG/DL Low No Apr 15 ine 1.3 informa 2013 [Mass/v tion in 9:13 PM olume] source in data Serum or Plasma Calcium 8.2 8.5 - MG/DL Low No Apr 15 10.1 informa 2013 [Mass/v tion in 9:13 PM olume] source in data Serum or Plasma CBC/NO DIFF+ PLATELET Observa Value Referen Units Interpr Notes Date tion ce etation Range Leukocy 10.1 3.0 - K/UL No No Apr 15 benjamin 11.3 informa informa 2013 [#/volu tion in tion in 9:13 PM me] in source source Blood data data by Automat ed count Erythro 4.520 3.450 - M/ul No No Apr 15 cytes 5.400 informa informa 2013 [#/volu tion in tion in 9:13 PM me] in source source Blood data data by Automat ed count Hemoglo 13.8 10.0 - gm/dl No No Apr 15 bin 16.0 informa informa 2014 [Mass/v tion in tion in 9:13 PM olume] source source in data data Blood Hematoc 41.2 29.9 - % No No Apr 15 rit 45.5 informa informa 2014 [Volume tion in tion in 9:13 PM source source Fractio data data n] of Blood by Automat ed count Erythro 91.3 78.2 - fl No No Apr 15 cyte 101.8 informa informa 2014 mean tion in tion in 9:13 PM corpusc source source ular data data volume [Entiti c volume] by Automat ed count Erythro 30.5 26.4 - pg No No Apr 15 cyte 33.3 informa informa 2014 mean tion in tion in 9:13 PM corpusc source source ular data data hemoglo bin [Entiti c mass] by Automat ed count Erythro 33.4 32.5 - g/dl No No Apr 15 cyte 35.3 informa informa 2014 mean tion in tion in 9:13 PM corpusc source source ular data data hemoglo bin concent ration [Mass/v olume] by Automat ed count Erythro 12.9 10.1 - % No No Apr 15 cyte 16.2 informa informa 2014 distrib tion in tion in 9:13 PM ution source source width data data [Ratio] by Automat ed count Platele 213 122 - K/UL No No Apr 15 ts 454 informa informa 2013 [#/volu tion in tion in 9:13 PM me] in source source Blood data data by Automat ed count Platele 7.2 6.4 - fl No No Apr 15 t mean 10.4 informa informa 2014 volume tion in tion in 9:13 PM [Entiti source source c data data volume] in Blood by Automat ed count
--- OUTSIDE RECORDS SUMMARY | 2017-01-08 04:08 | External Medical Summary Rpt ---
[...] CONFORM ITORY TEST CAN BE ORDERED AT [facility]. [facility] [...] RESULTS FOR BUP/OXY REVIEWED BY: TECH = [facility] Bupreno NEGATIV No No No [place] Jun 30 rphine E informa informa informa RPHRINE 2016 [Presen tion in tion in tion in CUT 7:20 PM ce] in source source source OFF Urine data data data CONCENT RATION - 12.5 NG/ML RPR Observa Value Referen Units Interpr Notes Date [place]ion [place] [address] Reagin NONREAC NONREAC No No No Apr [...] source source ct: data data data data [id number] 710~ABO O 7 20:16 lmf~RH( D) TYPING POS 7 20:16 lmf~ANT IBODY SCREEN NEG 7 20:11 lmf~AUT OCONTRO L 7 20:22 LMF CBC/NO DIFF+ PLATELET Observa Value Referen Units Interpr Notes Date tion [place] [address] Leukocy 9.3 3.0 - K/UL No No [...] CONFORM ITORY TEST CAN BE ORDERED AT [facility]. [facility] [...] AND tion in tion in tion in [id number] 5:35 PM BROTH source source source 9 [...] data data data [Presen ct: ce] in [id number] Serum 533~ANT or IBODY Plasma SCREEN NEG [...] ORGS/ML tion in tion in tion in [id number] 9:49 AM ied in OF source source [...] pyogene tion in tion in tion in [id number] 1:37 PM s Ag REFEREN source source [...] Childre nand Adults: <40Acco rding to the [facility] [employer] l Biochem istry,t he [...] 2.0 ng/mL.P erformamilcar d at: CB, [facility] [place] [address] [address] [facility], [place], [place], [id number] [facility] kenny teresa, PhD, Phone: [phone] ormed at: ES, [facility] [place] [address], [id number] 58Samue l Daniel jones MD, Phone: [phone] ANTIMICROSOMAL AB Observa Value Referen Units Interpr [...] ORGS/ML tion in tion in tion in [id number] 4:57 PM ied in OF source source [...] data data data [Presen ct: ce] in [id number] Serum 277~ANT or IBODY Plasma SCREEN NEG [...] A data data data data Blood ct: [id number] 277~ABO O 6 07:20 mct~RH( D) TYPING [...] Notes Date tion ce etation Range Choriog 49562 No mIU/ML No FEMALE Nov 24 onadotr informa informa (NON 2016 opin tion in tion in PREGNAN 1:15 PM [Moles/ source source T) volume] data data in <31 Urine DAY - 1 WEEK 5 - 501 - 2 WEEK 50 - 5002 - 3 WEEK 100 - 24041 - 4 WEEK 500 - 488864 - 5 WEEK 1000 - 732707 - 6 WEEK 62706 - 0030271 - 8 WEEK 26968 - 2234158 - 3 MTHS 59363 - 848633 TSH Observa Value Referen Units Interpr Notes [...] - 5002 - 3 WEEK 100 - 96987 - 4 WEEK 500 - 393951 - 5 WEEK 1000 - 609754 - 6 WEEK 66869 - 6492122 - 8 WEEK 96115 - 4107172 - 3 MTHS 24561 - 139288 CBC\T\AUTO DIFF Observa Value Referen Units Interpr [...] SANA~Ac data data data data Blood ct: [id number] 627~ABO O 6 20:03 JPB~RH( D) TYPING [...] [facility] [...] - 5002 - 3 WEEK 100 - 19251 - 4 WEEK 500 - 180558 - 5 WEEK 1000 - 387800 - 6 WEEK 99844 - 4556003 - 8 WEEK 40739 - 8735622 - 3 MTHS 39088 - 148954 COMP. METABOLIC PANEL (CHEM 12) Observa Value [...] Jose A data data data data ct: [id number] 134~ABO O 6 08:35 sdh~RH( D) TYPING [...] CONFORM ITORY TEST CAN BE ORDERED AT [facility]. [facility] [...] CONFORM ITORY TEST CAN BE ORDERED AT [facility]. [facility] [...] CON[facility] [...] CONFORM ITORY TEST CAN BE ORDERED AT [facility]. [facility] [...] source source could data data data data migration consultant to adverse medical , social, No No [...] 14 tion in tion in tion in [id number] 3:53 PM years source source source 5 [...] ORGS/ML tion in tion in tion in [id number] 11:00 ied in OF source source source [...] data data data [Presen ct: ce] in 8011630 Serum 588~ANT or IBODY Plasma SCREEN NEG [...] SANA~Ac data data data data Blood ct: [id number] 588~ABO O 5 06:46 mct~RH( D) TYPING [...] CONFORM ITORY TEST CAN BE ORDERED AT [facility]. [facility] [...] SANA~Ac data data data data Blood ct: [id number] 143~ABO O 5 19:10 MJR~RH( D) TYPING [...] source source could data data data data migration consultant to adverse medical , social, No No [...] 14 tion in tion in tion in [id number] 6:33 PM years source source source 0 [...] observa tion in tion in tion in [id number] 6:33 PM tion source source source 9 [Identi data data data fier] in Unspeci ORDERED fied BY: raisa carpenter by OlindaSO prepara URCE: tion VAGINAL COLLECT ED: 5 18:33AN [facility] AT [facility] RECEIVE D : 5 19:01WE T PREP (MICRO) FINAL 5 19:2410 / FEW CLUE CELLS, MANY WBC'S, NO MOTILE TRICH OR SPERM NOTED ONWET PREP. JOHN PREP Observa Value Referen Units Interpr Notes Date tion ce etation Range Microsc NO No No No ORDER#: Jan 08 opic YEAST informa informa informa 2014 observa NOTED. tion in tion in tion in [id number] 6:33 PM tion source source source 9 [...] ORGS/ML tion in tion in tion in [id number] 4:08 PM ied in OF source source [...] - 5002 - 3 WEEK 100 - 08383 - 4 WEEK 500 - 365662 - 5 WEEK 1000 - 365505 - 6 WEEK 23151 - 1277240 - 8 WEEK 06457 - 7430912 - 3 MTHS 74692 - 797691 BASIC METABOLIC PANEL (CHEM 7) Observa Value [...] SANA~Ac data data data data Blood ct: [id number] 546~ABO O 5 16:06 SAH~RH( D) TYPING [...] source SANA~Ac data data data data ct: [id number] 482~ABO O 4 07:06 sdh~RH( D) TYPING [...] CONFORM ITORY TEST CAN BE ORDERED AT [facility]. [facility] [...] CONFORM ITORY TEST CAN BE ORDERED AT [facility]. [facility] [...] CON[facility] [...] CONFORM ITORY TEST CAN BE ORDERED AT [facility]. [facility] [...] [facility] L [...] AND tion in tion in tion in [id number] 3:30 AM BROTH source source source 8 [...] CONFORM ITORY TEST CAN BE ORDERED AT [facility]. [facility] [...] CONFORM ITORY TEST CAN BE ORDERED AT [facility]. [facility] [...] source source source atis, data data data JT Negativ e Negativ e CBNeiss eria gonorrh [...] eal specime ns.Perf ormed at: , [facility] [address], [place], [place], [address] [facility] Gil MD, Phone: [phone] JOHN PREP Observa Value Referen Units [...] ORDERED JOHN INCORRE prepara CTLY..O tion RDER#: [id number] ORDERED BY: HEATH JASMINE [facility] E: VAGINAL COLLECT ED: 4 20:20AN [facility] AT [facility] RECEIVE D : 4 20:25KO H PREP FINAL 4 20:510 NO BUDDING YEAST NOTED GONORRHEA CULTURE Observa Value Referen Units Interpr Notes Date tion ce etation Range TEST GONORRHEA CULTURE WAS CANCELLED, 07/31/13 20:26 TEST ORDERED INCORRECTLY.. TEST GONORRHEA CULTURE WAS CANCELLED, 07/31/13 20:26 TEST ORDERED INCORRECTLY.. ORDER#: [id number] ORDERED BY: BLADIMIR KIM SOURCE: VAGINAL COLLECTED: [...] ORDERED Wet INCORRE prepara CTLY..O tion RDER#: [id number] ORDERED BY: HEATH JASMINE E: VAGINAL [...] SANA~Ac data data data data Blood ct: [id number] 984~ABO O 4 00:08 LMF~RH( D) TYPING [...] Notes Date tion ce etation Range Choriog 03687 No mIU/ML No FEMALE Jun 25 onadotr informa informa (NON 2013 opin tion in tion in PREGNAN 11:43 [Moles/ source source T) PM volume] data data in <31 Urine DAY - 1 WEEK 5 - 501 - 2 WEEK 50 - 5002 - 3 WEEK 100 - 36708 - 4 WEEK 500 - 546985 - 5 WEEK 1000 - 215713 - 6 WEEK 62547 - 4849479 - 8 WEEK 40746 - - 3 MTHS 56016 - 034082 COMP. METABOLIC PANEL (CHEM 12) Observa Value [...]
== END 2017-01-04 01:39 | disposition home or self-care (01) ==
LOC: ER 23:28
PROVIDERS: Emergency Medicine
DX: N34.2 Other urethritis (principal); N28.9 Disorder of kidney and ureter, unspecified; F41.8 Other specified anxiety disorders; E03.9 Hypothyroidism, unspecified; Z88.6 Allergy status to analgesic agent
CPT/HCPCS: J2405

== ENCOUNTER → 2017-02-07 | Emergency (ER) | payer MEDICAID ==
[~2017-02-07] VITALS: Ht 162.6 cm; Wt 84.4 kg
[~2017-02-07] MED LIST: AUGMENTIN 875-1 EACH PO; AVPAK AZITHROM250 MG PO; BACTRIM DS 8001 TA1 PO; CIPRO 500MG TA500 MG PO; DOLOBID 500MG500 MG PO; LEVOTHYROXINE0.1 MG PO; PYRIDIUM200 M2 PO
--- OUTSIDE RECORDS SUMMARY | 2017-02-07 10:12 | External Medical Summary Rpt | CCD ---
Author Author , JONATAN Organization JONATAN Address Unknown Phone [email or web address] Purpose Continuity of Care Document - 04-15-2013 through 2016 Results Labs Lab Lab Date Result Refere Interp Status Commen Order Detail nces retati t Range on Urinalysis dipstick W Reflex Microscopic panel in Urine (01-03-2017 23:50) Bacteri 1+ O complet a 017 ed [Presen 23:50 ce] in Urine sedimen t by Light microsc opy Erythro 10-20 0 complet cytes 017 ed [Presen 23:50 ce] in Urine sedimen t by Light microsc opy Epithel 3-5 0#/hp complet ial 017 f - ed cells.s 23:50 5#/hp quamous f [Presen ce] in Urine sedimen t by Microsc opy high power field Urinalysis dipstick W Reflex Microscopic panel in Urine (01-03-2017 23:50) Appeara CLEAR CLEAR complet nce of 017 ed Urine 23:50 Bilirub NEGATIV NEG complet in 017 E ed [Presen 23:50 ce] in Urine by Test strip Erythro 2+ NEG Abnorma complet cytes 017 l ed [Presen 23:50 ce] in Urine Color YELLOW YELLOW complet of 017 ed Urine 23:50 Ketones NEGATIV NEG complet 017 E ed [Presen 23:50 ce] in Urine by Automat ed test strip Mucus NEGATIV NEG complet [Presen 017 E ed ce] in 23:50 Urine sedimen t by Light microsc opy Nitrite NEGATIV NEG complet 017 E ed [Presen 23:50 ce] in Urine by Test strip Urobili 0.2 NEG complet nogen 017 ed [Presen 23:50 ce] in Urine by Test strip
--- OUTSIDE RECORDS SUMMARY | 2017-02-07 10:12 | External Medical Summary Rpt | CCD ---
Demographics Preferred Language Korean Marital Status Unknown Adventism Affiliation Unknown Race Unknown Ethnic Group Unknown Author Author , JONATAN CHEUNG Address Unknown Phone Immunization No patient found.
--- OUTSIDE RECORDS SUMMARY | 2017-02-07 10:12 | External Medical Summary Rpt | CCD ---
Demographics Preferred Language Estonian Marital Status Unknown Spiritism Affiliation Unknown Race Unknown Ethnic Group Unknown Author Author , JONATAN CHEUNG Address Unknown Phone Immunization No patient found.
--- OUTSIDE RECORDS SUMMARY | 2017-02-07 10:12 | External Medical Summary Rpt | CCD ---
Author Author , JONATAN Organization JONATAN Address Unknown Phone [email or web address] Purpose Continuity of Care Document - 04-15-2013 [...]
--- OUTSIDE RECORDS SUMMARY | 2017-02-07 10:27 | External Medical Summary Rpt ---
Author Author PHANIMENDEZ Wylie, [employer] Address Unknown Phone Unavailable Results Comprehensive metabolic 2000 panel in Serum or Plasma Observa Value Referen Units Interpr Notes Date tion ce etation Range Albumin/G 1.1 - 1.8 No Low No Oct 10 lobulin informati informati 2017 [Mass on in on in 12:05 AM ratio] in source source Serum or data data Plasma Albumin 3.4 - 5.0 gm/dL Normal No Oct 10 [Mass/vol informati 2016 ume] in on in 12:05 AM Serum or source Plasma data Alkaline 46 - 116 U/L Normal No Oct 10 phosphata informati 2017 se on in 12:05 AM [Enzymati source c data activity/ volume] in Serum or Plasma Bilirubin 0.2 - 1.0 mg/dL Normal No Oct 10 .total informati 2016 [Mass/vol on in 12:05 AM ume] in source Serum or data Plasma Urea 7 - 18 mg/dL Normal No Oct 10 nitrogen informati 2017 [Mass/vol on in 12:05 AM ume] in source Serum or data Plasma Calcium 8.5 - mg/dL Normal No Oct 10 [Mass/vol 10.1 informati 2016 ume] in on in 12:05 AM Serum or source Plasma data Chloride 98 - 107 mmoL/L Normal No Oct 10 [Moles/vo informati 2017 lume] in on in 12:05 AM Serum or source Plasma data Carbon 21.0 - mmoL/L Normal No Oct 10 dioxide, 32.0 informati 2017 total on in 12:05 AM [Moles/vo source lume] in data Serum or Plasma Creatinin 0.55 - mg/dL Normal No Oct 10 e 1.02 informati 2017 [Mass/vol on in 12:05 AM ume] in source Serum or data Plasma Creatinin 50 - 200 ML/MIN Normal No Oct 10 e renal informati 2017 clearance on in 12:05 AM source predicted data by Cockcroft -Gault formula Estimated 59- ML/MIN No REFERENCE Oct 10 informati RANGE: 2017 glomerula on in >60 12:05 AM r source ML/MIN/1. filtratio data 73 SQUARE n rate METERSIf (GF this patient is -A merican, then multiply theresult by 1.210. Globulin 1.3 - 3.2 gm/dL High No Jan 04 [Mass/vol informati 2016 ume] in on in 12:05 AM Serum source data Glucose 74 - 106 mg/dL High No Jan 04 [Mass/vol informati 2016 ume] in on in 12:05 AM Serum or source Plasma data Potassium 3.5 - 5.1 mmoL/L Normal No Jan 042016 [Moles/vo on in 12:05 AM lume] in source Serum or data Plasma Sodium 136 - 145 mmoL/L Normal No Jan 04 [Moles/vo informati 2016 lume] in on in 12:05 AM Serum or source Plasma data Aspartate 15 - 37 U/L High No Jan 042016 aminotran on in 12:05 AM sferase source [Enzymati data c activity/ volume] in Serum or Plasma Alanine 12 - 78 U/L High No Jan 04 aminotran informati 2016 sferase on in 12:05 AM [Enzymati source c data activity/ volume] in Serum or Plasma Protein 6.4 - 8.2 gm/dL Normal No Jan 04 [Mass/vol informati 2016 ume] in on in 12:05 AM Serum or source Plasma data Lipase [Enzymatic activity/volume] in Serum or Plasma Observa Value Referen Units Interpr Notes Date tion ce etation Range Lipase 73 - 393 U/L Normal No Jan 04 [Enzymati informati 2016 c on in 12:05 AM activity/ source volume] data in Serum or Plasma CBC W Auto Differential panel in Blood Observa Value Referen Units Interpr Notes Date tion ce etation Range Basophils 0 - 0.2 K/MM3 Normal No Jan 042016 [#/volume on in 12:05 AM ] in source Blood by data Automated count Basophils 0.1 - 2.0 % Normal No Jan 04 /2016 leukocyte on in 12:05 AM s in source Blood by data Automated count Eosinophi 0.0 - 0.4 K/mm3 Normal No Jan 04 ls 2016 [#/volume on in 12:05 AM ] in source Blood by data Automated count Eosinophi 0.1 - % Normal No Jan 04 ls/100 12.0 inform2016 leukocyte on in 12:05 AM s in source Blood by data Automated count Granulocy 1.8 - 7.8 K/mm3 Normal No Jan 04 benjamin inform2016 [#/volume on in 12:05 AM ] in source Blood by data Automated count Granulocy 37.0 - % Normal No Jan 04 benjamin/100 80.0 informati 2016 leukocyte on in 12:05 AM s in source Blood by data Automated count Hematocri 37.0 - % Normal No Jan 04 t [Volume 47.0 informati 2016 on in 12:05 AM Fraction] source of Blood data Hemoglobi 12.2 - g/dL Normal No Jan 04 n 16.2 informati 2016 [Mass/vol on in 12:05 AM ume] in source Blood data Lymphocyt 0.7 - 4.5 K/mm3 Normal No Jan 04 es informati 2016 [#/volume on in 12:05 AM ] in source Unspecifi data ed specimen by Automated count Lymphocyt 10 - 50.0 % Normal No Jan 04 es inform2016 [#/volume on in 12:05 AM ] in source Unspecifi data ed specimen by Automated count Erythrocy 27 - 31.2 pg Normal No Jan 04 te mean 2016 corpuscul on in 12:05 AM ar source hemoglobi data n [Entitic mass] Erythrocy 31.8 - g/dl Normal No Jan 04 te mean 35.4 inform2016 corpuscul on in 12:05 AM ar source hemoglobi data n concentra tion [Mass/vol ume] by Automated count Erythrocy 82.2 - fl Normal No Jan 04 te mean 97.8 inform2016 corpuscul on in 12:05 AM ar volume source [Entitic data volume] by Automated count Monocytes 0.1 - 1.0 K/mm3 Normal No Jan 04 inform2016 [#/volume on in 12:05 AM ] in source Blood by data Automated count Monocytes 1.7 - 9.3 % Normal No Jan 04 / inform2016 leukocyte on in 12:05 AM s in source Blood by data Automated count Platelet 7.4 - fl Low No Jan 04 mean 10.4 informati 2016 volume on in 12:05 AM [Entitic source volume] data in Blood by Automated count Platelets 142 - 424 K/mm3 Normal No Jan 04 informati 2017 [#/volume on in 12:05 AM ] in source Blood data Erythrocy 4.2 - 5.4 M/mm3 Normal No Jan 04 benjamin inform2016 [#/volume on in 12:05 AM ] in source Amniotic data fluid Erythrocy 11.5 - % Normal No Jan 04 te 17.5 informati 2016 distribut on in 12:05 AM ion width source [Entitic data volume] by Automated count Leukocyte 4.8 - K/MM3 Normal No Jan 04 s 10.8 informati 2016 [#/volume on in 12:05 AM ] in source Blood data Urinalysis dipstick W Reflex Microscopic panel in Urine Observa Value Referen Units Interpr Notes Date tion ce etation Range Appeara CLEAR CLEAR No No No Jan 03 nce of informa informa informa 2016 Urine tion in tion in tion in 11:50 source source source PM data data data Bacteri 1+ O No No No Jan 03 a informa informa informa 2016 [Presen tion in tion in tion in 11:50 ce] in source source source PM Urine data data data sedimen t by Light microsc opy Bilirub NEGATIV NEG No No No Jan 03 in E informa informa informa 2016 [Presen tion in tion in tion in 11:50 ce] in source source source PM Urine data data data by Test strip Erythro 2+ NEG No Abnorma No Jan 03 cytes informa l informa 2016 [Presen tion in tion in 11:50 ce] in source source PM Urine data data Color YELLOW YELLOW No No No Jan 03 of informa informa informa 2016 Urine tion in tion in tion in 11:50 source source source PM data data data Glucose NEG No No No Jan 03 [Mass/vol informati informati informati 2016 ume] in on in on in on in 11:50 PM Urine by source source source Test data data data strip Ketones NEGATIV NEG mg/dL No No Jan 03 E informa informa 2016 [Presen tion in tion in 11:50 ce] in source source PM Urine data data by Automat ed test strip Mucus NEGATIV NEG No No No Jan 03 [Presen E informa informa informa 2016 ce] in tion in tion in tion in 11:50 Urine source source source PM sedimen data data data t by Light microsc opy Nitrite NEGATIV NEG No No No Jan 03 E informa informa informa 2016 [Presen tion in tion in tion in 11:50 ce] in source source source PM Urine data data data by Test strip pH of 5.0 - 8.5 No Normal No Jan 03 Urine informati informati 2017 on in on in 11:50 PM source source data data Protein NEG mg/dL No No Jan 03 [Mass/vol informati informati 2017 ume] in on in on in 11:50 PM Urine by source source Automated data data test strip Erythro 10-20 0 rbc/hpf No No Jan 03 cytes informa informa 2016 [Presen tion in tion in 11:50 ce] in source source PM Urine data data sedimen t by Light microsc opy Specific 1.005 - No Normal No Jan 03 gravity 1.030 informati informati 2017 of Urine on in on in 11:50 PM source source data data Epithel 3-5 0 - 5 #/hpf No No Jan 03 ial informa informa 2017 cells.s tion in tion in 11:50 quamous source source PM data data [Presen ce] in Urine sedimen t by Microsc opy high power field Urobili 0.2 NEG E.U./dL No No Jan 03 nogen informa informa 2016 [Presen tion in tion in 11:50 ce] in source source PM Urine data data by Test strip Leukocyte O wbc/hpf No No Jan 03 s informati informati 2017 [#/volume on in on in 11:50 PM ] in source source Urine data data Urinalysis dipstick W Reflex Microscopic panel in Urine Observa Value Referen Units Interpr Notes Date tion ce etation Range Appeara CLEAR CLEAR No No No Jan 03 nce of informa informa informa 2017 Urine tion in tion in tion in 11:50 source source source PM data data data Bilirub NEGATIV NEG No No No Jan 03 in E informa informa informa 2016 [Presen tion in tion in tion in 11:50 ce] in source source source PM Urine data data data by Test strip Erythro 2+ NEG No Abnorma No Jan 03 cytes informa l informa 2016 [Presen tion in tion in 11:50 ce] in source source PM Urine data data Color YELLOW YELLOW No No No Jan 03 of informa informa informa 2017 Urine tion in tion in tion in 11:50 source source source PM data data data Glucose NEG No No No Jan 03 [Mass/vol informati informati informati 2016 ume] in on in on in on in 11:50 PM Urine by source source source Test data data data strip Ketones NEGATIV NEG mg/dL No No Jan 03 E informa informa 2016 [Presen tion in tion in 11:50 ce] in source source PM Urine data data by Automat ed test strip Mucus NEGATIV NEG No No No Jan 03 [Presen E informa informa informa 2016 ce] in tion in tion in tion in 11:50 Urine source source source PM sedimen data data data t by Light microsc opy Nitrite NEGATIV NEG No No No Jan 03 E informa informa informa 2016 [Presen tion in tion in tion in 11:50 ce] in source source source PM Urine data data data by Test strip pH of 5.0 - 8.5 No Normal No Jan 03 Urine informati informati 2017 on in on in 11:50 PM source source data data Protein NEG mg/dL No No Jan 03 [Mass/vol informati informati 2016 ume] in on in on in 11:50 PM Urine by source source Automated data data test strip Specific 1.005 - No Normal No Jan 03 gravity 1.030 informati informati 2016 of Urine on in on in 11:50 PM source source data data Urobili 0.2 NEG E.U./dL No No Jan 03 nogen informa informa 2016 [Presen tion in tion in 11:50 ce] in source source PM Urine data data by Test strip Choriogonadotropin.beta subunit [Units] in 24 hour Urine Observa Value Referen Units Interpr Notes Date tion ce etation Range Choriogon NEG No No No Jan 03 adotropin informati informati informati 2017 .beta on in on in on in 11:50 PM subunit source source source [Units] data data data in 24 hour Urine HGB\T\HCT Observa Value Referen Units Interpr [...] Notes Date ti ce etation Range Glucose 90 70 - MG/DL No RN Jun 6 110 informa Notifie 2017 [Mass/v tion in d 1:51 AM olume] source in data Blood PH CORD BLOOD Observa Value Referen Units Interpr Notes Date ti ce etation Range pH of 7.247 7.170 [...] No Jun 30 E E informa informa 2016 [Presen tion in tion in 7:20 PM ce] in source source Urine data data by Automat ed test strip Bilirub NEGATIV NEGATIV No No No Jun 30 in E E informa informa informa 2016 [Presen tion in tion in tion in 7:20 PM ce] in source source source Urine data data data by Automat ed test strip Ketones NEGATIV NEGATIV MG/DL No No Jun 30 E E informa informa 2016 [Presen tion in tion in 7:20 PM ce] in source source Urine data data by Automat ed test strip Specifi 1.019 1.006 - No No No Jun 30 c 1.035 informa informa informa 2017 gravity tion in tion in tion in 7:20 PM of source source source Urine data data data by Automat ed test strip Erythro NEGATIV NEGATIV No No No Apr 5 cytes E E informa informa informa 2016 [...] 1.0 0.2 - E.U./DL No No Jun 30 NOGEN 1.0 informa informa 2016 tion in tion in 7:20 PM source source data data Nitrate NEGATIV NEGATIV No No No Jun 30 E E informa informa informa 2016 [Presen [...] No No Apr 5 COUNT informa informa 2017 tion in tion in 7:20 PM source source data data Epithel 4 0 - 6 /HPF No No Apr 5 ial informa informa 2017 cells tion in tion in 7:20 PM [Presen source source ce] in data data Urine sedimen t by Light microsc opy Bacteri TRACE NEGATIV /HPF Abnorma BACTERI Apr 5 a E l A 2016 [#/area INTERPR 7:20 PM ] in ETATION Urine :NEGATI sedimen VE t by <=599/u Microsc lTRACE opy high >=600, power <=1199/ field ul1+ >=1200, <=2399/ ul2+ >=2400, <=3599/ ul3+ >=3600, <=4799/ ul4+ >=4800/ ul Hyaline 2 0 - 4 /LPF No No Apr 5 casts informa informa 2016 [#/area tion in tion in 7:20 PM ] in source source Urine data [facility] high power field UR IN HOUSE [...] Benzodi NEG NEGATIV ug/ML No BENZODI Apr azepine E informa AZEPINE 2017 s tion in CUT 7:20 PM [Presen source OFF ce] in data CONCENT Urine RATION by - 200 Screen method Cocaine NEG NEGATIV ug/ML No COCAINE Jun 30 E informa CUT 2016 [Presen tion in OFF 7:20 PM ce] in source CONCENT Urine data RATION by - 300 Screen method Opiates NEG NEGATIV ug/ML No OPIATE Jun 30 E informa CUT OFF 2016 [Presen tion in 7:20 PM ce] in source CONCENT Urine data RATION by - 300 Screen method Cannabi NEG NEGATIV NG/ML No THC CUT Apr 5 noids E informa OFF 2016 [Presen tion in CONCENT 7:20 PM ce] in source RATION Urine data - 50 by Screen method Methado NEG NEGATIV ug/ML No METHADO Apr ne E informa NE CUT 2016 [Presen tion in OFF 7:20 PM ce] in source CONCENT Urine data RATION by - Screen 300THES method E RESULTS PROVIDE ONLY A PRELIMI NARY TEST RESULT. THEREIS A POSSIBI LITY THAT OVER THE COUNTER DRUGS MAY INTERFE REWITH THE TEST. CONFORM ITORY TEST CAN BE ORDERED AT [facility] RETION OF THE PHYSICI AN. CLINICA [...] RESULTS FOR BUP/OXY REVIEWED BY: TECH = [facility] Oxycodo NEGATIV No No No CONCENT Apr 5 ne E informa informa informa RATIONS 2017 [Presen tion in tion in tion in OF 7:20 PM ce] in source source source >625 Urine data data data NG/ML by OF Screen HYDROCO method DONE AND >100 NG/ML OF OXYCODO NECAUSE POSITIV E RESULTS BUPRENORPHINE,QUAL Observa Value Referen Units Interpr Notes Date tion ce etation Range N/A VERIFIED RESULTS FOR BUP/OXY REVIEWED BY: TECH = [facility] Bupreno NEGATIV No No No BUPRENO Jun 30 rphine E informa informa informa RPHRINE 2017 [Presen tion in tion in tion in CUT 7:20 PM ce] in source source source OFF Urine data data data CONCENT RATION - 12.5 NG/ML RPR Observa Value Referen Units Interpr Notes Date tion [place] [address] Reagin NONREAC NONREAC No No No Jun 5 Ab TIVE TIVE informa informa informa 2017 [Presen tion in tion in tion in 6:35 PM ce] in source source source Serum data data data by RPR TYPE AND SCREEN Observa Value Referen Units Interpr Notes Date tion ce etation Range TYPE TEXT~Na No No No No Jun 5 AND me: informa informa informa informa 2017 SCREEN JUAN, tion in tion in tion in tion in 6:35 PM SANA~Ac source source source source ct: data data data data [id number]~ABO O 7 20:16 lmf~RH( D) TYPING POS 7 20:16 lmf~ANT IBODY SCREEN NEG 7 20:11 lmf~AUT OCONTRO L 7 20:22 LMF CBC/NO DIFF+ PLATELET Observa Value Referen Units Interpr Notes Date tion [place] [address] Leukocy 9.3 3.0 - K/UL No No [...] No Jun 30 cyte 35.3 informa informa 2016 mean tion in tion in 6:35 PM [...] No Jun 30 ts 454 informa informa 2016 [#/volu tion in tion in 6:35 PM me] in source source Blood data data by Automat ed count Platele 8.6 6.4 - fl No No Apr 5 t mean 10.4 informa informa 2017 volume tion in tion in 6:35 PM [Entiti source source c data data volume] in Blood by Automat ed count UA, MICROSCOPIC REVIEW Observa Value Referen Units Interpr Notes Date tion ce etation Range WBC 0-5 0 - 5 HPF No No Apr 4 informa informa 2017 tion in tion in 1:00 PM source source data data Epithel 1-5 No HPF No No Apr 4 ial informa informa informa 2017 cells tion [...] Abnorma No Jun 4 a l informa 2016 [#/area tion in 1:00 PM ] in [...] No Jun 4 E E informa informa 2016 [Presen tion in tion in 1:00 PM ce] in source source Urine data data by Automat ed test strip Bilirub NEGATIV NEGATIV No No No Jun 4 in E E informa informa informa 2016 [Presen tion in tion in tion in 1:00 PM ce] in source source source Urine data data data by Automat ed test strip Ketones TRACE NEGATIV MG/DL Abnorma No Jun 4 E l informa 2016 [Presen tion in 1:00 PM ce] in source Urine data by Automat ed test strip Specifi 1.020 1.006 - No No No Jun 4 c 1.035 informa informa informa 2017 gravity [...] Nitrate NEGATIV NEGATIV No No No Jun 29 E E informa informa informa 2016 [Presen tion in tion in tion in 1:00 PM ce] in source source source Urine data data data Leukocy SMALL NEGATIV No Abnorma No Jun 29 benjamin E informa l informa 2016 [Presen tion in tion in 1:00 PM ce] in source source Urine data data by Automat ed BUPRENORPHINE,QUAL Observa Value Referen Units Interpr Notes Date tion ce etation Range n/a VERIFIED RESULTS FOR BUP/OXY REVIEWED BY: TECH = [facility] Bupreno NEGATIV No No No BUPRENO Apr 4 rphine E informa informa informa RPHRINE 2016 [...] Cocaine NEG NEGATIV ug/ML No COCAINE Jun 4 E informa CUT 2016 [Presen tion in OFF 1:00 PM ce] in source CONCENT Urine data RATION by - 300 Screen method Opiates NEG NEGATIV ug/ML No OPIATE Jun 4 E informa CUT OFF 2016 [Presen [...] CONFORM ITORY TEST CAN BE ORDERED AT [facility] RETION OF THE PHYSICI AN. CLINICA [...] STREP GROUP B informa informa informa informa 2017 SCREEN tion in tion in tion in tion in 5:35 PM STREPTO source source source source COCCUS data data data data ISOLATE D USING DIRECT GROUP B INOCULA No No No ORDER#: Jun 08 STREP TION informa informa informa 2017 SCREEN AND tion in tion in tion in [id number] 5:35 PM BROTH source source source 9 ENHANCE data data data MENT PROCEDU RES. ORDERED BY: MANINDER ETIENNE RSOURCE : VAGINAL /RECTAL COLLECT ED: 7 17:35AN TIBIODAVI CS AT SINGH.: RECEIVE D : 7 17:56GR OUP B STREP SCREEN FINAL 7 08:1403 NO GROUP B STREPTO COCCUS ISOLATE D USING DIRECTI NOCULAT ION AND BROTH ENHANCE MENT PROCEDU RES. UA, MICROSCOPIC REVIEW Observa Value Referen Units Interpr Notes Date ti ce etation Range WBC 5-10 0 - 5 HPF Abnorma No Jun 06 l informa 2016 tion in 1:40 AM source data Epithel 10-15 No HPF No No Jun 06 ial informa informa informa 2016 cells tion [...] 06 cytes E E informa informa informa 2016 [...] Jun 06 E E informa informa informa 2016 [Presen tion in tion in tion in 1:40 AM ce] in source source source Urine data data data Leukocy SMALL NEGATIV No Abnorma No Jun 06 benjamin E informa l informa 2016 [Presen [...] MG/DL Low No Jun 06 nitroge informa 2016 n tion in 1:25 AM [Mass/v source olume] data in Serum or Plasma Sodium 136 133 - mmol/L No Jun 06 [Moles/ 144 informa informa 2017 volume] tion in tion in 1:25 AM in source source Serum data data or Plasma Potassi 4.0 3.6 - mmol/l No No Jun 06 um 5.2 informa informa 2016 [Moles/ tion in tion in 1:25 AM volume] source source in data data Serum or Plasma Chlorid 107 98 - mmol/l No No Jun 06 e 107 informa informa 2016 [Moles/ tion in tion in 1:25 AM volume] source source in data data Blood Carbon 20 21 - 32 mmol/L Low No Jun 06 dioxide informa 2016 , total tion in 1:25 AM source [Moles/ data volume] in Serum or Plasma Creatin 0.40 0.60 - MG/DL Low No Jun 06 ine 1.30 informa 2016 [Mass/v tion in 1:25 AM [...] No No Jun 06 10.1 informa informa 2016 [Mass/v tion in tion in 1:25 AM olume] source source in data data Serum or Plasma Alkalin 132 45 - U/L High No Jun 06 e 117 inform2016 phospha tion in 1:25 AM tase source [...] No Jun 06 in.tota 1.00 informa informa 2017 l tion in tion in 1:25 AM [...] No Jun 06 ts 454 informa informa 2016 [#/volu tion [...] High No Jun 06 hils 6.9 informa 2016 [#/volu tion in 1:25 AM me] in source Blood data by Automat ed count Lymphoc 2.2 0.4 - K/ul No No Jun 06 ytes 3.9 informa informa 2016 [#/volu tion in tion in 1:25 AM me] in source source Blood data data by Automat ed count Monocyt 0.6 0.2 - K/ul No No May 12 es 0.6 informa informa 2016 [#/volu tion in tion in 1:25 AM me] in source source Blood data data by Automat ed count Eosinop 0.2 0.0 - K/ul No No Jun 06 hils 0.9 informa informa 2017 [#/volu tion in tion [...] No May 24 opin 3.740 informa informa 2017 [Units/ tion in tion in 11:32 volume] [...] data data data [Presen ct: ce] in [id number] Serum 533~ANT or IBODY Plasma SCREEN NEG [...] No Apr 15 bin 16.0 informa informa 2017 [Mass/v tion in tion in 9:19 AM [...] No Apr 15 cyte 33.3 informa informa 2016 mean tion in tion in 9:19 AM corpusc source source ular data data hemoglo bin [Entiti c mass] by Automat ed count Erythro 33.8 32.5 - g/dl No No Apr 15 cyte 35.3 informa informa 2016 mean tion in tion in 9:19 AM corpusc source source ular data data hemoglo bin concent ration [Mass/v olume] by Automat ed count Erythro 14.3 10.1 - % No No Apr 15 cyte 16.2 informa informa 2016 distrib tion in tion in 9:19 AM [...] Apr 15 t mean 10.4 informa informa 2016 volume tion in tion in 9:19 AM [...] No Apr 15 hils/10 9.0 informa informa 2017 0 tion [...] 017 6:39 am\.br\ \.br\Tr anscrib ed by: 017 6:53 am\.br\ \.br\Au thentic ated by: [...] 11 in E E informa informa informa 2017 [...] Apr 11 E E informa informa informa 2016 [Presen [...] No No Apr 11 cytes informa informa 2017 [#/area tion in tion in 11:18 ] in source source PM Urine data data sedimen t by Microsc opy high power field WBC 1 0 - 5 /HPF No No Apr 11 COUNT informa informa 2017 tion in tion in 11:18 source source PM data data Epithel 1 0 - 6 /HPF No No Apr 11 ial informa informa 2016 cells tion in tion in 11:18 [Presen [...] No Apr 11 cyte 33.3 informa informa 2017 mean tion in tion in 11:08 corpusc source source PM ular data data hemoglo bin [Entiti c mass] by Automat ed count Erythro 33.8 32.5 - g/dl No No Apr 11 cyte 35.3 informa informa 2017 mean tion in tion in 11:08 corpusc source source PM ular data data hemoglo bin concent ration [Mass/v olume] by Automat ed count Erythro 14.3 10.1 - % No No Apr 11 cyte 16.2 informa informa 2017 distrib tion in tion in 11:08 ution [...] No Apr 11 ytes/10 42.0 informa informa 2016 0 tion in tion in 11:08 leukocy source source PM benjamin in data data Blood by Automat ed count Monocyt 4.8 1.0 - % No No Apr 11 es/100 14.0 informa informa 2016 leukocy tion in tion in 11:08 benjamin [...] MG/DL High No Apr 11 110 informa 2016 [Mass/v tion in 11:08 olume] [...] No No Apr 11 dioxide informa informa 2017 , total tion in tion in 11:08 [...] Albumin 0.6 0.6 - No No No Apr 11 /Globul 1.6 informa informa informa 2017 in [...] ORGS/ML tion in tion in tion in [id number] 9:49 AM ied in OF source source source 0 Urine MIXED data data data by SKIN Culture ERIS. ORDERED BY: ROWAN ALEXANDRA: CLEAN CATCH URINE COLLECT ED: 6 09:49AN DENZEL CS AT SINGH.: RECEIVE D : 6 11:55UR INE CULTURE FINAL 6 08:2612 >100,00 0 ORGS/ML OF MIXED SKIN [...] 15 in E E informa informa informa 2015 [...] Mar 15 E E informa informa informa 2016 [Presen tion in tion in tion in 9:49 AM ce] in source source source Urine data data data Leukocy SMALL NEGATIV No Abnorma No Mar 15 benjamin E informa l informa 2016 [Presen [...] Interpr Notes Date ti ce etation Range Thyrotr 6.620 0.358 - uIU/ML High No Mar 15 opin 3.740 informa 2015 [Units/ tion in 9:35 AM volume] source in data Serum or Plasma by Detecti on limit <= 0.005 mU/L GLOMELULAR ESTEFANI. RATE,CALC. Observa Value Referen Units Interpr Notes Date ce etation Range Glomeru 184.9 60.0 - [...] Observa Value Referen Units Interpr Notes Date etation Range Glucose 102 70 - MG/DL No No Mar 15 110 informa informa 2015 [Mass/v tion in tion in 9:35 AM olume] source source in data data Serum or Plasma Urea 5 7 - 18 MG/DL Low No Mar 15 nitroge informa 2016 n tion in 9:35 AM [Mass/v source olume] data in Serum or Plasma Sodium 137 133 - mmol/L No No Mar 15 [Moles/ 144 informa informa 2016 volume] tion in tion in 9:35 AM in source source Serum data data or Plasma Potassi 3.8 3.6 - mmol/l No No Mar 15 um 5.2 informa informa 2015 [Moles/ tion in tion in 9:35 AM volume] source source in data data Serum or Plasma Chlorid 107 98 - mmol/l No No Mar 15 e 107 informa informa 2016 [Moles/ tion in tion in 9:35 AM volume] source source in data data Blood Carbon 20 21 - 32 mmol/L Low No Mar 15 dioxide informa 2016 , total tion in 9:35 AM source [Moles/ data volume] in Serum or Plasma Creatin 0.40 0.60 - MG/DL Low No Mar 15 ine 1.30 informa 2015 [Mass/v tion in 9:35 AM olume] source in data Serum or Plasma Protein 6.2 6.4 - G/DL Low No Mar 15 8.4 informa 2015 [Mass/v tion [...] Plasma Calcium 8.1 8.5 - MG/DL Low No Mar 15 10.1 informa 2015 [Mass/v tion in 9:35 AM olume] source in data Serum or Plasma Alkalin 71 45 - U/L No No Mar 15 e 117 informa informa 2016 phospha tion in tion in 9:35 AM tase source source [Enzyma data data tic activit y/volum e] in Serum or Plasma Asparta 19 15 - 37 U/L No No Mar 15 te informa informa 2016 aminotr tion in tion in 9:35 AM ansfera source source se data data [Enzyma tic activit y/volum e] in Serum or Plasma Alanine 16 12 - 78 U/L No No Mar 15 informa informa 2016 aminotr [...] Platele 163 122 - K/UL No No Mar 15 ts 454 informa informa 2016 [#/volu tion in tion in 9:35 AM me] in source source Blood data data by Automat ed count Platele 7.8 6.4 - fl No No Mar 15 t mean 10.4 informa informa 2016 volume tion in tion in 9:35 AM [Entiti source source c data data volume] in Blood by Automat ed count Neutrop 75.2 43.0 - % No Mar 15 hils/10 83.0 informa informa [...] count Eosinop 2.3 0.0 - % No No Mar 15 hils/10 9.0 informa informa [...] No Mar 15 hils 6.9 informa informa 2016 [#/volu tion in tion in 9:35 AM me] in source source Blood data data by Automat ed count Lymphoc 1.4 0.4 - K/ul No Mar 15 ytes 3.9 informa informa 2016 [#/volu tion in tion in 9:35 AM me] in source source Blood data data by Automat ed count Monocyt 0.4 0.2 - K/ul No Mar 15 es 0.6 informa informa 2016 [#/volu tion in tion in 9:35 AM me] in source source Blood data data by Automat ed count Eosinop 0.2 0.0 - K/ul No No Mar 15 hils 0.9 informa inform2015 [#/volu tion in tion in 9:35 AM me] in source source Blood data data by Automat ed count Basophi 0.0 0.0 - K/ul No No Mar 15 ls 0.2 informa inform2015 [#/volu tion in tion in 9:35 AM me] in source source Blood data data by Automat ed count TSH Observa Value Referen Units Interpr Notes Date tion ce etation Range do in 6 weeks\.br\do in 6 weeks Thyrotr 3.840 0.358 - uIU/ML High No Mar 02 opin 3.740 inform2015 [Units/ tion in 1:00 PM volume] source [...] uIU/ML High No Mar 01 opin 3.740 inform2015 [Units/ tion in 9:09 AM volume] source [...] *\.br\\ .br\Jordon Nino M.D.\.b r\\.br\ Dictate d: 7:49 PM\.br\ \.br\Tr anscrib ed: 8:01 PM\.br\ \.br\ * Final Report \.br \\.br\D ictated : ISSAC NINO M.D. 7:49 pm\.br\ \.br\Tr anscrib ed by: CS 8:01 pm\.br\ \.br\Au thentic ated by: ISSAC NINO M.D. 8:39 pm\.br\ \.br\ XR Ankle Complete Right Observa Value Referen Units Interpr Notes Date tion ce etation Range TEXT [employer] No No No No Nov DIAGNOS t Order informa informa informa informa [...] .br\\.b r\ END OF REPORT* *\.br\\ .br\Jordon Nino M.D.\.b r\\.br\ Dictate d: 7:48 PM\.br\ \.br\Tr anscrib ed: 8:00 PM\.br\ \.br\ * Final Report \.br \\.br\D ictated : ISSAC NINO M.D. 7:48 pm\.br\ \.br\Tr anscrib ed by: KERON 8:01 [...] MG/DL High No Feb 05 110 informa 2015 [Mass/v tion in 11:15 olume] [...] Carbon 19 21 - 32 mmol/L Low No Feb 05 dioxide informa 2016 , total tion in 11:15 source AM [Moles/ data volume] in Serum or Plasma Creatin 0.40 0.60 - MG/DL Low No Feb 05 ine 1.30 informa 2016 [Mass/v tion in 11:15 olume] source AM in data Serum or Plasma Protein 6.1 6.4 - G/DL Low No Feb 05 8.4 informa 2016 [Mass/v tion in 11:15 olume] source AM in data Serum or Plasma Albumin 2.5 3.4 - G/DL Low No Feb 05 5.0 informa 2015 [Mass/v tion [...] Plasma Calcium 8.0 8.5 - MG/DL Low No Feb 05 10.1 informa 2016 [Mass/v tion in 11:15 olume] source AM in data Serum or Plasma Alkalin 60 45 - U/L No No Feb 05 e 117 informa informa 2016 phospha tion in tion in 11:15 tase source source AM [Enzyma data data tic activit y/volum e] in Serum or Plasma Asparta 16 15 - 37 U/L No No Feb 05 te informa informa 2016 aminotr tion in [...] Plasma Bilirub 0.30 0.00 - MG/DL No Feb 05 in.tota 1.00 informa informa 2016 l tion in tion in 11:15 [Mass/v source source AM olume] data data in Serum or Plasma TROPONIN I, ULTRA Observa Value Referen Units Interpr Notes Date tion ce etation Range Troponi <0.015 0.000 - ng/mL No * Feb 05 n 0.045 informa Elevati 2016 I.cardi tion in on of 11:15 ac source Troponi AM [Mass/v data n [...] 05 DIAGNOS t Order informa informa informa informa 2016 IS tion in tion in tion in tion in 11:15 BATTERY Descrip source source source source AM tion: data data data data CHEST SINGLE VIEW (USUALL Y PORTAB -\.br\\ .br\\.b r\CHEST AP UPRIGHT PORTABL E FILM, , 11:21 A.M.\.b r\\.br\ The lung volumes are [...] No Feb 05 benjamin 11.3 informa informa 2016 [#/volu tion [...] count Platele 149 122 - K/UL No No Feb 05 ts 454 informa informa [...] count Eosinop 3.2 0.0 - % No No Feb 05 hils/10 9.0 informa informa [...] count Lymphoc 1.4 0.4 - K/ul No Feb 05 ytes 3.9 informa informa [...] No No Jan 14 E informa informa 2016 [Presen tion in [...] 14 benjamin E E informa informa informa 2015 [...] data Chlamyd NEGATIV NEGATIV No No No Jan 14 ophila E E informa informa informa 2016 [...] No No Jan 14 110 informa informa 2015 [Mass/v tion in tion in 1:37 PM olume] source source in data data Serum or Plasma Urea 4 7 - 18 MG/DL Low No Jan 14 nitroge informa 2015 n tion in 1:37 PM [Mass/v source olume] data in Serum or Plasma Sodium 137 133 - mmol/L No No Jan 14 [Moles/ 144 informa informa 2016 volume] [...] No Jan 14 e 107 informa informa 2015 [Moles/ tion [...] No No Jan 14 8.4 informa informa 2015 [Mass/v tion in [...] No No Jan 14 10.1 informa informa 2015 [Mass/v tion in [...] pyogene tion in tion in tion in [id number] 1:37 PM s Ag REFEREN source source source 4 [Presen CE data data data ce] in RANGE = Throat by NEGATIV ORDERED Immunoa E BY: ANUJA Brown URCE: THROAT COLLECT ED: 13:37AN TIBIOTI CS AT SINGH.: RECEIVE D : 13:55RA PID GP A STREP BY EIA FINAL 14:131 NEGATIV E REFEREN CE RANGE = NEGATIV E MONO-TEST Observa Value Referen Units Interpr Notes Date tion ce etation Range Heterop NEGATIV NEGATIV No No No Jan 14 hile Ab E E informa informa informa 2016 tion in tion in tion in 1:37 PM [Presen source source source ce] in data data data Serum by Latex aggluti [facility] CBC\T\AUTO DIFF Observa Value Referen Units Interpr Notes Date tion ce etation Range Leukocy 8.9 3.0 - K/UL No No Jan 14 benjamin 11.3 informa informa 2016 [#/volu tion in tion in 1:37 PM me] in source source Blood data data by Automat ed count Erythro 3.910 3.450 - M/ul No No Jan 14 cytes 5.400 informa informa 2016 [#/volu [...] Monocyt 4.7 1.0 - % No No Jan 14 es/100 14.0 informa informa 2016 leukocy tion in tion in 1:37 PM benjamin in source source Blood data data by Automat ed count Eosinop 1.5 0.0 - % No No Jan 14 hils/10 9.0 informa informa 2016 0 tion in tion in 1:37 PM leukocy source source benjamin in data data Blood by Automat ed count Basophi 0.2 0.0 - % No No Jan 14 ls/100 2.0 informa informa 2015 leukocy tion in tion in 1:37 PM benjamin in source source Blood data data by Automat ed count Neutrop 6.7 2.7 - K/ul No No Jan 14 hils 6.9 informa informa 2015 [#/volu tion in tion in 1:37 PM me] in source source Blood data data by Automat ed count Lymphoc 1.6 0.4 - K/ul No No Jan 14 ytes 3.9 informa informa 2015 [#/volu tion in tion in 1:37 PM me] in source source Blood data data by Automat ed count Monocyt 0.4 0.2 - K/ul No No Jan 14 es 0.6 informa informa 2015 [#/volu tion in tion in 1:37 PM me] in source source Blood data data by Automat ed count Eosinop 0.1 0.0 - K/ul No No Jan 14 hils 0.9 informa informa 2015 [#/volu tion in tion in 1:37 PM me] in source source Blood data data by Automat ed count Basophi 0.0 0.0 - K/ul No No Jan 14 ls 0.2 informa informa 2015 [#/volu [...] \.br\\. br\ END OF REPORT* *\.br\\ .br\Bra dley Candace Lai\.b r\\.br\ Dictate d: 1:18 PM\.br\ \.br\Tr anscrib [...] No Jan 04 E E informa informa 2016 [Presen tion in tion in 6:50 PM ce] in source source Urine data data by Automat ed test strip Bilirub NEGATIV NEGATIV No No No Jan 04 in E E informa informa informa 2016 [...] Jan 04 E E informa informa informa 2015 [Presen tion in tion in tion in 6:50 PM ce] in source source source Urine data data data Leukocy SMALL NEGATIV No Abnorma No Jan 04 benjamin E informa l informa 2015 [Presen [...] Jan 04 a E E informa A 2016 [#/area tion in INTERPR 6:50 PM ] [...] Thyrotr 6.870 0.358 - uIU/ML High No Oct 10 opin 3.740 informa 2015 [Units/ tion in 6:44 PM volume] source in data Serum or Plasma by Detecti on limit <= 0.005 mU/L COMP. METABOLIC PANEL (CHEM 12) Observa Value Referen Units Interpr Notes Date tion ce etation Range Glucose 100 70 - MG/DL No No Dec 10 110 informa informa 2015 [Mass/v tion in tion in 6:44 PM olume] source source in data data Serum or Plasma Urea 6 7 - 18 MG/DL Low No Dec 10 nitroge informa 2016 n tion in 6:44 PM [Mass/v source olume] data in Serum or Plasma Sodium 136 133 - mmol/L No No Dec 10 [Moles/ 144 informa informa 2015 volume] tion in tion in 6:44 PM in source source Serum data data or Plasma Potassi 3.6 3.6 - mmol/l No No Dec 10 um 5.2 informa informa 2015 [Moles/ tion in tion in 6:44 PM volume] source source in data data Serum or Plasma Chlorid 106 98 - mmol/l No No Dec 10 e 107 informa informa 2015 [Moles/ tion in tion in 6:44 PM volume] source source in data data Blood Carbon 20 21 - 32 mmol/L Low No Dec 10 dioxide informa 2016 , total tion in 6:44 PM source [Moles/ data volume] in Serum or Plasma Creatin 0.50 0.60 - MG/DL Low No Oct 10 ine 1.30 informa 2015 [Mass/v tion in 6:44 PM olume] source in data Serum or Plasma Protein 6.5 6.4 - G/DL No No Dec 10 8.4 informa informa 2015 [Mass/v tion in [...] No Jan 04 benjamin 11.3 informa informa 2015 [#/volu tion [...] Platele 7.5 6.4 - fl No No Jan 04 t mean 10.4 informa informa 2016 volume tion in tion in 6:44 PM [Entiti source source c data data volume] in Blood by Automat ed count Neutrop 75.3 43.0 - % No No Jan 04 hils/10 83.0 informa informa 2016 0 tion [...] Neutrop 7.8 2.7 - K/ul High No Jan 04 hils 6.9 informa 2016 [#/volu tion in [...] Eosinop 0.3 0.0 - K/ul No No Dec 10 hils 0.9 informa informa 2016 [#/volu tion in tion in 6:44 PM me] in source source Blood data data by Automat ed count Basophi 0.0 0.0 - K/ul No No Dec 10 ls 0.2 informa informa 2016 [#/volu tion in tion in 6:44 PM me] in source source Blood data data by Automat ed count US Head-Neck Soft Tissue Observa Value Referen Units Interpr Notes Date tion ce etation Range \.br\UL No No No [...] 016 3:03 pm\.br\ \.br\Tr anscrib ed by: 016 4:07 pm\.br\ \.br\Au thentic ated by: BENJIE VASQUEZ M.D. 016 1:17 pm\.br\ \.br\ THYROGLOBULIN Observa Value Referen Units Interpr Notes Date tion ce etation Range Thyrogl SEE No No No Thyrogl Sep obulin BELOW informa informa informa obulin 2016 Ab tion in tion in tion in Antibod 2:37 PM [Units/ source source source y volume] data data data in 4.3 H Serum or 0.0-0.9 Plasma IU/mL CBThyro globuli n Antibod y measure d by Johanna Watson [employer] THYROGLOBULIN, KAVYA Observa Value Referen Units Interpr Notes Date ti ce etation Range THYROGL 31 No ng/mL No Referen Sep OBULIN, informa informa ce 2016 KAVYA tion in tion in Range:P 2:37 PM source source ubertal data data Childre nand Adults: <40Acco rding to the [facility] [employer] l [employer] istry,t he referen ce interva l for Thyrogl obulin (TG) should berelat ed to euthyro id patient s and not for patient s whounde rwent thyroid ectomy. TG referen ce interva ls for thesepa tients depend on the residua l mass of the thyroid tissuel eft after surgery . Establi nancy a post-op erative baselin eis recomme nded. The assay quantit ation limit is 2.0 ng/mL.P erforme d at: CB, [facility] [place] [address] [address], [place], [place], [id number] [address] Damian teresa, PhD, Phone: [phone] ormed at: FRANCIS, [facility] [place], [place], [address] Daniel jones MD, Phone: [phone] ANTIMICROSOMAL AB Observa Value Referen Units Interpr Notes Date tion ce etation Range Rheumat 5395.50 0.00 - No High No Sep 26 oid 34.00 informa informa 2016 factor tion in tion in 2:37 PM [Units/ source source volume] data data in Serum TSH Observa Value Referen Units Interpr Notes Date tion ce etation Range Thyrotr 5.720 0.358 - uIU/ML High No Sep 26 opin 3.740 informa 2016 [Units/ tion in 2:37 PM volume] source in data Serum or Plasma by Detecti on limit <= 0.005 mU/L URINE CULTURE Observa Value Referen Units Interpr Notes Date tion ce etation Range Bacteri >100,00 No No No ORDER#: Nov 24 a 0 informa informa informa 2016 identif ORGS/ML tion in tion in tion in [id number] 4:57 PM ied in OF source source source 2 Urine MIXED data data data by SKIN Culture ERIS ORDERED BY: MANINDER ETIENNE RSOURCE : URINE COLLECT ED: 16:57AN DENZEL CS AT SINGH.: RECEIVE D : 6 17:36UR INE CULTURE FINAL 6 07:5809 /04/12 >100,00 0 ORGS/ML OF MIXED SKIN ERIS [...] data data data [Presen ct: ce] in [id number] Serum 277~ANT or IBODY Plasma SCREEN NEG [...] A data data data data Blood ct: [id number]~ABO O 6 07:20 mct~RH( D) TYPING [...] Notes Date tion ce etation Range Choriog 23721 No mIU/ML No FEMALE Nov 24 onadotr informa informa (NON 2016 opin tion in tion in PREGNAN 1:15 PM [Moles/ source source T) volume] data data in <31 Urine DAY - 1 WEEK 5 - 501 - 2 WEEK 50 - 5002 - 3 WEEK 100 - 21400 - 4 WEEK 500 - 609052 - 5 WEEK 1000 - 210781 - 6 WEEK 31222 - 8282696 - 8 WEEK 02516 - 4173642 - 3 MTHS 20129 - 700028 TSH Observa Value Referen Units Interpr Notes [...] No Nov 24 benjamin 11.3 informa informa 2015 [#/volu tion in tion in 1:15 PM me] in source source Blood data data by Automat ed count Erythro 4.340 3.450 - M/ul No No Nov 24 cytes 5.400 informa informa 2015 [#/volu tion in tion in 1:15 PM me] in source source Blood data data by Automat ed count Hemoglo 13.1 10.0 - gm/dl No No Nov 24 bin 16.0 informa informa [...] Monocyt 0.4 0.2 - K/ul No Nov 24 es 0.6 informa informa [...] Basophi 0.0 0.0 - K/ul No Nov 24 ls 0.2 informa informa [...] Leukocy NEGATIV NEGATIV No No No Nov 09 benjamin E E informa informa informa 2016 [...] opy Bacteri NEGATIV NEGATIV /HPF No BACTERI Nov 09 a E E informa A 2016 [#/area [...] Glomeru 116.0 60.0 - ml/min No Previou Nov 09 lar 200.0 informa s value 2016 filtrat [...] MG/DL Low No Nov 09 nitroge informa 2016 n tion in 7:37 PM [Mass/v source [...] No No Nov 09 8.4 informa informa 2016 [Mass/v tion in tion in 7:37 PM olume] source source in data data Serum or Plasma Albumin 4.0 3.4 - G/DL No No Nov 09 5.0 informa informa 2016 [Mass/v tion in tion in 7:37 PM olume] source source in data data Serum or Plasma Globuli 3.7 2.4 - G/DL No Nov 09 n 4.8 informa informa 2016 [Mass/v tion in tion in 7:37 PM olume] source source in data data Plasma Albumin 1.1 0.6 - No No No Nov 09 /Globul 1.6 informa [...] - 5002 - 3 WEEK 100 - 73722 - 4 WEEK 500 - 520172 - 5 WEEK 1000 - 511600 - 6 WEEK 09848 - 3093328 - 8 WEEK 77277 - 7874068 - 3 MTHS 76426 - 589019 CBC\T\AUTO DIFF Observa Value Referen Units Interpr Notes Date tion ce etation Range Leukocy 8.6 3.0 - K/UL No No Aug 15 benjamin 11.3 informa informa 2016 [#/volu [...] Neutrop 69.6 43.0 - % No No Oct 15 hils/10 83.0 informa informa 2016 0 [...] Monocyt 5.4 1.0 - % No No Oct 15 es/100 14.0 informa informa 2016 leukocy [...] Monocyt 0.5 0.2 - K/ul No No Oct 15 es 0.6 informa informa 2016 [#/volu [...] No Nov 09 ls 0.2 informa informa 2016 [#/volu tion in tion in 7:37 PM me] in source source Blood data data by Automat ed count ABO GROUP AND RH Observa Value Referen Units Interpr Notes Date ti ce etation Range ABO & TEXT~Na No No No No Nov 09 Rh me: informa informa informa informa 2016 group REBECCA tion in tion in tion in tion in 7:02 PM panel , source source source source in SANA~Ac data data data data Blood ct: [id number]~ABO O 6 20:03 JPB~RH( D) TYPING [...] Nov 05 E E informa informa informa 2016 [Presen tion in tion in tion in 2:40 PM ce] in source source source Urine data data data Leukocy MODERAT NEGATIV No Abnorma No Nov 05 benjamin E E informa l informa 2016 [Presen tion [...] 13 0 - 6 /HPF High No Nov 05 ial informa 2016 cells tion in 2:40 [...] No No Nov 05 casts informa informa 2015 [#/area tion in tion in 2:40 PM ] in source source Urine data [facility] [employer] power field UR IN HOUSE [...] BENZODI Nov 05 azepine E informa AZEPINE 2015 s tion in CUT 2:40 PM [Presen [...] CONFORM ITORY TEST CAN BE ORDERED AT [facility] RETION OF THE PHYSICI AN. CLINICA [...] 05 rphine E informa informa informa RPHRINE 2016 [Presen tion in tion in tion in CUT 2:40 PM ce] in source source source OFF Urine data data data CONCENT RATION - 12.5 NG/ML GLOMELULAR ESTEFANI. RATE,CALC. Observa Value Referen Units Interpr Notes Date ti ce etation Range Glomeru 97.1 60.0 - [...] Interpr Notes Date ti ce etation Range Choriog 1393 No mIU/ML No FEMALE Nov 05 onadotr informa informa (NON 2016 opin tion in tion in PREGNAN 2:15 PM [Moles/ source source T) volume] data data in <31 Urine DAY - 1 WEEK 5 - 501 - 2 WEEK 50 - 5002 - 3 WEEK 100 - 05356 - 4 WEEK 500 - 986474 - 5 WEEK 1000 - 983573 - 6 WEEK 38810 - 1771667 - 8 WEEK 83315 - 0005352 - 3 MTHS 36397 - 416542 COMP. METABOLIC PANEL (CHEM 12) Observa Value Referen Units Interpr Notes Date ti ce etation Range Glucose 91 70 - [...] Plasma Sodium 141 133 - mmol/L No Nov 05 [Moles/ 144 informa informa 2016 volume] tion in tion in 2:15 PM in source source Serum data data or Plasma Potassi 3.6 3.6 - mmol/l No Nov 05 um 5.2 informa informa 2016 [Moles/ tion in tion in 2:15 PM volume] source source in data data Serum or Plasma Chlorid 109 98 - mmol/l High No Nov 05 e 107 informa 2015 [Moles/ tion in 2:15 PM volume] source in data Blood Carbon 22 21 - 32 mmol/L No Nov 05 dioxide informa informa 2016 , total tion in tion in 2:15 PM source source [Moles/ data data volume] in Serum or Plasma Creatin 0.70 0.60 - MG/DL No Nov 05 ine 1.30 informa informa 2016 [Mass/v tion in tion in 2:15 PM olume] source source in data data Serum or Plasma Protein 7.2 6.4 - G/DL No Nov 05 8.4 informa informa 2016 [Mass/v tion in tion in 2:15 PM olume] source source in data data Serum or Plasma Albumin 3.6 3.4 - G/DL No Nov 05 5.0 informa informa 2016 [Mass/v tion in tion in 2:15 PM olume] source source in data data Serum or Plasma Globuli 3.6 2.4 - G/DL No Nov 05 n 4.8 informa informa 2016 [Mass/v tion in tion in 2:15 PM olume] source source in data data Plasma Albumin 1.0 0.6 - No No Nov 05 /Globul 1.6 informa informa informa 2016 in tion in tion in tion in 2:15 PM [Mass source source source ratio] data data data in Serum or Plasma Calcium 8.6 8.5 - MG/DL No Nov 05 10.1 informa informa 2016 [...] No Nov 05 benjamin 11.3 informa informa 2016 [#/volu tion in tion in 2:15 PM me] in source source Blood data data by Automat ed count Erythro 4.190 3.450 - M/ul No No Nov 05 cytes 5.400 informa informa 2016 [#/volu tion in tion in 2:15 PM me] in source source Blood data data by Automat ed count Hemoglo 12.5 10.0 - gm/dl No No Nov 05 bin 16.0 informa informa 2016 [Mass/v tion in tion in 2:15 PM olume] source source in data data Blood Hematoc 37.6 29.9 - % No No Nov 05 rit 45.5 informa informa 2016 [Volume tion in tion in 2:15 PM source source Fractio data data n] of Blood by Automat ed count Erythro 89.8 78.2 - fl No No Nov 05 cyte 101.8 informa informa 2016 mean tion in tion in 2:15 PM corpusc source source ular data data volume [Entiti c volume] by Automat ed count Erythro 29.9 26.4 - pg No No Nov 05 cyte 33.3 informa informa 2016 mean tion in tion in 2:15 PM corpusc source source ular data data hemoglo bin [Entiti c mass] by Automat ed count Erythro 33.3 32.5 - g/dl No No Nov 05 cyte 35.3 informa informa 2016 mean tion in tion in 2:15 PM corpusc source source ular data data hemoglo bin concent ration [Mass/v olume] by Automat ed count Erythro 13.5 10.1 - % No No Nov 05 cyte 16.2 informa informa 2016 distrib tion in tion in 2:15 PM ution source source width data data [Ratio] by Automat ed count Platele 239 122 - K/UL No No Nov 05 ts 454 informa informa 2016 [#/volu tion in tion in 2:15 PM me] in source source Blood data data by Automat ed count Platele 7.4 6.4 - fl No No Nov 05 t mean 10.4 informa informa 2016 volume tion in tion in 2:15 PM [Entiti source source c data data volume] in Blood by Automat ed count Neutrop 70.0 43.0 - % No No Nov 05 hils/10 83.0 informa informa 2016 0 tion in tion in 2:15 PM leukocy source source benjamin in data data Blood by Automat ed count Lymphoc 22.4 10.0 - % No No Nov 05 ytes/10 42.0 informa informa [...] count Eosinop 2.3 0.0 - % No No Nov 05 hils/10 9.0 informa informa 2016 0 tion in tion in 2:15 PM leukocy source source benjamin in data data Blood by Automat ed count Basophi 0.4 0.0 - % No No Nov 05 ls/100 2.0 informa inform2015 leukocy tion in tion in 2:15 PM benjamin in source source Blood data data by Automat ed count Neutrop 5.2 2.7 - K/ul No Nov 05 hils 6.9 informa inform2015 [#/volu tion in tion in 2:15 PM me] in source source Blood data data by Automat ed count Lymphoc 1.7 0.4 - K/ul No Nov 05 ytes 3.9 informa informa 2015 [#/volu tion in tion in 2:15 PM me] in source source Blood data data by Automat ed count Monocyt 0.4 0.2 - K/ul No Nov 05 es 0.6 informa inform2015 [#/volu tion in tion in 2:15 PM me] in source source Blood data data by Automat ed count Eosinop 0.2 0.0 - K/ul No Nov 05 hils 0.9 informa inform2015 [#/volu tion in tion in 2:15 PM me] in source source Blood data data by Automat ed count Basophi 0.0 0.0 - K/ul No Nov 05 ls 0.2 informa informa 2015 [#/volu tion [...] \.br \\.br\D ictated : ISSAC NINO M.D. 9:40 pm\.br\ \.br\Tr anscrib ed by: CS 9:47 pm\.br\ \.br\Au thentic ated by: ISSAC NINO M.D. 3:57 pm\.br\ \.br\ URINE HCG Observa Value [...] No Sep 14 E E informa informa 2015 [Presen tion in tion in 8:14 PM ce] in source source Urine data data by Automat ed test strip Bilirub NEGATIV NEGATIV No No No Sep 14 in E E informa informa informa 2015 [...] Sep 14 a E E informa A 2015 [#/area tion in INTERPR 8:14 PM ] [...] Sodium 139 133 - mmol/L No No Aug 20 [Moles/ 144 informa informa 2016 volume] [...] No No Sep 14 8.4 informa informa 2015 [Mass/v tion in tion in 6:48 PM olume] source source in data data Serum or Plasma Albumin 3.9 3.4 - G/DL No No Sep 14 5.0 informa informa 2015 [Mass/v tion in tion in 6:48 PM olume] source source in data data Serum or Plasma Globuli 3.9 2.4 - G/DL No No Aug 20 n 4.8 informa informa 2016 [Mass/v tion [...] Platele 7.5 6.4 - fl No No Sep 14 t mean 10.4 informa informa 2016 [...] No Sep 14 ls 0.2 informa informa 2016 [#/volu tion [...] br\\.br \ END OF REPORT* *\.br\\ .br\Susie Gallegos M.D.\.b r\\.br\ Dictate d: 6 5:08 [...] No No Sep 01 110 informa informa 2016 [Mass/v tion in [...] Plasma Potassi 3.7 3.6 - mmol/l No Sep 01 um 5.2 informa informa 2015 [Moles/ tion in tion in 2:45 AM volume] source source in data data Serum or Plasma Chlorid 103 98 - mmol/l No No Sep 01 e 107 informa informa 2015 [Moles/ tion in tion in 2:45 AM volume] source source in data data Blood Carbon 24 21 - 32 mmol/L No Sep 01 dioxide informa informa 2016 , total tion in tion in 2:45 AM source source [Moles/ data data volume] in Serum or Plasma Creatin 0.60 0.60 - MG/DL No Sep 01 ine 1.30 informa informa 2015 [Mass/v tion in tion in 2:45 AM olume] source source in data data Serum or Plasma Protein 7.4 6.4 - G/DL No No Sep 01 8.4 informa informa 2015 [Mass/v tion in tion in 2:45 AM olume] source source in data data Serum or Plasma Albumin 3.6 3.4 - G/DL No Sep 01 5.0 informa informa 2015 [Mass/v tion in tion in 2:45 AM olume] source source in data data Serum or Plasma Globuli 3.8 2.4 - G/DL No Sep 01 n 4.8 informa informa 2015 [Mass/v tion in tion in 2:45 AM olume] source source in data data Plasma Albumin 0.9 0.6 - No No Sep 01 /Globul 1.6 informa informa informa 2016 in tion in tion in tion in 2:45 AM [Mass source source source ratio] data data data in Serum or Plasma Calcium 8.6 8.5 - MG/DL No Sep 01 10.1 informa informa 2015 [Mass/v tion in [...] 10-20 0 - 5 HPF Abnorma No Andres 7 l informa 2016 tion in 1:18 AM source data Epithel 5-10 No HPF No No Sep 01 ial informa informa informa 2016 cells tion in tion in tion in 1:18 AM [Presen source source source ce] in data data data Urine sedimen t by Light microsc opy Bacteri 3+ Absent HPF Abnorma No Aug 7 a l informa 2016 [#/area tion in [...] Sep 01 cytes E informa l informa 2016 [Presen tion [...] Jose A data data data data ct: [id number] 134~ABO O 6 08:35 sdh~RH( D) TYPING [...] 15 rphine E informa informa informa RPHRINE 2015 [...] 15 in E E informa informa informa 2015 [...] Nitrate NEGATIV NEGATIV No No No Jun 20 E E informa informa informa 2015 [Presen [...] 10-20 0 - 5 HPF Abnorma No Jul 15 l informa 2016 tion in 7:00 AM source data Epithel TNTC No HPF No No Jul 15 ial informa informa informa 2016 cells tion [...] data Bacteri 1+ Absent HPF Abnorma No Jul 15 a l informa 2015 [#/area tion in 7:00 AM ] in source Urine data sedimen t by Microsc opy high power field UR IN HOUSE DRUG SCREEN Observa Value Referen Units Interpr Notes Date tion ce etation Range na Ampheta NEG NEGATIV ug/ML No AMPHETA Apr 20 mines E informa MINE 2015 [Presen tion in CUT OFF 7:00 AM ce] in source Urine data CONCENT by RATION Screen - 300 method >1000 ng/mL Barbitu NEG NEGATIV ug/ML No BARBITU Apr 20 rates E informa ATE CUT 2015 [Presen tion in OFF 7:00 AM ce] in source CONCENT Urine data RATION by - 200 Screen method Benzodi NEG NEGATIV ug/ML No BENZODI Apr 20 azepine E informa AZEPINE 2016 s tion in CUT 7:00 AM [Presen source OFF ce] in data CONCENT Urine RATION by - 200 Screen method Cocaine NEG NEGATIV ug/ML No COCAINE Apr 20 E informa CUT 2015 [Presen tion in [...] CONFORM ITORY TEST CAN BE ORDERED AT [facility] RETION OF THE PHYSICI AN. CLINICA [...] No No Apr 4 cytes informa informa 2016 [#/area tion in tion in 5:50 PM ] in source source Urine data data sedimen t by Microsc opy high power field WBC OCC 0 - 5 HPF No No Apr 4 informa informa 2016 tion in tion in 5:50 PM source source data data Epithel 1-5 No HPF No No Jun 4 ial informa informa informa 2016 cells tion in tion in tion in 5:50 PM [Presen source source source ce] in data data data Urine sedimen t by Light microsc opy Mucus 3+ No No No No Jun 4 [#/area informa informa informa informa 2015 ] [...] Specifi 1.030 1.006 - No No No Jun 4 c 1.035 informa informa informa 2016 gravity tion in tion in tion in 5:50 PM of source source source Urine data data data by Automat ed test strip Erythro NEGATIV NEGATIV No No No Apr 4 cytes E E informa informa informa 2016 [Presen tion in tion in tion in 5:50 PM ce] in source source source Urine data data data by Automat ed pH of 5.5 5.0 - No No No Apr 4 Urine 9.0 informa informa informa 2016 by tion in tion in tion in 5:50 PM Automat source source source ed test data data data strip Protein NEGATIV NEGATIV MG/DL No No Apr 4 E E informa informa 2015 [Presen tion in tion in 5:50 PM ce] in source source Urine data data by Automat ed test strip UROBILI 1.0 0.2 - E.U./DL No No Jun 4 NOGEN 1.0 informa informa 2016 tion in tion in 5:50 PM source source data data Nitrate NEGATIV NEGATIV No No No Jun 29 E E informa informa informa 2015 [Presen tion in tion in tion in 5:50 PM ce] in source source source Urine data data data Leukocy NEGATIV NEGATIV No No No Jun 29 benjamin E E informa informa informa 2015 [...] BENZODI Apr 4 azepine E informa AZEPINE 2016 s tion in CUT 5:50 PM [Presen source OFF ce] in data CONCENT Urine RATION by - 200 Screen method Cocaine NEG NEGATIV ug/ML No COCAINE Apr 4 E informa CUT 2015 [Presen tion in OFF 5:50 PM ce] in source CONCENT Urine data RATION by - 300 Screen method Opiates NEG NEGATIV ug/ML No OPIATE Apr 4 E informa CUT OFF 2015 [Presen tion in 5:50 PM ce] in source CONCENT Urine data RATION by - 300 Screen method Cannabi NEG NEGATIV NG/ML No THC CUT Apr 4 noids E informa OFF 2015 [Presen tion in CONCENT 5:50 PM ce] in source RATION Urine data - 50 by Screen method Methado NEG NEGATIV ug/ML No METHADO Apr 4 ne E informa NE CUT 2015 [Presen tion in OFF 5:50 PM ce] in source CONCENT Urine data RATION by - Screen 300THES method E RESULTS PROVIDE ONLY A PRELIMI NARY TEST RESULT. THEREIS A POSSIBI LITY THAT OVER THE COUNTER DRUGS MAY INTERFE REWITH THE TEST. CONFORM ITORY TEST CAN BE ORDERED AT [facility] RETION OF THE PHYSICI AN. CLINICA [...] CONFORM ITORY TEST CAN BE ORDERED AT [facility] RETION OF THE PHYSICI AN. CLINICA [...] Hemoglo 11.7 10.0 - gm/dl No No b 20 bin 16.0 informa informa 2016 [Mass/v tion in tion in 5:16 PM [...] data Casts OCC NONE LPF No No Apr 3 [Presen HYALINE informa informa 2016 ce] in tion in tion in 8:27 PM Urine source source sedimen data data t by Light microsc opy Bacteri 3+ Absent HPF Abnorma No Feb 3 a l informa 2016 [#/area tion in 8:27 PM ] in source Urine data sedimen t by Microsc opy high power field URINALYSIS COMPLETE Observa Value Referen Units Interpr Notes Date ti ce etation Range Physician is not a Physician's Portal User Color YELLOW No No No No Apr 3 of informa informa informa informa 2016 Urine tion in tion in tion in tion in 8:27 PM source source source source data data data data Clarity CLEAR No No No No Apr 3 of informa informa informa informa 2016 Urine tion in tion in tion in tion in 8:27 PM source source source source data data data data Glucose NEGATIV NEGATIV MG/DL No No Feb 3 E E informa informa 2016 [Presen tion in tion in 8:27 PM ce] in source source Urine data data by Automat ed test strip Bilirub NEGATIV NEGATIV No No No Feb 3 in E E informa informa informa 2016 [Presen tion in tion in tion in 8:27 PM ce] in source source source Urine data data data by Automat ed test strip Ketones TRACE NEGATIV MG/DL Abnorma No Feb 3 E l informa 2016 [Presen tion in 8:27 PM ce] in source Urine data by Automat ed test strip Specifi >=1.030 1.006 - No No No Feb 3 c 1.035 informa informa informa 2016 gravity tion in tion in tion in 8:27 PM of source source source Urine data data data by Automat ed test strip Erythro NEGATIV NEGATIV No No No Feb 3 cytes E E informa informa informa 2016 [Presen tion in tion in tion in 8:27 PM ce] in source source source Urine data data data by Automat ed pH of 6.0 5.0 - No No No Feb 3 Urine 9.0 informa informa informa 2016 by tion in tion in tion in 8:27 PM Automat source source source ed test data data data strip Protein TRACE NEGATIV MG/DL Abnorma No Feb 3 E l informa 2015 [Presen tion in 8:27 PM ce] in source Urine data by Automat ed test strip UROBILI 0.2 0.2 - E.U./DL No No Feb 3 NOGEN 1.0 informa informa 2016 tion in tion in 8:27 PM source source data data Nitrate NEGATIV NEGATIV No No No Feb 3 E E informa informa informa 2016 [Presen tion in tion in tion in 8:27 PM ce] in source source source Urine data data data Leukocy NEGATIV NEGATIV No No No Feb 3 benjamin E E informa informa informa 2016 [Presen tion in tion in tion in 8:27 PM ce] in source source source Urine data data data by Automat ed UR IN HOUSE DRUG SCREEN Observa Value Referen Units Interpr Notes Date tion ce etation Range none; Physician is not a Physician's Portal User Ampheta NEG NEGATIV ug/ML No AMPHETA Feb 3 mines E informa MINE 2015 [Presen tion in CUT OFF 8:27 PM ce] in source Urine data CONCENT by RATION Screen - 300 method >1000 ng/mL Barbitu NEG NEGATIV ug/ML No BARBITU Feb 3 rates E informa ATE CUT 2015 [Presen tion in OFF 8:27 PM ce] in source CONCENT Urine data RATION by - 200 Screen method Benzodi NEG NEGATIV ug/ML No BENZODI b 3 azepine E informa AZEPINE 2016 s tion in CUT 8:27 PM [Presen source OFF ce] in data CONCENT Urine RATION by - 200 Screen method Cocaine NEG NEGATIV ug/ML No COCAINE b 3 E informa CUT 2015 [Presen tion in OFF 8:27 PM ce] in source CONCENT Urine data RATION by - 300 Screen method Opiates NEG NEGATIV ug/ML No OPIATE b 3 E informa CUT OFF 2015 [Presen tion [...] CONFORM ITORY TEST CAN BE ORDERED AT [facility] RETION OF THE PHYSICI AN. CLINICA [...] Low No Feb 3 ine 1.30 informa 2015 [Mass/v tion in 6:20 PM olume] source in data Serum or Plasma Protein 6.7 6.4 - G/DL No No Feb 3 8.4 informa informa 2016 [Mass/v tion in tion in 6:20 PM olume] source source in data data Serum or Plasma Albumin 2.7 3.4 - G/DL Low No Feb 3 5.0 informa 2016 [Mass/v tion in 6:20 PM olume] source in data Serum or Plasma Globuli 4.0 2.4 - G/DL No No Feb 3 n 4.8 informa informa 2015 [Mass/v tion in tion in 6:20 PM olume] source source in data data Plasma Albumin 0.7 0.6 - No No No Apr 3 /Globul 1.6 informa informa informa 2016 in tion in tion in tion in 6:20 PM [Mass source source source ratio] data data data in Serum or Plasma Calcium 8.5 8.5 - MG/DL No No Apr 30 10.1 informa informa 2015 [Mass/v tion in tion in 6:20 PM olume] source source in data data Serum or Plasma Alkalin 85 45 - U/L No No Apr 3 e 117 informa informa 2016 phospha tion in tion in 6:20 PM tase source source [Enzyma data data tic activit y/volum e] in Serum or Plasma Asparta 17 15 - 37 U/L No No Apr 30 te informa informa 2016 aminotr tion in tion in 6:20 PM ansfera source source se data data [Enzyma tic activit y/volum e] in Serum or Plasma Alanine 20 12 - 78 U/L No No Apr 30 informa informa 2016 aminotr tion in tion in 6:20 PM ansfera source source se data data [Enzyma tic activit y/volum e] in Serum or Plasma Bilirub 0.40 0.00 - MG/DL No No Apr 30 in.tota 1.00 informa informa 2015 l tion in tion in 6:20 PM [Mass/v source source olume] data data in Serum or Plasma CBC/NO DIFF+ PLATELET Observa Value Referen Units Interpr Notes Date tion ce etation Range Leukocy 13.4 3.0 - K/UL High No Apr 30 benjamin 11.3 inform2015 [#/volu tion in 6:20 PM me] in source Blood data by Automat ed count Erythro 4.040 3.450 - M/ul No No Apr 30 cytes 5.400 informa inform2015 [#/volu tion in tion in 6:20 PM me] in source source Blood data data by Automat ed count Hemoglo 12.0 10.0 - gm/dl No No Feb 3 bin 16.0 informa informa 2016 [Mass/v tion in tion in 6:20 PM olume] source source in data data Blood Hematoc 36.1 29.9 - % No No Apr 3 rit 45.5 informa informa 2016 [Volume tion [...] Erythro 13.6 10.1 - % No No Apr 3 cyte 16.2 informa informa 2016 distrib tion in tion in 6:20 PM ution source source width data data [Ratio] by Automat ed count Platele 179 122 - K/UL No No Apr 3 ts 454 informa informa 2016 [#/volu tion in tion in 6:20 PM me] in source source Blood data data by Automat ed count Platele 8.1 6.4 - fl No No Apr 3 t mean 10.4 informa informa 2016 [...] informa 2014 gravity tion in tion in in 10:00 of source source source PM [...] data Nitrate NEGATIV NEGATIV No No No Feb 20 E E informa [...] Hyaline 0 0 - 4 /LPF No Feb 20 casts informa informa 2014 [...] M.D. 6:58 am\.br\ \.br\Tr anscrib ed by: RN 6:59 am\.br\ \.br\Au thentic ated by: ISSAC NINO M.D. 8:34 am\.br\ \.br\ GLOMELULAR ESTEFANI. RATE,CALC. Observa Value Referen Units Interpr Notes Date tion ce etation Range Glomeru 143.9 60.0 - ml/min No THE Feb 20 lar 200.0 informa eGFR IS 2014 filtrat tion in AN 9:25 PM ion [...] Range Glucose 113 70 - MG/DL High No Feb 20 110 informa 2014 [Mass/v tion in 9:25 PM olume] source in data Serum or Plasma Urea 6 7 - 18 MG/DL Low Feb 20 nitroge informa 2014 n tion in 9:25 PM [Mass/v [...] - mmol/l High Feb 20 e 107 informa 2014 [Moles/ tion in 9:25 PM volume] source [...] 3.4 - G/DL Low Feb 20 5.0 inform2014 [Mass/v tion in 9:25 PM olume] source in data Serum or Plasma Globuli 3.7 2.4 - G/DL No Feb 20 n 4.8 informa informa 2014 [Mass/v tion in tion in 9:25 PM olume] source source in data data Plasma Albumin 0.7 0.6 - No Feb 20 /Globul 1.6 informa informa informa 2014 in tion in tion in tion in 9:25 PM [Mass source source source ratio] data data data in Serum or Plasma Calcium 8.3 8.5 - MG/DL Low Feb 20 10.1 informa 2014 [Mass/v tion in 9:25 PM olume] source in data Serum or Plasma Alkalin 72 45 - U/L No Feb 20 e 117 informa informa 2014 phospha tion in tion in 9:25 PM tase source source [Enzyma data data tic activit y/volum e] in Serum or Plasma Asparta 23 15 - 37 U/L No Feb 20 te informa informa 2014 aminotr tion in tion in 9:25 PM ansfera source source se data data [Enzyma tic activit y/volum e] in Serum or Plasma Alanine 25 12 - 78 U/L No Feb 20 informa informa 2014 aminotr tion in tion in 9:25 PM ansfera source source se data data [Enzyma tic activit y/volum e] in Serum or Plasma Bilirub 0.20 0.00 - MG/DL No Feb 20 in.tota 1.00 informa informa 2014 l tion in tion in 9:25 PM [Mass/v source source olume] data data in Serum or Plasma CBC\T\AUTO DIFF Observa Value Referen Units Interpr Notes Date tion ce etation Range Leukocy 8.1 3.0 - K/UL No Feb 20 benjamin 11.3 informa informa 2014 [#/volu tion in tion in 9:25 PM me] in source source Blood data data by Automat ed count Erythro 3.570 3.450 - M/ul No Feb 20 cytes 5.400 informa informa [...] No Feb 20 cyte 35.3 informa informa 2015 mean tion in tion in 9:25 PM corpusc source source ular data data hemoglo bin concent ration [Mass/v olume] by Automat ed count Erythro 13.8 10.1 - % No Feb 20 cyte 16.2 informa informa 2015 distrib tion in tion in 9:25 PM ution source source width data data [Ratio] by Automat ed count Platele 175 122 - K/UL No Feb 20 ts 454 informa informa 2015 [#/volu tion in tion in 9:25 PM me] in source source Blood data data by Automat ed count Platele 7.7 6.4 - fl No Feb 20 t mean 10.4 informa informa 2015 volume tion in tion in 9:25 PM [...] No Feb 20 hils/10 11.0 informa informa 2015 0 tion in tion in 9:25 PM leukocy source source benjamin in data data Blood by Automat ed count Basophi 0.4 0.0 - % No Feb 20 ls/100 2.0 informa informa 2015 leukocy tion in tion in 9:25 PM benjamin in source source Blood data data by Automat ed count Neutrop 5.4 2.7 - K/ul No No Jan 26 hils 6.9 informa informa 2014 [#/volu tion [...] negativ informa informa informa informa 2015 e test tion in tion in tion in tion in 3:53 PM result source source source source does data data data data not exclude the possibi lity of No No No No Jan 23 infecti informa informa informa informa 2015 on [...] Jan 23 concurr informa informa informa informa 2015 ent [...] Jan 23 legal informa informa informa informa 2015 indicat tion in tion in tion in tion in 3:53 PM ions. source source source source Additio data data data data nal testing is recomme No No No No Jan 23 nded in informa informa informa informa 2015 any tion in tion in tion in tion in 3:53 PM circums source source source source tance data data data data when false positiv e or false No No No No Jan 23 negativ informa informa informa informa 2014 e tion in tion in tion in tion in 3:53 PM results source source source source could data data data data management specialist to adverse medical , social, No No No No Jan 23 or informa informa informa informa 2014 psychol tion in tion in tion in tion in 3:53 PM ogical source source source source consequ data data data data ences. Xpert No No No No Jan 23 CT/NG informa informa informa informa 2014 Assay tion in tion in tion in tion in 3:53 PM perform source source source source ance data data data data has not been evaluat ed in patient No No No ORDER#: Jan 23 s less informa informa informa 2014 than 14 tion in tion in tion in [id number] 3:53 PM years source source source 4 of age. data data data ORDERED BY: YOVANNY WOLFE URCE: VAGINAL /ENDOCE RVICAL COLLECT ED: 15:53AN [facility] RECEIVE D : 17:35CH LAMYDIA , AMP. PROBE FINAL 21:111 NOT DETECTE D REFEREN CE RANGE = [...] ORGS/ML tion in tion in tion in [id number] 11:00 ied in OF source source source 2 AM Urine MIXED data data data by SKIN Culture ERIS. ORDERED BY: TAMARA GOLDBERG CE: URINE COLLECT ED: 5 11:00AN [facility] RECEIVE D : 5 11:42UR INE CULTURE FINAL 07:191 >100,00 0 ORGS/ML OF MIXED SKIN [...] 23 group me: informa informa informa informa 2014 antibod FERNANDEZ tion in tion in tion in tion in 10:50 y , source source source source AM screen SANA~Gasper data data data data [Presen ct: ce] in [id number] Serum 588~ANT or IBODY Plasma SCREEN NEG 5 06:50 mct ABO GROUP AND RH Observa Value Referen Units Interpr Notes Date tion ce etation Range ABO & TEXT~Na No No No No Jan 23 Rh me: informa informa informa informa 2015 group FERNANDEZ tion in tion in tion in tion in 10:50 panel , source source source source AM in SANA~Ac data data data data Blood ct: [id number] 588~ABO O 5 06:46 mct~RH( D) TYPING [...] CONFORM ITORY TEST CAN BE ORDERED AT [facility] RETION OF THE PHYSICI AN. CLINICA [...] gravity tion in tion in tion in of source source source Urine data [...] No Jan 23 NOGEN 1.0 informa informa 2014 tion in tion in source source data [...] No Jan 23 ial informa informa informa 2014 cells tion [...] SANA~Ac data data data data Blood ct: [id number] 143~ABO O 5 19:10 MJR~RH( D) TYPING [...] No Jan 08 cyte 101.8 informa informa 2014 mean tion in tion in 6:48 PM [...] No Jan 08 ls/100 2.0 informa informa 2015 leukocy tion in tion in 6:48 PM benjamin in source source Blood data data by Automat ed count Neutrop 5.9 2.7 - K/ul No No Jan 08 hils 6.9 informa informa 2015 [#/volu tion [...] possibi lity of No No No No Oct 14 infecti informa informa informa informa 2015 on tion in tion in tion in tion in 6:33 PM because source source source source test data data data data results may be affecte d by imprope No No No No Dec 14 r informa informa informa informa 2015 specime [...] source source could data data data data management specialist to adverse medical , social, No No No No Jan 08 or informa informa informa informa 2014 psychol tion in tion in tion in tion in 6:33 PM ogical source source source source consequ data data data data ences. Xpert No No No No Jan 08 CT/NG informa informa informa informa 2014 Assay tion in tion in tion in tion in 6:33 PM perform source source source source ance data data data data has not been evaluat ed in patient No No No ORDER#: Jan 08 s less informa informa informa 2015 than 14 tion in tion in tion in [id number] 6:33 PM years source source source 1 of age. data data data ORDERED BY: ANUJA MCMANUS URCE: VAGINAL COLLECT ED: 18:33[facility] RECEIVE D : 19:01CH LAMYDIA , AMP. PROBE FINAL 20:4109 NOT DETECTE D REFEREN CE RANGE = NOT DETECTE DGONOCO CCUS, AMP. PROBE FINAL 20:411 NOT DETECTE D REFEREN CE RANGE = [...] observa tion in tion in tion in [id number] 6:33 PM tion source source source 9 [Identi data data data fier] in Unspeci ORDERED fied BY: raisa carpenter by , Wet HENRYSO prepara URCE: tion VAGINAL COLLECT ED: 5 18:33AN [facility] RECEIVE D : 5 19:01WE T PREP (MICRO) FINAL 5 19:2409 FEW CLUE CELLS, MANY WBC'S, NO MOTILE TRICH OR SPERM NOTED ONWET PREP. JOHN PREP Observa Value Referen Units Interpr Notes Date tion ce etation Range Microsc NO No No No ORDER#: Jan 08 opic YEAST informa informa informa 2014 observa NOTED. tion in tion in tion in [id number] 6:33 PM tion source source source 9 [Identi data data data fier] in Unspeci ORDERED fied BY: raisa carpenter by , JOHN HENRYSO prepara URCE: tion VAGINAL COLLECT ED: 5 18:33AN [facility] RECEIVE D : 5 19:01KO H PREP FINAL 5 19:2409 NO YEAST NOTED. URINE CULTURE Observa Value Referen Units Interpr Notes Date tion ce etation Range Bacteri >100,00 No No No ORDER#: Sep 4 a 0 informa informa informa 2015 identif ORGS/ML tion in tion in tion in [id number] 4:08 PM ied in OF source source source 7 Urine MIXED data data data by SKIN Culture ERIS ORDERED BY: LIDIA NUNEZ: CLEAN CATCH URINE COLLECT ED: 5 16:08[facility] RECEIVE D : 5 01:32UR INE CULTURE FINAL 5 07:5608 >100,00 0 ORGS/ML OF MIXED SKIN ERIS [...] Sep 4 c 1.035 informa informa informa 2014 gravity [...] No Sep 4 NOGEN 1.0 informa informa 2015 tion in tion in 3:47 PM source [...] No No Sep 4 casts informa informa 2014 [#/area tion in tion in 3:47 PM ] in source source Urine data data sedimen t by Microsc opy high power field GLOMELULAR ESTEFANI. RATE,CALC. Observa Value Referen Units Interpr Notes Date tion ce etation Range Glomeru 83.8 60.0 - ml/min No THE Sep 4 lar 200.0 informa eGFR IS 2015 filtrat tion in AN 3:30 PM ion [...] - 5002 - 3 WEEK 100 - 43274 - 4 WEEK 500 - 876628 - 5 WEEK 1000 - 635164 - 6 WEEK 72319 - 8317593 - 8 WEEK 57731 - 8860150 - 3 MTHS 63740 - 048302 BASIC METABOLIC PANEL (CHEM 7) Observa Value Referen Units Interpr Notes Date tion ce etation Range Glucose 94 70 - MG/DL No No Sep 4 110 informa informa 2015 [Mass/v tion in tion in 3:30 PM olume] source source in data data Serum or Plasma Urea 8 7 - 18 MG/DL No No Sep 4 nitroge informa informa 2015 n tion in tion in 3:30 PM [Mass/v source source olume] data data in Serum or Plasma Sodium 138 133 - mmol/L No No Sep 4 [Moles/ 144 informa informa 2015 volume] tion in tion in 3:30 PM [...] No No Sep 4 dioxide informa informa 2015 , total tion in tion in 3:30 [...] panel , source source source source in [facility]~Gasper data data data data Blood ct: [id number] 546~ABO O 5 16:06 [facility]~RH( D) TYPING POS 5 16:06 [facility] CBC\T\AUTO DIFF Observa Value Referen Units Interpr Notes Date tion ce etation Range Leukocy 8.9 3.0 - K/UL No No Sep 4 benjamin 11.3 informa informa 2014 [#/volu tion in tion in 3:30 PM me] in source source Blood data data by Automat ed count Erythro 4.350 3.450 - M/ul No No Sep 4 cytes 5.400 informa informa 2014 [#/volu tion in tion in 3:30 PM me] in source source Blood data data by Automat ed count Hemoglo 13.1 10.0 - gm/dl No No Sep 4 bin 16.0 informa informa 2014 [Mass/v tion [...] No Sep 4 ls/100 2.0 informa informa 2014 leukocy tion in tion in 3:30 PM benjamin in source source Blood data data by Automat ed count Neutrop 6.0 2.7 - K/ul No No Sep 4 hils 6.9 informa informa 2014 [#/volu tion in tion in 3:30 PM me] in source source Blood data data by Automat ed count Lymphoc 2.2 0.4 - K/ul No No Sep 4 ytes 3.9 informa informa 2014 [#/volu tion in tion in 3:30 PM me] in source source Blood data data by Automat ed count Monocyt 0.5 0.2 - K/ul No No Sep 4 es 0.6 informa informa 2014 [#/volu tion in tion in 3:30 PM me] in source source Blood data data by Automat ed count Eosinop 0.2 0.0 - K/ul No No Sep 4 hils 0.9 informa informa 2014 [#/volu tion in tion in 3:30 PM me] in source source Blood data data by Automat ed count Basophi 0.0 0.0 - K/ul No No Sep 4 ls 0.2 informa informa 2014 [#/volu tion in tion in 3:30 PM me] in source source Blood data data by Automat ed count URINE HCG Observa Value Referen Units Interpr Notes Date tion ce etation Range CRITICAL VALUE RESULT CALLED TO AND READBACK BY : TEST CALLED:[facility] 11/16/2014 14:18 MFM Choriog POSITIV No No Abnorma No Nov 16 onadotr E informa informa l alert informa 2015 opin tion in tion in tion in [...] .br\\.b r\TWO VIEWS OF THE LEFT HIP, 10-08-19 15\.br\ \.br\Mi neraliz ation and alignme nt are [...] \.br \\.br\D ictated : Adolfo Mcclain M.D. 0:21 am\.br\ \.br\Tr anscrib ed by: YASSINE 5:58 am\.br\ \.br\Au thentic ated by: Adolfo Mcclain M.D. 1:17 pm\.br\ \.br\ XR Spine Cervical Comp [...] ,\.br\\ .br\\.b r\CERVI ERWIN SPINE, SIX VIEWS, 10-08-19\.br\ \.br\Ce rvical spine vertebr al body heights and alignme nt are anatomi c. Disk spaces are preserv ed. No periver tebral soft tissue abnorma lity.\. br\\.br \ IMPRESS ION: No fractur e or listhes is.\.br \\.br\ END OF REPORT* *\.br\\ .br\Ant jacques Mcclain M.D.\.b r\\.br\ Dictate d: 10/09/19 15 12:20 AM\.br\ \.br\Tr anscrib ed: 10/09/19 5:56 AM\.br\ \.br\ * Final Report \.br \\.br\D ictated : Adolfo Mcclain M.D. 0:20 am\.br\ \.br\Tr anscrib ed by: YASSINE 015 5:56 am\.br\ \.br\Au thentic ated by: Adolfo Mcclain M.D. 015 1:17 pm\.br\ \.br\ XR Shoulder Complete Left [...] ,\.br\\ .br\\.b r\LEFT SHOULDE R, FOUR VIEWS, 10-08-19 15\.br\ \.br\Mi neraliz ation and alignme nt are [...] 15 12:21 AM\.br\ \.br\Tr anscrib ed: 10/09/19 15 5:56 AM\.br\ \.br\ * Final Report \.br \\.br\D ictated : Adolfo Mcclain M.D. 015 0:21 am\.br\ \.br\Tr anscrib ed by: RN 015 5:57 am\.br\ \.br\Au thentic ated by: Adolfo cMclain M.D. 015 1:17 pm\.br\ \.br\ URINE HCG [...] Hemoglo 10.0 10.0 - gm/dl No No Nov 30 bin 16.0 informa informa 2013 [Mass/v tion in tion in 5:48 AM olume] source source in data data Blood Hematoc 29.9 29.9 - % No No Dec 25 rit 45.5 informa informa 2013 [Volume tion in tion in 5:48 AM source source Fractio data data n] of Blood by Automat ed count PH CORD BLOOD Observa Value Referen Units Interpr Notes Date tion ce etation Range pH of 7.383 N/A No No No Dec 24 Cord informa informa informa 2013 blood tion in tion in tion in 11:20 source source source AM data data data RPR Observa Value Referen Units Interpr Notes Date tion ce etation Range n/a Reagin NONREAC NONREAC No No No Dec 24 Ab TIVE TIVE informa informa informa 2013 [Presen tion in tion in tion in 6:15 AM ce] in source source source Serum data data data by RPR TYPE AND SCREEN Observa Value Referen Units Interpr Notes Date tion ce etation Range TYPE TEXT~Na No No No No Dec 24 AND me: informa informa informa informa 2013 SCREEN FERNANDEZ tion in tion in tion in tion in 6:15 AM , source source source source SANA~Ac data data data data ct: [id number]~ABO O 4 07:06 sdh~RH( D) TYPING POS 4 07:06 sdh~ANT IBODY SCREEN NEG 4 07:11 sdh~AUT OCONTRO L 4 06:34 CMC~.y CBC/NO DIFF+ PLATELET Observa Value Referen Units Interpr Notes Date tion ce etation Range n/a Leukocy 10.7 3.0 - K/UL No No Nov 29 benjamin 11.3 informa informa 2013 [#/volu tion [...] No Dec 24 bin 16.0 informa informa 2013 [Mass/v tion in tion in 6:15 AM olume] source source in data data Blood Hematoc 32.3 29.9 - % No Dec 24 rit 45.5 informa informa 2013 [Volume tion in tion in 6:15 AM source source Fractio data data n] of Blood by Automat ed count Erythro 85.7 78.2 - fl No Dec 24 cyte 101.8 informa informa 2013 mean tion in tion in 6:15 AM corpusc source source ular data data volume [Entiti c volume] by Automat ed count Erythro 28.8 26.4 - pg No Dec 24 cyte 33.3 informa informa 2013 mean tion in tion in 6:15 AM corpusc source source ular data data hemoglo bin [Entiti c mass] by Automat ed count Erythro 33.6 32.5 - g/dl No Dec 24 cyte 35.3 informa informa 2013 mean tion in tion in 6:15 AM corpusc source source ular data data hemoglo bin concent ration [Mass/v olume] by Automat ed count Erythro 15.2 10.1 - % No Dec 24 cyte 16.2 informa informa 2013 distrib tion in tion in 6:15 AM ution source source width data data [Ratio] by Automat ed count Platele 150 122 - K/UL No Dec 24 ts 454 informa informa 2013 [#/volu tion in tion in 6:15 AM me] in source source Blood data data by Automat ed count Platele 8.3 6.4 - fl No Dec 24 t mean 10.4 informa informa 2013 volume tion in tion in 6:15 AM [...] Ampheta NEG NEGATIV ug/ML No AMPHETA Sep 29 mines E informa MINE 2013 [Presen tion [...] CONFORM ITORY TEST CAN BE ORDERED AT [facility] RET[facility] OF THE [facility]YS[facility]I [facility]. [facility] [...] n/a Bupreno NEGATIV No No No BUPRENO Sep rphine E informa informa informa RPHRINE 2013 [Presen tion in tion in tion in CUT 5:55 AM ce] in source source source OFF Urine data data data CONCENT RATION - 12.5 NG/ML UA, MICROSCOPIC REVIEW Observa Value Referen Units Interpr Notes Date tion ce etation Range n/a Erythro OCC 0 - 5 HPF No No Sep cytes informa informa 2013 [#/area tion in tion in 5:55 AM ] in source source Urine data data sedimen t by Microsc opy high power field WBC 5-10 0 - 5 HPF Abnorma No Sep l informa 2013 tion in 5:55 AM source data Epithel 5-10 No HPF No No Sep ial informa informa informa 2014 cells tion [...] CRYSTAL FEW CA No HPF No No Sep S OX informa informa informa 2013 tion in tion in tion in 5:55 AM source source source data data data Bacteri TRACE Absent HPF Abnorma No Dec 24 a l informa 2013 [#/area tion in 5:55 AM ] in source Urine data sedimen t by Microsc opy high power field Amorpho TRACE No No No No Sep us informa informa informa informa 2013 sedimen tion in tion in tion in tion in 5:55 AM t source source source source [Presen data data data data ce] in Urine sedimen t by Light microsc opy OTHER * No No No MICROSC Sep 29 informa informa informa OPIC 2014 tion in [...] 24 of CLOUDY informa informa informa informa 2013 Urine tion [...] Dec 24 c 1.035 informa informa informa 2013 gravity [...] UROBILI 2.0 0.2 - E.U./DL No No Sep NOGEN 1.0 informa informa 2013 tion in tion in 5:55 AM source source data data Nitrate NEGATIV NEGATIV No No No Dec 24 E E informa informa informa 2013 [Presen tion in tion in tion in 5:55 AM ce] in source source source Urine data data data Leukocy TRACE NEGATIV No Abnorma No Sep benjamin E informa l informa 2013 [Presen [...] CONFORM ITORY TEST CAN BE ORDERED AT [facility] RET[facility] OF THE PHYSICI [facility]. CLINICA [...] denies Bupreno NEGATIV No No No BUPRENO Sep rphine E informa informa informa RPHRINE 2013 [Presen tion in tion in tion in CUT 2:12 PM ce] in source source source OFF Urine data data data CONCENT RATION - 12.5 NG/ML OXYCODONE,UR.(QUAL) Observa Value Referen Units Interpr Notes Date tion ce etation Range denies Oxycodo NEGATIV No No No CONCENT Sep [...] CONFORM ITORY TEST CAN BE ORDERED AT [facility] RETION OF THE PHYSICI AN. CLINICA [...] Bupreno NEGATIV No No No BUPRENO Sep rphine E informa informa informa RPHRINE 2013 [...] CONFORM ITORY TEST CAN BE ORDERED AT [facility] RET[facility] OF THE [facility]I [facility]. CLINICA [...] HPF No No Nov 21 informa informa 2014 tion in tion in [...] Notes Date ti ce etation Range NA Color YELLOW No No No No Nov 21 of informa informa informa informa 2013 Urine tion in tion in tion in tion in 12:06 source source source source AM data data data data Clarity CLEAR No No No No Nov 21 of informa informa informa informa 2013 Urine [...] No Nov 21 NOGEN 1.0 informa informa 2013 tion in [...] CONFORM ITORY TEST CAN BE ORDERED AT [facility] RETION OF THE PHYSICI [facility]. CLINICA [...] phrosis .\.br\\ .br\ END OF REPORT* *\.br\\ .br\Gar jeniffer Barrios M.D.\.b r\\.br\ Dictate d: 11/13/19 14 4:15 PM\.br\ \.br\Tr anscrib ed: 11/13/19 14 4:17 PM\.br\ \.br\ * Final Report \.br \\.br\D ictated : Brice Barrios M.D. 4:15 pm\.br\ \.br\Tr anscrib ed by: MH 4:18 pm\.br\ \.br\Au thentic ated by: Brice [...] Magnesi 4.1 1.7 - MG/DL High No Oct 18 um 2.4 informa 2013 [Mass/v tion in 5:25 AM olume] source in data Serum or Plasma MAGNESIUM Observa Value Referen Units Interpr Notes Date tion ce etation Range Magnesi 4.4 1.7 - MG/DL High No Oct 17 [...] Magnesi 3.4 1.7 - MG/DL High No Nov 11 um 2.4 informa 2013 [Mass/v tion in 6:48 AM olume] source in data Serum or Plasma GROUP B STREP SCREEN Observa Value Referen Units Interpr Notes Date tion ce etation Range GROUP B NO No No No No Nov 11 STREP GROUP B informa informa informa informa 2013 SCREEN tion in tion in tion in tion in 3:30 AM STREPTO source source source source COCCUS data data data data ISOLATE D USING DIRECT GROUP B INOCULA No No No ORDER#: Nov 11 STREP TION informa informa informa 2013 SCREEN AND tion in tion in tion in [id number] 3:30 AM BROTH source source source 8 ENHANCE data data data MENT PROCEDU RES. ORDERED BY: TAMARA GOLDBERG CE: THEODORE Caicedo COLLECT ED: 4 03:30AN DENZEL CS AT SINGH.: RECEIVE D : 4 06:23GR OUP B STREP SCREEN FINAL 4 07:2808 NO GROUP B STREPTO COCCUS ISOLATE D [...] gravity tion in tion in tion in 12:47 of source source source AM [...] No Nov 11 NOGEN 1.0 informa informa 2013 tion in [...] CONFORM ITORY TEST CAN BE ORDERED AT [facility] RET[facility] OF THE PHYSICI [facility]. CLINICA [...] .br\Jordon valencia Nino M.D.\.b r\\.br\ Dictate d: 4 3:27 PM\.br\ \.br\Tr anscrib ed: 4 3:29 PM\.br\ \.br\ * Final Report \.br \\.br\D ictated : ISSAC NINO M.D. 3:27 pm\.br\ \.br\Tr anscrib ed by: CS 3:30 pm\.br\ \.br\Au thentic ated by: ISSAC [...] No Nov 01 [Moles/ 144 informa informa 2014 volume] tion in tion in 12:50 in source source PM Serum data data or Plasma Potassi 3.7 3.6 - mmol/l No Nov 01 um 5.2 informa informa 2013 [Moles/ tion in tion in 12:50 volume] source source PM in data data Serum or Plasma Chlorid 109 98 - mmol/l High No Nov 01 e 107 informa 2013 [Moles/ tion in 12:50 volume] source PM in data Blood Carbon 22 21 - 32 mmol/L No No Nov 01 dioxide informa informa 2013 , total tion in tion in 12:50 source source PM [Moles/ data data volume] in Serum or Plasma Creatin 0.4 0.6 - MG/DL Low No Nov 01 ine 1.3 informa 2013 [Mass/v tion in 12:50 olume] source PM in data Serum or Plasma Protein 5.3 6.4 - G/DL Low No Nov 01 8.4 inform2013 [Mass/v tion in 12:50 olume] source PM in data Serum or Plasma Albumin 2.3 3.4 - G/DL Low No Nov 01 5.0 2013 [Mass/v tion in 12:50 olume] source [...] Plasma Calcium 8.1 8.5 - MG/DL Low No Nov 01 10.1 2013 [Mass/v tion in 12:50 olume] source PM in data Serum or Plasma Alkalin 91 45 - U/L No Nov 01 e 117 informa informa 2013 phospha tion in tion in 12:50 tase source source PM [Enzyma data data tic activit y/volum e] in Serum or Plasma Asparta 11 15 - 37 U/L Low No Nov 01 te inform2013 aminotr tion in 12:50 ansfera source PM se data [Enzyma tic activit y/volum e] in Serum or Plasma Alanine <14 12 - 78 U/L No Nov 01 informa informa 2013 aminotr tion in tion in 12:50 ansfera source source PM se data data [Enzyma tic activit y/volum e] in Serum or Plasma Bilirub 0.40 0.00 - MG/DL No Nov 01 in.tota 1.00 informa informa 2013 l tion in tion in 12:50 [Mass/v source source PM olume] data data in Serum or Plasma CBC/NO DIFF+ PLATELET Observa Value Referen Units Interpr Notes Date tion ce etation Range Leukocy 8.3 3.0 - K/UL No Nov 01 benjamin 11.3 informa informa 2013 [#/volu tion [...] Erythro 34.9 32.5 - g/dl No No Nov 01 cyte 35.3 informa informa 2014 mean tion in tion in 12:50 corpusc source source PM ular data data hemoglo bin concent ration [Mass/v olume] by Automat ed count Erythro 13.4 10.1 - % No No Nov 01 cyte 16.2 informa informa 2014 distrib tion in tion in 12:50 ution source source PM width data data [Ratio] by Automat ed count Platele 121 122 - K/UL Low No Nov 01 ts 454 informa 2013 [#/volu tion in [...] Nov 01 c 1.035 informa informa informa 2014 gravity tion in tion in ti in 10:00 of source source source AM Urine data data data by Automat ed test strip Erythro LARGE NEGATIV No Abnorma No Nov 01 cytes E informa l informa 2013 [Presen tion in ti in 10:00 ce] in source source AM Urine data data by Automat ed pH of 6.5 5.0 - No No No Nov 01 Urine 9.0 informa informa informa 2013 by tion in tion in ti in 10:00 Automat source source source AM ed test data data data strip Protein TRACE NEGATIV MG/DL Abnorma No Nov 01 E l informa 2013 [Presen tion in 10:00 ce] in source AM Urine data by Automat ed test strip UROBILI 1.0 0.2 - E.U./DL No No Nov 01 NOGEN 1.0 informa informa 2014 tion in [...] CONFORM ITORY TEST CAN BE ORDERED AT [facility] RETION OF THE PHYSICI [facility]. CLINICA [...] and pharyng eal specime ns.Perf ormed at: [facility], [facility] [address], [place], [place], [address] Christiano Cordero MD, Phone: [phone] JOHN PREP Observa Value Referen Units Interpr [...] ORDERED JOHN INCORRE prepara CTLY..O tion RDER#: [id number] ORDERED BY: HEATH JASMINE E: VAGINAL COLLECT ED: 4 20:20AN TIBIOTI CS AT SINGH.: RECEIVE D : 4 20:25KO H PREP FINAL 4 20:510 NO BUDDING YEAST NOTED GONORRHEA CULTURE Observa Value Referen Units Interpr Notes Date ti ce etation Range TEST GONORRHEA CULTURE WAS CANCELLED, 07/31/13 20:26 TEST ORDERED INCORRECTLY.. TEST GONORRHEA CULTURE WAS CANCELLED, 07/31/13 20:26 TEST ORDERED INCORRECTLY.. ORDER#: [id number] ORDERED BY: BLADIMIR KIM SOURCE: VAGINAL COLLECTED: 07/31/13 20:20 ANTIBIOTICS AT SINGH.: RECEIVED : 07/31/13 20:25 WET PREP (MICRO) Observa Value Referen Units Interpr Notes Date tion ce etation Range TEST GONORRHEA CULTURE WAS CANCELLED, 07/31/13 20:26 TEST ORDERED INCORRECTLY.. Microsc NO No No No No July 31 opic MOTILE informa informa informa informa 2013 observa TRICHOM tion in tion in tion [...] ORDERED Wet INCORRE prepara CTLY..O tion RDER#: [id number] ORDERED BY: HEATH JASMINE E: VAGINAL COLLECT ED: 4 20:20AN DENZEL CS AT SINGH.: RECEIVE D : 4 20:25WE T PREP (MICRO) FINAL 4 20:5005 NO MOTILE TRICHOM ONADS NOTED, NO BUDDING [...] July 31 informa informa 2013 tion in tion in 7:31 PM source source data data Epithel 1-5 No HPF No No July 31 ial informa informa informa 2013 cells tion [...] informa 2013 [Presen tion in tion in ti in 7:31 PM ce] in source source source Urine data data data by Automat ed pH of 5.5 5.0 - No No No July 31 Urine 9.0 informa informa informa 2013 by tion in tion in in 7:31 PM Automat source source source ed test data data data strip Protein NEGATIV NEGATIV MG/DL No No July 31 E E informa informa 2013 [Presen tion in ti in 7:31 PM ce] in source source Urine data data by Automat ed test strip UROBILI 1.0 0.2 - E.U./DL No No July 31 NOGEN 1.0 informa informa 2013 tion in ti in [...] Interpr Notes Date ti ce etation Range Glomeru 208.3 60.0 - [...] No July 31 [Moles/ 144 informa informa 2013 volume] tion in tion in 7:00 PM [...] Calcium 8.5 8.5 - MG/DL No No July 31 10.1 informa informa 2013 [...] U/L No No July 31 informa informa 2013 aminotr tion in tion in 7:00 PM ansfera source source se data data [Enzyma tic activit y/volum e] in Serum or Plasma Bilirub 0.20 0.00 - MG/DL No No July 31 in.tota 1.00 informa informa 2013 l tion in tion in 7:00 PM [Mass/v source source olume] data data in Serum or Plasma CBC\T\AUTO DIFF Observa Value Referen Units Interpr Notes Date tion ce etation Range Leukocy 9.6 3.0 - K/UL No No July 31 benjamin 11.3 informa informa 2013 [#/volu tion in tion in 7:00 PM me] in source source Blood data data by Automat ed count Erythro 3.560 3.450 - M/ul No No July 31 cytes 5.400 informa informa 2013 [#/volu tion in tion in 7:00 PM me] in source source Blood data data by Automat ed count Hemoglo 11.0 10.0 - gm/dl No No July 31 bin 16.0 informa informa 2014 [Mass/v tion in tion in 7:00 PM olume] source source in data data Blood Hematoc 32.5 29.9 - % No July 31 rit 45.5 informa informa 2014 [Volume tion in tion in 7:00 PM source source Fractio data data n] of Blood by Automat ed count Erythro 91.4 78.2 - fl No July 31 cyte 101.8 informa informa 2014 mean tion [...] No July 31 cyte 35.3 informa informa 2013 mean tion in tion in 7:00 PM corpusc source source ular data data hemoglo bin concent ration [Mass/v olume] by Automat ed count Erythro 13.1 10.1 - % No July 31 cyte 16.2 informa informa 2014 distrib tion in tion in 7:00 PM ution source source width data data [Ratio] by Automat ed count Platele 171 122 - K/UL No July 31 ts 454 informa informa 2014 [#/volu tion in tion in 7:00 PM me] in source source Blood data data by Automat ed count Platele 7.4 6.4 - fl No July 31 t mean 10.4 informa informa 2014 volume tion in tion in 7:00 PM [Entiti source source c data data volume] in Blood by Automat ed count Neutrop 73.8 43.0 - % No July 31 hils/10 83.0 informa informa [...] Monocyt 5.4 1.0 - % No No July 31 es/100 14.0 informa informa 2013 leukocy tion in tion in 7:00 PM benjamin in source source Blood data data by Automat ed count Eosinop 2.2 0.0 - % No No July 31 hils/10 11.0 informa informa [...] Lymphoc 1.7 0.4 - K/ul No No July 31 ytes 3.9 informa informa [...] SANA~Ac data data data data Blood ct: [id number]~ABO O 4 00:08 LMF~RH( D) TYPING [...] Notes Date tion ce etation Range Choriog 42119 No mIU/ML No FEMALE Jun 25 onadotr informa informa (NON 2014 opin tion in tion in PREGNAN 11:43 [Moles/ source source T) PM volume] data data in <31 Urine DAY - 1 WEEK 5 - 501 - 2 WEEK 50 - 5002 - 3 WEEK 100 - 07864 - 4 WEEK 500 - 542607 - 5 WEEK 1000 - 288591 - 6 WEEK 70915 - 9817383 - 8 WEEK 03596 - 6409762 - 3 MTHS 21520 - 621683 COMP. METABOLIC PANEL (CHEM 12) Observa Value Referen Units Interpr Notes Date tion ce etation Range Glucose 87 70 - MG/DL No No Jun 25 110 informa informa 2014 [Mass/v tion in tion in 11:43 olume] source source PM in data data Serum or Plasma Urea 8 7 - 18 MG/DL No No Jun 25 nitroge informa informa 2014 n tion in tion in 11:43 [Mass/v source source PM olume] data data in Serum or Plasma Sodium 140 133 - mmol/L No No Jun 25 [Moles/ 144 informa informa 2013 volume] tion in tion in 11:43 in source source PM Serum data data or Plasma Potassi 3.9 3.6 - mmol/l No No Jun 25 um 5.2 informa informa 2013 [Moles/ tion in tion in 11:43 volume] source source PM in data data Serum or Plasma Chlorid 109 98 - mmol/l High No Jun 25 e 107 informa 2013 [Moles/ tion in 11:43 volume] source PM in data Blood Carbon 23 21 - 32 mmol/L No No Jun 25 dioxide informa informa 2013 [...] No No Jun 25 10.1 informa informa 2013 [Mass/v tion in tion in 11:43 olume] source source PM in data data Serum or Plasma Alkalin 67 45 - U/L No No Jun 25 e 117 informa informa 2013 phospha tion in tion in 11:43 tase [...] informa informa 2013 tion in tion in 11:43 source source PM data data Nitrate NEGATIV [...] No No Jun 25 COUNT informa informa 2013 tion in tion in 11:43 source source [...] informa 2013 [Mass/v tion in tion in :43 olume] source source PM in data data Blood Hematoc 35.3 29.9 - % No No Jun 25 rit 45.5 informa informa 2013 [Volume tion in tion in 11:43 source source PM Fractio data data n] of Blood by Automat ed count Erythro 91.2 78.2 - fl No No Jun 25 cyte 101.8 informa informa 2013 mean tion in tion in 11:43 corpusc source source PM ular data data volume [Entiti c volume] by Automat ed count Erythro 31.3 26.4 - pg No No Jun 25 cyte 33.3 informa informa 2014 mean tion in tion in 11:43 corpusc source source PM ular data data hemoglo bin [Entiti c mass] by Automat ed count Erythro 34.4 32.5 - g/dl No Jun 25 cyte 35.3 informa informa 2014 mean tion in tion in 11:43 corpusc source source PM ular data data hemoglo bin concent ration [Mass/v olume] by Automat ed count Erythro 13.4 10.1 - % No Jun 25 cyte 16.2 informa informa 2014 distrib tion in tion in 11:43 ution source source PM width data data [Ratio] by Automat ed count Platele 186 122 - K/UL No No May 31 ts 454 informa informa 2014 [#/volu tion in tion in 11:43 me] in source source PM Blood data data by Automat ed count Platele 7.5 6.4 - fl No No May 31 t mean 10.4 informa informa 2014 [...] Monocyt 6.1 1.0 - % No No May 31 es/100 14.0 informa informa 2014 leukocy [...] Neutrop 7.5 2.7 - K/ul High No May 31 hils 6.9 informa 2013 [#/volu tion in 11:43 me] in source PM Blood data by Automat ed count Lymphoc 2.4 0.4 - K/ul No No May 31 ytes 3.9 informa informa 2014 [#/volu tion in tion in 11:43 me] in source source PM Blood data data by Automat ed count Monocyt 0.7 0.2 - K/ul High No Mar 31 es 0.6 informa 2013 [#/volu tion in [...] No Apr 15 bin 16.0 informa informa 2013 [Mass/v tion in tion in 9:13 PM olume] source source in data data Blood Hematoc 41.2 29.9 - % No No Apr 15 rit 45.5 informa informa 2013 [Volume tion in tion in 9:13 PM [...] No Apr 15 cyte 35.3 informa informa 2013 mean tion in tion in 9:13 PM corpusc source source ular data data hemoglo bin concent ration [Mass/v olume] by Automat ed count Erythro 12.9 10.1 - % No No Apr 15 cyte 16.2 informa informa 2013 distrib tion in tion in 9:13 PM [...]
--- OUTSIDE RECORDS SUMMARY | 2017-02-07 10:27 | External Medical Summary Rpt ---
[...] source Urine data data [facility] UR IN HOUSE [...] CONFORM ITORY TEST CAN BE ORDERED AT [facility]I AN. CLINICA [...] RESULTS FOR BUP/OXY REVIEWED BY: TECH = [facility] Oxycodo NEGATIV No No No CONCENT Apr [...] RESULTS FOR BUP/OXY REVIEWED BY: TECH = [facility] Bupreno NEGATIV No No No BUPR[place] Jun 30 rphine E informa informa informa RPHRINE 2017 [Presen tion in tion in tion in CUT 7:20 PM ce] in source source source OFF Urine data data data CONCENT RATION - 12.5 NG/ML RPR Observa Value Referen Units Interpr Notes Date [place] [address] Reagin NONREAC NONREAC No No No Jun [...] source source ct: data data data data [id number] 710~ABO O 7 20:16 lmf~RH( D) TYPING POS 7 20:16 lmf~ANT IBODY SCREEN NEG 7 20:11 lmf~AUT OCONTRO L 7 20:22 LMF CBC/NO DIFF+ PLATELET Observa Value Referen Units Interpr Notes Date tion [place] [address] Leukocy 9.3 3.0 - K/UL No No [...] CONFORM ITORY TEST CAN BE ORDERED AT [facility]. [facility] [...] AND tion in tion in tion in [id number] 5:35 PM BROTH source source source 9 [...] data data data [Presen ct: ce] in [id number] Serum 533~ANT or IBODY Plasma SCREEN NEG [...] ORGS/ML tion in tion in tion in [id number] 9:49 AM ied in OF source source [...] pyogene tion in tion in tion in [id number] 1:37 PM s Ag REFEREN source source [...] data data data Serum by Latex aggluti [facility] CBC\T\AUTO DIFF Observa Value Referen Units Interpr [...] n Antibod y measure d by [facility] [employer] THYROGLOBULIN, KAVYA Observa Value Referen Units Interpr Notes Date ti ce etation Range THYROGL 31 No ng/mL No Referen Sep OBULIN, informa informa ce 2016 KAVYA tion in tion in Range:P 2:37 PM source source ubertal data data Childre nand Adults: <40Acco rding to the [facility] [employer] istry,t [...] 2.0 ng/mL.P erforme d at: CB, [facility] [place] [address] [address] [facility], [place], [place], [address] 69Vince nt Damian teresa, PhD, Phone: [phone] ormed at: FRANCIS, [facility] [address] [place], [place], [address] 58Samue l Daniel jones MD, Phone: [phone] ANTIMICROSOMAL AB Observa Value Referen Units Interpr [...] ORGS/ML tion in tion in tion in [id number] 4:57 PM ied in OF source source source 2 Urine MIXED data data data by SKIN Culture ERIS ORDERED BY: MANINDER ETIENNE RSOURCE : URINE COLLECT ED: 16:57AN DENZEL CS AT [facility].: RECEIVE D : 6 17:36UR INE CULTURE FINAL 6 07:5809 /04/12 >100,00 0 ORGS/ML OF MIXED SKIN REIS RUBELLA Observa Value Referen Units Interpr Notes [...] data data data [Presen ct: ce] in [id number] Serum 277~ANT or IBODY Plasma SCREEN NEG [...] A data data data data Blood ct: [id number] 277~ABO O 6 07:20 mct~RH( D) TYPING [...] Notes Date tion ce etation Range Choriog 16792 No mIU/ML No FEMALE Nov 24 onadotr informa informa (NON 2016 opin tion in tion in PREGNAN 1:15 PM [Moles/ source source T) volume] data data in <31 Urine DAY - 1 WEEK 5 - 501 - 2 WEEK 50 - 5002 - 3 WEEK 100 - 95944 - 4 WEEK 500 - 143752 - 5 WEEK 1000 - 001476 - 6 WEEK 42385 - 4055053 - 8 WEEK 25164 - 8122551 - 3 MTHS 12240 - 119169 TSH Observa Value Referen Units Interpr Notes [...] - 5002 - 3 WEEK 100 - 44634 - 4 WEEK 500 - 955647 - 5 WEEK 1000 - 224365 - 6 WEEK 69402 - 8517838 - 8 WEEK 61789 - 1896776 - 3 MTHS 81741 - 757831 CBC\T\AUTO DIFF Observa Value Referen Units Interpr [...] SANA~Ac data data data data Blood ct: [id number] 627~ABO O 6 20:03 JPB~RH( D) TYPING [...] source Urine data data alysha t [facility] op[facility] [place] UR IN HOUSE [...] CONFORM ITORY TEST CAN BE ORDERED AT [facility]. [facility] [...] - 5002 - 3 WEEK 100 - 20705 - 4 WEEK 500 - 114635 - 5 WEEK 1000 - 411731 - 6 WEEK 79739 - 6244527 - 8 WEEK 70593 - 1662658 - 3 MTHS 84147 - 782478 COMP. METABOLIC PANEL (CHEM 12) Observa Value [...] Jose A data data data data ct: [id number] 134~ABO O 6 08:35 sdh~RH( D) TYPING [...] CONFORM ITORY TEST CAN BE ORDERED AT [facility]. [facility]ICA [...] CONFORM ITORY TEST CAN BE ORDERED AT [facility]. [facility]ICA [...] CONFORM ITORY TEST CAN BE ORDERED AT [facility]. [facility] [...] CONFORM ITORY TEST CAN BE ORDERED AT [facility] L CONSIDE RATION ANDPROF ESSIONA L JUDGEME NT SHOULD BE APPLIED TO ANY DRUG OF ABUSETE ST RESULT, PARTICU EJFF WHEN PRELIMI NARY POSITIV E RESULTS AREUSED [...] * Final Report \.br \\.br\D ictated : ISSCA NINO M.D. 6:58 am\.br\ \.br\Tr anscrib ed [...] source source source could data data data methods analyst data processing to adverse medical , social, No No [...] 14 tion in tion in tion in [id number] 3:53 PM years source source source 5 [...] ORGS/ML tion in tion in tion in [id number] 11:00 ied in OF source source source [...] data data data [Presen ct: ce] in [id number] Serum 588~ANT or IBODY Plasma SCREEN NEG [...] SANA~Ac data data data data Blood ct: [id number] 588~ABO O 5 06:46 mct~RH( D) TYPING [...] CONFORM ITORY TEST CAN BE ORDERED AT [facility]. [facility]ICA [...] SANA~Ac data data data data Blood ct: [id number] 143~ABO O 5 19:10 MJR~RH( D) TYPING [...] source source source could data data data methods analyst data processing to adverse medical , social, No No [...] 14 tion in tion in tion in [id number] 6:33 PM years source source source 0 [...] observa tion in tion in tion in [id number] 6:33 PM tion source source source 9 [Identi data data data fier] in Unspeci ORDERED fied BY: raisa carpenter by , Wet HENRYSO prepara URCE: tion VAGINAL COLLECT ED: 5 18:33AN [facility] AT [facility] RECEIVE D : 5 19:01WE T PREP (MICRO) FINAL 5 19:2409 FEW CLUE CELLS, MANY WBC'S, NO MOTILE TRICH OR SPERM NOTED ONWET PREP. JOHN PREP Observa Value Referen Units Interpr Notes Date tion ce etation Range Microsc NO No No No ORDER#: Jan 08 opic YEAST informa informa informa 2014 observa NOTED. tion in tion in tion in [id number] 6:33 PM tion source source source 9 [Identi data data data fier] in Unspeci ORDERED fied BY: raisa carpenter by , JOHN HENRYSO prepara URCE: tion VAGINAL COLLECT ED: 5 18:33AN [facility] AT [facility] RECEIVE D : 5 19:01KO H PREP FINAL 5 19:2409 NO YEAST NOTED. URINE CULTURE Observa Value Referen Units Interpr Notes Date tion ce etation Range Bacteri >100,00 No No No ORDER#: Sep 4 a 0 informa informa informa 2015 identif ORGS/ML tion in tion in tion in [id number] 4:08 PM ied in OF source source [...] - 5002 - 3 WEEK 100 - 44944 - 4 WEEK 500 - 072251 - 5 WEEK 1000 - 437135 - 6 WEEK 57409 - 8365108 - 8 WEEK 63417 - 8118152 - 3 MTHS 20406 - 965184 BASIC METABOLIC PANEL (CHEM 7) Observa Value [...] SANA~Gasper data data data data Blood ct: [id number] 546~ABO O 5 16:06 SAH~RH( D) TYPING [...] source SANA~Ac data data data data ct: [id number] 482~ABO O 4 07:06 sdh~RH( D) TYPING [...] CONFORM ITORY TEST CAN BE ORDERED AT [facility]. [facility]ICA [...] CONFORM ITORY TEST CAN BE ORDERED AT [facility]. [facility] [...] CONFORM ITORY TEST CAN BE ORDERED AT [facility]. [facility] [...] CONFORM ITORY TEST CAN BE ORDERED AT [facility]. [facility] [...] CONFORM ITORY TEST CAN BE ORDERED AT [facility]. [facility] [...] AND tion in tion in tion in [id number] 3:30 AM BROTH source source source 8 [...] CONFORM ITORY TEST CAN BE ORDERED AT [facility]. [facility]ICA [...] CONFORM ITORY TEST CAN BE ORDERED AT [facility]. [facility] [...] eal specime ns.Perf ormed at: NAHOMI, [facility] [address], [place], [place], [address] Christiano Cordero MD, Phone: [phone] JOHN PREP Observa Value Referen Units Interpr [...] ORDERED JOHN INCORRE prepara CTLY..O tion RDER#: [id number] ORDERED BY: HEATH JASMINE E: VAGINAL COLLECT ED: 4 20:20AN [facility] AT [facility] RECEIVE D : 4 20:25KO H PREP FINAL 4 20:510 NO BUDDING YEAST NOTED GONORRHEA CULTURE Observa Value Referen Units Interpr Notes Date ti ce etation Range TEST GONORRHEA CULTURE WAS CANCELLED, 07/31/13 20:26 TEST ORDERED INCORRECTLY.. TEST GONORRHEA CULTURE WAS CANCELLED, 07/31/13 20:26 TEST ORDERED INCORRECTLY.. ORDER#: [id number] ORDERED BY: BLADIMIR KIM SOURCE: VAGINAL COLLECTED: [...] ORDERED Wet INCORRE prepara CTLY..O tion RDER#: [id number] ORDERED BY: HEATH JASMINE E: VAGINAL [...] SANA~Ac data data data data Blood ct: [id number] 984~ABO O 4 00:08 LMF~RH( D) TYPING [...] Notes Date tion ce etation Range Choriog 62426 No mIU/ML No FEMALE Jun 25 onadotr informa informa (NON 2014 opin tion in tion in PREGNAN 11:43 [Moles/ source source T) PM volume] data data in <31 Urine DAY - 1 WEEK 5 - 501 - 2 WEEK 50 - 5002 - 3 WEEK 100 - 22748 - 4 WEEK 500 - 095760 - 5 WEEK 1000 - 292557 - 6 WEEK 42410 - 6688027 - 8 WEEK 54450 - 9470894 - 3 MTHS 83642 - 379646 COMP. METABOLIC PANEL (CHEM 12) Observa Value [...]
--- NOTE | 2017-02-07 11:19 | Urgent Treatment Center Report ---
History of Present Issue Date/Time Seen by Provider 02/07/17 1109 Visit Reason Pt arrived:Walked Presenting Problem:SORE THROAT BEGAN THIS AM Location if Accident: Onset of symptoms date/time:/ or onset unknown for:MEDICAL HX UNKNOWN Have you (or family members/close friends) recently traveled outside the [place]? N If Yes, where/when: Have you had exposure to infectious disease within the past month? TB? Other? Specify: Patient state that she awoke this morning with sore throat and not feeling well with cough State that she did this a couple of months ago also. State that she also thinks she may be . State that she recently had a baby and her periods have not been normal so she is unsure and need to check prior to her getting on antibiotics for what ever this is State that she has taken several pregnacy tests with different results some was postive and a few where negative ALLERGIES Coded Allergies: codeine (01/03/17) metoclopramide (From REGLAN) (01/03/17) morphine (01/03/17) Home Medications Active Scripts Phenazopyridine HCl (Pyridium) 200 MG PO TID #10 TAB Prov: 01/04/17 Reported Medications LEVOTHYROXINE SOD (Synthroid) 0.1 MG PO DAILY History Medical History General CAD? No Angina: No ME: No Hypertension? No Hyperlipidemia? No CHF? No DVT? No PE? No COPD? No Asthma? No Anemia? Yes GERD? No Gastric ulcers? No GI Bleed? No Hernia? No Thyroid Problems? Yes Hypothyroidism? Yes CVA? No Seizures? Yes Diabetes? No Renal Insuffiency? Yes UTI? No Stones? Yes BPH? No GB Disease: No Nephritic Syndrome? No Asplenia? No Hepatitis? No Sickle Cell Disease? No Arthritis? No Migraines? No Cataracts? No Glaucoma? No MRSA? No HIV? No TB? No Anxiety? Yes Depression? Yes Cancer? No Immunization HX DT/Tetanus < 1 Year Ago Surgical Hx Previous Surgery?Y ABDOMINAL MESH IMPLANTS IN [employer] Hx LMP 2 Months Ago Social History Smoking Hx Smoker: Never Smoker Tobacco: No Alcohol Alcohol: No Review of Systems All Other Systems Reviewed and Negative ENT nose discharge, nose congestion, throat pain. Respiratory cough Physical Exam Vital Signs Vital Signs Date Time Temp Pulse Resp B/P Pulse O2 O2 Flow FiO2 Ox Delivery Rate 02/07 1033 97.9 91 20 115/76 98 General Appearance normal appearance, WD/WN, no apparent distress Ear, Nose, Throat sinus pain/drainage, nasal congestion, throat red, irritated Respiratory Status Yes: trachea midline, chest symmetrical, non tender chest. No: respiratory distress. Cardiovascular normal exam, regular rate/rhythm, no peripheral edema Neurologic alert, normal exam, oriented x 3 Medical Decision Making LABS/Meds/Orders Pt receiving controlled substance in ED? No Results/Orders Laboratory Tests 02/07/17 1126: Urine Test NEGATIVE 02/07/17 1048: Group A Strep Screen NOT DETECTED Orders Procedure Date/time Status SERUM , QUAL 02/07 1129 Complete UTC URINE 02/07 1126 Complete UTC STREP SCREEN 02/07 1048 Complete Progress [facility] Progress Notes 1 Comment Contacted lab about serum results advised would call back with results [facility] Progress Notes 2 Comment Consulted with pharmacy due to inconclusive test and advised that Augmentin is safe during pregnacy so patient placed on augmentin Departure Departure Time of Disposition 1240 Disposition DC Home or Self Care(routine) Clinical Impression Primary Impression: Tonsillitis Secondary Impressions: Sinusitis Qualifiers: Sinusitis location: unspecified location Chronicity: unspecified Qualified Code: J32.9 - Chronic sinusitis, unspecified Condition STABLE Patient Instructions Cough, DI for Cough -- Adult, Sore Throat Additional Instructions * Monitor Temp. Tylenol and/or Ibuprofen as needed. ER if fever is no less than 101 despite alternating Tylenol and Ibuprofen * Encourage fluids, water, Gatorade, powerade, pedialyte if /toddler/or child * Warm salt water gargles for throat irritation *Warm fluids *Sore throat lozenges *Sleep elevated *humidifier or vaporizer Lots of rest Increase fluids, water, Gatorade, powerade *Your throat swab was sent to lab for culture. Those results area typically sent to your primary care physician. Be sure to follow up in 2-3 days if no improvement so they can review those results and treat if necessary If you dont have primary care I recommend you get one, but in the mean time you will have to return to a walk in clinic Follow up IMMEDIATELY for new or worsening of symptoms OR no noticeable improvement over the next 48-72 hours. 911 immediately for any life threatening symptoms such as chest pain or difficulty breathing Patient advised to follow up with OBGYN or family doctor for further testing for pregnacy Discharge Counseling Counseled pt/family regarding diagnosis, test results, home care, follow up needs Prescriptions Current Visit Scripts Amoxicillin/Potassium Clav (Augmentin 875-125 Tablet) 1 EACH PO BID #14 TAB at 124
--- NOTE | 2017-02-07 11:19 | Urgent Treatment Center Report ---
History of Present Issue Date/Time Seen by Provider 02/07/17 1109 Visit Reason Pt arrived:Walked Presenting Problem:SORE THROAT BEGAN THIS AM Location if Accident: Onset of symptoms date/time:/ or onset unknown for:MEDICAL HX UNKNOWN Have you (or family members/close friends) recently traveled outside the [place]? N If Yes, where/when: Have you had exposure to infectious disease within the past month? TB? Other? Specify: Patient state that she awoke this morning with sore throat and not feeling well with cough State that she did this a couple of months ago also. State that she also thinks she may be . State that she recently had a baby and her periods have not been normal so she is unsure and need to check prior to her getting on antibiotics for what ever this is State that she has taken several pregnacy tests with different results some was postive and a few where negative ALLERGIES Coded Allergies: codeine (01/03/17) metoclopramide (From REGLAN) (01/03/17) morphine (01/03/17) Home Medications Active Scripts Phenazopyridine HCl (Pyridium) 200 MG PO TID #10 TAB Prov: 01/04/17 Reported Medications LEVOTHYROXINE SOD (Synthroid) 0.1 MG PO DAILY History Medical History General CAD? No Angina: No CA: No Hypertension? No Hyperlipidemia? No CHF? No DVT? No PE? No COPD? No Asthma? No Anemia? Yes GERD? No Gastric ulcers? No GI Bleed? No Hernia? No Thyroid Problems? Yes Hypothyroidism? Yes CVA? No Seizures? Yes Diabetes? No Renal Insuffiency? Yes UTI? No Stones? Yes BPH? No GB Disease: No Nephritic Syndrome? No Asplenia? No Hepatitis? No Sickle Cell Disease? No Arthritis? No Migraines? No Cataracts? No Glaucoma? No MRSA? No HIV? No TB? No Anxiety? Yes Depression? Yes Cancer? No Immunization HX DT/Tetanus < 1 Year Ago Surgical Hx Previous Surgery?Y ABDOMINAL MESH IMPLANTS IN [employer] Hx LMP 2 Months Ago Social History Smoking Hx Smoker: Never Smoker Tobacco: No Alcohol Alcohol: No Review of Systems All Other Systems Reviewed and Negative ENT nose discharge, nose congestion, throat pain. Respiratory cough Physical Exam Vital Signs Vital Signs Date Time Temp Pulse Resp B/P Pulse O2 O2 Flow FiO2 Ox Delivery Rate 02/07 1033 97.9 91 20 115/76 98 General Appearance normal appearance, WD/WN, no apparent distress Ear, Nose, Throat sinus pain/drainage, nasal congestion, throat red, irritated Respiratory Status Yes: trachea midline, chest symmetrical, non tender chest. No: respiratory distress. Cardiovascular normal exam, regular rate/rhythm, no peripheral edema Neurologic alert, normal exam, oriented x 3 Medical Decision Making LABS/Meds/Orders Pt receiving controlled substance in ED? No Results/Orders Laboratory Tests 02/07/17 1126: Urine Test NEGATIVE 02/07/17 1048: Group A Strep Screen NOT DETECTED Orders Procedure Date/time Status SERUM , QUAL 02/07 1129 Complete UTC URINE 02/07 1126 Complete UTC STREP SCREEN 02/07 1048 Complete Progress [facility] Progress Notes 1 Comment Contacted lab about serum results advised would call back with results [facility] Progress Notes 2 Comment Consulted with pharmacy due to inconclusive test and advised that Augmentin is safe during pregnacy so patient placed on augmentin Departure Departure Time of Disposition 1240 Disposition DC Home or Self Care(routine) Clinical Impression Primary Impression: Tonsillitis Secondary Impressions: Sinusitis Qualifiers: Sinusitis location: unspecified location Chronicity: unspecified Qualified Code: J32.9 - Chronic sinusitis, unspecified Condition STABLE Patient Instructions Cough, DI for Cough -- Adult, Sore Throat Additional Instructions * Monitor Temp. Tylenol and/or Ibuprofen as needed. ER if fever is no less than 101 despite alternating Tylenol and Ibuprofen * Encourage fluids, water, Gatorade, powerade, pedialyte if /toddler/or child * Warm salt water gargles for throat irritation *Warm fluids *Sore throat lozenges *Sleep elevated *humidifier or vaporizer Lots of rest Increase fluids, water, Gatorade, powerade *Your throat swab was sent to lab for culture. Those results area typically sent to your primary care physician. Be sure to follow up in 2-3 days if no improvement so they can review those results and treat if necessary If you dont have primary care I recommend you get one, but in the mean time you will have to return to a walk in clinic Follow up IMMEDIATELY for new or worsening of symptoms OR no noticeable improvement over the next 48-72 hours. 911 immediately for any life threatening symptoms such as chest pain or difficulty breathing Patient advised to follow up with OBGYN or family doctor for further testing for pregnacy Discharge Counseling Counseled pt/family regarding diagnosis, test results, home care, follow up needs Prescriptions Current Visit Scripts Amoxicillin/Potassium Clav (Augmentin 875-125 Tablet) 1 EACH PO BID #14 TAB at 1242
[2017-02-07 12:54] VITALS: BP 122/74
== END ==
LOC: UTC 10:07
DX: J03.90 Acute tonsillitis, unspecified (principal); J32.9 Chronic sinusitis, unspecified; E03.9 Hypothyroidism, unspecified; Z88.5 Allergy status to narcotic agent; Z88.8 Allergy status to other drugs, medicaments and biological substances; Z79.899 Other long term (current) drug therapy; Z87.442 Personal history of urinary calculi

== ENCOUNTER 2017-02-15 13:30 | Emergency (ER) | payer MEDICAID ==
[~2017-02-15] VITALS: Ht 162.6 cm; Wt 84.4 kg
[~2017-02-15 13:30] MED LIST changes: -AVPAK AZITHROM250 MG PO; -BACTRIM DS 8001 TA1 PO; -DOLOBID 500MG500 MG PO
--- OUTSIDE RECORDS SUMMARY | 2017-02-15 14:00 | External Medical Summary Rpt | CCD ---
Author Author , JONATAN Organization JONATAN Address Unknown Phone [email or web address] Purpose Continuity of Care Document - 04-15-2013 through 2016 Results Labs Lab Lab Date Result Refere Interp Status Commen Order Detail nces retati t Range on Urine test by rapid immunoassa (02-07-2017 11:26) Urine NEGATIV NEG complet pregnan 017 E ed cy test 11:26 by rapid immunoa ssa Streptococcus pyogenes Ag [Presence] in Unspecified specimen (02-07-2017 10:48) Strepto NOT NOTDETE complet coccus [address] pyogene 10:48 D s Ag [Presen ce] in Unspeci fied specime n Urinalysis dipstick W Reflex Microscopic panel in [...]
--- OUTSIDE RECORDS SUMMARY | 2017-02-15 14:00 | External Medical Summary Rpt | CCD ---
Demographics Preferred Language Armenian Marital Status Unknown Christianity Affiliation Unknown Race Unknown Ethnic Group Unknown Author Author , JONATAN CHEUNG Address Unknown Phone Immunization No patient found.
--- OUTSIDE RECORDS SUMMARY | 2017-02-15 14:00 | External Medical Summary Rpt | CCD ---
Demographics Preferred Language Uzbek Marital Status Unknown Shinto Affiliation Unknown Race Unknown Ethnic Group Unknown Author Author , JONATAN CHEUNG Address Unknown Phone Immunization No patient found.
--- OUTSIDE RECORDS SUMMARY | 2017-02-15 14:00 | External Medical Summary Rpt | CCD ---
Author Author , JONATAN Organization JONATAN Address Unknown Phone [email or web address] Purpose Continuity of Care Document - 04-15-2013 [...]
[2017-02-15] MEDS ORDERED: AVPAK AZITHROM250 MG PO (14:09)
--- NOTE | 2017-02-15 14:11 | Emergency Room Report ---
History of Present Illness Time Seen by [id number] Presenting Problem in Triage Pt arrived:Walked Presenting Problem:NON PRODUCTIVE, LOOSE COUGH, CONGESTION, RUNNY NOSE, AFEBRILE. QUESTIONING IF . 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 N Clinical Suspician of Infection? Y Mental Status: 1 - Regular (Normal Baseline) Sepsis Risk:Low Sepsis Risk Have you (or family members/close friends) recently traveled outside the [place]? N If Yes, where/when: Have you had exposure to infectious disease within the past month? N TB? Other? Specify: Patient reports cough, nonproductive, not tolerating Augmentin as Rx from [facility] last week, only took it for about two days. Requesting change in antibiotic. Has done several home tests that are positive in the last few days. Also had positive blood test in [facility] last week. No fever today. No vomiting. LMP was last week, has irregular menses. No pelvic pain, no fever, no vaginal discharge or bleeding today. ALLERGIES Coded Allergies: codeine (01/03/17) metoclopramide (From REGLAN) (01/03/17) morphine (01/03/17) Home Medications Reported Medications LEVOTHYROXINE SOD (Synthroid) 0.1 MG PO DAILY History Medical History General CAD? No Angina: No [place]: No Hypertension? No Hyperlipidemia? No CHF? No DVT? No PE? No COPD? No Asthma? No Anemia? Yes GERD? No Gastric ulcers? No GI Bleed? No Hernia? No Thyroid Problems? Yes Hypothyroidism? Yes CVA? No Seizures? Yes Diabetes? No Renal Insuffiency? Yes End Stage Renal Disease? No UTI? No Stones? Yes BPH? No GB Disease: No Nephritic Syndrome? No Asplenia? No Hepatitis? No Sickle Cell Disease? No Arthritis? No Migraines? No Cataracts? No Glaucoma? No MRSA? No HIV? No TB? No Anxiety? Yes Depression? Yes Cancer? No More? No Immunization Hx DT/Tetanus < 1 Year Ago Surgical Hx Previous Surgery?Y ABDOMINAL MESH IMPLANTS IN [employer] Hx LMP 1 Week Ago Est.Due Date UNKNOWN OB DR NONE Comment PT RECENTLY FOUND OUT Social History Smoking Hx Smoker: Never Smoker Tobacco: No Are you/the child exposed to second-hand smoke: No Alcohol Alcohol: No Review of Systems All Other Systems Reviewed and Negative Respiratory see HPI Genitourinary see HPI. Physical Exam Vital Signs Vital Signs Date Time Temp Pulse Resp B/P Pulse O2 O2 Flow FiO2 Ox Delivery Rate 02/15 1338 98.1 114 18 105/54 97 General Appearance normal appearance, WD/WN, no apparent distress (actively coughing) Eye Exam - bilateral eye normal exam, bilateral eye PERRL, bilateral eye EOMI Neck normal inspection, non-tender, supple, full range of motion Respiratory Status Yes: trachea midline, chest symmetrical, non tender chest, non productive cough. No: respiratory distress, tender on palpation, use of accessory muscles, pain on inspiration, pain on expiration, productive cough. Lung Sounds bilateral: normal breath sounds, lungs clear. Cardiovascular normal exam, regular rate/rhythm, no peripheral edema, no gallop, no JVD, no murmur, no rub Gastrointestinal normal bowel sounds, normal exam, soft, no organomegaly, no pulsatile mass, no guarding, no rebound Extremities no calf tenderness Neurologic alert, normal exam, no motor/sensory deficits, oriented x 3 Medical Decision Making LABS/Meds/Orders Pt receiving controlled substance in ED? No Progress ED Progress Notes Date 02/15/17 Time 1407 Comment Labs reviewed; pos blood preg test last week; she showed me photos of at least three home urine preg tests that showed positive results. She denies pelvic pain , denies VB at this time. Departure Departure Time of Disposition 1408 Disposition DC Home or Self Care(routine) Clinical Impression Primary Impression: Cough Condition STABLE Referrals RUCHI GERARDO (Family) Patient Instructions Cough Additional Instructions Rx Zithromax, see Dr. Paredes or Dr. Stone for evaluation, next available appointment, and see family doctor regarding cough, next week. push fluids. Discharge Counseling Counseled pt/family regarding diagnosis, test results, medications/RX, home care, follow up needs Prescriptions Current Visit Scripts Azithromycin (Avpak Azithromycin) 250 MG PO DAILY #6 TAB Zpack over five days as directed ED Critical Care Critical Care No at 1410
--- NOTE | 2017-02-15 14:11 | Emergency Room Report ---
History of Present Illness Time Seen by [id number] Presenting Problem in Triage Pt arrived:Walked Presenting Problem:NON PRODUCTIVE, LOOSE COUGH, CONGESTION, RUNNY NOSE, AFEBRILE. QUESTIONING IF . 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 N Clinical Suspician of Infection? Y Mental Status: 1 - Regular (Normal Baseline) Sepsis Risk:Low Sepsis Risk Have you (or family members/close friends) recently traveled outside the [place]? N If Yes, where/when: Have you had exposure to infectious disease within the past month? N TB? Other? Specify: Patient reports cough, nonproductive, not tolerating Augmentin as Rx from [facility] last week, only took it for about two days. Requesting change in antibiotic. Has done several home tests that are positive in the last few days. Also had positive blood test in [facility] last week. No fever today. No vomiting. LMP was last week, has irregular menses. No pelvic pain, no fever, no vaginal discharge or bleeding today. ALLERGIES Coded Allergies: codeine (01/03/17) metoclopramide (From REGLAN) (01/03/17) morphine (01/03/17) Home Medications Reported Medications LEVOTHYROXINE SOD (Synthroid) 0.1 MG PO DAILY History Medical History General CAD? No Angina: No [place]: No Hypertension? No Hyperlipidemia? No CHF? No DVT? No PE? No COPD? No Asthma? No Anemia? Yes GERD? No Gastric ulcers? No GI Bleed? No Hernia? No Thyroid Problems? Yes Hypothyroidism? Yes CVA? No Seizures? Yes Diabetes? No Renal Insuffiency? Yes End Stage Renal Disease? No UTI? No Stones? Yes BPH? No GB Disease: No Nephritic Syndrome? No Asplenia? No Hepatitis? No Sickle Cell Disease? No Arthritis? No Migraines? No Cataracts? No Glaucoma? No MRSA? No HIV? No TB? No Anxiety? Yes Depression? Yes Cancer? No More? No Immunization Hx DT/Tetanus < 1 Year Ago Surgical Hx Previous Surgery?Y ABDOMINAL MESH IMPLANTS IN ABD [employer] Hx LMP 1 Week Ago Est.Due Date UNKNOWN OB DR NONE Comment PT RECENTLY FOUND OUT Social History Smoking Hx Smoker: Never Smoker Tobacco: No Are you/the child exposed to second-hand smoke: No Alcohol Alcohol: No Review of Systems All Other Systems Reviewed and Negative Respiratory see HPI Genitourinary see HPI. Physical Exam Vital Signs Vital Signs Date Time Temp Pulse Resp B/P Pulse O2 O2 Flow FiO2 Ox Delivery Rate 02/15 1338 98.1 114 18 105/54 97 General Appearance normal appearance, WD/WN, no apparent distress (actively coughing) Eye Exam - bilateral eye normal exam, bilateral eye PERRL, bilateral eye EOMI Neck normal inspection, non-tender, supple, full range of motion Respiratory Status Yes: trachea midline, chest symmetrical, non tender chest, non productive cough. No: respiratory distress, tender on palpation, use of accessory muscles, pain on inspiration, pain on expiration, productive cough. Lung Sounds bilateral: normal breath sounds, lungs clear. Cardiovascular normal exam, regular rate/rhythm, no peripheral edema, no gallop, no JVD, no murmur, no rub Gastrointestinal normal bowel sounds, normal exam, soft, no organomegaly, no pulsatile mass, no guarding, no rebound Extremities no calf tenderness Neurologic alert, normal exam, no motor/sensory deficits, oriented x 3 Medical Decision Making LABS/Meds/Orders Pt receiving controlled substance in ED? No Progress ED Progress Notes Date 02/15/17 Time 1407 Comment Labs reviewed; pos blood preg test last week; she showed me photos of at least three home urine preg tests that showed positive results. She denies pelvic pain , denies VB at this time. Departure Departure Time of Disposition 1408 Disposition DC Home or Self Care(routine) Clinical Impression Primary Impression: Cough Condition STABLE Referrals RUCHI GERARDO (Family) Patient Instructions Cough Additional Instructions Rx Zithromax, see Dr. Paredes or Dr. Stone for evaluation, next available appointment, and see family doctor regarding cough, next week. push fluids. Discharge Counseling Counseled pt/family regarding diagnosis, test results, medications/RX, home care, follow up needs Prescriptions Current Visit Scripts Azithromycin (Avpak Azithromycin) 250 MG PO DAILY #6 TAB Zpack over five days as directed ED Critical Care Critical Care No at 1410
--- OUTSIDE RECORDS SUMMARY | 2017-02-15 14:13 | External Medical Summary Rpt ---
Author Author JONATAN Wylie, [employer] Organization [employer] Address Unknown Phone Unavailable Results Choriogonadotropin [Units/volume] in Serum or Plasma Observa Value Referen Units Interpr Notes Date tion ce etation Range Choriogon NEG No No No Feb 07 adotropin informati informati informati 2017 on in on in on in 11:39 AM [Units/vo source source source lume] in data data data Serum or Plasma Urine test by rapid immunoassa Observa Value Referen Units Interpr Notes Date tion ce etation Range Urine NEGATIV NEG No No YES Feb 07 pregnan E informa informa 2017 cy test tion in tion in 11:26 by source source AM rapid data data immunoa ssa Streptococcus pyogenes Ag [Presence] in Unspecified specimen Observa Value Referen Units Interpr Notes Date tion ce etation Range Strepto NOT NOTDETE No No LOT # Feb 07 coccus DETECTE CTED informa informa @[id number] pyogene D tion in tion in 2 EXP 10:48 s Ag source source DATE AM [Presen data data @2019-0 ce] in 11-28 Unspeci fied specime n Comprehensive metabolic 2000 panel in Serum or Plasma Observa Value Referen Units Interpr Notes Date tion ce etation Range Albumin/G 1.1 - 1.8 No Low No Jan 04 lobulin informati informati 2016 [Mass on in on in 12:05 AM ratio] in source source Serum or data data Plasma Albumin 3.4 - 5.0 gm/dL Normal No Jan 04 [Mass/vol informati 2016 ume] in on in 12:05 AM Serum or source Plasma data Alkaline 46 - 116 U/L Normal No Jan 04 phosphata informati 2016 se on in 12:05 AM [Enzymati source c data activity/ volume] in Serum or Plasma Bilirubin 0.2 - 1.0 mg/dL Normal No Jan 04 .total informati 2016 [Mass/vol on in 12:05 AM ume] in source Serum or data Plasma Urea 7 - 18 mg/dL Normal No Oct 10 nitrogen informati 2017 [Mass/vol on in 12:05 AM ume] in source Serum or data Plasma Calcium 8.5 - mg/dL Normal No Dec 10 [Mass/vol 10.1 informati 2016 ume] in [...] Plasma Creatinin 0.55 - mg/dL Normal No Dec 10 e 1.02 informati 2017 [Mass/vol on in 12:05 AM ume] in source Serum or data Plasma Creatinin 50 - 200 ML/MIN Normal No Dec 10 e renal informati 2017 clearance on in 12:05 AM source predicted data by Cockcroft -Gault formula Estimated 59- ML/MIN No REFERENCE Dec 10 informati RANGE: 2017 glomerula on in >60 12:05 AM r source ML/MIN/1. filtratio data 73 SQUARE n rate METERSIf (GF this patient is -A merican, then multiply theresult by 1.210. Globulin 1.3 - 3.2 gm/dL High No Oct 10 [Mass/vol informati 2017 ume] in on in 12:05 AM Serum source data Glucose 74 - 106 mg/dL High No Dec 10 [Mass/vol informati 2016 ume] in on in 12:05 AM Serum or source Plasma data Potassium 3.5 - 5.1 mmoL/L Normal No Oct 10 informati 2017 [Moles/vo on in 12:05 AM lume] in source Serum or data Plasma Sodium 136 - 145 mmoL/L Normal No Oct 10 [Moles/vo informati 2017 lume] in on in 12:05 AM Serum or source Plasma data Aspartate 15 - 37 U/L High No Dec 10 informati 2017 aminotran on in 12:05 AM sferase source [Enzymati data c activity/ volume] in Serum or Plasma Alanine 12 - 78 U/L High No Oct 10 aminotran informati 2017 sferase on in 12:05 AM [Enzymati source c data activity/ volume] in Serum or Plasma Protein 6.4 - 8.2 gm/dL Normal No Jan 04 [Mass/vol 2016 ume] in on in 12:05 AM Serum or source Plasma data Lipase [Enzymatic activity/volume] in Serum or Plasma Observa Value Referen Units Interpr Notes Date tion ce etation Range Lipase 73 - 393 U/L Normal No Jan 04 [Enzymati 2016 c on in 12:05 AM activity/ source volume] data in Serum or Plasma CBC W Auto Differential panel in Blood Observa Value Referen Units Interpr Notes Date tion ce etation Range Basophils 0 - 0.2 K/MM3 Normal No Jan 042016 [#/volume on in 12:05 AM ] in source Blood by data Automated count Basophils 0.1 - 2.0 % Normal No Jan 042016 leukocyte on in 12:05 AM s in [...] 7.8 K/mm3 Normal No Jan 04 benjamin 2016 [#/volume on in 12:05 AM ] in source Blood by data Automated count Granulocy 37.0 - % Normal No Jan 04 benjamin/100 80.0 2016 leukocyte on in 12:05 AM s in source Blood by data Automated count Hematocri 37.0 - % Normal No Jan 04 t [Volume 47.0 2016 on in 12:05 AM Fraction] source of Blood data Hemoglobi 12.2 - g/dL Normal No Jan 04 n 16.2 2016 [Mass/vol on in 12:05 AM ume] in source Blood data Lymphocyt 0.7 - 4.5 K/mm3 Normal No Jan 04 es 2016 [#/volume on in 12:05 AM ] in source Unspecifi data ed specimen by Automated count Lymphocyt 10 - 50.0 % Normal No Jan 04 es 2016 [#/volume on in 12:05 AM ] in source Unspecifi data ed specimen by Automated count Erythrocy 27 - 31.2 pg Normal No Jan 04 te mean 2016 corpuscul on in 12:05 AM ar source hemoglobi data n [Entitic mass] Erythrocy 31.8 - g/dl Normal No Jan 04 te mean 35.4 2016 corpuscul on in 12:05 AM ar source hemoglobi data n concentra tion [Mass/vol ume] by Automated count Erythrocy 82.2 - fl Normal No Jan 04 te mean 97.8 2016 corpuscul on in 12:05 AM ar volume source [Entitic data volume] by Automated count Monocytes 0.1 - 1.0 K/mm3 Normal No Jan 042016 [#/volume on in 12:05 AM ] in source Blood by data Automated count Monocytes 1.7 - 9.3 % Normal No Jan 04 /100 2016 leukocyte on in 12:05 AM s in source Blood by data Automated count Platelet 7.4 - fl Low No Jan 04 mean 10.4 inform2016 volume on in 12:05 AM [Entitic source volume] data in Blood by Automated count Platelets 142 - 424 K/mm3 Normal No Jan 04 inform2016 [#/volume on in 12:05 AM ] in source Blood data Erythrocy 4.2 - 5.4 M/mm3 Normal No Jan 04 benjamin inform2016 [#/volume on in 12:05 AM ] in source Amniotic data fluid Erythrocy 11.5 - % Normal No Jan 04 te 17.5 2016 distribut on in 12:05 AM ion width source [Entitic data volume] by Automated count Leukocyte 4.8 - K/MM3 Normal No Jan 04 s 10.8 2016 [#/volume on in 12:05 AM ] [...] No No Jan 03 s informati informati 2016 [#/volume on in on in 11:50 PM [...] No No Jan 03 nogen informa informa 2017 [Presen tion in tion in 11:50 ce] [...] Hemoglo 9.6 10.0 - gm/dl Low No Jul 02 bin 16.0 informa 2017 [Mass/v tion in 3:45 AM olume] source in data Blood Hematoc 28.3 29.9 - % Low No Jul 02 rit 45.5 informa 2016 [Volume tion in 3:45 AM source Fractio [...] Glucose NEGATIV NEGATIV MG/DL No No Apr 5 E E informa informa 2017 [Presen tion in tion in 7:20 PM ce] in source source Urine data data by Automat ed test strip Bilirub NEGATIV NEGATIV No No No Apr in E E informa informa informa 2016 [...] 1.019 1.006 - No No No Jun 5 c 1.035 informa informa informa 2017 gravity tion in tion in ti in 7:20 PM of source source source Urine data data data by Automat ed test strip Erythro NEGATIV NEGATIV No No No Apr cytes E E informa informa informa 2016 [Presen tion in tion in ti in 7:20 PM ce] in source source source Urine data data data by Automat ed pH of 6.5 5.0 - No No No Jun 30 Urine 9.0 informa informa informa 2017 by tion in tion in tion in 7:20 PM Automat source source source ed test data data data strip Protein NEGATIV NEGATIV MG/DL No No Apr E E informa informa 2016 [Presen tion in tion in 7:20 PM ce] in source source Urine data data by Automat ed test strip UROBILI 1.0 0.2 - E.U./DL No No Apr 5 NOGEN 1.0 informa informa 2017 tion in tion in 7:20 PM source source data data Nitrate NEGATIV NEGATIV No No No Apr 5 E E informa informa informa 2017 [Presen tion in tion in tion in 7:20 PM ce] in source source source Urine data data data Leukocy SMALL NEGATIV No Abnorma No Apr 5 benjamin E informa l informa 2017 [Presen tion in tion in 7:20 PM ce] in source source Urine data data by Automat ed Erythro 2 0 - 4 /HPF No No Jun 30 cytes informa informa 2017 [#/area tion in tion in 7:20 PM ] in source source Urine data data sedimen t by Microsc opy high power field WBC 4 0 - 5 /HPF No No Apr 5 COUNT informa informa 2017 tion in tion in 7:20 PM source source data data Epithel 4 0 - 6 /HPF No No Jun 5 ial informa informa 2017 cells tion [...] No No Jun 30 casts informa informa 2016 [#/area tion in tion in 7:20 PM ] in source source Urine data data sedimen t by Microsc opy high power field UR IN HOUSE DRUG SCREEN Observa Value Referen Units Interpr Notes Date tion ce etation Range N/A Ampheta NEG NEGATIV ug/ML No AMPHETA Apr 5 mines E informa MINE 2016 [Presen tion [...] BENZODI Apr 5 azepine E informa AZEPINE 2016 s tion in CUT 7:20 PM [Presen source OFF ce] in data CONCENT Urine RATION by - 200 Screen method Cocaine NEG NEGATIV ug/ML No COCAINE Apr 5 E informa CUT 2016 [Presen tion in OFF 7:20 PM ce] in source CONCENT Urine data RATION by - 300 Screen method Opiates NEG NEGATIV ug/ML No OPIATE Jun 30 E informa CUT OFF 2016 [Presen tion in 7:20 PM ce] in source CONCENT Urine data RATION by - 300 Screen method Cannabi NEG NEGATIV NG/ML No THC CUT Jun 30 noids E informa OFF 2016 [Presen tion [...] CONFORM [facility] [...] DORA Bupreno NEGATIV No No No BUPRENO Jun 30 rphine E informa informa informa RPHRINE 2016 [Presen tion in tion in tion in CUT 7:20 PM ce] in source source source OFF Urine data data data CONCENT RATION - 12.5 NG/ML RPR Observa Value Referen Units Interpr Notes Date tion [place] [address] Reagin NONREAC NONREAC No No No Jun 30 Ab TIVE TIVE informa informa informa 2016 [...] source source ct: data data data data [id number] 710~ABO O 7 20:16 lmf~RH( D) TYPING POS 7 20:16 lmf~ANT IBODY SCREEN NEG 7 20:11 lmf~AUT OCONTRO L 7 20:22 LMF CBC/NO DIFF+ PLATELET Observa Value Referen Units Interpr Notes Date tion [place] [address] Leukocy 9.3 3.0 - K/UL No No [...] Mucus TRACE No No No No Jun 29 [#/area informa informa informa informa 2016 ] [...] Color YELLOW No No No No Apr 4 of informa informa informa informa 2017 Urine tion in tion in tion in tion in 1:00 PM source source source source data data data data Clarity CLEAR No No No No Jun 4 of [...] 6.5 5.0 - No No No Jun 4 Urine 9.0 informa informa informa 2017 by [...] 0.2 0.2 - E.U./DL No No Apr 4 NOGEN 1.0 informa informa 2017 tion in tion in 1:00 PM source source data data Nitrate NEGATIV NEGATIV No No No Jun 4 E E informa informa informa 2017 [Presen tion in tion in tion in 1:00 PM ce] in source source source Urine data data data Leukocy SMALL NEGATIV No Abnorma No Apr 4 benjamin E informa l informa 2016 [...] Oxycodo NEGATIV No No No CONCENT Apr ne E informa informa informa RATIONS 2016 [...] informa AZEPINE 2016 s tion in CUT 1:00 PM [Presen [...] Jun 29 ne E informa NE CUT 2016 [Presen tion in OFF 1:00 PM ce] in source CONCENT Urine data RATION by - Screen 300THES method E RESULTS PROVIDE ONLY A PRELIMI NARY TEST RESULT. THEREIS A POSSIBI LITY THAT OVER THE COUNTER DRUGS MAY INTERFE REWITH THE TEST. CONFORM ITORY TEST [facility] [...] AND tion in tion in tion in [id number] 5:35 PM BROTH source source source 9 ENHANCE data data data MENT PROCEDU RES. ORDERED BY: MANINDER ETIENNE RSOURCE : VAGINAL /RECTAL COLLECT ED: 7 17:35AN DENZEL CS AT SINGH.: RECEIVE D : 7 17:56GR OUP B STREP SCREEN FINAL 7 08:1403 / NO GROUP B STREPTO COCCUS ISOLATE D USING DIRECTI NOCULAT ION AND BROTH ENHANCE MENT PROCEDU RES. UA, MICROSCOPIC REVIEW Observa Value Referen Units Interpr Notes Date tion ce etation Range WBC 5-10 0 - 5 HPF Abnorma No May 12 l informa 2017 tion in 1:40 AM source data Epithel [...] No No Jun 06 110 informa informa 2017 [Mass/v tion in tion in 1:25 AM olume] source source in data data Serum or Plasma Urea 6 7 - 18 MG/DL Low No Jun 06 nitroge informa 2017 n tion in 1:25 AM [Mass/v source olume] data in Serum or Plasma Sodium 136 133 - mmol/L No No Jun 06 [Moles/ 144 informa informa 2016 volume] tion in tion in 1:25 AM [...] Plasma Protein 6.4 6.4 - G/DL No Jun 06 8.4 informa informa 2016 [Mass/v tion in [...] Plasma Albumin 0.6 0.6 - No No Jun 06 /Globul 1.6 informa [...] No Jun 06 cyte 33.3 informa informa 2017 mean tion [...] data data data [Presen ct: ce] in [id number] Serum 533~ANT or IBODY Plasma SCREEN NEG [...] No Apr 15 rit 45.5 informa informa 2016 [Volume tion in tion in 9:19 AM source source Fractio data data n] of Blood by Automat ed count Erythro 86.6 78.2 - fl No No Apr 15 cyte 101.8 informa informa 2016 mean [...] No Apr 15 ls/100 2.0 informa informa 2017 leukocy tion in tion in 9:19 AM benjamin in source source Blood data data by Automat ed count Neutrop 6.6 2.7 - K/ul No No Apr 15 hils 6.9 informa informa 2016 [#/volu tion in tion in 9:19 AM me] in source source Blood data data by Automat ed count Lymphoc 1.7 0.4 - K/ul No No Apr 15 ytes 3.9 informa informa 2017 [#/volu tion in tion in 9:19 AM [...] 017 6:39 am\.br\ \.br\Tr anscrib ed by: DORA 6:53 am\.br\ \.br\Au thentic ated by: Ming Otto 7:47 am\.br\ \.br\ URINALYSIS COMPLETE Observa Value [...] Apr 11 c 1.035 informa informa informa 2016 gravity [...] No No Apr 11 COUNT informa informa 2016 tion in tion in 11:18 source source [...] No Apr 11 cyte 101.8 informa informa 2016 mean tion [...] - MG/DL High No Apr 11 110 inform2016 [Mass/v tion in 11:08 olume] source PM in data Serum or Plasma Urea 7 7 - 18 MG/DL No No Apr 11 nitroge informa informa 2016 n tion in tion in 11:08 [Mass/v source source PM olume] data data in Serum or Plasma Sodium 138 133 - mmol/L No No Apr 11 [Moles/ 144 informa informa 2016 volume] tion in tion in 11:08 in source source PM Serum data data or Plasma Potassi 3.9 3.6 - mmol/l No Apr 11 um 5.2 informa informa [...] Interpr Notes Date ti ce etation Range Amylase 36 25 - U/L No No Apr 11 115 informa informa 2016 [Enzyma tion in tion in 11:08 tic source source PM activit data data y/volum e] in Serum or Plasma URINE CULTURE Observa Value Referen Units Interpr Notes Date ti ce etation Range Bacteri >100,00 No No No ORDER#: Mar 15 a 0 informa informa informa 2016 identif ORGS/ML tion in tion in tion in [id number] 9:49 AM ied in OF source source source 0 Urine MIXED data data data by SKIN Culture ERIS. ORDERED BY: ROWAN ALEXANDRA: CLEAN CATCH URINE COLLECT ED: 6 09:49AN DENZEL CS AT SINGH.: RECEIVE D : 6 11:55UR INE CULTURE FINAL 6 08:2612 / >100,00 0 ORGS/ML OF MIXED SKIN ERIS. [...] No No Mar 15 casts informa informa 2015 [#/area tion in tion in 9:49 AM [...] Range Glucose 102 70 - MG/DL No Mar 15 110 informa informa 2015 [Mass/v tion in tion in 9:35 AM olume] source source in data data Serum or Plasma Urea 5 7 - 18 MG/DL Low Mar 15 nitroge informa 2016 n tion in 9:35 AM [Mass/v source olume] data in Serum or Plasma Sodium 137 133 - mmol/L No Mar 15 [Moles/ 144 informa informa 2015 volume] tion in tion in 9:35 AM [...] 32 mmol/L Low Mar 15 dioxide informa 2015 , total tion in 9:35 AM source [...] MG/DL Low No Mar 15 10.1 informa 2016 [Mass/v tion in 9:35 AM olume] source [...] Bilirub 0.20 0.00 - MG/DL No No Mar 15 in.tota 1.00 informa informa 2016 l tion in tion in 9:35 AM [Mass/v source source olume] data data in Serum or Plasma CBC\T\AUTO DIFF Observa Value Referen Units Interpr Notes Date tion ce etation Range Leukocy 8.3 3.0 - K/UL No No Mar 15 benjamin 11.3 informa informa 2016 [#/volu tion in tion in 9:35 AM me] in source source Blood data data by Automat ed count Erythro 3.760 3.450 - M/ul No No Mar 15 cytes 5.400 informa informa 2016 [#/volu [...] No Mar 15 ls/100 2.0 informa informa 2015 leukocy tion in tion in 9:35 AM [...] Thyrotr 6.640 0.358 - uIU/ML High No Dec 5 opin 3.740 inform2015 [Units/ tion in 9:09 [...] Plasma Chlorid 109 98 - mmol/l High Feb 05 e 107 informa 2015 [Moles/ tion in 11:15 volume] source AM in data Blood Carbon 19 21 - 32 mmol/L Low Feb 05 dioxide informa 2016 , total tion in 11:15 source AM [Moles/ data volume] in Serum or Plasma Creatin 0.40 0.60 - MG/DL Low No Feb 05 ine 1.30 informa 2015 [Mass/v tion in 11:15 olume] source AM in data Serum or Plasma Protein 6.1 6.4 - G/DL Low Feb 05 8.4 informa 2016 [Mass/v tion in 11:15 olume] source AM in data Serum or Plasma Albumin 2.5 3.4 - G/DL Low Feb 05 5.0 informa 2016 [Mass/v tion in 11:15 olume] [...] - MG/DL Low No Feb 05 10.1 inform2015 [Mass/v tion in 11:15 olume] source AM [...] Leukocy 8.6 3.0 - K/UL No No Feb 05 benjamin 11.3 informa informa 2015 [#/volu tion in tion in 11:15 me] in source source AM Blood data data by Automat ed count Erythro 3.720 3.450 - M/ul No Feb 05 cytes 5.400 informa informa 2015 [#/volu tion in tion in 11:15 me] in source source AM Blood data data by Automat ed count Hemoglo 11.2 10.0 - gm/dl No No Feb 05 bin 16.0 informa informa 2015 [Mass/v tion in tion in 11:15 olume] [...] Eosinop 0.3 0.0 - K/ul No Feb 05 hils 0.9 informa informa 2016 [#/volu tion in tion in 11:15 me] in source source AM Blood data data by Automat ed count Basophi 0.0 0.0 - K/ul No Feb 05 ls 0.2 informa informa [...] Jan 14 E E informa informa informa 2016 [...] Jan 14 a E E informa A 2015 [#/area tion in INTERPR 3:11 PM ] [...] Notes Date ti ce etation Range Glomeru 258.0 60.0 - [...] Notes Date ti ce etation Range Glucose 74 70 - [...] No Dec 20 [Moles/ 144 informa informa 2015 volume] tion in tion in 1:37 PM in source source Serum data data or Plasma Potassi 3.7 3.6 - mmol/l No No Dec 20 um 5.2 informa informa 2016 [Moles/ tion in tion in 1:37 PM volume] source source in data data Serum or Plasma Chlorid 105 98 - mmol/l No No Dec 20 e 107 informa informa 2015 [Moles/ tion in tion in 1:37 PM volume] source source in data data Blood Carbon 23 21 - 32 mmol/L No No Dec 20 dioxide informa informa 2016 , total tion in tion in 1:37 PM source source [Moles/ data data volume] in Serum or Plasma Creatin 0.30 0.60 - MG/DL Low No Oct 20 ine 1.30 informa 2015 [Mass/v tion in 1:37 PM olume] source in data Serum or Plasma Protein 6.8 6.4 - G/DL No No Dec 20 8.4 informa informa 2015 [Mass/v tion in tion in 1:37 PM olume] source source in data data Serum or Plasma Albumin 2.9 3.4 - G/DL Low No Dec 20 5.0 informa 2015 [Mass/v tion in 1:37 PM olume] source in data Serum or Plasma Globuli 3.9 2.4 - G/DL No No Dec 20 n 4.8 informa informa 2015 [Mass/v tion in tion in 1:37 PM olume] source source in data data Plasma Albumin 0.7 0.6 - No No No Dec 20 /Globul 1.6 informa informa informa 2016 in tion in tion in tion in 1:37 PM [Mass source source source ratio] data data data in Serum or Plasma Calcium 8.5 8.5 - MG/DL No No Dec 20 10.1 informa informa 2015 [Mass/v tion in [...] pyogene tion in tion in tion in [id number] 1:37 PM s Ag REFEREN source source source 4 [Presen CE data data data ce] in RANGE = Throat by NEGATIV ORDERED Immunoa E BY: ANUJA Brown URCE: THROAT COLLECT ED: 6 13:37AN TIBIOTI CS AT SINGH.: RECEIVE D : 6 13:55RA PID GP A STREP BY EIA FINAL 6 14:1310 / NEGATIV E REFEREN CE RANGE = NEGATIV [...] Neutrop 75.8 43.0 - % No No Dec 20 hils/10 83.0 informa informa 2016 0 tion in tion in 1:37 PM leukocy source source benjamin in data data Blood by Automat ed count Lymphoc 17.8 10.0 - % No No Dec 20 ytes/10 42.0 informa informa 2016 0 tion [...] Neutrop 6.7 2.7 - K/ul No No Dec 20 hils 6.9 informa informa 2016 [#/volu tion in tion in 1:37 PM me] in source source Blood data data by Automat ed count Lymphoc 1.6 0.4 - K/ul No No Dec 20 ytes 3.9 informa informa 2016 [#/volu tion in tion in 1:37 PM me] in source source Blood data data by Automat ed count Monocyt 0.4 0.2 - K/ul No No Dec 20 es 0.6 informa informa 2016 [#/volu tion in tion in 1:37 PM me] in source source Blood data data by Automat ed count Eosinop 0.1 0.0 - K/ul No No Oct 20 hils 0.9 informa informa 2016 [#/volu [...] 14 AMP. E E informa informa informa 2015 PROBE tion in tion in tion in [...] 04 cytes E E informa informa informa 2016 [...] 0 0 - 4 /LPF No No Dec 10 casts informa informa 2016 [#/area tion in [...] No No Dec 10 110 informa informa 2016 [Mass/v tion in [...] Creatin 0.50 0.60 - MG/DL Low No Dec 10 ine 1.30 informa 2016 [Mass/v tion in 6:44 PM olume] source in data Serum or Plasma Protein 6.5 6.4 - G/DL No No Jan 04 8.4 informa informa 2016 [Mass/v tion in tion in 6:44 PM olume] source source in data data Serum or Plasma Albumin 3.0 3.4 - G/DL Low No Jan 04 5.0 informa 2015 [Mass/v tion in 6:44 PM olume] source in data Serum or Plasma Globuli 3.5 2.4 - G/DL No No Jan 04 n 4.8 informa informa 2016 [Mass/v tion [...] No No Jan 04 10.1 informa informa 2016 [Mass/v tion in [...] No Jan 04 cytes 5.400 informa informa 2015 [#/volu tion in tion in 6:44 PM me] in source source Blood data data by Automat ed count Hemoglo 11.8 10.0 - gm/dl No No Jan 04 bin 16.0 informa informa 2015 [Mass/v tion [...] Erythro 13.1 10.1 - % No No Dec 10 cyte 16.2 informa informa 2016 distrib tion [...] 17.8 10.0 - % No No Jan 04 ytes/10 42.0 informa informa 2016 0 tion in tion in 6:44 PM leukocy source source benjamin in data data Blood by Automat ed count Monocyt 4.2 1.0 - % No No Jan 04 es/100 14.0 informa informa 2016 leukocy tion in tion in 6:44 PM benjamin in source source Blood data data by Automat ed count Eosinop 2.5 0.0 - % No No Jan 04 hils/10 9.0 informa informa 2016 0 tion in tion in 6:44 PM leukocy source source benjamin in data data Blood by Automat ed count Basophi 0.2 0.0 - % No No Jan 04 ls/100 2.0 informa informa 2016 leukocy tion [...] No Dec 10 es 0.6 informa informa 2015 [#/volu tion in tion in 6:44 PM me] in source source Blood data data by Automat ed count Eosinop 0.3 0.0 - K/ul No No Dec 10 hils 0.9 informa informa 2015 [#/volu tion in tion in 6:44 PM me] in source source Blood data data by Automat ed count Basophi 0.0 0.0 - K/ul No No Dec 10 ls 0.2 informa informa 2015 [#/volu tion [...] \.br \\.br\D ictated : BENJIE VASQUEZ M.D. 3:03 pm\.br\ \.br\Tr anscrib ed by: MH 4:07 pm\.br\ \.br\Au thentic ated by: BENJIE VASQUEZ M.D. 1:17 pm\.br\ \.br\ THYROGLOBULIN Observa Value Referen Units Interpr Notes Date tion ce etation Range Thyrogl SEE No No No Thyrogl Sep obulin BELOW informa informa informa obulin 2015 Ab tion in tion in tion in Antibod 2:37 PM [Units/ source source source y volume] data data data in 4.3 H Serum or 0.0-0.9 Plasma IU/mL CBThyro globuli n Antibod y measure d by Johanna Sola Methodo logy THYROGLOBULIN, KAVYA Observa Value Referen Units Interpr Notes Date tion ce etation Range THYROGL 31 No ng/mL No Referen Sep OBULIN, informa informa ce 2015 KAVYA tion in tion in Range:P 2:37 PM source source ubertal data data Childre nand Adults: <40Acco rding to the [facility] [employer]ica l [employer]ochem istry,t he [...] 2.0 ng/mL.P erforme d at: CB, [facility] [facility], [place], [place], [id number] 69Vince kenny teresa, PhD, Phone: [phone] ormed at: ES, [facility] [address] [place], [place], [address] 58Samue l Daniel jones MD, Phone: [phone] ANTIMICROSOMAL AB Observa Value Referen Units Interpr [...] High No Dec 21 opin 3.740 informa 2016 [Units/ tion in 2:37 PM volume] source in data Serum or Plasma by Detecti on limit <= 0.005 mU/L URINE CULTURE Observa Value Referen Units Interpr Notes Date tion ce etation Range Bacteri >100,00 No No No ORDER#: Nov 24 a 0 informa informa informa 2016 identif ORGS/ML tion in tion in tion in [id number] 4:57 PM ied in OF source source source 2 Urine MIXED data data data by SKIN Culture ERIS ORDERED BY: MANINDER ETIENNE RSOURCE : URINE COLLECT ED: 6 16:57AN TIBPARAM CS AT SINGH.: RECEIVE D : 6 17:36UR INE CULTURE FINAL 6 07:5809 >100,00 0 ORGS/ML OF MIXED SKIN ERIS RUBELLA Observa Value Referen Units Interpr Notes Date tion ce etation Range Rubella POSITIV No No No No Nov 24 virus E informa informa informa informa 2015 Ab tion in tion in tion in tion in 1:15 PM [Presen source source source source ce] in data data data data Serum RPR Observa Value Referen Units Interpr Notes Date tion ce etation Range Reagin NONREAC NONREAC No No No Nov 24 Ab TIVE TIVE informa informa informa 2015 [Presen tion in [...] y , source source source source screen SANA~Ac data data data data [Presen ct: ce] in [id number] Serum 277~ANT or IBODY Plasma SCREEN NEG [...] SANA~Ac data data data data Blood ct: [id number] 277~ABO O 6 07:20 mct~RH( D) TYPING [...] Notes Date tion ce etation Range Choriog 91009 No mIU/ML No FEMALE Nov 24 onadotr informa informa (NON 2016 opin tion in tion in PREGNAN 1:15 PM [Moles/ source source T) volume] data data in <31 Urine DAY - 1 WEEK 5 - 501 - 2 WEEK 50 - 5002 - 3 WEEK 100 - 93804 - 4 WEEK 500 - 889864 - 5 WEEK 1000 - 242818 - 6 WEEK 33568 - 0486199 - 8 WEEK 09484 - [id number] - 3 MTHS 27432 - 318894 TSH Observa Value Referen Units Interpr Notes [...] Nov 09 a E E informa A 2015 [#/area tion in INTERPR 7:50 PM ] [...] Nov 09 lar 200.0 informa s value 2015 filtrat tion in was 7:37 PM ion [...] Notes Date ti ce etation Range Glucose 79 70 - [...] Potassi 3.8 3.6 - mmol/l No No Nov 09 um 5.2 informa informa 2016 [Moles/ tion in tion in 7:37 PM volume] source source in data data Serum or Plasma Chlorid 108 98 - mmol/l High No Nov 09 e 107 informa 2016 [Moles/ tion in 7:37 PM volume] source in data Blood Carbon 23 21 - 32 mmol/L No Nov 09 dioxide informa informa 2016 , total tion in tion in 7:37 PM source source [Moles/ data data volume] in Serum or Plasma Creatin 0.60 0.60 - MG/DL No Nov 09 ine 1.30 informa informa 2015 [Mass/v tion in tion in 7:37 PM olume] source source in data data Serum or Plasma Protein 7.7 6.4 - G/DL No Nov 09 8.4 informa informa 2015 [Mass/v tion in tion in 7:37 PM olume] source source in data data Serum or Plasma Albumin 4.0 3.4 - G/DL No Nov 09 5.0 informa informa 2015 [Mass/v tion in tion in 7:37 PM olume] source source in data data Serum or Plasma Globuli 3.7 2.4 - G/DL No Nov 09 n 4.8 informa inform2015 [Mass/v tion in tion in 7:37 PM olume] source source in data data Plasma Albumin 1.1 0.6 - No No Nov 09 /Globul 1.6 informa informa informa 2016 in tion in tion in tion in 7:37 PM [Mass source source source ratio] data data data in Serum or Plasma Calcium 8.3 8.5 - MG/DL Low No Nov 09 10.1 inform2015 [Mass/v tion in 7:37 PM olume] source [...] - 5002 - 3 WEEK 100 - 86182 - 4 WEEK 500 - 583740 - 5 WEEK 1000 - 684078 - 6 WEEK 49759 - 7344170 - 8 WEEK 25205 - 4110961 - 3 MTHS 18415 - 696930 CBC\T\AUTO DIFF Observa Value Referen Units Interpr Notes Date tion ce etation Range Leukocy 8.6 3.0 - K/UL No No Nov 09 benjamin 11.3 informa informa 2016 [#/volu tion in tion in 7:37 PM me] in source source Blood data data by Automat ed count Erythro 4.530 3.450 - M/ul No Nov 09 cytes 5.400 informa informa [...] Basophi 0.0 0.0 - K/ul No Nov 09 ls 0.2 informa informa [...] SANA~Ac data data data data Blood ct: [id number] 627~ABO O 6 20:03 JPB~RH( D) TYPING [...] 05 cytes E E informa informa informa 2015 [...] No Nov 05 E E informa informa 2015 [Presen tion [...] CONFORM ITORY [facility] [...] - 5002 - 3 WEEK 100 - 15126 - 4 WEEK 500 - 257853 - 5 WEEK 1000 - 371213 - 6 WEEK 85407 - 0883294 - 8 WEEK 22894 - 8997353 - 3 MTHS 86459 - 599159 COMP. METABOLIC PANEL (CHEM 12) Observa Value [...] No Nov 05 um 5.2 informa informa 2015 [Moles/ tion in tion in 2:15 PM [...] G/DL No Nov 05 8.4 informa informa 2015 [Mass/v tion in tion in 2:15 PM olume] source source in data data Serum or Plasma Albumin 3.6 3.4 - G/DL No Nov 05 5.0 informa informa 2015 [Mass/v tion in [...] MG/DL No Nov 05 10.1 informa informa 2015 [Mass/v tion in [...] count Erythro 4.190 3.450 - M/ul No Nov 05 cytes 5.400 informa informa [...] count Monocyt 4.9 1.0 - % No Nov 05 es/100 14.0 informa informa [...] count Basophi 0.4 0.0 - % No Nov 05 ls/100 2.0 informa informa [...] Lymphoc 1.7 0.4 - K/ul No No Nov 05 ytes 3.9 informa informa 2016 [#/volu tion in tion in 2:15 PM me] in source source Blood data data by Automat ed count Monocyt 0.4 0.2 - K/ul No No Nov 05 es 0.6 informa informa 2016 [#/volu tion in tion in 2:15 PM me] in source source Blood data data by Automat ed count Eosinop 0.2 0.0 - K/ul No No Nov 05 hils 0.9 informa informa 2016 [#/volu tion in tion in 2:15 PM me] in source source Blood data data by Automat ed count Basophi 0.0 0.0 - K/ul No No Nov 05 ls 0.2 informa informa [...] IS tion in tion in tion in on in 9:26 PM BATTERY Descrip source source [...] Notes Date ti ce etation Range Choriog NEGATIV No No [...] Plasma Globuli 3.9 2.4 - G/DL No Sep 14 n 4.8 informa informa 2016 [Mass/v tion in tion in 6:48 PM olume] source source in data data Plasma Albumin 1.0 0.6 - No No Sep 14 /Globul 1.6 informa [...] \.br \\.br\D ictated : AKI GALLEGOS M.D. 016 5:08 am\.br\ \.br\Tr anscrib ed by: 016 5:17 am\.br\ \.br\Au thentic ated by: AKI GALLEGOS M.D. 016 7:14 am\.br\ \.br\ URINE HCG Observa Value [...] No Sep 01 ine 1.30 informa informa 2016 [Mass/v tion in tion in 2:45 AM olume] source source in data data Serum or Plasma Protein 7.4 6.4 - G/DL No No Sep 01 8.4 informa informa 2016 [Mass/v tion in [...] count Eosinop 4.8 0.0 - % No Sep 01 hils/10 9.0 informa informa [...] count Lymphoc 3.1 0.4 - K/ul No No Sep 01 ytes 3.9 informa informa [...] No Sep 01 ls 0.2 informa informa 2015 [#/volu tion in tion in 2:45 AM [...] - 5 HPF Abnorma No Sep 01 l informa 2016 tion in 1:18 AM source data Epithel 5-10 No HPF No No Sep 01 ial informa informa informa 2016 cells tion in tion in tion in 1:18 AM [Presen source source source ce] in data data data Urine sedimen t by Light microsc opy Bacteri 3+ Absent HPF Abnorma No Aug 7 a l informa 2015 [#/area tion in 1:18 [...] 7:05 AM , source source source source SANA~Ac data data data data ct: [id number] 134~ABO O 6 08:35 sdh~RH( D) TYPING [...] Interpr Notes Date ti ce etation Range na Bupreno NEGATIV No [...] informa 2016 by tion in tion in ti in 7:00 AM Automat source source source ed test data data data strip Protein NEGATIV NEGATIV MG/DL No No Jul 15 E E informa informa 2015 [Presen tion in ti in 7:00 AM ce] in source source Urine data data by Automat ed test strip UROBILI 1.0 0.2 - E.U./DL No No Jul 15 NOGEN 1.0 informa informa 2016 tion in ti in 7:00 AM source source data data Nitrate NEGATIV NEGATIV No No No Jul 15 E E informa informa informa 2015 [Presen tion in tion in tion in 7:00 AM ce] in source source source Urine data data data Leukocy LARGE NEGATIV No Abnorma No Jul 15 benjamin E informa l informa 2015 [Presen tion in ti in 7:00 AM ce] in source source Urine data data by Automat ed UA, MICROSCOPIC REVIEW Observa Value Referen Units Interpr Notes Date tion ce etation Range WBC 10-20 0 - 5 HPF Abnorma No Jul 15 l informa 2015 tion in 7:00 AM source data Epithel TNTC No HPF No No Jun 20 ial informa informa informa 2016 cells tion in tion in tion in 7:00 AM [Presen source source source ce] in data data data Urine sedimen t by Light microsc opy Mucus 1+ No No No No Jul 15 [#/area informa informa informa informa 2015 ] [...] Bacteri 1+ Absent HPF Abnorma No Apr 20 a l informa 2015 [#/area tion in 7:00 AM ] in source Urine data alysha villareal by Microsc opy high power field UR [...] BENZODI Apr 20 azepine E informa AZEPINE 2015 s tion in CUT 7:00 AM [Presen source OFF ce] in data CONCENT Urine RATION by - 200 Screen method Cocaine NEG NEGATIV ug/ML No COCAINE Jun 20 E informa CUT 2015 [Presen tion in OFF 7:00 AM ce] in source CONCENT Urine data RATION by - 300 Screen method Opiates NEG NEGATIV ug/ML No OPIATE Jul 15 E informa CUT OFF 2015 [Presen tion in 7:00 AM ce] in source CONCENT Urine data RATION by - 300 Screen method Cannabi NEG NEGATIV NG/ML No THC CUT Jun 20 noids E informa OFF 2015 [Presen tion in CONCENT 7:00 AM ce] in source RATION Urine data - 50 by Screen method Methado NEG NEGATIV ug/ML No METHADO Apr 20 ne E informa NE CUT 2015 [Presen tion in OFF 7:00 AM ce] in source CONCENT Urine data RATION by - Screen 300THES method E RESULTS PROVIDE ONLY A PRELIMI NARY TEST RESULT. THEREIS A POSSIBI LITY THAT OVER THE COUNTER DRUGS MAY INTERFE REWITH THE TEST. CONFORM ITORY TEST CAN BE ORDERED AT [facility] RETION OF THE PHYSICI [facility]. CLINICA [...] Apr 4 [#/area informa informa informa informa 2015 [...] Abnorma No Apr 4 a l informa 2015 [#/area tion in 5:50 PM ] in [...] Ketones NEGATIV NEGATIV MG/DL No No Jun 4 [...] 4 benjamin E E informa informa informa 2016 [...] ng/mL Barbitu NEG NEGATIV ug/ML No BARBITU Jun 4 rates E informa ATE CUT 2015 [Presen tion in OFF 5:50 PM ce] in source CONCENT Urine data RATION by - 200 Screen method Benzodi NEG NEGATIV ug/ML No BENZODI Jun 29 azepine E informa AZEPINE 2015 s tion in CUT 5:50 PM [Presen source OFF ce] in data CONCENT Urine RATION by - 200 Screen method Cocaine NEG NEGATIV ug/ML No COCAINE Jun 29 E informa CUT 2015 [Presen tion [...] CONFORM ITORY [facility] [...] CONFORM ITORY [facility] [...] User Fasting NEGATIV No No No No Apr 24 E informa informa informa informa 2016 glucose tion in tion in tion in tion in 8:30 AM source source source source [Presen data data data data ce] in Urine by Test strip Ketones NEGATIV No No No No Apr 24 E informa informa informa informa 2015 [Mass/v tion in tion in tion in tion in 8:30 AM olume] source source source source in data data data data Urine by Test strip --fasti ng GLUCOSE,1HR. PP Observa Value Referen Units Interpr Notes Date etation Range Physician is not a Physician's [...] Referen Units Interpr Notes Date etation Range Physician is not a Physician's Portal User Hemoglo 11.7 10.0 - gm/dl No No May 17 bin 16.0 informa informa 2015 [Mass/v tion in tion in 5:16 PM olume] source source in data data Blood UA, MICROSCOPIC REVIEW Observa Value Referen Units Interpr Notes Date [facility] Physician is not a Physician's Portal User WBC 0-5 0 - 5 HPF No No Feb 3 informa informa 2016 tion in tion in 8:27 PM source source data data Epithel 1-5 No HPF No No Feb 3 ial informa informa informa 2016 cells tion in tion in tion in 8:27 PM [Presen source source source ce] in data data data Urine sedimen t by Light microsc opy Mucus 1+ No No No No Feb 3 [#/area informa informa informa informa 2016 ] in tion in tion in tion in tion in 8:27 PM Urine source source source source sedimen data data data data t by Microsc opy high power field CRYSTAL FEW No HPF No No Feb 3 S URIC informa informa informa 2016 ACID tion in tion in tion in 8:27 PM source source source data data data Casts OCC NONE LPF No No Apr 3 [Presen HYALINE informa informa 2016 ce] in tion in tion in 8:27 PM Urine source source sedimen data data t by Light microsc opy Bacteri 3+ Absent HPF Abnorma No Apr 3 a l informa 2016 [#/area tion [...] No Apr 30 E E informa informa 2016 [Presen [...] Abnorma No Apr 30 E l informa 2016 [Presen tion in [...] 30 cytes E E informa informa informa 2016 [...] Protein TRACE NEGATIV MG/DL Abnorma No Apr 3 E l informa 2015 [Presen tion in 8:27 PM ce] in source Urine data by Automat ed test strip UROBILI 0.2 0.2 - E.U./DL No No Apr 3 NOGEN 1.0 informa informa 2016 tion in tion in 8:27 PM source source data data Nitrate NEGATIV NEGATIV No No No Apr 30 E E informa informa informa 2015 [Presen tion in tion in tion in 8:27 PM ce] in source source source Urine data data data Leukocy NEGATIV NEGATIV No No No Apr 30 benjamin E E informa informa informa 2015 [Presen tion in tion in tion in 8:27 PM ce] in source source source Urine data data data by Automat ed UR IN HOUSE DRUG SCREEN Observa Value Referen Units Interpr Notes Date tion ce etation Range none; Physician is not a Physician's Portal User Ampheta NEG NEGATIV ug/ML No AMPHETA b 3 mines E informa MINE 2015 [Presen [...] method Benzodi NEG NEGATIV ug/ML No BENZODI Feb 3 azepine E informa AZEPINE 2016 s tion in CUT 8:27 PM [Presen source OFF ce] in data CONCENT Urine RATION by - 200 Screen method Cocaine NEG NEGATIV ug/ML No COCAINE b 3 E informa CUT 2015 [Presen tion in OFF 8:27 PM ce] in source CONCENT Urine data RATION by - 300 Screen method Opiates NEG NEGATIV ug/ML No OPIATE Feb 3 E informa CUT OFF 2015 [Presen tion in 8:27 PM ce] in source CONCENT Urine data RATION by - 300 Screen method Cannabi NEG NEGATIV NG/ML No THC CUT Apr 30 noids E informa OFF 2015 [Presen tion in CONCENT 8:27 PM ce] in source RATION Urine data - 50 by Screen method Methado NEG NEGATIV ug/ML No METHADO Apr 30 ne E informa NE CUT 2015 [Presen tion in OFF 8:27 PM ce] in source CONCENT Urine data RATION by - Screen 300THES method E RESULTS PROVIDE ONLY A PRELIMI NARY TEST RESULT. THEREIS A POSSIBI LITY THAT OVER THE COUNTER DRUGS MAY INTERFE REWITH THE TEST. CONFORM ITORY TEST CAN BE ORDERED AT [facility] RETION OF THE PHYSICI [facility]. CLINICA [...] 35 25 - U/L No No Apr 3 115 informa informa 2016 [Enzyma tion in tion in 6:20 PM tic source source activit data data y/volum e] in Serum or Plasma GLOMELULAR ESTEFANI. RATE,CALC. Observa Value Referen Units Interpr Notes Date tion ce etation Range Glomeru 186.0 60.0 - ml/min No THE Feb 3 lar 200.0 informa eGFR IS 2016 filtrat [...] Lipase 75 73 - U/L No No b 3 [Enzyma 393 informa informa 2016 tic tion in tion in 6:20 PM activit source source y/volum data data e] in Serum or Plasma COMP. METABOLIC PANEL (CHEM 12) Observa Value Referen Units Interpr Notes Date tion ce etation Range Glucose 81 70 - MG/DL No No b 3 110 informa informa 2016 [Mass/v tion [...] Potassi 3.8 3.6 - mmol/l No No b 3 um 5.2 informa informa 2016 [Moles/ [...] Calcium 8.5 8.5 - MG/DL No No Feb 3 10.1 informa informa 2016 [Mass/v tion in tion in 6:20 PM olume] source source in data data Serum or Plasma Alkalin 85 45 - U/L No No b 3 e 117 informa informa 2016 phospha [...] Bilirub 0.40 0.00 - MG/DL No No b 3 in.tota 1.00 informa informa 2016 l tion in tion in 6:20 PM [Mass/v source source olume] data data in Serum or Plasma CBC/NO DIFF+ PLATELET Observa Value Referen Units Interpr Notes Date tion ce etation Range Leukocy 13.4 3.0 - K/UL High No b 3 benjamin 11.3 informa 2015 [#/volu tion in 6:20 PM me] in source Blood data by Automat ed count Erythro 4.040 3.450 - M/ul No No Apr 30 cytes 5.400 informa inform2015 [#/volu tion in tion in 6:20 PM me] in source source Blood data data by Automat ed count Hemoglo 12.0 10.0 - gm/dl No No Apr 30 bin 16.0 informa informa 2015 [Mass/v tion in tion in 6:20 PM olume] source source in data data Blood Hematoc 36.1 29.9 - % No No Apr 30 rit 45.5 informa informa 2015 [Volume tion in tion in 6:20 PM source source Fractio data data n] of Blood by Automat ed count Erythro 89.3 78.2 - fl No No Apr 30 cyte 101.8 informa informa 2016 mean tion in tion in 6:20 PM corpusc source source ular data data volume [Entiti c volume] by Automat ed count Erythro 29.6 26.4 - pg No No Apr 3 cyte 33.3 informa informa 2016 mean tion in tion in 6:20 PM corpusc source source ular data data hemoglo bin [Entiti c mass] by Automat ed count Erythro 33.2 32.5 - g/dl No No b 3 cyte 35.3 informa informa 2016 mean tion in tion in 6:20 PM corpusc source source ular data data hemoglo bin concent ration [Mass/v olume] by Automat ed count Erythro 13.6 10.1 - % No No Apr 30 cyte 16.2 informa informa 2016 distrib tion in tion in 6:20 PM ution source source width data data [Ratio] by Automat ed count Platele 179 122 - K/UL No No Apr 30 ts 454 informa informa 2016 [#/volu tion in tion in 6:20 PM me] in source source Blood data data by Automat ed count Platele 8.1 6.4 - fl No No Apr 30 t mean 10.4 informa informa 2016 volume [...] Feb 20 c 1.035 informa informa informa 2015 gravity [...] pH of 7.0 5.0 - No No Feb 20 Urine 9.0 informa [...] 1 0 - 5 /HPF No No Feb 20 COUNT informa informa 2014 [...] TEXT [employer] No No No No Feb 20 DIAGNOS t [...] Notes Date ti ce etation Range Glomeru 143.9 60.0 - [...] Plasma Chlorid 110 98 - mmol/l High No Feb 20 e 107 informa 2014 [Moles/ [...] 2.5 3.4 - G/DL Low No Feb 20 5.0 inform2014 [Mass/v tion in [...] 8.5 - MG/DL Low Feb 20 10.1 inform2014 [Mass/v tion in 9:25 PM olume] [...] No Feb 20 hils/10 83.0 informa informa 2014 0 tion in tion in 9:25 PM leukocy source source benjamin in data data Blood by Automat ed count Lymphoc 23.7 10.0 - % No Feb 20 ytes/10 42.0 informa informa 2014 0 tion in tion in 9:25 PM leukocy source source benjamin in data data Blood by Automat ed count Monocyt 6.1 1.0 - % No Feb 20 es/100 14.0 informa informa 2014 leukocy tion [...] source source source could data data data manager data center to adverse medical , social, No No No No Jan 23 or informa informa informa informa 2015 psychol [...] 14 tion in tion in tion in [id number] 3:53 PM years source source source 4 of age. data data data ORDERED BY: YOVANNY WOLFE URCE: VAGINAL /ENDOCE RVICAL COLLECT ED: 15:53AN DENZEL CS AT [facility] RECEIVE D : 17:35CH WILDA , [place]. PROBE FINAL 21:1109 NOT DETECTE D REFEREN CE RANGE = NOT DETECTE DGONOCO CCUS, AMP. PROBE FINAL 5 21:1109 NOT DETECTE D REFEREN CE RANGE [...] ORGS/ML tion in tion in tion in [id number] 11:00 ied in OF source source source 2 AM Urine MIXED data data data by SKIN Culture ERIS. ORDERED BY: TAMARA GOLDBERG CE: URINE COLLECT ED: 5 11:00AN DENZEL CS AT [facility] RECEIVE D : 5 11:42UR INE CULTURE FINAL 5 07:1909 >100,00 0 ORGS/ML OF MIXED SKIN ERIS. PANEL Observa Value Referen Units Interpr Notes Date tion ce etation Range Reagin NONREAC NONREAC No No No Jan 23 Ab TIVE TIVE informa informa informa 2015 [Presen tion in [...] data data data [Presen ct: ce] in [id number] Serum 588~ANT or IBODY Plasma SCREEN NEG [...] SANA~Ac data data data data Blood ct: [id number] 588~ABO O 5 06:46 mct~RH( D) TYPING [...] CONFORM ITORY TEST CAN BE ORDERED AT [facility] RETION OF THE PHYSICI [facility]. CLINICA [...] Jan 23 c 1.035 informa informa informa 2015 gravity [...] Jan 23 Urine 9.0 informa informa informa 2015 by [...] Jan 08 Urine 9.0 informa informa informa 2014 by [...] source Urine data data sedimen t by [facility] opy high power field WBC 0 0 - 5 /HPF No No Jan 08 COUNT informa informa 2015 tion in tion in 6:58 PM source [...] 08 Rh me: informa informa informa informa 2015 group REBECCA tion in tion in tion in tion in 6:48 PM panel , source source source source in SANA~Ac data data data data Blood ct: [id number] 143~ABO O 5 19:10 MJR~RH( D) TYPING [...] No Jan 08 bin 16.0 informa informa 2015 [Mass/v tion in tion in 6:48 PM olume] source source in data data Blood Hematoc 37.0 29.9 - % No No Jan 08 rit 45.5 informa informa 2015 [Volume tion in tion in 6:48 PM [...] No Jan 08 cyte 35.3 informa informa 2014 mean tion [...] No Jan 08 ts 454 informa informa 2014 [#/volu tion [...] No Jan 08 es/100 14.0 informa informa 2014 leukocy tion in tion in 6:48 PM benjamin in source source Blood data data by Automat ed count Eosinop 1.6 0.0 - % No No Jan 08 hils/10 11.0 informa informa 2014 0 tion in tion in 6:48 PM [...] Jan 08 infecti informa informa informa informa 2014 on [...] source source source could data data data manager data center to adverse medical , social, No No [...] Jan 08 s less informa informa informa 2014 than 14 tion in tion in tion in [id number] 6:33 PM years source source source 1 of age. data data data ORDERED BY: ANUJA MCMANUS URCE: VAGINAL COLLECT ED: 18:33AN DENZEL CS AT [facility] RECEIVE D : 19:01CH LAMYDIA , AMP. PROBE FINAL 20:4109 NOT DETECTE D REFEREN CE RANGE = NOT DETECTE DGONOCO CCUS, AMP. PROBE FINAL 20:4109 NOT DETECTE D [...] observa tion in tion in tion in [id number] 6:33 PM tion source source source 9 [Identi data data data fier] in Unspeci ORDERED fied BY: specime n by , Wet HENRYSO prepara URCE: tion VAGINAL COLLECT ED: 5 18:33AN DENZEL CS AT [facility] RECEIVE D : 5 19:01WE T PREP (MICRO) FINAL 5 19:2410 FEW CLUE CELLS, MANY WBC'S, NO MOTILE TRICH OR SPERM NOTED ONWET PREP. JOHN PREP Observa Value Referen Units Interpr Notes Date tion ce etation Range Microsc NO No No No ORDER#: Jan 08 opic YEAST informa informa informa 2014 observa NOTED. tion in tion in tion in [id number] 6:33 PM tion source source source 9 [Identi data data data fier] in Unspeci ORDERED fied BY: raisa carpenter by , JOHN HENRYSO prepara URCE: tion VAGINAL COLLECT ED: 5 18:33AN [facility] CS AT [facility] RECEIVE D : 5 19:01KO H PREP FINAL 5 19:2410 NO YEAST NOTED. URINE CULTURE Observa Value Referen Units Interpr Notes Date tion ce etation Range Bacteri >100,00 No No No ORDER#: Sep 4 a 0 informa informa informa 2015 identif ORGS/ML tion in tion in tion in [id number] 4:08 PM ied in OF source source source 7 Urine MIXED data data data by SKIN Culture ERIS ORDERED BY: LIDIA NUNEZ OURCE: CLEAN CATCH URINE COLLECT ED: 5 16:08AN [facility] CS AT [facility] RECEIVE D [...] No Sep 4 E E informa informa 2015 [Presen tion in tion in 3:47 PM ce] in source source Urine data data by Automat ed test strip Bilirub NEGATIV NEGATIV No No No Sep 4 in E E informa informa informa 2015 [...] Sep 4 Urine 9.0 informa informa informa 2014 by [...] /HPF High No Sep 4 COUNT informa 2014 tion in 3:47 PM source data Epithel 10 0 - 6 /HPF High No Sep 4 ial informa 2015 cells tion in 3:47 PM [Presen source ce] in data Urine sedimen t by Light microsc opy Bacteri 1+ NEGATIV /HPF Abnorma BACTERI Nov 29 a E l A 2014 [#/area INTERPR 3:47 PM ] in ETATION Urine :NEGATI sedimen VE t by <=599/u Microsc lTRACE opy high >=600, power <=1199/ field ul1+ >=1200, <=2399/ ul2+ >=2400, <=3599/ ul3+ >=3600, <=4799/ ul4+ >=4800/ ul Hyaline 2 0 - 4 /LPF No No Sep casts informa informa 2014 [#/area tion in tion in 3:47 PM ] in source source Urine data data sedimen t by Microsc opy high power field GLOMELULAR ESTEFANI. RATE,CALC. Observa Value Referen Units Interpr Notes Date tion ce etation Range Glomeru 83.8 60.0 - ml/min No THE Sep lar 200.0 informa eGFR IS 2014 filtrat [...] - 5002 - 3 WEEK 100 - 04825 - 4 WEEK 500 - 203098 - 5 WEEK 1000 - 195229 - 6 WEEK 46336 - 8879278 - 8 WEEK 62004 - 0124981 - 3 MTHS 62781 - 021428 BASIC METABOLIC PANEL (CHEM 7) Observa Value [...] No Sep 4 um 5.2 informa informa 2015 [Moles/ tion in tion in 3:30 PM [...] SANA~Ac data data data data Blood ct: [id number] 546~ABO O 5 16:06 SAH~RH( D) TYPING [...] CALLED TO AND READBACK BY : TEST CALLED:[facility] 11/16/2014 14:18 MFM Choriog POSITIV No No [...] \.br \\.br\D ictated : Adolfo Mcclain M.D. 0:24 am\.br\ \.br\Tr anscrib ed by: RN 015 6:01 am\.br\ \.br\Au thentic ated by: Adolfo Mcclain M.D. 1:17 pm\.br\ \.br\ XR Chest 2 Views [...] jacques Mcclain M.D.\.b r\\.br\ Dictate d: 10/09/19 12:23 AM\.br\ \.br\Tr anscrib ed: 10/09/19 5:58 AM\.br\ \.br\ * Final Report \.br [...] 12:21 AM\.br\ \.br\Tr anscrib ed: 10/09/19 15 5:57 AM\.br\ \.br\ * Final Report \.br [...] jacques Mcclain M.D.\.b r\\.br\ Dictate d: 10/09/19 12:20 AM\.br\ \.br\Tr anscrib ed: 10/09/19 5:56 AM\.br\ \.br\ * Final Report \.br \\.br\D ictated : Adolfo Mcclain M.D. 0:20 am\.br\ \.br\Tr anscrib ed by: RN 015 5:56 am\.br\ \.br\Au thentic ated by: [...] by: Adolfo Mcclain M.D. 1:17 pm\.br\ \.br\ URINE HCG Observa Value [...] No Sep 30 bin 16.0 informa informa 2013 [Mass/v [...] of 7.383 N/A No No No Sep Cord informa informa informa 2013 blood tion [...] etation Range TYPE TEXT~Na No No No Dec 24 AND me: informa informa informa informa 2013 SCREEN FERNANDEZ tion in tion in tion in tion in 6:15 AM , source source source source SANA~Ac data data data data ct: [id number] 482~ABO O 4 07:06 sdh~RH( D) TYPING [...] count Erythro 3.770 3.450 - M/ul No Dec 24 cytes 5.400 informa informa [...] Platele 150 122 - K/UL No No Dec 24 ts 454 informa informa 2013 [#/volu tion in tion in 6:15 AM me] in source source Blood data data by Automat ed count Platele 8.3 6.4 - fl No No Dec 24 t mean 10.4 informa informa 2013 volume tion in tion in 6:15 AM [Entiti source source c data data volume] in Blood by Automat ed count OXYCODONE,UR.(QUAL) Observa Value Referen Units Interpr Notes Date tion ce etation Range n/a Oxycodo NEGATIV No No No CONCENT Dec 24 ne E informa informa informa RATIONS 2013 [...] Opiates NEG NEGATIV ug/ML No OPIATE Dec 24 E informa CUT OFF 2013 [Presen tion in 5:55 AM ce] in source CONCENT Urine data RATION by - 300 Screen method Cannabi NEG NEGATIV NG/ML No THC CUT Dec 24 noids E informa OFF 2013 [Presen tion [...] CONFORM ITORY TEST CAN BE ORDERED AT [facility] RETION OF THE PHYSICI [facility]. CLINICA [...] HPF Abnorma No Dec 24 l informa 2014 tion in 5:55 AM source data Epithel [...] microsc opy OTHER * No No No [facility] Dec 24 informa informa informa [facility] 2013 tion in tion in tion in PERFORM 5:55 AM source source source ED ON data data data UNSPUN URINE SPECIME N; LESS THAN 1mLOF SPECIME N SENT TO LAB FOR TESTING . URINALYSIS COMPLETE Observa Value Referen Units Interpr Notes Date tion ce etation Range n/a Color YELLOW No No No No Dec 24 of informa informa informa informa 2013 Urine [...] pH of 6.0 5.0 - No No Dec 24 Urine 9.0 informa informa informa 2013 by [...] method Cocaine NEG NEGATIV ug/ML No COCAINE Dec 21 E informa CUT 2013 [Presen tion [...] CONFORM ITORY TEST [facility] BE ORDERED [facility]. [facility] L [...] Cocaine NEG NEGATIV ug/ML No COCAINE Sep 13 E informa CUT 2013 [Presen tion in OFF 11:00 ce] in source CONCENT PM Urine data RATION by - 300 Screen method Opiates NEG NEGATIV ug/ML No OPIATE Sep 13 E informa CUT OFF 2013 [Presen tion in 11:00 ce] in source CONCENT PM Urine data RATION by - 300 Screen method Cannabi NEG NEGATIV NG/ML No THC CUT Sep 13 noids E informa OFF 2013 [Presen tion in CONCENT 11:00 ce] in source RATION PM Urine data - 50 by Screen method Methado NEG NEGATIV ug/ML No METHADO Sep 13 ne E informa NE CUT 2013 [Presen tion in OFF 11:00 ce] in source CONCENT PM Urine data RATION by - Screen 300THES method E RESULTS PROVIDE ONLY A PRELIMI NARY TEST RESULT. THEREIS A POSSIBI LITY THAT OVER THE COUNTER DRUGS MAY INTERFE REWITH THE TEST. CONFORM ITORY TEST CAN BE ORDERED AT [facility] RETION OF THE PHYSICI AN. CLINICA [...] CONFORM ITORY TEST CAN BE ORDERED AT [facility] RETION OF THE PHYS[facility]I AN. CLINICA [...] [Presen tion in tion in ti in 12:06 ce] in source source source [...] Nov 21 Urine 9.0 informa informa informa 2014 by [...] CONFORM ITORY TEST CAN BE ORDERED AT [facility] L [...] Magnesi 4.3 1.7 - MG/DL High No Oct 17 um 2.4 informa 2013 [Mass/v tion in 5:50 PM olume] source in data Serum or Plasma MAGNESIUM Observa Value Referen Units Interpr Notes Date tion ce etation Range Magnesi 4.0 1.7 - MG/DL High No Oct 17 [...] Interpr Notes Date ti ce etation Range GROUP B NO No [...] AND tion in tion in tion in [id number] 3:30 AM BROTH source source source 8 [...] Nov 11 S OX informa informa informa 2014 tion in tion in tion in 12:47 [...] Nov 11 c 1.035 informa informa informa 2013 gravity [...] Nov 11 Urine 9.0 informa informa informa 2014 by [...] CONFORM ITORY TEST CAN BE ORDERED AT [facility] L [...] Interpr Notes Date tion ce etation Range \.br\RE No No No [...] Plasma Sodium 140 133 - mmol/L No Nov 01 [Moles/ 144 informa informa [...] - MG/DL Low Nov 01 ine 1.3 informa 2013 [Mass/v tion in 12:50 olume] source PM in data Serum or Plasma Protein 5.3 6.4 - G/DL Low Nov 01 8.4 informa 2013 [Mass/v tion in 12:50 olume] source PM in data Serum or Plasma Albumin 2.3 3.4 - G/DL Low Nov 01 5.0 informa 2013 [Mass/v tion in 12:50 olume] [...] 8.5 - MG/DL Low Nov 01 10.1 informa 2013 [Mass/v tion in 12:50 olume] source PM in data Serum or Plasma Alkalin 91 45 - U/L No Nov 01 e 117 informa informa 2013 phospha tion in tion in 12:50 tase source source PM [Enzyma data data tic activit y/volum e] in Serum or Plasma Asparta 11 15 - 37 U/L Low No Nov 01 te informa 2013 aminotr tion in 12:50 ansfera source PM [...] M/ul Low No Nov 01 cytes 5.400 inform2013 [#/volu tion in 12:50 me] in source PM Blood data by Automat ed count Hemoglo 9.8 10.0 - gm/dl Low Nov 01 bin 16.0 inform2013 [Mass/v tion in 12:50 olume] source PM in data Blood Hematoc 28.0 29.9 - % Low No Nov 01 rit 45.5 informa 2013 [Volume tion in 12:50 source PM Fractio data n] of Blood by Automat ed count Erythro 88.2 78.2 - fl No Nov 01 cyte 101.8 informa informa 2013 mean tion in tion in 12:50 corpusc source source PM ular data data volume [Entiti c volume] by Automat ed count Erythro 30.8 26.4 - pg No Nov 01 cyte 33.3 informa informa 2013 mean tion in tion in 12:50 corpusc source source PM ular data data hemoglo bin [Entiti c mass] by Automat ed count Erythro 34.9 32.5 - g/dl No Nov 01 cyte 35.3 informa informa [...] /HPF High No Nov 01 cytes informa 2014 [#/area tion in 10:00 ] in source [...] in source source AM Urine data data alysha villareal by Microsc opy high power field UR [...] CONFORM ITORY TEST CAN BE ORDERED AT [facility] L [...] 31 IA/GONO BELOW informa informa informa ia 2014 COCCUS, tion in tion in tion in [...] and pharyng eal specime ns.Perf ormed at: CB, [facility] [address], [place], [place], [id number] [address] [place] [address] Gil MD, Phone: [phone] JOHN PREP Observa Value Referen Units Interpr [...] ORDERED JOHN INCORRE prepara CTLY..O tion RDER#: [id number] ORDERED BY: HEATH JASMINE E: VAGINAL COLLECT ED: 4 20:20AN [facility]I [facility] AT [facility] RECEIVE D : 4 20:25KO H PREP FINAL 4 20:510 NO BUDDING YEAST NOTED GONORRHEA CULTURE Observa Value Referen Units Interpr Notes Date tion ce etation Range TEST GONORRHEA CULTURE WAS CANCELLED, 07/31/13 20:26 TEST ORDERED INCORRECTLY.. TEST GONORRHEA CULTURE WAS CANCELLED, 07/31/13 20:26 TEST ORDERED INCORRECTLY.. ORDER#: [id number] ORDERED BY: BLADIMIR KIM SOURCE: VAGINAL COLLECTED: [...] ORDERED Wet INCORRE prepara CTLY..O tion RDER#: [id number] ORDERED BY: HEATH JASMINE E: VAGINAL COLLECT ED: 4 20:20AN LUDWINIOTI CS AT [facility] RECEIVE D : 4 [...] informa 2013 gravity tion in tion in in 7:31 PM of source source source [...] Units Interpr Notes Date ce etation Range Glucose 98 70 - [...] Potassi 3.4 3.6 - mmol/l Low No May 6 um 5.2 informa 2013 [Moles/ tion in [...] U/L Low No July 31 te informa 2014 aminotr tion in 7:00 PM ansfera source se data [Enzyma tic activit y/volum e] in Serum or Plasma Alanine 21 12 - 78 U/L No No July 31 informa informa 2014 aminotr tion in tion in 7:00 PM ansfera source source se data data [Enzyma tic activit y/volum e] in Serum or Plasma Bilirub 0.20 0.00 - MG/DL No July 31 in.tota 1.00 informa informa [...] No July 31 ls/100 2.0 informa informa 2014 leukocy tion in tion in 7:00 PM benjamin in source source Blood data data by Automat ed count Neutrop 7.1 2.7 - K/ul High No July 31 hils 6.9 informa 2013 [#/volu tion in 7:00 PM me] in source Blood data by Automat ed count Lymphoc 1.7 0.4 - K/ul No July 31 ytes 3.9 informa informa 2014 [#/volu tion in tion in 7:00 PM me] in source source Blood data data by Automat ed count Monocyt 0.5 0.2 - K/ul No July 31 es 0.6 informa informa [...] & TEXT~Na No No No No Jun 26 Rh me: informa informa informa informa 2013 group REBECCA tion in tion in tion in tion in 12:06 panel , source source source source AM in SANA~Ac data data data data Blood ct: [id number] 984~ABO O 4 00:08 LMF~RH( D) TYPING POS 4 00:08 LMF GLOMELULAR ESTEFANI. RATE,CALC. Observa Value Referen Units Interpr Notes Date ti ce etation Range Glomeru 269.7 60.0 - [...] Notes Date ti ce etation Range Choriog 97674 No mIU/ML No FEMALE Jun 25 onadotr informa informa (NON 2014 opin tion in tion in PREGNAN 11:43 [Moles/ source source T) PM volume] data data in <31 Urine DAY - 1 WEEK 5 - 501 - 2 WEEK 50 - 5002 - 3 WEEK 100 - 00415 - 4 WEEK 500 - 646351 - 5 WEEK 1000 - 703548 - 6 WEEK 48402 - 2042189 - 8 WEEK 14205 - 9702730 - 3 MTHS 93228 - 845802 COMP. METABOLIC PANEL (CHEM 12) Observa Value [...] Protein 6.7 6.4 - G/DL No No Jun 25 8.4 informa informa 2013 [Mass/v tion in tion in 11:43 olume] source source PM in data data Serum or Plasma Albumin 3.0 3.4 - G/DL Low No Jun 25 5.0 informa 2013 [Mass/v tion in 11:43 olume] source PM in data Serum or Plasma Globuli 3.7 2.4 - G/DL No No Jun 25 n 4.8 informa informa 2013 [Mass/v tion in tion in 11:43 olume] source source PM in data data Plasma Albumin 0.8 0.6 - No No No Jun 25 /Globul 1.6 informa informa informa 2013 in [...] Jun 25 c 1.035 informa informa informa 2013 gravity [...] Erythro 3.870 3.450 - M/ul No No Jun 25 cytes 5.400 informa informa 2013 [#/volu tion in tion in 11:43 me] in source source PM Blood data data by Automat ed count Hemoglo 12.1 10.0 - gm/dl No No Jun 25 bin 16.0 informa informa 2013 [Mass/v tion in tion in 11:43 olume] source source PM in data data Blood Hematoc 35.3 29.9 - % No No Jun 25 rit 45.5 informa informa 2014 [Volume tion in tion in 11:43 source [...] Erythro 34.4 32.5 - g/dl No No Jun 25 cyte 35.3 informa informa 2014 mean tion in tion in 11:43 corpusc source source PM ular data data hemoglo bin concent ration [Mass/v olume] by Automat ed count Erythro 13.4 10.1 - % No No Jun 25 cyte 16.2 informa informa [...] Neutrop 68.8 43.0 - % No No Jun 25 hils/10 83.0 informa informa 2014 0 tion in tion in 11:43 leukocy source source PM benjamin in data data Blood by Automat ed count Lymphoc 21.8 10.0 - % No No Jun 25 ytes/10 42.0 informa informa 2014 0 tion in tion in 11:43 leukocy source source PM benjamin in data data Blood by Automat ed count Monocyt 6.1 1.0 - % No No Jun 25 es/100 14.0 informa informa 2014 leukocy tion in tion in 11:43 benjamin in source source PM Blood data data by Automat ed count Eosinop 3.0 0.0 - % No No Jun 25 hils/10 11.0 informa informa 2014 0 tion in tion in 11:43 leukocy source source PM benjamin in data data Blood by Automat ed count Basophi 0.3 0.0 - % No No Jun 25 ls/100 2.0 informa informa 2014 leukocy tion [...] Basophi 0.0 0.0 - K/ul No No May 31 ls 0.2 informa informa 2013 [#/volu [...] source Urine data data sedimen t by Micros opy high power field WBC 2 0 - 5 /HPF No No Apr 15 COUNT informa informa 2014 tion in tion in 9:13 PM source [...] No Apr 15 e 232 informa informa 2014 kinase tion in tion in 9:13 PM [Enzyma source source tic data data activit y/volum e] in Serum or Plasma ESR Observa Value Referen Units Interpr Notes Date tion ce etation Range Erythro 11 0 - 20 MM/HR No No Apr 15 cyte informa informa 2014 sedimen tion in tion in 9:13 PM [...] THE Apr 15 lar 130.0 eGFR IS 2014 filtrat AN 9:13 PM ion ESTIMAT rate/1. [...] No Apr 15 [Moles/ 144 informa informa 2014 volume] tion in tion in 9:13 PM in source source Serum data data or Plasma Potassi 4.0 3.6 - mmol/l No Apr 15 um 5.2 informa informa 2013 [Moles/ tion in tion in 9:13 PM volume] source source in data data Serum or Plasma Chlorid 107 98 - mmol/l No No Apr 15 e 107 informa informa 2013 [Moles/ tion in tion in 9:13 PM volume] source source in data data Blood Carbon 25 21 - 32 mmol/L No Apr 15 dioxide informa informa 2013 [...] No Apr 15 cyte 101.8 informa informa 2013 mean tion in tion in 9:13 PM corpusc source source ular data data volume [Entiti c volume] by Automat ed count Erythro 30.5 26.4 - pg No No Apr 15 cyte 33.3 informa informa 2013 mean tion [...] Apr 15 t mean 10.4 informa informa 2013 volume tion in tion in 9:13 PM [Entiti source source c data data volume] in Blood by Automat ed count
--- OUTSIDE RECORDS SUMMARY | 2017-02-15 14:13 | External Medical Summary Rpt ---
[...] Feb 07 coccus DETECTE CTED informa informa @[id number] pyogene D tion in tion in 2 [...] CONFORM ITORY TEST CAN BE ORDERED AT [facility] RETION OF THE PHYSICI AN. [...] Date [place]ion [place] [address] Reagin NONREAC NONREAC No No No Jun [...] source source ct: data data data data [id number] 710~ABO O 7 20:16 lmf~RH( D) TYPING POS 7 20:16 lmf~ANT IBODY SCREEN NEG 7 20:11 lmf~AUT OCONTRO L 7 20:22 LMF CBC/NO DIFF+ PLATELET Observa Value Referen Units Interpr Notes Date tion [place] [address] Leukocy 9.3 3.0 - K/UL No No [...] CONFORM ITORY TEST CAN BE ORDERED AT [facility] THE PH[facility]I AN. [...] AND tion in tion in tion in [id number] 5:35 PM BROTH source source source 9 [...] data data data [Presen ct: ce] in [id number] Serum 533~ANT or IBODY Plasma SCREEN NEG [...] ORGS/ML tion in tion in tion in [id number] 9:49 AM ied in OF source source [...] Final Report \.br \\.br\D ictated : ISSAC NION M.D. 7:49 pm\.br\ \.br\Tr anscrib ed by: [...] pyogene tion in tion in tion in [id number] 1:37 PM s Ag REFEREN source source [...] Childre nand Adults: <40Acco rding to the [facility] [employer]ica l Biochem istry,t he [...] 2.0 ng/mL.P erforme d at: CB, [facility] [facility], [place], [place], [address] [address] kenny teresa, PhD, Phone: [phone] ormed at: ES, [facility] [address], [place], [address] [address] Daniel jones MD, Phone: [phone] ANTIMICROSOMAL AB Observa Value Referen Units Interpr [...] ORGS/ML tion in tion in tion in [id number] 4:57 PM ied in OF source source [...] data data data [Presen ct: ce] in 1239585 Serum 277~ANT or IBODY Plasma SCREEN NEG [...] SANA~Ac data data data data Blood ct: [id number] 277~ABO O 6 07:20 mct~RH( D) TYPING [...] Notes Date tion ce etation Range Choriog 96548 No mIU/ML No FEMALE Nov 24 onadotr informa informa (NON 2016 opin tion in tion in PREGNAN 1:15 PM [Moles/ source source T) volume] data data in <31 Urine DAY - 1 WEEK 5 - 501 - 2 WEEK 50 - 5002 - 3 WEEK 100 - 81035 - 4 WEEK 500 - 763800 - 5 WEEK 1000 - 796458 - 6 WEEK 68484 - 6278586 - 8 WEEK 72307 - 0328989 - 3 MTHS 69603 - 240844 TSH Observa Value Referen Units Interpr Notes [...] - 5002 - 3 WEEK 100 - 50405 - 4 WEEK 500 - 789927 - 5 WEEK 1000 - 145048 - 6 WEEK 24513 - 2405566 - 8 WEEK 00435 - 4891781 - 3 MTHS 47316 - 695966 CBC\T\AUTO DIFF Observa Value Referen Units Interpr [...] SANA~Ac data data data data Blood ct: [id number] 627~ABO O 6 20:03 JPB~RH( D) TYPING [...] CONFORM ITORY TEST CAN BE ORDERED AT [facility] RETION OF THE PHYSICI AN. [...] - 5002 - 3 WEEK 100 - 92644 - 4 WEEK 500 - 572951 - 5 WEEK 1000 - 614064 - 6 WEEK 80739 - 7929212 - 8 WEEK 01590 - 0042946 - 3 MTHS 17090 - 429256 COMP. METABOLIC PANEL (CHEM 12) Observa Value [...] source SANA~Ac data data data data ct: [id number] 134~ABO O 6 08:35 sdh~RH( D) TYPING [...] CONFORM ITORY TEST CAN BE ORDERED AT [facility] RETION OF THE PHYSICI AN. CLINICA [...] CONFORM ITORY TEST CAN BE ORDERED AT [facility] OF THE PHYSICI AN. [...] CONFORM ITORY TEST CAN BE ORDERED AT [facility]ION OF THE PHYSICI AN. [...] Observa Value Referen Units Interpr Notes Date [facility] Physician is not a Physician's Portal [...] CONFORM ITORY TEST CAN BE ORDERED AT [facility] RETION OF THE PHYSICI AN. CLINICA [...] source could data data data manager data warehousing to adverse medical , social, No No [...] 14 tion in tion in tion in [id number] 3:53 PM years source source source 5 [...] ORGS/ML tion in tion in tion in [id number] 11:00 ied in OF source source source [...] data data data [Presen ct: ce] in [id number] Serum 588~ANT or IBODY Plasma SCREEN NEG [...] SANA~Ac data data data data Blood ct: [id number] 588~ABO O 5 06:46 mct~RH( D) TYPING [...] CONFORM ITORY TEST CAN BE ORDERED AT [facility] RETION OF THE PHYSICI AN. CLINICA [...] source Urine data data sedimen t by [facility] opy high power field WBC 0 [...] SANA~Ac data data data data Blood ct: [id number] 143~ABO O 5 19:10 MJR~RH( D) TYPING [...] source could data data data manager data warehousing to adverse medical , social, No No [...] 14 tion in tion in tion in [id number] 6:33 PM years source source source 0 [...] observa tion in tion in tion in [id number] 6:33 PM tion source source source 9 [...] NOTED. tion in tion in tion in [id number] 6:33 PM tion source source source 9 [Identi data data data fier] in Unspeci ORDERED fied BY: raisa carpenter by , JOHN HENRYSO prepara URCE: tion VAGINAL COLLECT ED: 5 18:33AN [facility] RECEIVE D : 5 19:01KO H PREP FINAL 5 19:2410 NO YEAST NOTED. URINE CULTURE Observa Value Referen Units Interpr Notes Date tion ce etation Range Bacteri >100,00 No No No ORDER#: Sep 4 a 0 informa informa informa 2015 identif ORGS/ML tion in tion in tion in [id number] 4:08 PM ied in OF source source source 7 Urine MIXED data data data by [employer] ERIS ORDERED BY: LIDIA NUNEZ OURCE: CLEAN CATCH URINE COLLECT ED: 5 16:08AN [facility] RECEIVE D : 5 [...] - 5002 - 3 WEEK 100 - 23515 - 4 WEEK 500 - 957680 - 5 WEEK 1000 - 820480 - 6 WEEK 06131 - 3329458 - 8 WEEK 35147 - 6044258 - 3 MTHS 43436 - 245102 BASIC METABOLIC PANEL (CHEM 7) Observa Value [...] SANA~Ac data data data data Blood ct: [id number] 546~ABO O 5 16:06 SAH~RH( D) TYPING [...] source SANA~Ac data data data data ct: [id number] 482~ABO O 4 07:06 sdh~RH( D) TYPING [...] CONFORM ITORY TEST CAN BE ORDERED AT [facility] OF THE PHYSICI AN. CLINICA [...] microsc opy OTHER * No No No [facility] Dec 24 informa informa informa [facility] 2013 [...] CONFORM ITORY TEST CAN BE ORDERED AT [facility]ION OF THE PHYSICI AN. [...] CONFORM ITORY TEST CAN BE ORDERED AT [facility] RETION OF THE PHYSICI AN. CLINICA [...] CONFORM ITORY TEST CAN BE ORDERED AT [facility] RETION OF THE PHYSICI AN. CLINICA [...] CONFORM ITORY TEST CAN BE ORDERED AT [facility] RETION OF THE PHYSICI AN. [...] AND tion in tion in tion in [id number] 3:30 AM BROTH source source source 8 [...] CONFORM ITORY TEST CAN BE ORDERED AT [facility] RETION OF THE PHYSICI AN. [...] CONFORM ITORY TEST CAN BE ORDERED AT [facility]ION OF THE PHYSICI AN. [...] eal specime ns.Perf ormed at: CB, [facility] [address], [place], [place], [address] [address] [place] [address] Gil MD, Phone: [phone] JOHN PREP Observa Value Referen Units Interpr [...] ORDERED JOHN INCORRE prepara CTLY..O tion RDER#: [id number] ORDERED BY: HEATH JASMINE E: VAGINAL COLLECT ED: 4 20:20AN TIBIOTI CS AT [facility].: RECEIVE D : 4 20:25KO H PREP FINAL 4 20:510 NO BUDDING YEAST NOTED GONORRHEA CULTURE Observa Value Referen Units Interpr Notes Date tion ce etation Range TEST GONORRHEA CULTURE WAS CANCELLED, 07/31/13 20:26 TEST ORDERED INCORRECTLY.. TEST GONORRHEA CULTURE WAS CANCELLED, 07/31/13 20:26 TEST ORDERED INCORRECTLY.. ORDER#: [id number] ORDERED BY: BLADIMIR KIM SOURCE: VAGINAL COLLECTED: [...] ORDERED Wet INCORRE prepara CTLY..O tion RDER#: [id number] ORDERED BY: HEATH JASMINE E: VAGINAL [...] SANA~Ac data data data data Blood ct: [id number] 984~ABO O 4 00:08 LMF~RH( D) TYPING [...] Notes Date ti ce etation Range Choriog 56575 No mIU/ML No FEMALE Jun 25 onadotr informa informa (NON 2014 opin tion in tion in PREGNAN 11:43 [Moles/ source source T) PM volume] data data in <31 Urine DAY - 1 WEEK 5 - 501 - 2 WEEK 50 - 5002 - 3 WEEK 100 - 13756 - 4 WEEK 500 - 682570 - 5 WEEK 1000 - 825364 - 6 WEEK 70506 - 3793394 - 8 WEEK 16755 - 1002186 - 3 MTHS 22558 - 379785 COMP. METABOLIC PANEL (CHEM 12) Observa Value [...]
[2017-02-15 14:20] VITALS: BP 105/54
== END 2017-02-15 14:21 | disposition home or self-care (01) ==
LOC: ER 13:30
DX: R05 Cough (principal); Z33.1 Pregnant state, incidental; D64.9 Anemia, unspecified; N28.9 Disorder of kidney and ureter, unspecified; F41.8 Other specified anxiety disorders; Z88.6 Allergy status to analgesic agent

== ENCOUNTER 2017-02-20 21:12 | Emergency (ER) | payer MEDICAID ==
[~2017-02-20] VITALS: Ht 162.6 cm; Wt 81.6 kg
[~2017-02-20 21:12] MED LIST changes: +AVPAK AZITHROM250 MG PO
--- OUTSIDE RECORDS SUMMARY | 2017-02-20 21:39 | External Medical Summary Rpt | CCD ---
Author Author , JONATAN Organization JONATAN Address Unknown Phone [email or web address] Purpose Continuity of Care Document - 04-15-2013 through 2016 Results Labs Lab Lab Date Result Refere Interp Status Commen Order Detail nces retati t Range on Urine test by rapid immunoassa (02-07-2017 11:26) Urine NEGATIV NEG complet pregnan 017 E ed cy test :26 by rapid immunoa ssa Streptococcus pyogenes Ag [...]
--- OUTSIDE RECORDS SUMMARY | 2017-02-20 21:39 | External Medical Summary Rpt | CCD ---
Author Author , JONATAN Organization JONATAN Address Unknown Phone [email or web address] Purpose Continuity of Care Document - 04-15-2013 [...]
--- OUTSIDE RECORDS SUMMARY | 2017-02-20 21:40 | External Medical Summary Rpt | CCD ---
Demographics Preferred Language German Marital Status Unknown Sikh Affiliation Unknown Race Unknown Ethnic Group Unknown Author Author , JONATAN CHEUNG Address Unknown Phone Immunization No patient found.
--- OUTSIDE RECORDS SUMMARY | 2017-02-20 21:40 | External Medical Summary Rpt | CCD ---
Demographics Preferred Language Frisian Marital Status Unknown Moravian Affiliation Unknown Race Unknown Ethnic Group Unknown Author Author , JONATAN CHEUNG Address Unknown Phone Immunization No patient found.
[2017-02-20 21:41] LABS: URINE BILIRUBIN - DIPSTICK NEGATIVE (NEG); URINE BLOOD 2+ (NEG)
--- OUTSIDE RECORDS SUMMARY | 2017-02-20 21:49 | External Medical Summary Rpt ---
[...] Feb 07 coccus DETECTE CTED informa informa @[id number] pyogene D tion in tion in 2 [...] [facility] [...] Date [place] [address] Reagin NONREAC NONREAC No No No Jun [...] source source ct: data data data data [id number] 710~ABO O 7 20:16 lmf~RH( D) TYPING POS 7 20:16 lmf~ANT IBODY SCREEN NEG 7 20:11 lmf~AUT OCONTRO L 7 20:22 LMF CBC/NO DIFF+ PLATELET Observa Value Referen Units Interpr Notes Date tion [place] [address] Leukocy 9.3 3.0 - K/UL No No [...] CONFORM ITORY TEST [facility] [...] AND tion in tion in tion in [id number] 5:35 PM BROTH source source source 9 [...] data data data [Presen ct: ce] in [id number] Serum 533~ANT or IBODY Plasma SCREEN NEG [...] ORGS/ML tion in tion in tion in [id number] 9:49 AM ied in OF source source [...] pyogene tion in tion in tion in [id number] 1:37 PM s Ag REFEREN source source [...] Childre nand Adults: <40Acco rding to the [facility] [employer] [facility] [employer] l Biochem [...] 2.0 ng/mL.P erforme d at: CB, [facility] [place] [address] [facility], [place], [place], [address] [address] kenny teresa, PhD, Phone: [phone] ormed at: ES, [facility] [address] [place], [place], [address] 58Samue l Daniel jones MD, Phone: [phone] ANTIMICROSOMAL AB Observa Value Referen Units Interpr [...] ORGS/ML tion in tion in tion in [id number] 4:57 PM ied in OF source source [...] me: informa informa informa informa 2016 antibod FENRANDEZ tion in tion in tion in tion in 1:15 PM y , source source source source screen SANA~Ac data data data data [Presen ct: ce] in 6125831 Serum 277~ANT or IBODY Plasma SCREEN NEG [...] SANA~Ac data data data data Blood ct: [id number] 277~ABO O 6 07:20 mct~RH( D) TYPING [...] Notes Date tion ce etation Range Choriog 31362 No mIU/ML No FEMALE Nov 24 onadotr informa informa (NON 2016 opin tion in tion in PREGNAN 1:15 PM [Moles/ source source T) volume] data data in <31 Urine DAY - 1 WEEK 5 - 501 - 2 WEEK 50 - 5002 - 3 WEEK 100 - 58220 - 4 WEEK 500 - 815943 - 5 WEEK 1000 - 901972 - 6 WEEK 49803 - 8498080 - 8 WEEK 93590 - 3811211 - 3 MTHS 15128 - 498568 TSH Observa Value Referen Units Interpr Notes [...] - 5002 - 3 WEEK 100 - 77522 - 4 WEEK 500 - 781823 - 5 WEEK 1000 - 504654 - 6 WEEK 51894 - 2963685 - 8 WEEK 92226 - 2669758 - 3 MTHS 42507 - 449250 CBC\T\AUTO DIFF Observa Value Referen Units Interpr [...] SANA~Ac data data data data Blood ct: [id number] 627~ABO O 6 20:03 JPB~RH( D) TYPING [...] CONFORM ITORY TEST [facility] BE [facility] [...] - 5002 - 3 WEEK 100 - 91439 - 4 WEEK 500 - 007409 - 5 WEEK 1000 - 878034 - 6 WEEK 10177 - 4040686 - 8 WEEK 42557 - 8107869 - 3 MTHS 57592 - 238514 COMP. METABOLIC PANEL (CHEM 12) Observa Value [...] source SANA~Ac data data data data ct: [id number] 134~ABO O 6 08:35 sdh~RH( D) TYPING [...] CONFORM ITORY TEST CAN BE ORDERED AT [facility] THE PHYSICI AN. CLINICA [...] CONFORM ITORY TEST [facility] BE [facility] [...] CONFORM ITORY TEST CAN BE ORDERED [facility] [...] Observa Value Referen Units Interpr Notes Date [facility] Range Physician is not a [...] CONFORM ITORY TEST CAN BE ORDERED AT [facility] THE [facility]YS[facility]I [facility]. CLINICA [...] source source source could data data data master data analyst to adverse medical , social, No No [...] 14 tion in tion in tion in [id number] 3:53 PM years source source source 5 [...] ORGS/ML tion in tion in tion in [id number] 11:00 ied in OF source source source [...] data data data [Presen ct: ce] in [id number] Serum 588~ANT or IBODY Plasma SCREEN NEG [...] SANA~Ac data data data data Blood ct: [id number] 588~ABO O 5 06:46 mct~RH( D) TYPING [...] CONFORM ITORY TEST CAN BE ORDERED AT [facility]. CLINICA [...] source Urine data data sedimen t by [facility] opy high power field WBC 0 [...] SANA~Ac data data data data Blood ct: [id number] 143~ABO O 5 19:10 MJR~RH( D) TYPING [...] source source source could data data data master data analyst to adverse medical , social, No No [...] 14 tion in tion in tion in [id number] 6:33 PM years source source source 0 [...] observa tion in tion in tion in [id number] 6:33 PM tion source source source 9 [...] NOTED. tion in tion in tion in [id number] 6:33 PM tion source source source 9 [Identi data data data fier] in Unspeci ORDERED fied BY: raisa carpenter by , JOHN HENRYSO prepara URCE: tion VAGINAL COLLECT ED: 5 18:33AN [facility] RECEIVE D : 5 19:01KO H PREP FINAL 5 19:2410 NO YEAST NOTED. URINE CULTURE Observa Value Referen Units Interpr Notes Date tion ce etation Range Bacteri >100,00 No No No ORDER#: Sep 4 a 0 informa informa informa 2015 identif ORGS/ML tion in tion in tion in [id number] 4:08 PM ied in OF source source source 7 Urine MIXED data data data by SKIN Culture ERIS ORDERED BY: LIDIA NUNEZ OURCE: CLEAN CATCH URINE COLLECT ED: 5 16:08[facility] RECEIVE D : [...] - 5002 - 3 WEEK 100 - 18338 - 4 WEEK 500 - 155039 - 5 WEEK 1000 - 283416 - 6 WEEK 35325 - 8527767 - 8 WEEK 39673 - 1884728 - 3 MTHS 93827 - 701044 BASIC METABOLIC PANEL (CHEM 7) Observa Value [...] SANA~Ac data data data data Blood ct: [id number] 546~ABO O 5 16:06 SAH~RH( D) TYPING [...] source SANA~Ac data data data data ct: [id number] 482~ABO O 4 07:06 sdh~RH( D) TYPING [...] CONFORM ITORY TEST CAN BE ORDERED AT [facility] THE [facility]YS[facility]I [facility]. CLINICA [...] microsc opy OTHER * No No No [facility] Dec 24 informa informa informa OPIC [...] CONFORM ITORY TEST [facility] [...] CONFORM ITORY TEST CAN BE ORDERED AT [facility] THE PHYS[facility]I AN. CLINICA [...] CONFORM ITORY TEST CAN BE ORDERED AT [facility] THE [facility]YS[facility]I [facility]. CLINICA [...] CONFORM ITORY TEST CAN BE ORDERED AT [facility] [...] by: 4:18 pm\.br\ \.br\Au thentic ated by: rBice Barrios M.D. 4:27 pm\.br\ \.br\ MAGNESIUM Observa [...] AND tion in tion in tion in [id number] 3:30 AM BROTH source source source 8 [...] CONFORM ITORY TEST [facility] BE [facility] [...] CONFORM ITORY TEST CAN BE ORDERED AT [facility] [...] eal specime ns.Perf ormed at: CB, [facility] [address], [place], [place], [address] [address] [place] [address] Gil MD, Phone: [phone] JOHN PREP Observa Value Referen Units Interpr [...] ORDERED JOHN INCORRE prepara CTLY..O tion RDER#: [id number] ORDERED BY: HEATH JASMINE E: VAGINAL COLLECT ED: 4 20:20AN [facility] RECEIVE D : 4 20:25KO H PREP FINAL 4 20:510 NO BUDDING YEAST NOTED GONORRHEA CULTURE Observa Value Referen Units Interpr Notes Date tion ce etation Range TEST GONORRHEA CULTURE WAS CANCELLED, 07/31/13 20:26 TEST ORDERED INCORRECTLY.. TEST GONORRHEA CULTURE WAS CANCELLED, 07/31/13 20:26 TEST ORDERED INCORRECTLY.. ORDER#: [id number] ORDERED BY: BLADIMIR KIM SOURCE: VAGINAL COLLECTED: [...] ORDERED Wet INCORRE prepara CTLY..O tion RDER#: [id number] ORDERED BY: HEATH JASMINE E: VAGINAL [...] SANA~Ac data data data data Blood ct: [id number] 984~ABO O 4 00:08 LMF~RH( D) TYPING [...] Notes Date ti ce etation Range Choriog 39874 No mIU/ML No FEMALE Jun 25 onadotr informa informa (NON 2014 opin tion in tion in PREGNAN 11:43 [Moles/ source source T) PM volume] data data in <31 Urine DAY - 1 WEEK 5 - 501 - 2 WEEK 50 - 5002 - 3 WEEK 100 - 39600 - 4 WEEK 500 - 560725 - 5 WEEK 1000 - 398670 - 6 WEEK 05904 - 9553468 - 8 WEEK 10600 - 9350109 - 3 MTHS 26144 - 459303 COMP. METABOLIC PANEL (CHEM 12) Observa Value [...]
--- OUTSIDE RECORDS SUMMARY | 2017-02-20 21:49 | External Medical Summary Rpt ---
[...] Feb 07 coccus DETECTE CTED informa informa @[id number] pyogene D tion in tion in 2 [...] CONFORM [facility] BE [facility] L [...] Date [place] [address] Reagin NONREAC NONREAC No No No Jun [...] source source ct: data data data data [id number] 710~ABO O 7 20:16 lmf~RH( D) TYPING POS 7 20:16 lmf~ANT IBODY SCREEN NEG 7 20:11 lmf~AUT OCONTRO L 7 20:22 LMF CBC/NO DIFF+ PLATELET Observa Value Referen Units Interpr Notes Date tion [place]ation [place] 5[address]68 Leukocy 9.3 3.0 - K/UL No No [...] CONFORM ITORY TEST CAN BE ORDERED [facility] L [...] AND tion in tion in tion in [id number] 5:35 PM BROTH source source source 9 [...] data data data [Presen ct: ce] in 1998686 Serum 533~ANT or IBODY Plasma SCREEN NEG [...] ORGS/ML tion in tion in tion in [id number] 9:49 AM ied in OF source source [...] pyogene tion in tion in tion in [id number] 1:37 PM s Ag REFEREN source source [...] * Final Report \.br \\.br\D ictated : tOto Lai 1:18 pm\.br\ \.br\Tr anscrib ed by: [...] Childre nand Adults: <40Acco rding to the [facility] [employer] of [employer]ica l Biochem istry,t he [...] 2.0 ng/mL.P erforme d at: CB, [facility] [place] [address] [facility], [place], [place], [address] 69Vince kenny teresa, PhD, Phone: [phone] ormed at: ES, [facility] [address] [place], [place], [address] 58Samue l Daniel jones MD, Phone: [phone] ANTIMICROSOMAL AB Observa Value Referen Units Interpr [...] ORGS/ML tion in tion in tion in [id number] 4:57 PM ied in OF source source [...] data data data [Presen ct: ce] in 2539399 Serum 277~ANT or IBODY Plasma SCREEN NEG [...] SANA~Ac data data data data Blood ct: [id number] 277~ABO O 6 07:20 mct~RH( D) TYPING [...] Notes Date tion ce etation Range Choriog 13345 No mIU/ML No FEMALE Nov 24 onadotr informa informa (NON 2016 opin tion in tion in PREGNAN 1:15 PM [Moles/ source source T) volume] data data in <31 Urine DAY - 1 WEEK 5 - 501 - 2 WEEK 50 - 5002 - 3 WEEK 100 - 75448 - 4 WEEK 500 - 167531 - 5 WEEK 1000 - 041766 - 6 WEEK 20396 - 6596486 - 8 WEEK 29968 - 7449108 - 3 MTHS 59384 - 137798 TSH Observa Value Referen Units Interpr Notes [...] - 5002 - 3 WEEK 100 - 12341 - 4 WEEK 500 - 832624 - 5 WEEK 1000 - 562296 - 6 WEEK 84112 - 3968367 - 8 WEEK 21880 - 5991757 - 3 MTHS 61446 - 211747 CBC\T\AUTO DIFF Observa Value Referen Units Interpr [...] SANA~Ac data data data data Blood ct: [id number] 627~ABO O 6 20:03 JPB~RH( D) TYPING [...] CONFORM ITORY TEST [facility] BE [facility] L [...] - 5002 - 3 WEEK 100 - 33307 - 4 WEEK 500 - 824561 - 5 WEEK 1000 - 980737 - 6 WEEK 83373 - 0306349 - 8 WEEK 56757 - 2739860 - 3 MTHS 07419 - 901171 COMP. METABOLIC PANEL (CHEM 12) Observa Value [...] source SANA~Ac data data data data ct: [id number] 134~ABO O 6 08:35 sdh~RH( D) TYPING [...] CONFORM ITORY TEST CAN BE ORDERED AT [facility] RETION OF THE PHYSICI AN. [...] CONFORM ITORY TEST CAN BE ORDERED [facility]. [facility]ICA L [...] CONFORM ITORY TEST CAN BE ORDERED [facility] L [...] Observa Value Referen Units Interpr Notes Date critical access hospitaltion Range Physician is not a Physician's Portal [...] CONFORM ITORY TEST CAN BE ORDERED AT [facility] RETION OF THE PHYSICI AN. [...] source source source could data data data senior database administrator to adverse medical , social, No No [...] 14 tion in tion in tion in [id number] 3:53 PM years source source source 5 [...] ORGS/ML tion in tion in tion in [id number] 11:00 ied in OF source source source [...] data data data [Presen ct: ce] in 4491218 Serum 588~ANT or IBODY Plasma SCREEN NEG [...] SANA~Ac data data data data Blood ct: [id number] 588~ABO O 5 06:46 mct~RH( D) TYPING [...] CONFORM ITORY TEST CAN BE ORDERED AT [facility] RETION OF THE PHYSICI AN. [...] source Urine data data sedimen t by [facility] opy high power field WBC 0 0 [...] SANA~Ac data data data data Blood ct: [id number] 143~ABO O 5 19:10 MJR~RH( D) TYPING [...] source source source could data data data senior database administrator to adverse medical , social, No No [...] 14 tion in tion in tion in [id number] 6:33 PM years source source source 0 [...] observa tion in tion in tion in [id number] 6:33 PM tion source source source 9 [...] NOTED. tion in tion in tion in [id number] 6:33 PM tion source source source 9 [Identi data data data fier] in Unspeci ORDERED fied BY: raisa carpenter by , JOHN HENRYSO prepara URCE: tion VAGINAL COLLECT ED: 5 18:33AN [facility] RECEIVE D : 5 19:01KO H PREP FINAL 5 19:2410 NO YEAST NOTED. URINE CULTURE Observa Value Referen Units Interpr Notes Date tion ce etation Range Bacteri >100,00 No No No ORDER#: Sep 4 a 0 informa informa informa 2015 identif ORGS/ML tion in tion in tion in [id number] 4:08 PM ied in OF source source source 7 Urine MIXED data data data by SKIN Culture ERIS ORDERED BY: LIDIA NUNEZ OURCE: CLEAN CATCH URINE COLLECT ED: 5 16:08AN [facility] RECEIVE D : [...] - 5002 - 3 WEEK 100 - 06631 - 4 WEEK 500 - 124589 - 5 WEEK 1000 - 427212 - 6 WEEK 49584 - 1253761 - 8 WEEK 10873 - 7798641 - 3 MTHS 38072 - 400649 BASIC METABOLIC PANEL (CHEM 7) Observa Value [...] SANA~Ac data data data data Blood ct: [id number] 546~ABO O 5 16:06 SAH~RH( D) TYPING [...] source SANA~Ac data data data data ct: [id number] 482~ABO O 4 07:06 sdh~RH( D) TYPING [...] CONFORM ITORY TEST CAN BE ORDERED AT [facility] RETION OF THE PHYSICI AN. [...] CONFORM ITORY TEST [facility]. [facility]ICA L [...] CONFORM ITORY TEST CAN BE ORDERED AT [facility] RETION OF THE PHYSICI AN. [...] CONFORM ITORY TEST CAN BE ORDERED AT [facility] RETION OF THE PHYSICI AN. [...] CONFORM ITORY TEST CAN BE ORDERED [facility]. [facility]ICA L [...] AND tion in tion in tion in [id number] 3:30 AM BROTH source source source 8 [...] CONFORM ITORY TEST CAN BE ORDERED [facility]. [facility]ICA L [...] CONFORM ITORY TEST CAN BE ORDERED [facility]. [facility] L [...] eal specime ns.Perf ormed at: CB, [facility] [address], [place], [place], [address] [address] [place] [address] Gil MD, Phone: [phone] JOHN PREP Observa Value Referen Units Interpr [...] ORDERED JOHN INCORRE prepara CTLY..O tion RDER#: [id number] ORDERED BY: HEATH JASMINE E: VAGINAL COLLECT ED: 4 20:20AN [facility] RECEIVE D : 4 20:25KO H PREP FINAL 4 20:510 NO BUDDING YEAST NOTED GONORRHEA CULTURE Observa Value Referen Units Interpr Notes Date tion ce etation Range TEST GONORRHEA CULTURE WAS CANCELLED, 07/31/13 20:26 TEST ORDERED INCORRECTLY.. TEST GONORRHEA CULTURE WAS CANCELLED, 07/31/13 20:26 TEST ORDERED INCORRECTLY.. ORDER#: [id number] ORDERED BY: BLADIMIR KIM SOURCE: VAGINAL COLLECTED: [...] ORDERED Wet INCORRE prepara CTLY..O tion RDER#: [id number] ORDERED BY: HEATH JASMINE E: VAGINAL [...] tion in 7:00 PM leukocy source source benajmin in data data Blood by Automat ed [...] SANA~Ac data data data data Blood ct: [id number] 984~ABO O 4 00:08 LMF~RH( D) TYPING [...] Notes Date ti ce etation Range Choriog 49210 No mIU/ML No FEMALE Jun 25 onadotr informa informa (NON 2014 opin tion in tion in PREGNAN 11:43 [Moles/ source source T) PM volume] data data in <31 Urine DAY - 1 WEEK 5 - 501 - 2 WEEK 50 - 5002 - 3 WEEK 100 - 81848 - 4 WEEK 500 - 116408 - 5 WEEK 1000 - 344206 - 6 WEEK 58494 - 7554496 - 8 WEEK 46377 - 6668866 - 3 MTHS 83401 - 759351 COMP. METABOLIC PANEL (CHEM 12) Observa Value [...] source source rate by data data Westerg moi method CRP QUANTITATIVE Observa Value Referen Units [...]
[2017-02-20 22:01] LABS: HEMOGLOBIN 12.7 g/dL (12.2-16.2); LYMPH # 2.3 K/mm3 (0.7-4.5)
--- NOTE | 2017-02-20 23:24 | Emergency Room Report ---
History of Present Illness Time Seen by [id number] Presenting Problem in Triage Pt arrived:Walked Presenting Problem:C/O DIFFICULTY WITH URINATION AND BURNING AFTER URINATING. ALSO C/O LEFT FLANK PAIN. 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 N Clinical Suspician of Infection? Y Mental Status: 1 - Regular (Normal Baseline) Sepsis Risk:Low Sepsis Risk Have you (or family members/close friends) recently traveled outside the [place]? N If Yes, where/when: Have you had exposure to infectious disease within the past month? N TB? Other? Specify: Source patient, RN notes reviewed, family, RN/MD Exam Limitations no limitations Comment This is a 31-year-old lady arriving to the emergency room with epigastric and RIGHT upper quadrant abdominal pain, radiating towards the RIGHT flank, for the past 3 days. Patient was here within the past 2 weeks with similar complaints, at that time she had a positive test. Patient also complains with some frequency and dysuria. She has a 7-month-old baby at home and she underwent a ventral hernia repair with mesh in October, by Dr. Ha Saavedra. ALLERGIES Coded Allergies: codeine (01/03/17) metoclopramide (From REGLAN) (01/03/17) morphine (01/03/17) Home Medications Active Scripts Azithromycin (Avpak Azithromycin) 250 MG PO DAILY #6 TAB Prov: 02/15/17 Reported Medications LEVOTHYROXINE SOD (Synthroid) 0.1 MG PO DAILY History Medical History General CAD? No Angina: No NC: No Hypertension? No Hyperlipidemia? No CHF? No DVT? No PE? No COPD? No Asthma? No Anemia? Yes GERD? No Gastric ulcers? No GI Bleed? No Hernia? No Thyroid Problems? Yes Hypothyroidism? Yes CVA? No Seizures? Yes Diabetes? No Renal Insuffiency? Yes End Stage Renal Disease? No UTI? No Stones? Yes BPH? No GB Disease: No Nephritic Syndrome? No Asplenia? No Hepatitis? No Sickle Cell Disease? No Arthritis? No Migraines? No Cataracts? No Glaucoma? No MRSA? No HIV? No TB? No Anxiety? Yes Depression? Yes Cancer? No More? 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 Physical Exam Vital Signs Vital Signs Date Time Temp Pulse Resp B/P Pulse O2 O2 Flow FiO2 Ox Delivery Rate 02/21 0021 97.7 74 18 132/91 100 02/21 0020 97.7 74 18 132/91 100 02/21 0017 18 02/20 2118 97.7 64 20 132/80 98 General Appearance normal appearance, WD/WN, mild distress Respiratory Status Yes: trachea midline, chest symmetrical, non tender chest. No: respiratory distress. Lung Sounds bilateral: normal breath sounds, lungs clear. 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 No Comment 5315-give patient copy of CT scan on CD-ROM as well as printed the report, instructed her to follow-up with Dr. Ha Saavedra at her earliest convenience for surgical reevaluation of recent ventral hernia repair. Patient started on antibiotics today for her urinary tract infection, advised her to drink more fluids. Results/Orders Laboratory Tests 02/20/172139: Beta HCG, Quant Cancelled 02/20/172139: Sodium 142, Potassium 3.8, Chloride 106, Carbon Dioxide 26, BUN 6 L, Creatinine 0.7, Estimated Creat Clear 149, Estimated GFR (MDRD) 97, Glucose 103, Calcium 9.0, Total Bilirubin 0.2, AST 47 H, ALT 69, Alkaline Phosphatase 105, Total Protein 7.0, Albumin 3.7, Globulin 3.3 H, Albumin/Globulin Ratio 1.1, Beta HCG, Quant 0, WBC 7.1, RBC 4.17 L, Hgb 12.7, Hct 36.7 L, MCV 88.2, RDW 12.6, Plt Count 164, MPV 7.4, Gran % 58.2, Gran # 4.1, Lymphocytes % 33.0, Monocytes % 4.1 , Eosinophils % 4.3, Basophils % 0.3, Lymphocytes # 2.3, Monocytes # 0.3, Eosinophils # 0.3, Basophils # 0.0, PUBS MCHC 34.5, MCH 30.5 02/20/172119: Urine Color YELLOW, Urine Appearance CLOUDY, Urine pH 6.0, Ur Specific [place] 1.025, Urine Protein NEGATIVE, Urine Ketones NEGATIVE, Urine Blood 2+ H, Urine Nitrate NEGATIVE, Urine Bilirubin NEGATIVE, Urine Urobilinogen 1.0, Ur Leukocyte Esterase 2+ H, Urine RBC 10-20, Urine WBC 50-100, Ur Squamous Epith Cells 5-10, Urine Glucose NEGATIVE Current Medication Orders Sig/Alvino Start time Last Medication Dose Route Stop Time Status Admin Oxycodone/ 0 .STK-MED ONE 02/21 17 DCr Acetaminophen PO Acetaminophen/ 1 OSWALDO ONCE ONE 02/21 15 CAN Codeine Phosphate PO 02/22 16 Oxycodone/ 1 TAB ONCE ONE 02/21 15 DCr 02/21 Acetaminophen PO 02/22 16 0017 Trimethoprim/ 1 TABLET ONCE ONE 02/21 15 DCr 02/21 Sulfamethoxazole PO 02/22 16 0011 Acetaminophen/ 0 .STK-MED ONE 02/21 10 DCr Codeine Phosphate PO Trimethoprim/ 0 .STK-MED ONE 02/21 10 DC Sulfamethoxazole PO Sodium Chloride 1,000 ML .Q1H1M 02/20 2145 DC 02/20 IV 02/20 Sodium Chloride 10 ML PRN PRN 02/20 2145 DCD IV 02/22 2132 Sodium Chloride 1,000 ML .STK-MED ONE 02/21 2144 DC IV Sodium Chloride 1,000 ML .STK-MED ONE 02/20 2133 DC IV Sodium Chloride 10 ML PRN PRN 02/20 2130 DCD IV 02/21 2129 Orders Procedure Date/time Status DIET-NOTHING BY MOUTH 02/[address] ABD/PELVIS REQ 02/21 2304 Active BETA-HCG, QUANT 02/21 2140 Complete IV SALINE LOCK 02/20 2129 Active URINALYSIS/COMPLETE 02/20 2129 Complete URINE 02/20 2129 Complete CBC WITH AUTO DIFF 02/20 2129 Complete CHEM 12 PROFILE 02/20 2129 Complete CULTURE, URINE 02/21 2120 Active XRAY/CT/US XRAY/CT/US CT abdomen, pelvis CT interpretation by discussed w/radiologist CT Results CT scan abdomen and pelvis without IV contrast, see radiologist's report, suggestive of previously repaired ventral hernia with mesh, with fat herniation around the mesh Departure Departure Time of Disposition 6 Disposition DC Home or Self Care(routine) Clinical Impression Primary Impression: UTI (urinary tract infection) Qualifiers: Urinary tract infection type: acute cystitis Hematuria presence: without hematuria Qualified Code: N30.00 - Acute cystitis without hematuria Secondary Impressions: Ventral hernia Qualifiers: Obstruction and gangrene presence: without obstruction or gangrene Qualified Code: K43.9 - Ventral hernia without obstruction or gangrene Condition STABLE Referrals HA SAAVEDRA: Today after leaving ER Patient Instructions DI for Urinary Tract Infection (UTI), DI for Ventral Hernia Additional Instructions Please take the medications prescribed as directed, follow-up with Dr. Saavedra, within the next 2 days. Please avoid lifting anything heavier than 5 lbs, he was seen and evaluated by your surgeon, Dr. Saavedra. Discharge Counseling Counseled pt/family regarding diagnosis, test results, medications/RX, home care, follow up needs Comment Please take the medications prescribed as directed, follow-up with Dr. Saavedra, within the next 2 days. Please avoid lifting anything heavier than 5 lbs, he was seen and evaluated by your surgeon, Dr. Saavedra. Prescriptions Current Visit Scripts SULFAMETHOXAZOLE W/TRIMETHOPRI (Bactrim Ds Tab) 1 TABLET PO BID #20 TAB Diflunisal (Dolobid 500MG Tab) 500 MG PO BID #20 TAB ED Critical Care Critical Care No at 0617
[2017-02-21] MEDS ORDERED: BACTRIM DS 8001 TA1 PO (00:10)
[2017-02-21] MEDS ORDERED: DOLOBID 500MG500 MG PO (00:13)
[2017-02-21 00:21] VITALS: BP 132/91
--- NOTE | 2017-02-21 05:26 | RADIOLOGY REPORT PS360 ---
CT ABD PELVIS W/O CONTRAST CLINICAL INDICATION: ABD PAIN ORDERING PHYSICIAN: Jono Bianchi MD PATIENT AGE: 31 years COMPARISON: None TECHNIQUE: Axial images obtained with sagittal and coronal reformats. PROCEDURE: Oral Contrast: None IV Contrast: None . FINDINGS: Lower chest has an unremarkable appearance. There is diffuse hepatic steatosis with some scattered hyperdensities around the gallbladder fossa region and may be related to sparing of fatty liver. There is mild hepatomegaly. Splenomegaly at 15 cm. No radio opaque gallstones or biliary dilatation. The pancreas and adrenal glands are unremarkable. No renal calculi or hydronephrosis. No intestinal obstruction or free air. No evidence of diverticulitis or appendicitis. No pelvic mass or abnormal fluid collection There are postsurgical changes of the anterior abdominal wall with prior ventral abdominal hernia repair. There is a 3.2 x 5.9 x 2.5 cm area of herniation of fat into the abdominal wall superficial to the hernia repair as before. No acute bony anomalies. IMPRESSION: 1. No acute intra-abdominal or pelvic pathology. 2. Mild hepatosplenomegaly with hepatic steatosis. 3. Prior ventral hernia repair with herniation of fat into the anterior abdominal wall superficial to the repair. Overall no change
== END 2017-02-21 00:22 | disposition home or self-care (01) ==
LOC: ER 21:12
PROVIDERS: Emergency Medicine
DX: N30.00 Acute cystitis without hematuria (principal); K43.9 Ventral hernia without obstruction or gangrene; F41.8 Other specified anxiety disorders; N28.9 Disorder of kidney and ureter, unspecified; D64.9 Anemia, unspecified; Z88.6 Allergy status to analgesic agent